=== PATIENT | female | born 1980 | race Hispanic/Latino ===

== ENCOUNTER 2017-02-24 16:25 | Emergency (ER) | payer BC ==
[~2017-02-24] VITALS: Ht 167.6 cm; Wt 127.0 kg
[~2017-02-24 16:25] MED LIST: COZAAR50 MG PO; ESCITALOPRAM OXA5 MG PO; LISINOPRIL-HCT1 EACH PO; LOSARTAN-HCTZ1 EACH PO; METOPROLOL TART50 MG PO; NORCO 5-325 TA1 EACH PO; SPIRONOLACTONE50 MG PO
--- NOTE | 2017-02-25 08:03 | EKG ---
[facility] [address] [facility] [place] [address] Signed Normal sinus rhythm Moderate voltage criteria for LVH, may be normal variant Prolonged QT Abnormal ECG No previous ECGs available Confirmed by OLIVIA JOHANSEN MD ([id number]) on 02/25/2017 8:03:14 AM Electronically Signed By: OLIVIA JOHANSEN MD 02/25/17 0803 PATIENT NAME: CATARINA MEJIA Electrocardiogram DATE OF : 80 PHYSICIAN: OLIVIA JOHANSEN MD REPORT #: [id number] REPORT IS CONFIDENTIAL AND NOT TO BE RELEASED WITHOUT AUTHORIZATION
== END 2017-02-24 19:40 | disposition home or self-care (01) ==
LOC: ED 16:25
DX: I16.9 Hypertensive crisis, unspecified (principal); I10 Essential (primary) hypertension; F41.9 Anxiety disorder, unspecified; Z90.49 Acquired absence of other specified parts of digestive tract; Z98.51 Tubal ligation status; Z88.8 Allergy status to other drugs, medicaments and biological substances; Z79.899 Other long term (current) drug therapy
CPT/HCPCS: 80053; 84484; 85025; 85610; 85730; 93005; 93010; 96374; 99284

== ENCOUNTER 2017-03-11 06:14 | Emergency (ER) | payer BC ==
[~2017-03-11] VITALS: Ht 167.6 cm; Wt 127.0 kg
--- NOTE | 2017-03-12 19:15 | EKG ---
[facility] [address] [facility] [place] [address] Signed Normal sinus rhythm Voltage criteria for left ventricular hypertrophy Abnormal ECG When compared with ECG of 24-FEB-2017 16:36, No significant change was found Confirmed by OLIVIA JOHANSEN MD ([id number]) on 03/12/2017 7:15:41 PM Electronically Signed By: OLIVIA JOHANSEN MD 03/12/17 1915 PATIENT NAME: CATARINA MEJIA Electrocardiogram DATE OF : 80 PHYSICIAN: OLIVIA JOHANSEN MD REPORT #: [id number] REPORT IS CONFIDENTIAL AND NOT TO BE RELEASED WITHOUT AUTHORIZATION
== END 2017-03-11 08:36 | disposition home or self-care (01) ==
LOC: ED 06:14
DX: I47.1 Supraventricular tachycardia (principal); E87.6 Hypokalemia; I10 Essential (primary) hypertension; F41.9 Anxiety disorder, unspecified; E66.9 Obesity, unspecified; Z90.49 Acquired absence of other specified parts of digestive tract; Z98.51 Tubal ligation status; Z90.89 Acquired absence of other organs; Z88.8 Allergy status to other drugs, medicaments and biological substances; Z79.899 Other long term (current) drug therapy
CPT/HCPCS: 71010; 80053; 83735; 84484; 85025; 93005; 93010; 99284

== ENCOUNTER 2017-06-11 18:46 | Emergency (ER) | payer BC ==
[~2017-06-11] VITALS: Ht 167.6 cm; Wt 122.5 kg
== END 2017-06-11 20:50 | disposition left against medical advice (07) ==
LOC: ED 18:46
DX: Z53.21 Procedure and treatment not carried out due to patient leaving prior to being seen by health care provider (principal)

== ENCOUNTER 2017-06-14 21:47 | Emergency (ER) | payer BC, OTHER ==
[~2017-06-14] VITALS: Ht 167.6 cm; Wt 131.5 kg
[2017-06-14] MEDS ORDERED: BENZONATATE100 MG PO (22:01)
--- NOTE | 2017-06-15 14:56 | EKG ---
[facility] [address] [facility] [place] [address] Signed Sinus tachycardia Voltage criteria for left ventricular hypertrophy Abnormal ECG When compared with ECG of 11-MAR-2017 06:20, No significant change was found Confirmed by OLIVIA JOHANSEN MD ([id number]) on 06/15/2017 2:56:42 PM Electronically Signed By: OLIVIA JOHANSEN MD 06/15/17 1456 PATIENT NAME: ROBERTOCATARINA Electrocardiogram DATE OF : 80 PHYSICIAN: OLIVIA JOHANSEN MD REPORT #: [id number] REPORT IS CONFIDENTIAL AND NOT TO BE RELEASED WITHOUT AUTHORIZATION
== END 2017-06-15 00:41 | disposition home or self-care (01) ==
LOC: ED 21:47
DX: I10 Essential (primary) hypertension (principal); R07.2 Precordial pain; F41.9 Anxiety disorder, unspecified; E66.9 Obesity, unspecified; Z88.8 Allergy status to other drugs, medicaments and biological substances; Z79.899 Other long term (current) drug therapy
CPT/HCPCS: 71045; 80053; 81001; 84484; 85025; 93005; 93010; 99284

== ENCOUNTER 2017-10-01 21:59 | Emergency (ER) | payer BC, OTHER ==
[~2017-10-01] VITALS: Ht 167.6 cm; Wt 127.0 kg
[~2017-10-01 21:59] MED LIST changes: +BENZONATATE100 MG PO
--- NOTE | 2017-10-02 07:54 | EKG ---
[facility] [address] [place], [place] [address] Signed Sinus tachycardia Minimal voltage criteria for LVH, may be normal variant Borderline ECG When compared with ECG of 14-JUN-2017 21:52, No significant change was found Confirmed by ENA MACARIO MD ([id number]) on 10/02/2017 7:54:26 AM Electronically Signed By: ENA MACARIO MD 10/02/17 0754 PATIENT NAME: CATARINA MEJIA Electrocardiogram DATE OF : 80 PHYSICIAN: ENA MACARIO MD REPORT #: [id number] REPORT IS CONFIDENTIAL AND NOT TO BE RELEASED WITHOUT AUTHORIZATION
== END 2017-10-02 01:09 | disposition home or self-care (01) ==
LOC: ED 21:59
DX: R07.9 Chest pain, unspecified (principal); I10 Essential (primary) hypertension; F41.9 Anxiety disorder, unspecified; E66.9 Obesity, unspecified; Z88.8 Allergy status to other drugs, medicaments and biological substances; Z79.899 Other long term (current) drug therapy
CPT/HCPCS: 71045; 80053; 84484; 85025; 93005; 93010; 96361; 96374; 96375; 99284; J2060; J7030

== ENCOUNTER 2017-12-20 07:44 | Emergency (ER) | payer BC ==
[~2017-12-20] VITALS: Ht 167.6 cm; Wt 127.0 kg
[2017-12-20] MEDS ORDERED: METOPROLOL SUC200 MG PO (08:01)
[2017-12-20] MEDS ORDERED: ALPRAZOLAM0.5 MG PO (08:02)
[2017-12-20] MEDS ORDERED: NORCO 5-325 TA1 EACH PO (08:18)
[2017-12-20] MEDS ORDERED: METHYLPREDNISOLO4 M1 PO (08:18)
[2017-12-20] MEDS ORDERED: BACLOFEN10 MG PO (08:18)
== END 2017-12-20 08:28 | disposition home or self-care (01) ==
LOC: ED 07:44
DX: M99.03 Segmental and somatic dysfunction of lumbar region (principal); I10 Essential (primary) hypertension; E66.9 Obesity, unspecified; Z88.8 Allergy status to other drugs, medicaments and biological substances; Z79.899 Other long term (current) drug therapy
CPT/HCPCS: 99283

== ENCOUNTER 2017-12-26 22:32 | Emergency (ER) | payer BC ==
[~2017-12-26] VITALS: Ht 170.2 cm; Wt 127.0 kg
[~2017-12-26 22:32] MED LIST changes: +ALPRAZOLAM0.5 MG PO; +BACLOFEN10 MG PO; +METHYLPREDNISOLO4 M1 PO; +METOPROLOL SUC200 MG PO
[2017-12-26] MEDS ORDERED: LISINOPRIL5 MG PO (22:46)
[2017-12-27] MEDS ORDERED: DICLOFENAC SODI75 MG PO (02:29)
--- NOTE | 2017-12-27 11:37 | EKG ---
[facility] [address] [facility] [place] [address] Signed Normal sinus rhythm Possible Left atrial enlargement Left ventricular hypertrophy Abnormal ECG When compared with ECG of 01-OCT-2017 22:04, No significant change was found Confirmed by OLIVIA JOHANSEN MD ([id number]) on 12/27/2017 11:36:58 AM Electronically Signed By: OLIVIA JOHANSEN MD 12/27/17 1137 PATIENT NAME: CATARINA MEJIA Electrocardiogram DATE OF : 80 PHYSICIAN: OLIVIA JOHANSEN MD REPORT #: [id number] REPORT IS CONFIDENTIAL AND NOT TO BE RELEASED WITHOUT AUTHORIZATION
== END 2017-12-27 03:10 | disposition home or self-care (01) ==
LOC: ED 22:32
DX: R07.9 Chest pain, unspecified (principal); I10 Essential (primary) hypertension; F41.9 Anxiety disorder, unspecified; E66.9 Obesity, unspecified; Z79.899 Other long term (current) drug therapy
CPT/HCPCS: 71045; 80053; 84484; 85025; 93005; 93010; 99285

== ENCOUNTER 2018-01-06 13:38 | Emergency (ER) | payer BC ==
[~2018-01-06] VITALS: Ht 170.2 cm; Wt 127.0 kg
[~2018-01-06 13:38] MED LIST changes: +DICLOFENAC SODI75 MG PO; +LISINOPRIL5 MG PO
--- NOTE | 2018-01-08 08:00 | EKG ---
[facility] [address] [facility] [place] [address] Signed Supraventricular tachycardia Left ventricular hypertrophy with repolarization abnormality Abnormal ECG When compared with ECG of 26-DEC-2017 22:38, Vent. rate has increased BY [address] now depressed in Anterolateral leads Inverted T waves have replaced nonspecific T wave abnormality in Lateral leads Confirmed by ENA MACARIO MD ([id number]) on 01/08/2018 8:00:26 AM Electronically Signed By: ENA MACARIO MD 01/08/18 0800 PATIENT NAME: CATARINA MEJIA Electrocardiogram DATE OF : [birth year] PHYSICIAN: ENA MACARIO MD REPORT #: [id number] REPORT IS CONFIDENTIAL AND NOT TO BE RELEASED WITHOUT AUTHORIZATION
--- NOTE | 2018-01-08 08:01 | EKG ---
[facility] [address] [place], [place] [address] Signed Sinus tachycardia Moderate voltage criteria for LVH, may be normal variant Borderline ECG When compared with ECG of 26-DEC-2017 22:38, No significant change was found Confirmed by ENA MACARIO MD ([id number]) on 01/08/2018 8:00:47 AM Electronically Signed By: ENA MACARIO MD 01/08/18 0801 PATIENT NAME: CATARINA MEJIA Electrocardiogram DATE OF : [birth year] PHYSICIAN: ENA MACARIO MD REPORT #: [id number] REPORT IS CONFIDENTIAL AND NOT TO BE RELEASED WITHOUT AUTHORIZATION
== END 2018-01-06 15:43 | disposition home or self-care (01) ==
LOC: ED 13:38
DX: I47.1 Supraventricular tachycardia (principal); I10 Essential (primary) hypertension; F41.9 Anxiety disorder, unspecified; E66.9 Obesity, unspecified; Z79.899 Other long term (current) drug therapy
CPT/HCPCS: 71045; 80053; 83735; 84484; 85025; 93005; 93010; 96374; 99285; J0153

== ENCOUNTER 2018-05-17 18:20 | Emergency (ER) | payer BC, OTHER ==
[~2018-05-17] VITALS: Ht 170.2 cm; Wt 127.0 kg
--- OUTSIDE RECORDS SUMMARY | 2018-05-17 18:26 | XMS ---
PreManage Notification: CATARINA MEJIA Security Abalone Diver Events 1 event(s) in the past 18 months Most recent security events: Elopement at [facility] 06/11/2017 18:47 - Patient eloped before treatment completed. Details: [facility] CRITERIA MET - Group Notification CARE PROVIDERS ITZ FLOWERS Physician Supervisor Computer Operations 12/21/2017-Current PHONE: Unknown Chris Winn Treatment Current PHONE: Unknown [facility] Other Current Orthopedic Surgery \T\ Fracture Clinic PHONE: Unknown Leti has no Care Guidelines for this patient. Care History Medical/Surgical 01/07/2018 [facility] - PATIENT IS FOLLOWING UP WITH PCP JERRY FLOWERS. - PATIENT HAS PREVIOUSLY DECLINED REFERRALS TO A GUT DROPPER SUGGESTED BY PCP. - NEXT FOLLOW UP APT WILL BE ON 01/14 AND PCP WILL DISCUSS THE GUT DROPPER REFERRAL. Anshu VISIT COUNT (12 MO.) 7 [facility] TOTAL 7 NOTE: Visits indicate total known visits. 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 - Shortness of breath - Anxiety disorder, unspecified - Obesity, unspecified - Supraventricular tachycardia - Essential (primary) hypertension 12/26/2017 22:32 [facility] [place] TYPE: Emergency COMPLAINT: - CHEST PAIN DIAGNOSES: - Essential (primary) hypertension - Chest pain, unspecified - Anxiety disorder, unspecified - Other chest pain - Other alf (current) drug therapy - Obesity, unspecified 12/20/2017 07:45 [facility] [place] TYPE: Emergency COMPLAINT: - BILAT KNEE PAIN/BACK PAIN/FALL DIAGNOSES: - Essential (primary) hypertension - Allergy status to other drugs, medicaments and biological substances status - Segmental and somatic dysfunction of lumbar region - Pain in right knee - Other alf (current) drug therapy - Obesity, unspecified 10/01/2017 22:00 [facility] [place] TYPE: Emergency COMPLAINT: - CHEST PAIN DIAGNOSES: - Chest pain, unspecified - 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 [facility] [place] TYPE: Emergency COMPLAINT: - CHEST PAIN DIAGNOSES: - Obesity, unspecified - Other computer terminal operator (current) drug therapy - Anxiety disorder, unspecified - Essential (primary) hypertension - Allergy status to other drugs, medicaments and biological substances status - Precordial pain 06/11/2017 18:47 [facility] [place] TYPE: Emergency COMPLAINT: - SOB/COUGH DIAGNOSES: - Procedure and treatment not carried out due to patient leaving prior to being seen by health care provider INPATIENT VISIT TRACKING (12 MO.) No inpatient visits to display in this time frame [email or web address]
[2018-05-17] MEDS ORDERED: LISINOPRIL10 MG PO (18:37)
[2018-05-17] MEDS ORDERED: CLONIDINE HCL0.2 MG PO (18:39)
--- NOTE | 2018-05-17 23:00 | EKG ---
[facility] [address] [facility] [place] [address] Signed Sinus tachycardia Possible Left atrial enlargement Left ventricular hypertrophy Abnormal ECG When compared with ECG of 06-JAN-2018 13:57, T wave inversion now evident in Anterior leads Confirmed by OLIVIA JOHANSEN MD ([id number]) on 05/17/2018 11:00:17 PM Electronically Signed By: OLIVIA JOHANSEN MD 05/17/18 2300 PATIENT NAME: CATARINA MEJIA Electrocardiogram DATE OF : 80 PHYSICIAN: OLIVIA JOHANSEN MD REPORT #: [id number] REPORT IS CONFIDENTIAL AND NOT TO BE RELEASED WITHOUT AUTHORIZATION
== END 2018-05-17 20:58 | disposition home or self-care (01) ==
LOC: ED 18:20
DX: I16.0 Hypertensive urgency (principal); F41.9 Anxiety disorder, unspecified; E66.9 Obesity, unspecified; Z79.899 Other long term (current) drug therapy
CPT/HCPCS: 71045; 80053; 83735; 84484; 85025; 93005; 93010; 96374; 99283-25

== ENCOUNTER 2018-10-13 12:37 | Emergency (ER) | payer SELFPAY ==
[~2018-10-13] VITALS: Ht 167.6 cm; Wt 124.7 kg
[~2018-10-13 12:37] MED LIST changes: +CLONIDINE HCL0.2 MG PO; +LISINOPRIL10 MG PO
--- OUTSIDE RECORDS SUMMARY | 2018-10-13 12:40 | XMS ---
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 Details: [facility] CRITERIA MET - Group Notification - [facility] - Has Care Guidelines CARE PROVIDERS ITZ FLOWERS Physician Outside Sales Account Representative 12/21/2017-Current PHONE: Unknown Chris Winn Current PHONE: Unknown [facility] Current Orthopedic Surgery \T\ Fracture Clinic PHONE: Unknown Leti has no Care Guidelines for this patient. Care History Medical/Surgical 01/07/2018 [facility] - PATIENT IS FOLLOWING UP WITH PCP JERRY FLOWERS. - PATIENT HAS PREVIOUSLY DECLINED REFERRALS TO A FILLER SHAKER SUGGESTED BY PCP. - NEXT FOLLOW UP APT WILL BE ON 01/14 AND PCP WILL DISCUSS THE FILLER SHAKER REFERRAL. Anshu VISIT COUNT (12 MO.) [address] [facility] TOTAL 5 NOTE: Visits indicate total known visits. 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 01/06/2018 13:38 [facility] [place] TYPE: Emergency COMPLAINT: - DIFFICULTY BREATHING DIAGNOSES: - Other fpc (current) drug therapy - Shortness of breath - Anxiety disorder, unspecified - Obesity, unspecified - Supraventricular tachycardia - Essential (primary) hypertension 12/26/2017 22:32 [facility] [place] TYPE: Emergency COMPLAINT: - CHEST PAIN DIAGNOSES: - Essential (primary) hypertension - Chest pain, unspecified - Anxiety disorder, unspecified - Other chest pain - Other fpc (current) drug therapy - Obesity, unspecified 12/20/2017 07:45 [facility] [place] TYPE: Emergency COMPLAINT: - BILAT KNEE PAIN/BACK PAIN/FALL DIAGNOSES: - Essential (primary) hypertension - Allergy status to other drugs, medicaments and biological substances status - Segmental and somatic dysfunction of lumbar region - Pain in right knee - Other fpc (current) drug therapy - Obesity, unspecified INPATIENT VISIT TRACKING (12 MO.) No inpatient visits to display in this time frame [email or web address]
[2018-10-13] MEDS ORDERED: ONDANSETRON ODT8 MG PO (15:37)
--- NOTE | 2018-10-13 20:39 | EKG ---
[facility] [address] [facility] [place] [address] Signed Normal sinus rhythm Minimal voltage criteria for LVH, may be normal variant Nonspecific T wave abnormality Abnormal ECG When compared with ECG of 17-MAY-2018 18:34, No significant change was found Confirmed by OLIVIA JOHANSEN MD ([id number]) on 10/13/2018 8:38:59 PM Electronically Signed By: OLIVIA JOHANSEN MD 10/13/18 2039 PATIENT NAME: CATARINA MEJIA Electrocardiogram DATE OF : 80 PHYSICIAN: OLIVIA JOHANSEN MD REPORT #: [id number] REPORT IS CONFIDENTIAL AND NOT TO BE RELEASED WITHOUT AUTHORIZATION
== END 2018-10-13 15:59 | disposition home or self-care (01) ==
LOC: ED 12:37
DX: A08.4 Viral intestinal infection, unspecified (principal); I10 Essential (primary) hypertension; E66.9 Obesity, unspecified; F41.9 Anxiety disorder, unspecified; Z90.49 Acquired absence of other specified parts of digestive tract; Z79.899 Other long term (current) drug therapy
CPT/HCPCS: 80053; 83690; 84484; 85025; 93005; 93010; 96361; 96374; 99284-25; J2405; J7040

== ENCOUNTER 2019-03-15 23:31 | Emergency (ER) | payer SELFPAY ==
[~2019-03-15] VITALS: Ht 167.6 cm; Wt 124.7 kg
--- OUTSIDE RECORDS SUMMARY | ~2019-03-15 | XMS | Clinical Summary ---
Demographics + + + | Address | [address] | | | [place] [address] | + + + | Home Phone | | + + + | Preferred Language | Unknown | + + + | Marital Status | Unknown | + + + | Sikh Affiliation | Unknown | + + + | Race | Unknown | + + + | Ethnic Group | Unknown | + + + Author + + + | Author | [facility] | | | and [place] | + + + | Organization | [facility] | | | [...] Team Providers + +------+ + | Care Quality Control Lab Tech Name | Role | Phone | + +------+ + | Nicole Parikh PA-C | PCP | | + +------+ + Allergies + + + + + + | Active Allergy | Reactions | Severity | Noted | Comments | | | | | Date | | + + + + + + | Lisinopril-Hydrochlo | Cough | Low | 10/24/20 | | | rothiazide | | | [...] + + +---------+------+------+-------+ | metoprolol | Take 200 mg by mouth | | 0 | 10/2 | | Activ | | succinate | daily. | | | 4/20 | | e | | (TOPROL-XL) 200 mg | | | | 18 | | | | ER tablet | | | | | | | + + + +---------+------+------+-------+ | ALPRAZolam (XANAX) | Take 0.5 mg by mouth | | 0 | 10/2 | | Activ | | 0.5 mg tablet | nightly as needed | | | 4/20 | | e | | | for Sleep. | | | 18 | | | + + + +---------+------+------+-------+ | cloNIDine | Take 1 tablet by | 60 | 11 | /2 | /2 | Activ | | (CATAPRES) 0.2 MG | mouth as needed (PRN | tablet | | 4/20 | 20 | e | | tablet | SBP>190). | | | 19 | 20 | | + + + +---------+------+------+-------+ | lisinopril | Take 1 tablet by | 30 | 3 | /2 | | Activ | | (PRINIVIL,ZESTRIL) | mouth daily. | tablet | | 4/20 | | e | | 40 MG tablet | | | | 19 | | | + + + +---------+------+------+-------+ | chlorthalidone 25 | Take 1 tablet by | 30 | 11 | 04/2 | 04/2 | Activ | | mg tablet | mouth daily. | tablet | | /20 | /20 | e | | | | | | 19 | 20 | | + + + +---------+------+------+-------+ | dilTIAZem | Take 1 tablet by | 30 | 11 | 02/09 | 02/09 | Expir | | (CARDIZEM LA) 120 mg | mouth daily. | tablet | | 09/27 | 09/27 | ed | | 24 hr tablet | | | | 18 | 19 | | + + + +---------+------+------+-------+ Active Problems + + + | Problem | Noted Date | + + + | AVNRT (AV eriberto [...] + | 12/24/ | Orders Only | Cardiology | Nisha Forde DO | Essential (primary) | | 2019 | | | | hypertension | +--------+ + + + + from [...] Alive | | + +------+--------+ + | Father | | | | + +------+--------+ + | Mother [...] Filed Vital Signs + + + + | Vital Sign | Reading | Time Taken | + + + + | Blood Pressure | 152/100 | 09/02/2018899 PDT | + + + + | Pulse | 72 | 09/02/2018 09 PDT | + + + + | Temperature | - | - | + + + + | Respiratory Rate | - | - | + + + + | Oxygen Saturation | - | - | + + + + | Inhaled Oxygen | - | - | | Concentration | | | + + + + | Weight | 127 kg (280 lb) | 09/02/2018899 PDT | + + + + | Height | 167.6 cm (5' 6") | 09/02/2018899 PDT | + + + + | Body Mass Index | 45.19 | 09/02/2018899 PDT | + + + + Plan of Treatment +--------+---------+ + + + | Date | Type | Specialty | Care Team | Description | +--------+---------+ + + + | 04/01/ | Office | Otolaryngology | Monika Morillo | | | 2019 | Visit | | DO Topher Nugent | | | | | | [address] | | | | | | [place] [address] | | | | | | [phone] | | | | | | | | +--------+---------+ + + + + + + + + | Health Maintenance | Due Date | Last Done | Comments | + + + + + | Vaccine: | | | | | Dtap/Tdap/Td (1 - | 9 | | | | Tdap) | | | | + + + + + | Cervical Cancer | | | | | Screening (Pap) | 0 | | | + + + + + | Vaccine: Influenza | | | | | (#1) | 9 | | | + + + + [...] +--------+ +---------+------+ | [facility] | REGENC | [id number] | 05/11/19 | [phone] | | PPO | | | E [...] | | al/Fam | | 1979 | [phone] | [place], [place] | | | [place] | | | 1 (Home) | [address] | + +--------+ +--------+ + + | Tamera Yang | Person | Self | [birth year] | [address] | | | al/Fam | | 1979 | [phone] | [place], [place] | | | [place] | | | 1 (Home) | [address] | + +--------+ +--------+ + + Advance Directives Patient has advance care planning documents on file. For more information, please contact:[facility] [place] [place] [address]
--- OUTSIDE RECORDS SUMMARY | ~2019-03-15 | XMS | Clinical Summary ---
Demographics + + + | Address | [address] | | | [place] [address] | + + + | Home Phone | | + + + | Preferred Language | Unknown | + + + | Marital Status | Unknown | + + + | Christian Affiliation | Unknown | + + + | Race | Unknown | + + + | Ethnic Group | Unknown | + + + Author + + + | Author | [facility] | | | and [place] | + + + | Organization | [facility] | [...] Team Providers + +------+ + | Care Mechanical Laboratory Technician Name | Role | Phone | [...] | | | | | [place] [address] | | | | | | [phone] | | | | | | | [...] +--------+ +---------+------+ | [facility] | REGENC | [id number] | 05/11/19 | [phone] | | PPO | | | E [...] | | al/Fam | | 1979 | [phone] | [place], [place] | | | [place] | | | 1 (Home) | [address] | + +--------+ +--------+ + + | Tamera Yang | Person | Self | [birth year] | [address] | | | al/Fam | | 1979 | [phone] | [place], [place] | | | [place] | | | 1 (Home) | [address] | + +--------+ +--------+ + + Advance Directives Patient has advance care planning documents on file. For more information, please contact:[facility] [employer] Online Scheduling [facility] [place] [address]
--- OUTSIDE RECORDS SUMMARY | ~2019-03-15 | XMS | Encounter Summary ---
Demographics + + + | Address | [address] | | | [place] [address] | + + + | Home Phone | | + + + | Preferred Language | Unknown | + + + | Marital Status | Unknown | + + + | Druze Affiliation | Unknown | + + + | Race | Unknown | + + + | Ethnic Group | Unknown | + + + Author + + + | Author | [facility] | | | and [place] | + + + | Organization | [facility] | | | [...] Team Providers + +------+ + | Care Wet Silk Hanger Name | Role | Phone | + +------+ + | Nicole Parikh PA-C | PCP | | + +------+ + Encounter Details +--------+ + + + + | Date | Type | Department | Care Team | Description | +--------+ + + + + | 12/24/ | Orders Only | [facility] | Nisha Forde DO | Essential (primary) | | 2019 | | CARDIOLOGY [place] | [address] | hypertension | | | | [address] | [place], [place] | | | | | [address] | [address] | | | | | [place], [place] | | | | | | [address] | | | | | | [phone] | | | +--------+ + + + [...] [place] | | | | | | [address] | | | | | | [place] [address] | | | | | | [phone] | | | | | | | | +--------+---------+ + + + + +--------+ + + | Name | Priori | Associated Diagnoses | Order Schedule | | | ty | | | + +--------+ + + | Basic Metabolic Panel | Routin | Essential | Expected: | | | e | (primary) | 06/03/2018, Expires: | | | | hypertension | 06/03/2019 | + +--------+ + + | Basic Metabolic Panel | Routin | Essential | Expected: | | | e | (primary) | 09/02/2018, Expires: | | | | hypertension | 09/03/2019 | + +--------+ + + documented as of this encounter Visit Diagnoses + + | Diagnosis | + + | Essential (primary) hypertension Unspecified essential hypertension | + + documented in this encounter"
--- OUTSIDE RECORDS SUMMARY | ~2019-03-15 | XMS | Encounter Summary ---
Demographics + + + | Address | [address] | | | [place] [address] | + + + | Home Phone | | + + + | Preferred Language | Unknown | + + + | Marital Status | Unknown | + + + | Hindu Affiliation [...] Providers + +------+ + | Care Health Care Law Specialist Name | Role | Phone | + +------+ + | Nicole Parikh PA-C | PCP | | + +------+ + Encounter Details +--------+ + + + + | Date | Type | Department | Care Team | Description | +--------+ + + + + | 12/24/ | Orders Only | [facility] | Nisha Forde DO | Essential (primary) | | 2019 | | CARDIOLOGY [place] | [address] | hypertension | | | | [address] | [place], [place] | | | | | [address] | [address] | | | | | [place], [place] | | | | | | [address] | | | | | | [phone] | | | +--------+ + + + [...] | | | | | [place] [address] | | | | | | [phone] | | | | | | | [...]
--- OUTSIDE RECORDS SUMMARY | ~2019-03-15 | XMS | Clinical Summary ---
Demographics + + + | Address | [address] | | | [place] [address] | + + + | Home Phone | | + + + | Preferred Language | Unknown | + + + | Marital Status | | + + + | Episcopalian Affiliation | Unknown | + + + | Race | Unknown | + + + | Ethnic Group | Unknown | + + + Author + + + | Author | [facility] (Historical as of | | | 12-25-18) | + + + | Organization | [facility] (Historical as of | | | 12-25-18) [...] Team Providers + +------+ + | Care Graphic Design Specialist Name | Role | Phone | [...] | AVNRT (AV eriberto re-entry tachycardia) ([facility]) | 03/04/2018 | + + [...]
--- OUTSIDE RECORDS SUMMARY | ~2019-03-15 | XMS | Clinical Summary ---
Demographics + + + | Address | [address] | | | [place] [address] | + + + | Home Phone | | + + + | Preferred Language | Unknown | + + + | Marital Status | | + + + | Temple Affiliation | Unknown | + + + | Race | Unknown | + + + | Ethnic Group | Unknown | + + + Author + + + | Author | [facility] [employer] (Historical as of | | | 12-25-18) | + + + | Organization | [facility] [employer] (Historical as of | | | 12-25-18) [...] Team Providers + +------+ + | Care Bursar Name | Role | Phone | + [...] + | AVNRT (AV eriberto re-entry tachycardia) ([facility]) | 03/04/2018 | + + + [...]
[~2019-03-15 23:31] MED LIST changes: +ONDANSETRON ODT8 MG PO
--- OUTSIDE RECORDS SUMMARY | 2019-03-15 23:34 | XMS ---
PreManage Notification: CATARINA MEJIA Security Gill Box Tender Events No recent Security Events currently on file CRITERIA MET - Group Notification - [facility] CARE PROVIDERS ITZ FLOWERS Physician Tube Washer 12/21/2017-Current PHONE: Unknown [facility] 10/14/2018-Current PHONE: [phone] LISSETTE CHANEY [facility] Current PHONE: [phone] Chris Winn MD PHONE: Unknown [facility] Current Orthopedic Surgery \T\ Fracture Clinic PHONE: Unknown Leti has no Care Guidelines for this patient. Care History Medical/Surgical 01/07/2018 [facility] - PATIENT IS FOLLOWING UP WITH PCP JERRY FLOWERS. - PATIENT HAS PREVIOUSLY DECLINED REFERRALS TO A GYROSCOPIC INSTRUMENT MECHANIC SUGGESTED BY PCP. - NEXT FOLLOW UP APT WILL BE ON 01/14 AND PCP WILL DISCUSS THE GYROSCOPIC INSTRUMENT MECHANIC REFERRAL. Anshu VISIT COUNT (12 MO.) 3 [facility]. TOTAL 3 NOTE: Visits indicate total known visits. ED/UCC VISIT TRACKING (12 MO.) 03/15/2019 23:32 [facility] [place] TYPE: Emergency COMPLAINT: - SOB, HIGH BLOOD PRESSURE 10/13/2018 12:38 [facility] [place] TYPE: Emergency COMPLAINT: - CHEST PAIN/BP PROBLEM DIAGNOSES: - Acquired absence of other specified parts of digestive tract - Essential (primary) hypertension - Other malaise - Obesity, unspecified - Other lobsterman (current) drug therapy - Viral intestinal infection, unspecified Viral int - Anxiety disorder, unspecified 05/17/2018 18:21 [facility] [place] TYPE: Emergency COMPLAINT: - HIGH BLOOD PRESSURE,DIZZINESS DIAGNOSES: - Essential (primary) hypertension - Obesity, unspecified - Anxiety disorder, unspecified - Hypertensive urgency - Other lobsterman (current) drug therapy INPATIENT VISIT TRACKING (12 MO.) No inpatient visits to display in this time frame [email or web address]
[2019-03-15] MEDS ORDERED: CARTIA XT120 MG PO (23:53)
[2019-03-16] MEDS ORDERED: AMLODIPINE BESYL5 MG PO (00:01)
== END 2019-03-16 02:20 | disposition home or self-care (01) ==
LOC: ED 23:31
DX: E04.1 Nontoxic single thyroid nodule (principal); I10 Essential (primary) hypertension; F41.9 Anxiety disorder, unspecified; E66.9 Obesity, unspecified; Z88.8 Allergy status to other drugs, medicaments and biological substances; Z79.899 Other long term (current) drug therapy
CPT/HCPCS: 36415; 76536; 80053; 84443; 85025; 99285-25

== ENCOUNTER 2019-05-09 10:45 | Emergency (ER) | payer SELFPAY ==
[~2019-05-09] VITALS: Ht 167.6 cm; Wt 123.8 kg
--- OUTSIDE RECORDS SUMMARY | ~2019-05-09 | XMS | Encounter Summary ---
Demographics + + + | Address | [address] | | | [place] [address] | + + + | Home Phone | | + + + | Preferred Language | Unknown | + + + | Marital Status | Single | + + + | Sabianism Affiliation | Unknown | + + + | Race | Unknown | + + + | Ethnic Group | Unknown | + + + Author + + + | Author | [facility] | | | and [place] | + + + | Organization | [facility] | | | and [place] | + + + | Address | Unknown | + + + | Phone | Unavailable | + + + Support + + +---------+ + | Name | Relationship | Address | Phone | + + +---------+ + | Karey Mullen | ECON | Unknown | | + + +---------+ + Care Team Providers + +------+ + | Care [employer] Name | Role | Phone | + +------+ + | Kiersten Pardo MD | PCP | | + +------+ + Encounter Details +--------+ + + + + | Date | Type | Department | Care Team | Description | +--------+ + + + + | 04/15/ | Preadmit | [facility] | Monika Morillo | Preop testing | | 2019 | Visit | [facility] | J, DO [address] | (Primary Dx) | | | | CLINIC [address] | | | | | [address] [place], [place] | [place] [address] | | | | | [address] | [phone] | | | | | [phone] | | | +--------+ + + + + Social History + +-------+ +--------+------+ | Tobacco Use | Types | Packs/Day | Years | Date | | | | | Used | | + +-------+ +--------+------+ | Never Smoker | | | | | + +-------+ +--------+------+ + +---+---+---+ | Smokeless Tobacco: | | | | | Never Used | | | | + +---+---+---+ + + +---------+ + | Alcohol Use | Drinks/Week | oz/Week | Comments | + + +---------+ + | Yes | | | Alcoholic | | | | | Drinks/day: | | | | | occasional | + + +---------+ + + + + | Sex Assigned at | Date Recorded | | | | + + + | Not on file | | + + + + + + + | Job Start Date | Occupation | Industry | + + + + | Not on file | Not on file | Not on file | + + + + + + + + | Travel History | Travel Start | Travel End | + + + + + + | No recent travel history available. | + + documented as of this encounter Last Filed Vital Signs + + + + + | Vital Sign | Reading | Time Taken | Comments | + + + + + | Blood Pressure | 206/124 | 04/15/2019 12:59 PM | | | | | PST | | + + + + + | Pulse | 89 | 04/15/2019 12:57 PM | | | | | PST | | + + + + + | Temperature | - | - | | + + + + + | Respiratory Rate | - | - | | + + + + + | Oxygen Saturation | 97% | 04/15/2019 12:57 PM | | | | | PST | | + + + + + | Inhaled Oxygen | - | - | | | Concentration | | | | + + + + + | Weight | 123.2 kg (271 lb 9.7 | 04/15/2019 12:47 PM | | | | oz) | PST | | + + + + + | Height | 167.6 cm (5' 6") | 04/15/2019 12:47 PM | | | | | PST | | + + + + + | Body Mass Index | 43.84 | 04/15/2019 12:47 PM | | | | | PST | | + + + + + documented in this encounter Patient Instructions Instructions Herson Fisher RN - 04/15/2019Formatting of this note might be different fr om the original. Outpatient Medications Marked as Taking for the 04/15/19 encounter (Preadmit Visit) with [facility] ROOM 1 Medication Sig Instructions amLODIPine (NORVASC) 5 mg tablet Take 5 mg by mouth. TAKE day of procedure dilTIAZem (CARTIA XT) 120 mg 24 hr capsule Take 120 mg by mouth Daily. TAKE day of proc edure metoprolol succinate (TOPROL-XL) 200 mg ER tablet Take 200 mg by mouth daily. TAKE day of procedure omeprazole (PRILOSEC) 40 MG capsule Take 1 capsule by mouth every morning (before break fast). TAKE day of procedure After Thyroid Surgery(Thyroidectomy) Your doctor will monitor your recovery to be sure you re healing correctly and that your thyroid problem is under control. After your surgery, follow your healthcare provider's instructions exactly. Take your medic vicky or hormone pills every day. And see your healthcare provider for regular checkups. Once your thyroid problems are under control, you can get back to doing the things you like to d o. While you re healing Don t let your incision area get wet for a few days after your surgery. Schedule a follow-up visit with the surgeon or your primary care providerto have your incision checked. If you still have diana or sutures,they may be removed. Your incision will be red and raised at first. It will probably flatten out and fade in about6 months. You may need to take thyroid hormone pills. These pills replace the hormonethat your t hyroid used to make. Yourhealthcare provider will adjust the dosage of this hormone until it s right for you.Make sure to take your thyroid pills on an empty stomach. Your parathyroid glands may not work normally. If so, you may need to take calcium and v itamin D supplements in the first weeks after surgery. Don t do strenuous physical activity for a few weeks. Don t go back to work until yourhealthcare provider says it s OK. Managing your health If you ve been given thyroid hormone pills or other medicine, take these exactly as di rected to help keep your hormones at the right levels.Always take thyroid hormone pills on an empty stomach. See yourhealthcare provider for regular blood tests. These tests are to check that you r hormone medicine is at the right dose for you. If you have a nodule,you may need follow-up tests. These are to check for changes in i ts size or for the appearance of additional nodules. If you ve had treatment for cancer,you will need regular follow-up exams. These are done to check for signs of the cancer returning. When to call yourhealthcare provider Call yourhealthcare provider if you have any of the below: Swelling or bleeding at the incision site Feverof 100.4F (38.0C)or higher, or as advised by your healthcare provider A sore throat that lasts longer than 3weeks Tingling or cramps in the hands,feet, or lips Date Last Reviewed: 03/11/201619991384-1972 [employer]. [address] [place] [address]. All righ ts reserved. This information is not intended as a substitute for professional medical care. Always follow your healthcare professional's instructions. documented in this encounter Plan of Treatment +--------+---------+ + + + | Date | Type | Specialty | Care Team | Description | +--------+---------+ + + + | 07/07/ | Office | Cardiology | Lanie Reece | | | 2019 | Visit | | [address] | | | | | | [address] | | | | | | [place] [address] | | | | | | [phone] | | | | | | | | +--------+---------+ + + + | 07/31/ | Office | Otolaryngology | Monika Morillo | | | 2019 | Visit | | DO Topher Nug[address] | | | | | | [address] | | | | | | [place] [address] | | | | | | [phone] | | | | | | | | +--------+---------+ + + + | 12/07/ | Office | Cardiology | Nisha Forde DO | | | 2019 | Visit | | [address] | | | | | | [place] | | | | | | [address] | | | | | | | | +--------+---------+ + + + documented as of this encounter Procedures + +--------+ + + + | Procedure Name | Priori | Date/Time | Associated Diagnosis | Comments | | | ty | | | | + +--------+ + + + | CBC WITH | Timed | 04/15/2019 | | Results for this | | DIFFERENTIAL | | 12:54 PM | | procedure are in the | | | | PST | | results section. | + +--------+ + + + | BASIC METABOLIC | Timed | 04/15/2019 | | Results for this | | PANEL | | 12:54 PM | | procedure are in the | | | | PST | | results section. | + +--------+ + + + documented in this encounter Results CBC with Differential (04/15/2019 12:54 PM PST) + + + + + + | Component | Value | Ref Range | Performed | Pathologist | | | | | At | Signature | + + + + + + | WBC | 8.89 | 3.80 - 11.00 | [facility] | | | | | K/uL | LABORATORY | | + + + + + + | RBC | 5.12 (H) | 3.70 - 5.10 | [facility] | | | | | M/uL | LABORATORY | | + + + + + + | Hemoglobin | 14.3 | 11.3 - 15.5 | [facility] | | | | | g/dL | LABORATORY | | + + + + + + | Hematocrit | 41.9 | 34.0 - 46.0 % | [facility] | | | | | | LABORATORY | | + + + + + + | MCV | 81.8 | 80.0 - 100.0 fl | [facility] | | | | | | LABORATORY | | + + + + + + | MCH | 27.9 | 27.0 - 34.0 pg | [facility] | | | | | | LABORATORY | | + + + + + + | MCHC | 34.1 | 32.0 - 35.5 | [facility] | | | | | g/dL | LABORATORY | | + + + + + + | RDW-SD | 41.1 | 37 - 53 fl | [facility] | | | | | | LABORATORY | | + + + + + + | Platelet | 231 | 150 - 400 K/uL | [facility] | | | Count | | | LABORATORY | | + + + + + + | MPV | 8.9 | fl | [facility] | | | | | | LABORATORY | | + + + + + + | Diff Type | AUTOMATED | | [facility] | | | | | | LABORATORY | | + + + + + + | % | 54.30 | % | [facility] | | | Neutrophils | | | LABORATORY | | + + + + + + | % | 36.78 | % | [facility] | | | Lymphocytes | | | LABORATORY | | + + + + + + | Monocyte % | 7.01 | % | [facility] | | | | | | LABORATORY | | + + + + + + | Eosinophils | 1.70 | % | [facility] | | | % | | | LABORATORY | | + + + + + + | Basophils % | 0.21 | % | [facility] | | | | | | LABORATORY | | + + + + + + | Neutrophils | 4.83 | 1.90 - 7.40 | [facility] | | | , Absolute | | K/uL | LABORATORY | | + + + + + + | Absolute | 3.27 | 1.00 - 3.90 | [facility] | | | Lymphocytes | | K/uL | LABORATORY | | + + + + + + | Absolute | 0.62 | 0.00 - 0.80 | [facility] | | | Monocytes | | K/uL | LABORATORY | | + + + + + + | Eosinophils | 0.15 | 0.00 - 0.50 | [facility] | | | , Absolute | | K/uL | LABORATORY | | + + + + + + | Basophils, | 0.02Comment: Testing | 0.00 - 0.10 | [facility] | | | Absolute | performed at [facility], [address] | K/uL | LABORATORY | | | | [address], | | | | | | [place] [address] | | | | + + + + + + + + | Specimen | + + | Blood | + + + + + + + | Performing | Address | City/State/Zipcode | Phone Number | | Organization | | | | + + + + + | [facility] | [address] | [place] [address] | [phone] | + + + + + Basic Metabolic Panel (04/15/2019 12:54 PM PST) + + + + + + | Component | Value | Ref Range | Performed | Pathologist | | | | | At | Signature | + + + + + + | Na | 136 | 135 - 145 | [facility] | | | | | mmol/L | LABORATORY | | + + + + + + | K | 3.6 | 3.5 - 4.9 | [facility] | | | | | mmol/L | LABORATORY | | + + + + + + | Cl | 102 | 99 - 109 mmol/L | [facility] | | | | | | LABORATORY | | + + + + + + | CO2 | 29 | 23 - 32 mmol/L | [facility] | | | | | | LABORATORY | | + + + + + + | Anion Gap | 9 | 5 - 20 mmol/L | [facility] | | | | | | LABORATORY | | + + + + + + | Glucose | 92 | 65 - 99 mg/dL | [facility] | | | | | | LABORATORY | | + + + + + + | BUN | 12 | 8 - 25 mg/dL | [facility] | | | | | | LABORATORY | | + + + + + + | Creatinine | 0.7 | 0.50 - 1.00 | [facility] | | | | | mg/dL | LABORATORY | | + + + + + + | BUN/Creatin | 17 | | [facility] | | | ine Ratio | | | LABORATORY | | + + + + + + | Calcium | 9.6 | 8.5 - 10.5 | [facility] | | | | | mg/dL | LABORATORY | | + + + + + + | Estimated | >60Comment: GFR <60: | >60 | [facility] | | | GFR | CHRONIC KIDNEY DISEASE, | mL/min/1.73m2 | LABORATORY | | | | IF FOUND OVER A 3 MONTH | | | | | | PERIOD.GFR <15: KIDNEY | | | | | | FAILURE.FOR | | | | | | AMERICANS, MULTIPLY THE | | | | | | CALCULATED GFR BY | | | | | | 1.210.This eGFR is | | | | | | calculated using the | | | | | | MDRD IDMS traceable | | | | | | equation.Testing | | | | | | performed at [facility], [address] | | | | | [facility], | | | | | | [place] [address] | | | | + + + + + + + + | Specimen | + + | Blood | + + + + + + + | Performing | Address | City/State/Zipcode | Phone Number | | Organization | | | | + + + + + | [facility] | [address] | [place] [address] | [phone] | + + + + + ECG 12 lead (04/15/2019 12:38 PM PST) + + + + + + | Component | Value | Ref Range | Performed | Pathologist | | | | | At | Signature | + + + + + + | VENTRICULAR | 70 | BPM | [facility] | | | RATE EKG | | | | | + + + + + + | ATRIAL RATE | 70 | BPM | [facility] | | + + + + + + | P-R | 182 | ms | [facility] | | | INTERVAL | | | | | + + + + + + | QRS | 98 | ms | [facility] | | | DURATION | | | | | + + + + + + | Q-T | 404 | ms | [facility] | | | INTERVAL | | | | | + + + + + + | Q-T | 436 | ms | [facility] | | | INTERVAL | | | | | | (CORRECTED) | | | | | + + + + + + | P WAVE AXIS | 23 | degrees | [facility] | | + + + + + + | QRS AXIS | -12 | degrees | [facility] | | + + + + + + | T AXIS | 39 | degrees | [facility] | | + + + + + + | INTERPRETAT | Normal sinus rhythm with | | [facility] | | | ION TEXT | sinus arrhythmiaVoltage | | | | | | criteria for left | | | | | | ventricular | | | | | | hypertrophyAbnormal | | | | | | ECGWhen compared with | | | | | | ECG of 04-MAR-2018 | | | | | | 09:22,No significant | | | | | | change was | | | | | | foundConfirmed by | | | | | | Kiko Roberts MD | | | | | | ([id number]) on 04/17/2019 | | | | | | 7:06:37 AM | | | | + + + + + + + + | Specimen | + + | | + + + + + | Narrative | Performed At | + + + | | | + + + + +---------+ + + | Performing | Address | City/State/Zipcode | Phone Number | | Organization | | | | + +---------+ + + | [facility] | | | | + +---------+ + + documented in this encounter Visit Diagnoses + + | Diagnosis | + + | Preop testing - Primary Preoperative examination, unspecified | + + documented in this encounter
--- OUTSIDE RECORDS SUMMARY | ~2019-05-09 | XMS | Encounter Summary ---
Demographics + + + | Address | [address] | | | [place] [address] | + + + | Home Phone | | + + + | Preferred Language | Unknown | + + + | Marital Status | Single | + + + | Zoroastrianism Affiliation | Unknown | + + + | Race | Unknown | + + + | Ethnic Group | Unknown | + + + Author + + + | Author | [facility] | | | and [place] | + + + | Organization | [facility] | | | [...] Team Providers + +------+ + | Care Fx Artist Name | Role | Phone | + +------+ + | Kiersten Pardo MD | PCP | | + +------+ + Reason for Visit + + + | Reason | Comments | + + + | Follow-up, Office | | | Visit | | + + + Evaluate & Treat (Routine) + +--------+ + + + + | Status | Reason | Specialty | Diagnoses / | Referred By | Referred To | | | | | Procedures | Contact | Contact | + +--------+ + + + + | Pending | | Cardiology | Diagnoses | | Eula, | | Review | | | Essential | Edvin, | DO Nisha | | | | | (primary) | MD Kiersten | [address] | | | | | hypertension | [address] | | | | | | ST | [place] | | | | | Supraventric | [place], | [address] Phone: | | | | | ulmanny | [place] | [phone] | | | | | tachycardia | [address] | Fax: | | | | | (HCC) | Phone: | [phone] | | | | | Procedures | [phone] | | | | | | Consult | Fax: | | | | | | | [phone] | | + +--------+ + + + + Encounter Details +--------+---------+ + + + | Date | Type | Department | Care Team | Description | +--------+---------+ + + + | 05/05/ | Office | [facility] | Lanie Reece | AVNRT (AV eriberto | | 2019 | Visit | CARDIOLOGY [place] | [address] | re-entry | | | | [address] | [address] | tachycardia) (HCC) | | | | [address] | [place] [address] | (Primary Dx); | | | | [place], [place] | [phone] | Essential | | | | [address] | | hypertension; High | | | | [phone] | | triglycerides; | | | | | | Prediabetes; | | | | | | Papillary thyroid | | | | | | carcinoma (HCC); H/O | | | | | | total | | | | | | thyroidectomy; | | | | | | Encounter for | | | | | | monitoring diuretic | | | | | | therapy | +--------+---------+ + + + Social History + +-------+ [...] + + + | Blood Pressure | 150/108 | 05/05/2019 2:38 PM | | | | | PST | | + + + + + | Pulse | 72 | 05/05/2019 2:38 PM | | | | | PST | | + + + + + | Temperature | - | - | | + + + + + | Respiratory Rate | - | - | | + + + + + | Oxygen Saturation | 98% | 05/05/2019 2:38 PM | | | | | PST | | + + + + + | Inhaled Oxygen | - | - | | | Concentration | | | | + + + + + | Weight | 125.3 kg (276 lb 4.8 | 05/05/2019 2:38 PM | | | | oz) | PST | | + + + + + | Height | 167.6 cm (5' 6") | 05/05/2019 2:38 PM | | | | | PST | | + + + + + | Body Mass Index | 44.6 | 05/05/2019 2:38 PM | | | | | PST | | + + + + + documented in this encounter Patient Instructions Patient Instructions Lanie Reece FNP - 05/05/2019 2:30 PM PSTI have ordered you nonfasting labs to be done at [facility] in one month, and drink water prior to having labs done I made changes to medications : I added Indapamide 0.625 mg to take each morning to medica tions, and sent in refills on metoprolol, cardizem, amlodpine, and lisinopril See me back in 2 months, and see me sooner if needed, and I will get you back on Dr. Forde' s schedule for 6 months Please bring your medication bottles to all clinic visits to help us maintain safe care for you, and ensure accurate medication record documented in this encounter Progress Notes Chevy Mary Ann, FNP - 05/05/2019 2:30 PM PSTFormatting of this note might be differe nt from the original. Date of visit: 05/05/2019 Primary Care Physician: Kiersten Pardo MD CHIEF COMPLAINT: Chief Complaint Patient presents with Follow-up, Office Visit HISTORY OF PRESENT ILLNESS: Ms. Tamera Yang is a 39 year old woman who is here today as overdue for follow up o n AVNRT and hypertension. She was accompanied for part of her visit by her and her daughter, but left partway through our visit as her daughter had a doctor's appointment. She is a patient of Dr. Forde and last seen by her 09/02/2018 . Today, I reviewed all previous documentation available to me in electronic medical damian rds and from external sources. 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 Forde on February 2018 after the patient had an emerg ency room visit on December 2017 when had a sudden onset of palpitations and shortness of parvin th, and has been adjusting her medications to control her AVNRT, and hypertension. When last seen by Dr. Forde , her SVT was being controlled by metoprolol succinate 200 m g daily and diltiazem LA 120 mg daily. Her lisinopril was increased to 40 mg Daily,and she was started on chlorthalidone 25 mg daily and had clonidine 0.25 mg as needed for systolic blood pressure >190, and her Echo was reported as unremarkable . Her current and previous testing and procedures are detailed below Since she was last seen, she was diagnosed with papillary thyroid cancer and had a total thyroidectomy on 2018 at [facility] by ENT specialist Dr. Cota. It was noted that she had metastasis to 8 out of 9 lymph nodes and has been referred for radioactive iodine treatment which has n ot been set up yet . She also was seen in the emergency room in October for epigastric pain and vomiting, and no hong that she had not been on her lisinopril for a week , and BP quite high . Her symptoms t hought to be secondary to viral illness with vomiting and diarrhea. They refilled her yamileth nopril and restarted her metoprolol. Her labs were fairly normal and troponin was negative, lipase was normal with normal liver enzymes, CBC normal, normal CMP and her EKG showed nor mal sinus rhythm at 92 bpm with non specific T wave abnormalities She was seen again in the emergency room on March 16 with a swelling in her neck which is making it difficult for her to swallow or breathe. She had an appointment to follow-up with ENT in [facility], and as discussed, diagnosed with thyroid papillary cancer. On that ER visit her blood pressure again was high, and ultrasound of her head and neck showed a dom inant left thyroid nodule. She reports today that she has recovered from her thyroidectomy, and still waiting to menjivar ve her radioactive iodine treatment schedule. She did not bring her medication bottles to the clinic today, and some question as to wheth er or not she is still on Cardizem and metoprolol, and of Cardizem not seen in either of her pharmacy dispense records. She reports that her systolic blood pressure continues to be high, though better control led as predominantly <150 systolic. She also her PCP on April 18, 2019, and note reviewed, and documented she had started her on hydrochlorothiazide 12.5 mg daily, but Tamera does not think she is taking it, and only on amlodipine 5 mg today though 10 mg ordered. She also recommended a Dash diet for her She denies any chest pain, palpitations, pedal edema, dyspnea, dizziness,or syncope. She a lso denies any signs or symptoms of stroke or TIA, or any emergency room visits since discha roland on April 23 from [facility]. She denies any smoking history, drinks caffeine only rarely has stopped drinking soda 2 mo nths ago. She reports she drinks alcohol only on rare occasions, and denies any use of recr eational or illicit drugs except for occasional marijuana edible. 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 REVIEW OF SYSTEMS: Negative except for pertinent items noted in HPI. Constitutional: Denies fatigue or unexplained weight loss. Denies night sweats fevers or chills HENT: Denies nosebleeds. Denies hearing problems. Denies dysphagia Eyes: Denies visual disturbance or double vision. Respiratory/Sleep:: Denies cough and shortness of breath. Denies hemoptysis or excessive s putum production. Denies snoring, orthopnea, PND. Cardiovascular: Denies chest pain, palpitations and leg swelling. Denies history of rheuma tic fever. Denies claudication . Gastrointestinal: GERD, with intermittent epigastric pain. . Denies nausea, vomiting, abd ominal pain and blood in stool. 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 Hx tubal ligation Musculoskeletal: arthralgia to elbows and knees Denies myalgias, back pain. Skin: Denies color change. Denies rash or lesions Neurological: Denies history of stroke/Transient ischemic attack.Denies history of seizures . Denies dizziness, syncope and numbness. Hematological/Oncology . Bruises easily. Denies bleeding history of cancer: papillary thy roid cancer , total thyroidectomy on April 22, 2019, metastasis to 8 out of 9 lymph node s, referred for radioactive iodine treatment. Endocrine:pre- diabetes. thyroid disease w/ papillary thyroid cancer, and total thyroidect saqib 04/2018. . Denies excessive thirst or hunger. Psychiatric/Behavioral: denies any histo ry of depression or anxiety or other psychiatric illness. Vaccines: Current on 02/2019 flu vaccine. Current on pneumonia vaccine? Habits/Social : Denies history of smoking. Rare EtOH use. Drinks occasional soda, coffee, or tea. Denies recreational or illicit drug use. Lives in [place] . 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 Occasional marijuana edible.. Outpatient Medications Prior to Visit Medication Sig Dispense Refill amLODIPine (NORVASC) 5 mg tablet Take 5 mg by mouth. dilTIAZem (CARDIZEM LA) 120 mg 24 hr tablet Take 120 mg by mouth Daily. HYDROcodone-acetaminophen (NORCO) 5-325 mg per tablet Take 1-2 tablets by mouth every 6 hours as needed for Pain. 15 tablet 0 levothyroxine (SYNTHROID) 150 mcg tablet Take 1 tablet by mouth every morning (before b reakfast). 30 tablet 5 lisinopril (PRINIVIL,ZESTRIL) 40 MG tablet Take 1 tablet by mouth daily. 30 tablet 3 metFORMIN (GLUCOPHAGE-XR) 500 mg 24 hr tablet Take 500 mg by mouth 2 times daily (befor e meals). metoprolol succinate (TOPROL-XL) 200 mg ER tablet Take 200 mg by mouth daily. omeprazole (PRILOSEC) 40 MG capsule Take 40 mg by mouth. ondansetron (ZOFRAN ODT) 4 mg disintegrating tablet Take 1 tablet by mouth every 6 hour s as needed for Nausea. 20 tablet 0 No facility-administered medications prior to visit. PHYSICAL EXAM: Wt Readings from Last 3 Encounters: 05/05/19 125.3 kg (276 lb 4.8 oz) 04/28/19 122.9 kg (271 lb) 04/22/19 123 kg (271 lb 2.7 oz) Temp Readings from Last 3 Encounters: 04/28/19 (!) 25 C (77 F) 04/23/19 37.1 C (98.7 F) (Oral) BP Readings from Last 3 Encounters: 05/05/19 (!) 150/108 04/23/19 174/87 04/15/19 (!) 206/124 Pulse Readings from Last 3 Encounters: 05/05/19 72 04/23/19 80 04/15/19 89 GENERAL: Well developed, well nourished, in no distress. Appears approximately older than stated age. HEENT: Normocephalic, atraumatic. EYES: PERRL, EOM normal. MOUTH: Oral mucosae moist, dentition adequate, no lesions noted NECK: No JVD, lymphadenopathy, thyromegaly, bruits. Carotid pulses are 2+ bilaterally. Well-healed thyroidectomy scar to base of neck/upper chest LUNGS/CHEST: Clear bilaterally, with no rales, rhonchi or wheezing noted, respirations unl abored HEART: Nondisplaced PMI, regular rate and rhythm, S1, S2 normal. No murmurs, rubs or gall ops noted. ABDOMEN: Soft, nontender, no organomegaly, masses or bruits. Bowel sounds are normal in a ll 4 quadrants. The abdominal aortic pulsation is not palpable. EXTREMITIES: No edema. Radial pulses 2+ bilaterally. Femoral pulses are 2+ bilaterally wi thout bruits. DP and PT pulses are 2+ bilaterally. No clubbing. SKIN: Warm and dry, capillary refill is normal, no lesions. NEUROLOGIC: Awake, alert and oriented x 3. No focal motor or sensory deficits. PSYCHIATRIC: Appropriate, affect appears normal DATA: Blood tests: Lab Results Component Value Date WBC 8.89 04/15/2019 RBC 5.12 (H) 04/15/2019 HGB 14.3 04/15/2019 HCT 41.9 04/15/2019 PLT 231 04/15/2019 Lab Results Component Value Date NA 136 04/15/2019 K 3.6 04/15/2019 CL 102 04/15/2019 CO2 29 04/15/2019 ANIONGAP 9 04/15/2019 BUN 12 04/15/2019 EGFR >60 04/15/2019 No results found for: CHOL, TRIG, LDL, LDL, GLUF No results found for: BNP, TSH, CRP No results found for: TOTEPI CARDIAC PROCEDURES/IMAGING-none VASCULAR TESTING AND PROCEDURES-none ECHO Echo: 06/10/2018: ( [facility]): TDS. Suboptimal views. This rhythm. EF 55-60%, LV normal in siz e with mild LVH, indeterminate diastolic function. RV normal in size and function. LA WNL. Aortic valve trileaflet, no AI or stenosis. Mitral valve normal, none/trace MR. RA press ures not assessed due to absence of TR jet. Pulmonic valve not well visualized. No pericar dial effusion. IVC WNL, CVP 5-10. Aortic root, ascending aorta, and aortic arch are normal . No mass, no clot, no ASD, no VSD Echo: 07/20/2015: ( [facility]) TDS: Grossly normal study: LV normal in size and wall thickness wit h EF 60%. Normal diastolic function. RV normal in size and function. Normal size atria. Aortic valve trileaflet no aortic stenosis or regurgitation. Mitral valve normal, trace MR. Tricuspid valve normal, trace TR. Pulmonic valve not well visualized. No pericardial eff usion. IVC WNL, CVP 5-10 EKG/EVENT MONITOR EK10/13/2018: [facility] ER: Normal sinus rhythm, low voltage QRS aVF, V2 V3 and lateral leads. Rate 92 bpm, LA 1020, QTC 455 ms, nonspecific T wave abnormality, tracing personally reviewe d by me EK04/15/2019:( [facility]) Sinus rhythm with sinus arrhythmia, LVH. Rate 70 bpm, LA 182 ms, Q RS 98 ms, QTC 436 ms, tracing personally reviewed by me EK05/05/2019: Normal sinus rhythm, low voltage QRS leads aVF, V2 V3 and lateral leads, o ngoing nonspecific T wave abnormality. Rate 72 bpm, LA 188 ms, QRS 94 ms, QTC 451 ms, muna jacques personally reviewed by me, and similar morphology to EKG performed on April 15 except s inus arrhythmia resolved, and rate better controlled LABS Labs: 02/18/2019: CMP: Glucose 109, BUN 13, creatinine 0.65, GFR 112, sodium 140, potassium 3.5, chloride 98, calcium 9.7, total bili 0.3, alk phos 88, AST 21, ALT 20 albumin 4.3 Hgb A1c 6.1 Lipids: ( no statin) Cholesterol 178, triglycerides 238, HDL 41, LDL 89. Thyroid: T SH 1.2 T3 117, T4 1.35 Labs: : 03/16/2019: CMP: Sodium 135, potassium 3.4, chloride 101, glucose 113, BUN 22, creat inine 0.64, GFR 103, AST 15, ALT 19, alk phos 76, total bili 0.4, albumin 4.3. Thyroid: TSH 2.33. CBC: WBC 9.4, RBC 5.18, hemoglobin 14.2, hematocrit 42.4, platelets 198. Labs: 04/15/2019: CBC: WBC 8.89, RBC 5.12, hemoglobin 14.3, hematocrit 41.9, platelets 231 B MP: Sodium 136, potassium 3.6, chloride 102, glucose 92, BUN 12, creatinine 0.7, calcium 9.6 , GFR >60 Labs: 04/22/2019 : negative hCG. Ionized calcium 1.05 Labs: 04/23/2019: PTH, intact 50.8 calcium 9.3 ASSESSMENT & PLAN: She is here today as overdue for follow up on AVNRT and hypertension. She has problems as detailed below. Her EKG performed in the clinic today shows controlled sinus rhythm at 72 bpm, with similar morphology to previous EKG's. I reviewed the EKG results in detail with her . Her systolic blood pressure is actually better controlled than previously, but diastolic el evated. She was previously ordered chlorthalidone, which she no longer seems to be on, and HCTZ by her PCP, which she is not on either. I have added a cheaper thiazide diuretic, indapamide, which will help to control her bloo d pressure. I have instructed her to take half of a 1.25 mg tablet on a daily basis, and if blood press ure still elevated to increase to full dose of 1.25 mg. I explained to her it was a longer acting version of HCTZ, but cheaper than chlorthalidone I made no other changes to cardiac medications today, and she should continue amlodipine 5 mg daily, along with lisinopril 40 mg daily, and indapamide 0.625 mg daily for hypertensio n, and diltiazem LA 120 mg daily along with metoprolol XL 200 mg daily for heart rate contr ol with AVNRT. Her labs performed in February showed her lipids were borderline controlled with elevated triglycerides of 238, and her CMP was normal except for mildly elevated glucose of 109 and prediabetes with hemoglobin A1c of 6.1 with normal thyroid function at that time. She may benefit from being on statin in the future if her sugars continue to increase. I sent in refills on her amlodipine, diltiazem, lisinopril, and metoprolol, as she is not s ure how many refills she has on them, and has a history of running out of her prescriptions. I discussed with her that I may need to adjust her heart rate medications further in the fu ture after her radioactive iodine therapy, which can cause labile heart rate and blood press ure. I have ordered a BMP to be performed at [facility] in [place] in 1 month to evaluate her renal function after being on indapamide. I will see her back on July 07, and she will follow-up with knitted cloth examiner Dr. Eula macias December 07 for primary cardiology visit. I have again strongly requested that she bring her medication bottles to all clinic visi ts to avoid confusion about which medication she is or is not taking, as she has been treate d by multiple providers at multiple facilities, so risk of medication error is high. 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 Essential hypertension 3. High triglycerides 4. Prediabetes 5. Papillary thyroid carcinoma (HCC) 6. H/O total thyroidectomy 7. Encounter for monitoring diuretic therapy Orders Placed This Encounter Procedures Basic Metabolic Panel ECG 12 lead The following portions of the patient's history were personally reviewed by me and updated as appropriate: EKG tracings, other specialty provider and PCP notes,any Hospital admission and discharge summaries, any ER records , current and previous cardiac testing and procedure reports and d yair,medication bottles NOT brought to visit today but pharmacy dispense records personally reviewed by me. Allergies, current medications.labs Family history, past medical history, past social history, past surgical history. Problem list. This encounter was dictated with voice recognition software and may contain inadvertent rec ognition errors. Elmer OLSON [facility] 05/05/2019 Zora ented in this encounter Plan of Treatment +--------+---------+ + + + | Date | Type | Specialty | Care Team | Description | +--------+---------+ + + + | 07/07/ | Office | Cardiology | Lanie Reece | | | 2019 | Visit | | [address] | | | | | | [address] | | | | | | [place] [address] | | | | | | [phone] | | | | | | | | +--------+---------+ + + + | 07/31/ | Office | Otolaryngology | Ilia Monika | | | 2019 | Visit | | DO Jovanna [address] | | | | [address] | | | | | | [place] [address] | | | | | | [phone] | | | | | | | | +--------+---------+ + + + | 12/07/ | Office | Cardiology | Nisha Forde DO | | | 2019 | Visit | | [address] | | | | | | [place] | | | | | | [address] | | | | | | | | +--------+---------+ + + + + +------+--------+ + + | Name | Type | Priori | Associated Diagnoses | Date/Time | | | | ty | | | + +------+--------+ + + | ECG 12 lead | ECG | Routin | AVNRT (AV eriberto | 05/05/2019 2:47 PM | | | | e | re-entry | PST | | | | | tachycardia) (HCC) | | | | | | Essential | | | | | | hypertension High | | | | | | triglycerides | | | | | | Prediabetes | | | | | | Papillary thyroid | | | | | | carcinoma ([facility]) H/O | | | | | | total thyroidectomy | | + +------+--------+ + + + +------+--------+ + + | Name | Type | Priori | Associated Diagnoses | Order Schedule | | | | ty | | | + +------+--------+ + + | Basic Metabolic | Lab | Routin | Prediabetes | Expected: | | Panel | | e | Encounter for | 06/05/2019, Expires: | | | | | monitoring diuretic | 05/05/2020 | | | | | therapy | | + +------+--------+ + + documented as of this encounter Procedures + +--------+ + + + | Procedure Name | Priori | Date/Time | Associated Diagnosis | Comments | | | ty | | | | + +--------+ + + + | ECG 12 LEAD | Routin | 05/05/2019 | AVNRT (AV eriberto | | | | e | 2:47 PM | re-entry | | | | | PST | tachycardia) (HCC) | | | | | | Essential | | | | | | hypertension High | | | | | | triglycerides | | | | | | Prediabetes | | | | | | Papillary thyroid | | | | | | carcinoma (HCC) H/O | | | | | | total thyroidectomy | | + +--------+ + + + documented in this encounter Visit Diagnoses + + | Diagnosis | + + | AVNRT (AV eriberto re-entry tachycardia) (HCC) - Primary Other specified cardiac | | dysrhythmias | + + | Essential hypertension Unspecified essential hypertension | + + | High triglycerides Pure hyperglyceridemia | + + | Prediabetes Other abnormal glucose | + + | Papillary thyroid carcinoma (HCC) Malignant neoplasm of thyroid gland | + + | H/O total thyroidectomy Other specified disorders of thyroid | + + | Encounter for monitoring diuretic therapy Encounter for therapeutic drug monitoring | + + documented in this encounter
--- OUTSIDE RECORDS SUMMARY | ~2019-05-09 | XMS | Encounter Summary ---
Demographics + + + | Address | [address] | | | [place] [address] | + + + | Home Phone | | + + + | Preferred Language | Unknown | + + + | Marital Status | Single | + + + | Yazdanism Affiliation | Unknown | + + + | Race | Unknown | + + + | Ethnic Group | Unknown | + + + Author + + + | Author | [facility] | | | and [place] | + + + | Organization | [facility] | | [...] Team Providers + +------+ + | Care Records Assistant Name | Role | Phone | + +------+ + | Nicole Parikh PA-C | PCP | | + +------+ + Encounter Details +--------+ + + + + | Date | Type | Department | Care Team | Description | +--------+ + + + + | 12/24/ | Orders Only | [facility] | Nisha Forde DO | Essential (primary) | | 2019 | | CARDIOLOGY [place] | [address] | hypertension | | | | [address] | [place], [place] | | | | | [address] | [address] | | | | | [place] | | | | | | [address] | | | | | | [phone] | | | +--------+ + + + + Social History + +-------+ +--------+------+ | Tobacco Use | Types | Packs/Day | Years | Date | | | | | Used | | + +-------+ +--------+------+ | Never Smoker | | | | | + +-------+ +--------+------+ + + + | Sex Assigned at [...] + + documented as of this encounter Plan of Treatment +--------+---------+ + + + | Date | Type | Specialty | Care Team | Description | +--------+---------+ + + + | 07/07/ | Office | Cardiology | Chevy Lanie | | | 2019 | Visit | | [address] | | | | | | [address] | | | | | | [place] [address] | | | | | | [phone] | | | | | | | | +--------+---------+ + + + | 07/31/ | Office | Otolaryngology | Monika Morillo | | | 2019 | Visit | | DO [address]her [address] | | | | | | [address] | | | | | | [place] [address] | | | | | | [phone] | | | | | | | | +--------+---------+ + + + | 12/07/ | Office | Cardiology | Nisha Forde DO | | | 2019 | Visit | | [address] | | | | | | [place] | | | | | | [address] | | | | | | | | +--------+---------+ + + + documented as of this encounter Visit Diagnoses + + | Diagnosis | + + | Essential (primary) hypertension Unspecified essential hypertension | + + documented in this encounter"
--- OUTSIDE RECORDS SUMMARY | ~2019-05-09 | XMS | Encounter Summary ---
Demographics + + + | Address | [address] | | | [place] [address] | + + + | Home Phone | | + + + | Preferred Language | Unknown | + + + | Marital Status | Single | + + + | Hoahaoism Affiliation | Unknown | + + + | Race | Unknown | + + + | Ethnic Group | Unknown | + + + Author + + + | Author | [facility] | | | and [place] | + + + | Organization | [facility] | | | and [...] Team Providers + +------+ + | Care Operations Vice President Name | Role | Phone | + [...] | | | Supraventric | [place], | [address] Phone: | | | | | ulmanny | [place] | [phone] | | | | | tachycardia | [address] | Fax: | | | | | (HCC) | Phone: | [phone] | | | | | Procedures | [phone] | | | | | | Consult | Fax: | | | | | | | [phone] | | + +--------+ + + + + Encounter Details +--------+---------+ + + + | Date | Type | Department | Care Team | Description | +--------+---------+ + + + | 05/05/ | Office | [facility] | Lanie Reece | 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 Cota. It was [...] an appointment to follow-up with ENT in [facility], and as discussed, diagnosed with thyroid papillary [...] since discha roland on April 23 from [facility]. She denies any smoking history, drinks [...] abd ominal pain and blood in stool. 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 Hx tubal ligation Musculoskeletal: arthralgia [...] recreational or illicit drug use. Lives in [place] . 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 Rate 92 bpm, NM 1020, QTC 455 ms, nonspecific T wave abnormality, tracing personally reviewe d by me EK04/15/2019:( [facility]) Sinus rhythm with sinus arrhythmia, LVH. Rate 70 bpm, NM 182 ms, Q RS 98 ms, QTC 436 ms, tracing personally reviewed by me EK05/05/2019: Normal sinus rhythm, low voltage QRS leads aVF, V2 V3 and lateral leads, o ngoing nonspecific T wave abnormality. Rate 72 bpm, NM 188 ms, QRS 94 ms, QTC 451 [...] ordered a BMP to be performed at [facility] in [place] in 1 month to evaluate her renal function after being on indapamide. I will see her back on July 07, and she will follow-up with charge entry Dr. Eula macias December 07 for primary [...] contain inadvertent rec ognition errors. [facility] 05/05/2019 Zora ented in this encounter [...] [address] | | | | | | [place] [address] | | | | | | [phone] | | | | | | | | +--------+---------+ + + + | 07/31/ | Office | Otolaryngology | Ilia Monika | | | 2019 | Visit | | DO Jovanna [address] | | | | | [address] | | | | | | [place] [address] | | | | | | [phone] | | | | | | | | +--------+---------+ + + + | 12/07/ | Office | Cardiology | Nisha Forde DO | | | 2019 | Visit | | [address] | | | | | | [place] | | | | | | [address] | | | | | | | [...] | | | | | | carcinoma ([facility]) H/O | | | | | | [...]
--- OUTSIDE RECORDS SUMMARY | ~2019-05-09 | XMS | Encounter Summary ---
Demographics + + + | Address | [address] | | | [place] [address] | + + + | Home Phone | | + + + | Preferred Language | Unknown | + + + | Marital Status | Single | + + + | Hindu Affiliation | Unknown | + + + | Race | Unknown | + + + | Ethnic Group | Unknown | + + + Author + + + | Author | [facility] | | | and [place] | + + + | Organization | [facility] | | [...] Team Providers + +------+ + | Care Pre Assembly Wirer Name | Role | Phone | + +------+ + | Kiersten Pardo MD | PCP | | + +------+ + Encounter Details +--------+ + + + + | Date | Type | Department | Care Team | Description | +--------+ + + + + | 06/03/ | Orders Only | [facility] | Conversion | | | 2019 | | CONVERSION DEP [address] | Transaction, | | | | | [address] | Provider Unknown | | | | | [place] | [phone] | | | | | [address] | | | | | | [phone] | | | +--------+ + + + [...] Cardiology | Lanie Reece | | | 2020 | Visit | | [address] | | | | | | [address] [place] | | | | | | [place] [address] | | | | | | [phone] | | | | | | | | +--------+---------+ + + + | 07/31/ | Office | Otolaryngology | Monika Morillo | | | 2019 | Visit | | DO Topher [address]ug[address] | | | | | | [address] | | | | | | [place] [address] | | | | | | [phone] | | | | | | | | +--------+---------+ + + + | 12/07/ | Office | Cardiology | Nisha Forde DO | | | 2019 | Visit | | [address] | | | | | | [place] | | | | | | [address] | | | | | | | | +--------+---------+ + + + documented as of this encounter Visit Diagnoses Not on filedocumented in this encounter"
--- OUTSIDE RECORDS SUMMARY | ~2019-05-09 | XMS | Encounter Summary ---
Demographics + + + | Address | [address] | | | [place] [address] | + + + | Home Phone | | + + + | Preferred Language | Unknown | + + + | Marital Status | Single | + + + | Church Affiliation | Unknown | + + + | Race | Unknown | + + + | Ethnic Group | Unknown | + + + Author + + + | Author | [facility] | | | and [place] | + + + | Organization | [facility] | | [...] Team Providers + +------+ + | Care Dice Manager Name | Role | Phone | + +------+ + | Kiersten Pardo MD | PCP | | + +------+ + Encounter Details +--------+ + + + + | Date | Type | Department | Care Team | Description | +--------+ + + + + | 04/15/ | [facility] | [facility] | Monika Morillo | Preop testing | | 2019 | Encounter | [facility]ICAL [facility]ENTER | J, DO [address] | | | | | [address] | [address] | | | | | [address] | [place] [address] | | | | | [place], [place] | [phone] | | | | | [address] | | | | | | [phone] | | | +--------+ + + + [...] + + documented as of this encounter Medications at Time of Discharge [...] morning | tablet | | 19 | | | tablet | (before breakfast). | [...] + + + +---------+ + + | ALPRAZolam (XANAX) | Take 0.5 mg by mouth | | 0 | 03/03/20 | | | 0.5 mg tablet | nightly as needed | | | 18 | 9 | | | for Sleep. | | | | | + + + +---------+ + + | amLODIPine | Take 5 mg by mouth. | | 0 | 02/28/20 | | | (NORVASC) 5 mg | | | | 19 | 9 | | tablet | | | | | | + + + +---------+ + + | dilTIAZem (CARTIA | Take 120 mg by mouth | | 0 | | | | XT) 120 mg 24 hr | Daily. | | | | 9 | | capsule | | [...] [address] | | | | | | [place] [address] | | | | | | [phone] | | | | | | | | +--------+---------+ + + + | 07/31/ | Office | Otolaryngology | Monika Morillo | | | 2019 | Visit | | DO Jovanna [address] | | | | | | [address] | | | | | | [place] [address] | | | | | | [phone] | | | | | | | | +--------+---------+ + + + | 12/07/ | Office | Cardiology | Nisha Forde DO | | | 2019 | Visit | | [address] | | | | | | [place] | | | | | | [address] | | | | | | | | +--------+---------+ + + + documented as of this encounter Procedures + +--------+ + + + | Procedure Name | Priori | Date/Time | Associated Diagnosis | Comments | | | ty | | | | + +--------+ + + + | ECG 12 LEAD | Routin | 04/15/2019 | Preop testing | Results for this | | | e | 12:38 PM | | procedure are in the | | | | PST | | results section. | + +--------+ + + + documented in this encounter Results ECG 12 lead (04/15/2019 12:38 PM PST) [...] Diagnosis | + + | Preop testing Preoperative examination, unspecified | + + documented in this encounter"
--- OUTSIDE RECORDS SUMMARY | ~2019-05-09 | XMS | Encounter Summary ---
Demographics + + + | Address | [address] | | | [place] [address] | + + + | Home Phone | | + + + | Preferred Language | Unknown | + + + | Marital Status | Single | + + + | Shinto Affiliation | Unknown | + + + [...] Team Providers + +------+ + | Care Laser Printing Operator Name | Role | Phone | + [...] + + | 04/22/ | Anesthesia | [facility] | Doris Beckwith, | | | 2019 | [facility] | SALT MAKER [address] | | | | | OPER[address] | [place] [address] | | | | | [address] | [phone] | | | | | [place], [place] | | | | | | [address] | | | | | | [phone] | | | +--------+ + + + + Anesthesia Record + + + + + | Procedure Name | Responsible | Anesthesia Start | Anesthesia Stop Time | | | Anesthesiologist | Time | | + + + + + | TOTAL THYROIDECTOMY, | Doris Beckwith, | 04/22/1958 | 04/22/19 0915 | | left central neck | SALT MAKER | | | | dissection (N/A | [...] +----+---+ + + | | 0 | [place] | | | | 7 | 43-degrees [...] 1342 by | | eral | Antecubital; [id number] | Angeline Shoemaker RN | Lo William, [...] | | | procedure documentation); Mask | SALT MAKER | SALT MAKER | | | Ventilation: EZ; Airway Grade: [...] IV | Proximal; Hand; 18 gauge; | SALT MAKER | RN | | | 04/23/19; 1342 | | | +--------+ + + + | Periph | 04/22/19; 0710; Right; Hand; | 04/22/19 0710 by | 04/22/19 1900 by | | eral | [id number] catheter system; | Tatiana Gamboa RN | [...] | | | | | [place] [address] | | | | | | [phone] | | | | | | | | +--------+---------+ + + + | 07/31/ | Office | Otolaryngology | Monika Morillo | | | 2019 | Visit | | DO Jovanna [address] | | | | | | [address] | | | | | | [place] [address] | | | | | | [phone] | | | | | | | | +--------+---------+ + + + | 12/07/ | Office | Cardiology | Nisha Forde DO | | | 2019 | Visit | | [address] | | | | | | [place] | | | | | | [address] | | | | | | | [...] 7:10 AM Indication: necessitating | | | physician/SALT MAKER skill Preparation: alcohol patient was: under [place] [...] 8:42 | | | | | Starting Thu04/22/19 at 0719, | | AM PST | [...] PST | | | | | Starting 04/22/19 at 0716, | | | | | | | Anesthesia Intra-op | | | | | | + +---------+ +---------+-------+---+ +---+---+ | | | +---+---+ + +-------+ +-------+---+---+ | propofol (DIPRIVAN) injection | Given | 04/22/20 | 30 mg | | | | Intravenous, PRN, Starting Fri | | 19 9:00 | | | [...] 7:01 | | | | | Starting Thu04/22/19 at 0701, | | AM PST | | | | | Anesthesia Intra-op | | | | | | + +-------+ +-------+---+---+ +---+---+ | | | +---+---+ documented in this encounter"
--- OUTSIDE RECORDS SUMMARY | ~2019-05-09 | XMS | Encounter Summary ---
Demographics + + + | Address | [address] | | | [place] [address] | + + + | Home Phone | | + + + | Preferred Language | Unknown | + + + | Marital Status | Single | + + + | Rastafari Affiliation | Unknown | + + + | Race | Unknown | + + + | Ethnic Group | Unknown | + + + Author + + + | Author | [facility] | | | and [place] | + + + | Organization | [facility] | | | [...] Team Providers + +------+ + | Care Brand Sales Manager Name | Role | Phone | [...] | Otolaryngolog | Diagnoses | Unknown, | [facility], | | | Services | y | Abnormal | Practitioner | Carlos Melvin, | | | Required | | weight loss | , Phone: | [address] | | | | | New onset | | [address], | | | | | mass on | | [address] | | | | | anterior | Fax: | [place] | | | | | neck causing | | [address] Phone: | | | | | change in | | [phone] | | | | | voice and | | Fax: | | | | | some | | [phone] | | | | | dysphagia | | | + + + + + + + Encounter Details +--------+---------+ + + + | Date | Type | Department | Care Team | Description | +--------+---------+ + + + | 04/01/ | Office | [facility] | Monika Pretty | Thyroid nodule | | 2019 | Visit | NOSE AND THROAT [address] | J, DO [address] | (Primary Dx); | | | | [address] | [address] | Thyromegaly; | | | | [place], [place] | [place] [address] | Dysphagia, | | | | [address] | [phone] | unspecified type; | | | | [phone] | | Laryngopharyngeal | | | | [...] 04/01/2019 3:00 PM PSTFormatting of this note gissel camilo be different from the original. Surgery Date: 04/22/19 Location: [facility] ([address] [place] [address]) FYI: Prior to your surgery, you will receive a call to schedule a Pre-Admission appointment. This appointment is required. If you do not hear from anyone please call [phone], Opt ion 4. A time for surgery [...] post-op dates please contact Florence pat at [phone], Option 4. *IF YOU HAVE FMLA/SHORT-TERM DISABILITY PAPERWORK THAT NEEDS TO BE FILLED OUT, PLEASE DROP IT OFF OR FAX IT TO OUR OFFICE ([phone]) TWO WEEKS PRIOR TO SURGERY. MAKE SURE TO INCLU DE TIME OFF NEEDED AND/OR WHEN YOU PLAN TO RETURN TO WORK. PLEASE ALLOW 7-10 BUSINESS DAYS F OR COMPLETION. If you would like an estimate for your surgery, please contact the [facility] Financial Natural Resources Manager ors/Authorization Department at [phone]. Having Thyroid Surgery The incision is made [...] take vitamin D supplements. Date Last Reviewed: 03/11/[id number] The [employer]. [address] [place] [address], [place] [address]. All righ ts reserved. This information is [...] : 1980 Age: 39 Sex: F Acct: [id number] Loc: ED Exam Date: 03/16/2019 Status: REG ER Radiology No: Unit No: [id number] EXAM# TYPE/EXAM RESULT CPT CODE [id number] US/HEAD NECK SOFT TISSUE/THYROI 54232 Exam: Thyroid sonogram. HISTORY: Enlarged thyroid. TECHNIQUE: [...] system. The possibil ity of "sound alike" educational consultant errors, additions or deletions may occur. If [...] [address] | | | | | | [place] [address] | | | | | | [phone] | | | | | | | | +--------+---------+ + + + | 07/31/ | Office | Otolaryngology | Monika Pretty | | | 2019 | Visit | | DO Topher Nugent | | | | | | [address] | | | | | | [place] [address] | | | | | | [phone] | | | | | | | | +--------+---------+ + + + | 12/07/ | Office | Cardiology | Nisha Forde DO | | | 2019 | Visit | | [address] | | | | | | [place] | | | | | | [address] | | | | | | | [...]
--- OUTSIDE RECORDS SUMMARY | ~2019-05-09 | XMS | Clinical Summary ---
Demographics + + + | Address | [address] | | | [place] [address] | + + + | Home Phone | | + + + | Preferred Language | Unknown | + + + | Marital Status | | + + + | Denominational Affiliation | Unknown | + + + | Race | Unknown | + + + | Ethnic Group | Unknown | + + + Author + + + | Author | [employer] [facility] (Historical as of | | | 12-25-18) | + + + | Organization | [facility] (Historical as of | | | 12-25-18) | + + + | Address | Unknown | + + + | Phone | Unavailable | + + + Support + + +---------+ + | Name | Relationship | Address | Phone | + + +---------+ + | Karey Mullen | ECON | Unknown | | + + +---------+ + Care Team Providers + +------+ + | Care Bounty Hunter Name | Role | Phone | + +------+ + | Soumya Fuentes PA-C | PP | | + +------+ + Allergies + + + + + + | Active Allergy | Reactions | Severity | Noted | Comments | | | | | Date | | + + + + + + | Lisinopril-Hydrochlo | Cough | Low | 03/03/20 | | | rothiazide | | | 18 | | + + + + + + Current Medications + + +--------+---------+------+------+-------+ | Prescription | Sig. | Disp. | Refills | Star | End | Statu | | | | | | t | Date | s | | | | | | Date | | | + + +--------+---------+------+------+-------+ | metoprolol | Take 200 mg by mouth | | | | | Activ | | (TOPROL-XL) 200 MG | daily. | | | | | e | | 24 hr tablet | | | | | | | + + +--------+---------+------+------+-------+ | ALPRAZolam (XANAX) | Take 0.5 mg by mouth | | | | | Activ | | 0.5 MG tablet | nightly as needed | | | | | e | | | for Sleep. | | | | | | + + +--------+---------+------+------+-------+ | diltiazem | Take 1 tablet by | 30 | 11 | 10/2 | | Activ | | (CARDIZEM LA) 120 MG | mouth daily. | tablet | | 5/20 | | e | | 24 hr tablet | | | | 18 | | | + + +--------+---------+------+------+-------+ | cloNIDine | Take 1 tablet by | 60 | 11 | 01/2 | /2 | Activ | | (CATAPRES) 0.2 MG | mouth as needed (PRN | tablet | | /20 | /20 | e | | tablet | SBP>190). | | | 19 | 20 | | + + +--------+---------+------+------+-------+ | lisinopril | Take 1 tablet by | 30 | 3 | /2 | | Activ | | (ZESTRIL) 40 MG | mouth daily. | tablet | | 4/20 | | e | | tablet | | | | 19 | | | + + +--------+---------+------+------+-------+ | chlorthalidone | Take 1 tablet by | 30 | 11 | 04/2 | 04/2 | Activ | | (HYGROTEN) 25 MG | mouth daily. | tablet | | 09/27 | 08/28 | e | | tablet | | | | | 20 | | + + +--------+---------+------+------+-------+ Active Problems + + + | Problem | Noted Date | + + + | AVNRT (AV eriberto re-entry tachycardia) ([facility]) | 03/04/2018 | + + + | Essential hypertension | 03/04/2018 | + + + | Class 3 severe obesity with body mass index (BMI) of 45.0 to 49.9 | 03/04/2018 | | in adult (HCC) | | + + + Family History + + +------+ + | [...] | | | + +---+---+---+ + + | Tobacco Cessation: Counseling Given: No | + + + + +---------+ + | Alcohol Use | Drinks/We | oz/Week | Comments | | | ek | | | + + +---------+ + | Yes | | | occasional | + + +---------+ + + + + | Sex Assigned at | Date Recorded | | | | + + + | Not on file | | + + + Last Filed Vital Signs + + + + | Vital Sign | Reading | Time Taken | + + + + | Blood Pressure | 152/100 | 09/02/2018 8:58 AM PDT | + + + + | Pulse | 72 | 09/02/2018 8:58 AM PDT | + + + + | Temperature | - | - | + + + + | Respiratory Rate | - | - | + + + + | Oxygen Saturation | 97% | 09/02/2018 8:58 AM PDT | + + + + | Inhaled Oxygen | - | - | | Concentration | | | + + + + | Weight | 127 kg (280 lb) | 09/02/2018 8:58 AM PDT | + + + + | Height | 167.6 cm (5' 6") | 09/02/2018 8:58 AM PDT | + + + + | Body Mass Index | 45.19 | 09/02/2018 8:58 AM PDT | + + + + Plan of Treatment + + + + + | Health [...]
--- OUTSIDE RECORDS SUMMARY | ~2019-05-09 | XMS | Encounter Summary ---
Demographics + + + | Address | [address] | | | [place] [address] | + + + | Home Phone | | + + + | Preferred Language | Unknown | + + + | Marital Status | Single | + + + | Cheondoism Affiliation | Unknown | + + + | Race | Unknown | + + + | Ethnic Group | Unknown | + + + Author + + + | Author | [facility] | | | and [place] | + + + | Organization | [facility] | | | and [...] Team Providers + +------+ + | Care Rn Plastic Surgery Name | Role | Phone | + +------+ + | Kiersten Pardo MD | PCP | | + +------+ + Reason for Referral Evaluate & Treat (Urgent) + + + + + + + | Status | Reason | Specialty | Diagnoses / | Referred By | Referred To | | | | | Procedures | Contact | Contact | + + + + + + + | Authorized | Specialty | Radiation | Diagnoses | [facility], | | | | Services | Oncology | Papillary | Monika Nugent, | | | | Required | | thyroid | DO [address] | | | | | | carcinoma | [address] | | | | | | (HCC) | [address] | | | | | | | [place] | | | | | | | [address] | | | | | | | Phone: | | | | | | | [phone] | | | | | | | Fax: | | | | | | | [phone] | | + + + + + + + Evaluate & Treat (Urgent) + + + + + + + | Status | Reason | Specialty | Diagnoses / | Referred By | Referred To | | | | | Procedures | Contact | Contact | + + + + + + + | Authorized | Specialty | Endocrinology | Diagnoses | [facility], | [place], | | | Services | | Papillary | Monika Nugent, | Donny Brooks MD | | | Required | | thyroid | DO [address] | | | | | carcinoma | [address] | [place] | | | | | (HCC) | [address] | [address] | | | | | | [place], [place] | [place], [place] | | | | | | [address] | [address] Phone: | | | | | | Phone: | [phone] | | | | | | [phone] | Fax: | | | | | | Fax: | [phone] | | | | | | [phone] | | + + + + + + + Reason for Visit +---------+ + | Reason | Comments | +---------+ + | Post Op | | +---------+ + Encounter Details +--------+---------+ + + + | Date | Type | Department | Care Team | Description | +--------+---------+ + + + | 04/28/ | Office | [facility] | Monika Pretty | Papillary thyroid | | 2019 | Visit | NOSE AND THROAT [address] | J, DO [address] | carcinoma (HCC) | | | | [address] | [address] | (Primary Dx); | | | | [place], [place] | [place] [address] | Cervical | | | | [address] | [phone] | lymphadenopathy | | | | [phone] | | | +--------+---------+ + + + [...] + + + + | Pulse | - | - | | + + + + + | Temperature | 25 C (77 F) | 04/28/2019 10:52 AM | | | | | PST | | + + + + + | Respiratory Rate | - | - | | + + + + + | Oxygen Saturation | 99% | 04/28/2019 10:52 AM | | | | | PST | | + + + + + | Inhaled Oxygen | - | - | | | Concentration | | | | + + + + + | Weight | 122.9 kg (271 lb) | 04/28/2019 10:52 AM | | | | | PST | | + + + + + | Height | - | - | | + + + + + | Body Mass Index | 43.74 | 04/22/2019 6:48 AM | | | | | PST | | + + + + + documented in this encounter Progress Notes Monika Pretty, - 04/28/2019 11:15 AM PST Subjective: Tamera Yang presents to the clinic 1 weeks following total thyroidectomy . Eating a reg ular diet without difficulty. The patient is not having any pain. Voice is stable. No swel ling of the neck. Pathology returned as a 4.5 cm papillary thyroid carcinoma. 8 of 9 lymph nodes were positive for metastatic disease. Pertinent items are noted in HPI. Objective: LMP 04/01/2019 General: alert, appears stated age and cooperative HEENT: Head: Normocephalic, no lesions, without obvious abnormality. Eye: Normal external eye, conjunctiva, lids cornea, KENIA. Ears: Normal TM's bilaterally. Normal auditory canals and external ears. Non-tender. Nose: Normal external nose, mucus membranes and septum. Pharynx: Dental Hygiene adequate. Normal buccal mucosa. Normal pharynx. Neck / Thyroid: Incisional site is clean, dry, and intact. Surgical Pathology Exam Order: [id number] Status: Final result Visible to patient: No (Not Released) Next appt: 05/05/2019 at 02:30 PM in Cardiology (Lanie Reece, [facility]) Dx: Thyromegaly; Thyroid nodule Narrative Performed by: NIA KITCHEN SPECIMEN(S): A HOLLY-THYROIDAL LYMPH NODES SPECIMEN(S): B THYROID, TOTAL SPECIMEN(S): C LT CENTRAL NECK CONTENTS SPECIMEN SOURCE: A. HOLLY-THYROIDAL LYMPH NODES B. THYROID, TOTAL C. LT CENTRAL NECK CONTENTS CLINICAL HISTORY: E04.1 (thyroid nodule), E01.0 (thyromegaly). FROZEN SECTION DIAGNOSIS: A. 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 (Dr. Dietz, 04/22/19, 2062) The frozen section diagnosis is called to Dr. Pretty. GW (under the direct supervision of a pathologist) The Gross Description was prepared using a voice recognition system. The report was revie wed for accuracy; however, sound-alike word errors, addition and/or deletions may occur. I f there is any question about this report, please contact Client Services. FINAL PATHOLOGIC DIAGNOSIS: A. Perithyroidal lymph nodes, biopsies: - Two lymph nodes positive for metastatic papillary carcinoma (2/2). B. Thyroid, total thyroidectomy: - Papillary thyroid carcinoma with the following features: - Tumor focality: Unifocal. - Tumor laterality: Left lobe. - Tumor size: 4.5 cm greatest dimension. - Histologic type: Papillary carcinoma. - Histologic variant: Classical/conventional. - Surgical margins: Negative for tumor involvement, tumor measures 1 mm from closest in ked capsular margin. - Tumor capsule: Partially encapsulated. - Tumor capsule invasion: Absent. - Angio(vascular) invasion: Absent. - Lymphatic invasion: Absent. - Extrathyroidal extension: Absent. - Additional findings: Mild chronic thyroiditis. - Specimen integrity: Intact. - Lymph nodes: - Number of lymph nodes examined: 9 total nodes (including specimens A and C). - Number of lymph nodes involved by tumor: 8. - Ally levels involved: Perithyroidal and left central neck. - Surgical pathology stage: pT3a pN1b. C. Left central neck contents, dissection: - Six of 7 lymph nodes positive for metastatic papillary carcinoma (6/7). COMMENT: As part of [facility]' Quality Improvement Program, this case was reviewed by jay mccormack member of our pathology staff. AMB:BES:emb:C1NR MICROSCOPIC EXAMINATION: Histologic sections of all submitted blocks are examined by light microscopy. These findi ngs, together with the gross examination, support the pathologic diagnosis. GROSS DESCRIPTION: A. The specimen is received fresh for frozen section evaluation labeled LC, perithyroid lym ph nodes". Two pink-lakhani tentatively identified lymph nodes are 0.5 and 0.7 cm. Each is b isected with half of each submitted for frozen section evaluation. The specimen is entirely submitted in ca ssettes A1 and A2. Summary of sections: (A1) Frozen section control tissue (A2) Remaining unfrozen tissue B. The specimen is received in a formalin filled specimen container labeled "LC, total th yroid". Two irregular unoriented and undesignated purple lakhani thyroid lobes are 4.5 x 2.5 x 1.7 cm and 6 g; and 5.5 x 4.0 x 4.0 cm and 43 g. The smaller lobe of thyroid is inked blue and has a 1 cm circular area of disruption at one pole. Sectioning reveals glistening deep red parenchym a throughout. There is no nodule or induration. Three representative personal service sections are submitted in cassette s B1 and B2. The larger lobe of thyroid is inked black sectioning reveals a large 4.5 x 4. 0 x 3.0 cm soft, papillary/friable pink-lakhani nodule which occupies almost the entire lobe. There is no may sly recognizable normal thyroid parenchyma. Six representative personal service sections are submitted in c assettes B3-B8. C. The specimen is received in a formalin filled specimen container labeled "capital LC, le ft central neck contents". A lobular excision of yellow-lakhani, fibrofatty soft tissue is 3.3 x 2.5 x 2 cm. Sectioning reveals six pink-lakhani tentatively identified lymph nodes, 0.3-1.3 cm. Summary of sections: (C1) Four small intact lymph nodes (C2) Single multiply sectioned lymph node (C3) Largest multiply sectioned lymph node PERFORMING LABORATORY: The frozen section was performed at [address] (Multiple Spindle Router Operator: Jim Uriarte M.D.; CLIA#: [id number]). The technical component was performed by [facility], [address] [place] [address] (Multiple Spindle Router Operator: Regine Dietz MD; CLIA# [id number]). Professional interpretation was performed by [facility], [address] [address] (Multiple Spindle Router Operator: Jim Uriarte M.D.; CLIA#: [id number]). Diagnostician: Regine Dietz MD Pathologist Electronically Signed 04/26/2019 Assessment: Doing well postoperatively. Plan: 1. I have reviewed the physical examination findings including the pathology findings with the patient. She understands that there is evidence of metastatic disease with an 8 out of 9 lymph nodes that were sent to pathology. Furthermore, the primary tumor was 4.5 cm in gr eatest dimension. With this information, she understands that she will require radioactive iodine continue any current medications. I have recommended an urgent referral to radiation oncology for further evaluation. Furthermore, she is to continue her current thyroid medic ation dosage. We will send her to Dr. Ji from endocrinology for further management. I r ecommend using Mederma or vitamin E oil to incision site to help with scarring . Follow-up in 3 months for reevaluation. 2. Pt is to increase activities as tolerated. 3. Follow up: 3 months I, Dr. MONIKA PRETTY, D.O., personally performed the services described in this docu mentation, as scribed by Leatha Soto CMA in my presence, and it is accurate and complete . Portions of this chart note have been created with a voice recognition system. The possibil ity of "sound alike" electrical products sales engineer errors, additions or deletions may occur. If [...] [address] | | | | | | [place] [address] | | | | | | [phone] | | | | | | | | +--------+---------+ + + + | 07/31/ | Office | Otolaryngology | Monika Pretty | | | 2019 | Visit | | DO Jovanna [address] | | | | | | [address] | | | | | | [place] [address] | | | | | | [phone] | | | | | | | | +--------+---------+ + + + | 12/07/ | Office | Cardiology | Nisha Forde DO | | | 2019 | Visit | | [address] | | | | | | [address] [address] [place] | | | | | | [address] | | | | | | | | +--------+---------+ + + + + + +--------+ + + | Name | Type | Priori | Associated Diagnoses | Order Schedule | | | | ty | | | + + +--------+ + + | Ambulatory referral | Outpatient | Routin | Papillary thyroid | Ordered: 04/28/2019 | | to Endocrinology | Referral | e | carcinoma (HCC) | | + + +--------+ + + | Ambulatory referral | Outpatient | Routin | Papillary thyroid | Ordered: 04/28/2019 | | to Radiation | Referral | e | carcinoma (HCC) | | | Oncology | | | | | + + +--------+ + + documented as of this encounter Visit Diagnoses + + | Diagnosis | + + | Papillary thyroid carcinoma (HCC) - Primary Malignant neoplasm of thyroid gland | + + | Cervical lymphadenopathy Enlargement of lymph nodes | + + documented in this encounter
--- OUTSIDE RECORDS SUMMARY | ~2019-05-09 | XMS | Encounter Summary ---
Demographics + + + | Address | [address] | | | [place] [address] | + + + | Home Phone | | + + + | Preferred Language | Unknown | + + + | Marital Status | Single | + + + | Jainism Affiliation | Unknown | + + + | Race | Unknown | + + + | Ethnic Group | Unknown | + + + Author + + + | Author | [facility] | | | and [place] | + + + | Organization | [facility] | | [...] Providers + +------+ + | Care Clinical Informaticist Name | Role | Phone | + [...] + + | 04/22/ | Hospital | [facility] | Monika Morillo | Thyroid nodule; | | 2019 - | Encounter | [facility] [address] | J, DO [address] | Thyromegaly; | | | | [address] | [address] | Thyroid nodule; | | 04/23/ | | [place], [place] | [place] [address] | Thyromegaly | | 2019 | | [address] | [phone] | | | | | [phone] | | | +--------+ + + + [...] documented in this encounter Discharge Summaries Monika Mroillo DO - 04/23/2019 12:20 PM PST [facility] Service: Otolaryngology Brief Post-op Discharge Note DISCHARGE [...] the hands,feet, or lips Date Last Reviewed: 03/11/201619999348-8545 [employer]. [address] [place] [address]. All righ ts reserved. This information is [...] documented as of this encounter Progress Notes Ilia Monika Jovanna, DO - 04/23/2019 12:14 PM PST [facility] Service: Otolaryngology Progress Note Hospital Day: [...] all discharge criteria. A prescription for Synthroid, [place], and Zofran have been given to the patient. It does not appear that she needs supplemental calcium. The symptoms of hypocalcemia have been discusse d with the patient in proper treatment was relayed to the patient. She is to follow-up with me in 1 week for suture removal and to discuss final pathology. Disposition: Home Code Status: Full Code Monika Morillo DO 04/23/2019 okary Breanne Melvin [facility] - 04/22/2019 1:14 PM PSTRx Admission Medication History Note I have reviewed the medication history for appropriate doses obtained by: Other : Obtaine d by myself after reviewing the patient's dispense history and confirming the dispense histo ry with the patient's two pharmacies. Patient fills [place] at both the [facility] [employer] [facility] [place] [facility] pharmacies. RN also confirmed the patient's current [...] omeprazole 40 mg (although patient did not picking supervisor, lik cydney due to cost) -Marked the alprazolam as not taking as this has not been filled in 14 months, patient stat ed prior use only occasional but has not been using this. I agree with the home medications list Please Review and Order Home Medications as necessary. Thanks BREANNE AGARWAL [facility] 04/22/2019 @ 1:07 PM documented in this [...] | | | | | | [place] [address] | | | | | | [phone] | | | | | | | | +--------+---------+ + + + | 07/31/ | Office | Otolaryngology | Monika Morillo | | | 2019 | Visit | | DO Topher Nugent | | | | | | [address] | | | | | [facility] [place] [address] | | | | | | [phone] | | | | | | | | +--------+---------+ + + + | 12/07/ | Office | Cardiology | Nisha Forde DO | | | 2019 | Visit | | [address] | | | | | | [place] | | | | | | [address] | | | | | | | [...] | | | | | | at [facility], [address] | | | | | [address], | | | | | | [place] [address] | | | | + + + + + + + + | Specimen | + + | Blood | + + + + + + + | Performing | Address | City/State/Zipcode | Phone Number | | Organization | | | | + + + + + | [facility] | [address] | [place] [address] | [phone] | + + + + + Calcium, Ionized, Venous (04/22/2019 2:30 PM PST) + + + + + + | Component | Value | Ref Range | Performed | Pathologist | | | | | At | Signature | + + + + + + | Calcium, | 1.05 (L) | 1.08 - 1.25 | [facility] | | | Ionized | | mmol/L | LABORATORY | | + + + + + + | pH, Venous | 7.442Comment: Testing | 7.300 - 7.450 | [facility] | | | | performed at [facility];[address] | | LABORATORY | | | | [address];[place] | | | | | | [address] | | | | + + + + + + + + | Specimen | + + | Blood | + + + + + + + | Performing | Address | City/State/Zipcode | Phone Number | | Organization | | | | + + + + + | [facility] | [address] | [place] [address] | [phone] | + + + + + POC [...] | | | POC | performed at [facility];[address] | | LABORATORY | | | | [address];[place] | | | | | | [address] | | | | + + + + + + + + | Specimen | + + | | + + + + + + + | Performing | Address | City/State/Zipcode | Phone Number | | Organization | | | | + + + + + | [facility] | [address] | [place] [address] | [phone] | + + + + + Surgical [...] | | carcinoma (6/7). COMMENT:As part of [facility]' Quality | | | Improvement Program, this [...] There is no nodule or induration. Three advertising account representative | | | sections are submitted in cassettes B1 and B2. The larger lobe of | | | thyroid is inked black sectioning reveals a large 4.5 x 4.0 x 3.0 cm | | | soft,papillary/friable pink-lakhani nodule which occupies almost the | | | entire lobe. There is no grossly recognizable normal thyroid | | | parenchyma. Six advertising account representative sections are submitted in cassettes | [...] section was | | | performed at [address], | | | [place] [address] (Driller Operator: Jim Uriarte M.D.; CLIA#: | | | [id number]).The technical component was performed by [facility] | | | [facility], [address] [place] [address] (Driller Operator: | | | Regine Dietz MD; CLIA# [id number]). Professional interpretation was | | | performed by[facility], [facility], [facility] | | | [place] [address] (Driller Operator: Jim | | | Agnes Uriarte; CLIA#: [id number]). Diagnostician: Regine Dietz | | | MDPathologistElectronically Signed 04/26/2019 | | | | | |There is no nodule or induration. Three advertising account representative sections are submitted in cassette s B1 and B2. The larger lobe of thyroid is inked black sectioning reveals a large 4.5 x 4. 0 x 3.0 cm soft, | | |papillary/friable pink-lakhani nodule which occupies almost the entire lobe. There is no may sly recognizable normal thyroid parenchyma. Six advertising account representative sections are submitted in c assettes B3-B8. | | | | | |C. The specimen is received in a formalin filled specimen container labeled "[facility], [facility] neck contents". A lobular excision of [...] | |The frozen section was performed at [facility], [address] [place] [id number] (Driller Operator: Jim Uriarte M.D.; CLIA#: [id number]). | | |The technical component was performed by [facility], [address] [place] [address] (Driller Operator: Regine Dietz MD; CLIA# [id number]). Professional interpretation was performed by | | |[facility], [facility], [address] [place] [address] (Driller Operator: Jim Uriarte M.D.; [facility]#: [id number]). | | | | | |Diagnostician: Regine [...] | | | POC | performed at [facility];[address] | | LABORATORY | | | | [address];[place], [place] | | | | | | [address] | | | | + + + + + + + + | Specimen | + + | | + + + + + + + | Performing | Address | City/State/Zipcode | Phone Number | | Organization | | | | + + + + + | [facility] | [address] | [place] [address] | [phone] | + + + + + POCT Test, Urine, Qual (04/22/2019 6:12 AM PST) + + + + + + | Component | Value | Ref Range | Performed | Pathologist | | | | | At | Signature | + + + + + + | HCG, | NEGATIVEComment: Testing | NEG | [place] | | | Quantitativ | performed at [facility];[address] | | LABORATORY | | | e POC | [address];[place], [place] | | | | | | [address] | | | | + + + + + + + + | Specimen | + + | | + + + + + + + | Performing | Address | City/State/Zipcode | Phone Number | | Organization | | | | + + + + + | [facility] | [address] | [place] [address] | [phone] | + + + + + documented [...] | | | | | | longer, [id number]-[id number] use of | | | | | [...]
--- OUTSIDE RECORDS SUMMARY | ~2019-05-09 | XMS | Encounter Summary ---
Demographics + + + | Address | [address] | | | [place] [address] | + + + | Home Phone | | + + + | Preferred Language | Unknown | + + + | Marital Status | Single | + + + | Hinduism Affiliation | Unknown | + + + [...] Team Providers + +------+ + | Care Report Specialist Name | Role | Phone | [...] | | | | [place] | [phone] | | | | | [address] | | | | | | [phone] | | | +--------+ + + + [...] | | | | | [place] [address] | | | | | | [phone] | | | | | | | | +--------+---------+ + + + | 07/31/ | Office | Otolaryngology | Monika Morillo | | | 2019 | Visit | | DO Topher Nugent | | | | | | [address] | | | | | | [place] [address] | | | | | | [phone] | | | | | | | | +--------+---------+ + + + | 12/07/ | Office | Cardiology | Nisha Forde DO | | | 2019 | Visit | | [address] | | | | | | [place] | | | | | | [address] | | | | | | | | +--------+---------+ + + + documented as of this encounter Visit Diagnoses Not on filedocumented in this encounter"
--- OUTSIDE RECORDS SUMMARY | ~2019-05-09 | XMS | Encounter Summary ---
Demographics + + + | Address | [address] | | | [place] [address] | + + + | Home Phone | | + + + | Preferred Language | Unknown | + + + | Marital Status | Single | + + + | Jew Affiliation | Unknown | + + + | Race | Unknown | + + + | Ethnic Group | Unknown | + + + Author + + + | Author | [facility] | | | and [place] | + + + | Organization | [facility] | | | [...] Team Providers + +------+ + | Care Health Education Teacher Name | Role | Phone | + +------+ + | Kiersten Pardo MD | PCP | | + +------+ + Encounter Details +--------+ + + + + | Date | Type | Department | Care Team | Description | +--------+ + + + + | 09/02/ | Orders Only | [facility] | Conversion | | | 2019 | | CONVERSION DEP [address] | Transaction, | | | | | [address] | Provider Unknown | | | | | [place] | [phone] | | | | | [address] | | | | | | [phone] | | | +--------+ + + + [...] | | | | | [place] [address] | | | | | | [phone] | | | | | | | | +--------+---------+ + + + | 07/31/ | Office | Otolaryngology | Monika Morillo | | | 2019 | Visit | | DO Topher Nugent | | | | | | [address] | | | | | | [place] [address] | | | | | | [phone] | | | | | | | | +--------+---------+ + + + | 12/07/ | Office | Cardiology | Nisha Forde DO | | | 2019 | Visit | | [address] | | | | | | [place] | | | | | | [address] | | | | | | | | +--------+---------+ + + + documented as of this encounter Visit Diagnoses Not on filedocumented in this encounter"
--- OUTSIDE RECORDS SUMMARY | ~2019-05-09 | XMS | Encounter Summary ---
Demographics + + + | Address | [address] | | | [place] [address] | + + + | Home Phone | | + + + | Preferred Language | Unknown | + + + | Marital Status | Single | + + + | Gnosticist Affiliation | Unknown | + + + | Race | Unknown | + + + | Ethnic Group | Unknown | + + + Author + + + | Author | [facility] | | | and [place] | + + + | Organization | [facility] | | [...] Team Providers + +------+ + | Care Inspector Receiving Name | Role | Phone | + [...] | | | | | | | [address] | | | | | | | Phone: | | | | | | | [phone] | | | | | | | Fax: | | | | | | | [phone] | | + + + + + [...] A | | | | | | [place] | [place] | | | | | | [address] | [address] Phone: | | | | | | Phone: | [phone] | | | | | | [phone] | Fax: | | | | | | Fax: | [phone] | | | | | | [phone] | | + + + + + + + Reason for Visit +---------+ + | Reason | Comments | +---------+ + | Post Op | | +---------+ + Encounter Details +--------+---------+ + + + | Date | Type | Department | Care Team | Description | +--------+---------+ + + + | 04/28/ | Office | [facility] | Monika Pretty | Papillary thyroid | | 2019 | Visit | NOSE AND THROAT [address] | J, DO [address] | carcinoma (HCC) | | | | [address] | [address] | (Primary Dx); | | | | [place], [place] | [place] [address] | Cervical | | | | [address] | [phone] | lymphadenopathy | | | | [phone] | | | +--------+---------+ + + + [...] dry, and intact. Surgical Pathology Exam Order: [id number] Status: Final result Visible to patient: No (Not Released) Next appt: 05/05/2019 at 02:30 PM in Cardiology (Lanie Reece, [facility]) Dx: Thyromegaly; Thyroid nodule Narrative Performed by: NIA KITCHEN SPECIMEN(S): A HOLLY-THYROIDAL LYMPH NODES SPECIMEN(S): B THYROID, TOTAL SPECIMEN(S): C LT CENTRAL NECK CONTENTS SPECIMEN SOURCE: A. HOLLY-THYROIDAL LYMPH NODES B. THYROID, TOTAL C. LT CENTRAL NECK CONTENTS CLINICAL HISTORY: E04.1 (thyroid nodule), E01.0 (thyromegaly). FROZEN SECTION DIAGNOSIS: A. 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 (Dr. Dietz, 04/22/19, 5526) The frozen section diagnosis is called to [...] papillary carcinoma (6/7). COMMENT: As part of [facility]' Quality Improvement Program, this case was reviewed [...] There is no nodule or induration. Three passenger relations representative sections are submitted in cassette s B1 and B2. The larger lobe of thyroid is inked black sectioning reveals a large 4.5 x 4. 0 x 3.0 cm soft, papillary/friable pink-lakhani nodule which occupies almost the entire lobe. There is no may sly recognizable normal thyroid parenchyma. Six passenger relations representative sections are submitted in c [...] LABORATORY: The frozen section was performed at [address] (Launch Operator: Jim Uriarte M.D.; CLIA#: [id number]). The technical component was performed by [facility], [address] [place] [address] (Launch Operator: Regine Dietz MD; CLIA# [id number]). Professional interpretation was performed by [facility], [address] [address] (Launch Operator: Jim Uriarte M.D.; CLIA#: [id number]). Diagnostician: Regine Dietz MD Pathologist Electronically Signed [...] system. The possibil ity of "sound alike" mason tender restoration labor errors, additions or deletions may occur. If [...] [place] | | | | | | [place] [address] | | | | | | [phone] | | | | | | | | +--------+---------+ + + + | 07/31/ | Office | Otolaryngology | Monika Pretty | | | 2019 | Visit | | DO Jovanna [address] | | | | | | [address] | | | | | | [place] [address] | | | | | | [phone] | | | | | | | | +--------+---------+ + + + | 12/07/ | Office | Cardiology | Nisha Forde DO | | | 2019 | Visit | | [address] | | | | | | [place] | | | | | | [address] | | | | | | | [...]
--- OUTSIDE RECORDS SUMMARY | ~2019-05-09 | XMS | Encounter Summary ---
Demographics + + + | Address | [address] | | | [place] [address] | + + + | Home Phone [...] + + + | Author | [facility] | | | and [place] | + + + | Organization | [facility] | | [...] Team Providers + +------+ + | Care Translator Interpreter Name | Role | Phone | + +------+ + | Soumya Fuentes | PCP | | + +------+ + Encounter Details +--------+ + + + + | Date | Type | Department | Care Team | Description | +--------+ + + + + | 04/01/ | Prep for | [facility] | Monika Morillo | | | 2019 | Procedure | NOSE AND THROAT [address] | J, DO [address] | | | | | [address] | [address] | | | | | [place], [place] | [place] [address] | | | | | [address] | [phone] | | | | | [phone] | | | +--------+ + + + [...] [place] | | | | | | [place] [address] | | | | | | [phone] | | | | | | | | +--------+---------+ + + + | 07/31/ | Office | Otolaryngology | Monika Morillo | | | 2019 | Visit | | DO [address] | | | | | | [address] | | | | | | [place] [address] | | | | | | [phone] | | | | | | | | +--------+---------+ + + + | 12/07/ | Office | Cardiology | Nisha Forde DO | | | 2020 | Visit | | [address] | | | | | | [place] | | | | | | [address] | | | | | | | | +--------+---------+ + + + documented as of this encounter Visit Diagnoses Not on filedocumented in this encounter"
--- OUTSIDE RECORDS SUMMARY | ~2019-05-09 | XMS | Clinical Summary ---
Demographics + + + | Address | [address] | | | [place] [address] | + + + | Home Phone | | + + + | Preferred Language | Unknown | + + + | Marital Status | Single | + + + | Advent Affiliation | Unknown | + + + | Race | Unknown | + + + | Ethnic Group | Unknown | + + + Author + + + | Author | [facility] | | | and [place] | + + + | Organization | [facility] | | | [...] Team Providers + +------+ + | Care Silica Dry Press Helper Name | Role | Phone | + [...] tablet by | 30 | 5 | 12/1 | | Activ | | (SYNTHROID) 150 mcg | mouth every morning | tablet | | 5/20 | | e | | tablet | (before breakfast). | | | 19 | | | [...] | 12/2 | | Activ | | (PRINIVIL,ZESTRIL) | mouth Daily. | tablet | | 6/20 | | e | | 40 MG [...] mg by mouth | | 0 | 10/ | 04/11 | Disco | | succinate | daily. | | | 08/28 | 10/28 | ntinu | | (TOPROL-XL) 200 mg | | | | 18 | 19 | ed | | ER tablet | | | | | | (Reor | | | | | | | | norma) | + + + +---------+------+------+-------+ | ALPRAZolam (XANAX) | Take 0.5 mg by mouth | | 0 | 02/09 | 04/10 | Disco | | 0.5 mg tablet | nightly as needed | | | 08/28 | 08/28 | ntinu | | | for Sleep. | | | 18 | 19 | ed | + + + +---------+------+------+-------+ | lisinopril | Take 1 tablet by | 30 | 3 | 05/12 | 04/11 | Disco | | (PRINIVIL,ZESTRIL) | mouth daily. | tablet | | 08/28 | 10/28 | ntinu | | 40 MG tablet | | | | 19 | 19 | ed | | | | | | | | (Reor | | | | | | | | norma) | + + + +---------+------+------+-------+ | amLODIPine | Take 5 mg by mouth. | | 0 | / | / | Disco | | (NORVASC) 5 mg | | | | 0/ | 10/28 | ntinu | | tablet | | | | 19 | 19 | ed | | | | | | | | (Reor | | | | | | | | norma) | + + + +---------+------+------+-------+ | dilTIAZem (CARTIA | Take 120 mg by mouth | | 0 | | 04/10 | Disco | | XT) 120 mg 24 hr | Daily. | | | | 07/28 | ntinu | | capsule | | | | | 19 | ed | | | | | | | | (Adriana | | | | | | | | ent | | | | | | | | Not | | | | | | | | Takin | | | | | | | | g) | + + + +---------+------+------+-------+ | omeprazole | Take 1 capsule by | 30 | 5 | 11/2 | 12/0 | Disco | | (PRILOSEC) 40 MG | mouth every morning | capsule | | 3/20 | 6/ | ntinu | | capsuleIndications: | (before breakfast). | | | 19 | 19 | ed | | Dysphagia, | | | | | | (Ther | | unspecified type, | | | | | | apy | | Laryngopharyngeal | | | | | | compl | | reflux (LPR), | | | | | | eted) | | Chronic throat | | | | | | | | clearing | | | | | | | + + + +---------+------+------+-------+ | omeprazole | Take 40 mg by mouth. | | 0 | 12/0 | 12/2 | Disco | | (PRILOSEC) 40 MG | | | | 01/28 | 10/28 | ntinu | | capsule | | | | 19 | 19 | ed | | | | | | | | (Adriana | | | | | | | | ent | | | | | | | | Not | | | | | | | | Takin | | | | | | | | g) | + + + +---------+------+------+-------+ | ondansetron | Take 1 tablet by | 20 | 0 | 12/1 | 12/2 | Disco | | (ZOFRAN ODT) 4 mg | mouth every 6 hours | tablet | | /20 | /20 | ntinu | | disintegrating | as needed for | | | 19 | 19 | ed | | tablet | Nausea. | | | | | (Adriana | | | | | | | | ent | | | | | | | | Not | | | | | | | | Takin | | | | | | | | g) | + + + +---------+------+------+-------+ | dilTIAZem | Take 120 mg by mouth | | 0 | | 04/11 | Disco | | (CARDIZEM LA) 120 mg | Daily. | | | | 10/28 | ntinu | | 24 hr tablet | | | | | 19 | ed | | | | | | | | (Reor | | | | | | | | norma) | + + + +---------+------+------+-------+ Active Problems [...] automatically from request for surgery | | [id number] | + + + + + | Thyromegaly | 04/04/2019 | + + + + + | Overview: Added automatically from request for surgery | | [id number] | + + + + + | [...] and exercise, also spoke with | | nailer hand today. - RTC in 2 weeks | [...] | patient refuses to be on a correction medication for it at this | | time.- is okay with doing counseling and meditation first. Had | | patient download [employer] meditation denise on her phone, she is [...] but patient refuses to be on a correction medication | | for it at this time.- is okay with doing counseling and | | meditation first. Had patient download [employer] meditation denise | | on her phone, she is instructed to do it at least once daily. - | | if these methods do not work, patient is agreeable to re-visit | | the topic of SSRI medication. - patient to set up appt with our | | [facility] soon | + + + + + | SVT (supraventricular tachycardia) | 02/18/2019 | + + + + + | Overview: 2018: dx with SVT, sent to repairer pump (at | | [facility]). Last visit in Jun 2018. Last Assessment & Plan: - | | diagnosed in 2018 in the ER and was following with a repairer pump | | at [facility]. Last visit was in May or June of 2018. Has | | had echo done in 2019, states that it was normal.- patient not | | tachycardic today, but in hypertensive urgency. 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) | | | | | | (Primary Dx); | | | | | | Essential | | | | | | hypertension; High | | | | | | triglycerides; | | | | [...] | | | | | therapy | +--------+ + + + + | 04/28/ | Office | Otolaryngology | Monika Morillo | Papillary thyroid | | 2018 | Visit | | DO Jovanna | carcinoma (HCC) | | | | | | (Primary Dx); | | | | | | Cervical | | | | | | lymphadenopathy | +--------+ + + + + | 04/22/ | Anesthesia | | Doris Beckwith, | | | 2019 | Event | | ENGINEERING GROUP MANAGER | | +--------+ + + + + | 04/22/ | Surgery | | Monika Morillo | TOTAL THYROIDECTOMY, | | 2018 | | | DO Jovanna | left central neck | | | | | | dissection | +--------+ + + + + | 04/22/ | Hospital | General Surgery | Monika Morillo | Thyroid nodule; | | 2018 - | Encounter | | DO Jovanna | Thyromegaly; | | | | | | Thyroid nodule; | | 04/23/ | | | | Thyromegaly | | 2018 | | | | | +--------+ + + + + | 04/15/ | Hospital | Cardiology | Ilia, Monika | Preop testing | | 2019 | Encounter | | DO Jovanna | | +--------+ + + + + | 04/15/ | Preadmit | Pre-Admission | Monika Morillo | Preop testing | | 2019 | Visit | Testing | DO Jovanna | (Primary Dx) | +--------+ + + + + | 04/01/ | Office | Otolaryngology | Monika Morillo | Thyroid nodule | | 2019 | Visit | | DO Jovanna | (Primary Dx); | | | | | | Thyromegaly; | | | | | | Dysphagia, | | | | | | unspecified type; | | | | | | Laryngopharyngeal | | | | | | reflux (LPR); | | | | | | Chronic throat | | | | | | clearing | +--------+ + + + + | 04/01/ | Prep for | Otolaryngology | Monika Morillo | | | 2019 | Procedure | | DO Jovanna | | +--------+ + + + + [...] | | | | | | [place] [address] | | | | | | [phone] | | | | | | | | +--------+---------+ + + + | 07/31/ | Office | Otolaryngology | Monika Morillo | | 2019 | Visit | | DO Topher Nugent | | | | | | [address] | | | | | | [place] [address] | | | | | | [phone] | | | | | | | | +--------+---------+ + + + | 12/07/ | Office | Cardiology | Nisah Forde DO | | | 2020 | Visit | | [address] | | | | | | [place] | | | | | | [address] | | | | | | | [...] | | + + + + + Procedures + +--------+ + + + | [...] | | | | | | carcinoma ([facility]) H/O | | | | | [...] section. | + +--------+ + + + from Last 3 Months Results Parathyroid Hormone, Intact and Calcium (04/23/2019 [...] | | | | | | at [facility], [address] | | | | | [facility], | | | | | | [place] [address] | | | | + + + + + + + + | Specimen | + + | Blood | + + + + + + + | Performing | Address | City/State/Zipcode | Phone Number | | Organization | | | | + + + + + | [facility] | [address] | [place] [address] | [phone] | + + + + + Calcium, [...] 7.442Comment: Testing | 7.300 - 7.450 | [facility] | | | | performed at [facility];[address] | | LABORATORY | | | | [address];[place], [place] | | | | | | [address] | | | | + + + + + + + + | Specimen | + + | Blood | + + + + + + + | Performing | Address | City/State/Zipcode | Phone Number | | Organization | | | | + + + + + | [facility] | [address] | [place] [address] | [phone] | + + + + + POC Glucose (04/22/2019 9:18 AM PST)Only the most recent of 2 results within the time abril od is included. + + + + + + | Component | Value | Ref Range | Performed | Pathologist | | | | | At | Signature | + + + + + + | Glucose, | 121 (H)Comment: Testing | 65 - 99 mg/dL | [facility] | | | POC | performed at [facility];[address] | | LABORATORY | | | | [address];[place], [place] | | | | | | [address] | | | | + + + + + + + + | Specimen | + + | | + + + + + + + | Performing | Address | City/State/Zipcode | Phone Number | | Organization | | | | + + + + + | [facility] | [address] | [place] [address] | [phone] | + + + + + Surgical [...] SPECIMEN(S): A | [place] [facility] | | ABRIL-THYROIDAL LYMPH NODESSPECIMEN(S): B THYROID, TOTALSPECIMEN(S): C | INCYTE | | LT CENTRAL NECK CONTENTS SPECIMEN SOURCE:A. ABRIL-THYROIDAL LYMPH | | | NODESB. THYROID, TOTALC. LT CENTRAL NECK CONTENTS CLINICAL | | | HISTORY:E04.1 (thyroid nodule), E01.0 (thyromegaly). FROZEN SECTION | | | DIAGNOSIS:A. Abril-thyroidal lymph nodes:- Two lymph nodes positive | | | for papillary carcinoma. (Dr. Dietz, 04/22/19, 4279) The frozen | | | section diagnosis [...] | | carcinoma (6/7). COMMENT:As part of [facility]' Quality | | | Improvement Program, this [...] There is no nodule or induration. Three specialty sales representative | | | sections are submitted in cassettes B1 and B2. The larger lobe of | | | thyroid is inked black sectioning reveals a large 4.5 x 4.0 x 3.0 cm | | | soft,papillary/friable pink-lakhani nodule which occupies almost the | | | entire lobe. There is no grossly recognizable normal thyroid | | | parenchyma. Six specialty sales representative sections are submitted in cassettes [...] section was | | | performed at [address], | | | [place] [address] (Electroencephalogram Technologist: Jim Uriarte M.D.; CLIA#: | | | [id number]).The technical component was performed by [facility] | | | [facility], [address] [place] [address] (Electroencephalogram Technologist: | | | Regine Dietz MD; CLIA# [id number]). Professional interpretation was | | | performed by[facility], [facility] | | | [place] [address] (Electroencephalogram Technologist: Jim | | | Agnes Uriarte; CLIA#: [id number]). Diagnostician: Regine Dietz | | | MDPathologistElectronically Signed 04/26/2019 | | | | | |There is no nodule or induration. Three specialty sales representative sections are submitted in cassette s B1 and B2. The larger lobe of thyroid is inked black sectioning reveals a large 4.5 x 4. 0 x 3.0 cm soft, | | |papillary/friable pink-lakhani nodule which occupies almost the entire lobe. There is no may sly recognizable normal thyroid parenchyma. Six specialty sales representative sections are submitted in c assettes B3-B8. | | | | | |C. The specimen is received in a formalin filled specimen container labeled "[facility], le ft central neck contents". A lobular [...] | |The frozen section was performed at [place] [address] (Electroencephalogram Technologist: Jim Uriarte M.D.; CLIA#: [id number]). | | |The technical component was performed by [facility], [address] [place] [address] (Electroencephalogram Technologist: Regine Dietz MD; CLIA# [id number]). Professional interpretation was performed by | | |[facility], [place] [address] (Electroencephalogram Technologist: Jim Uriarte M.D.; CLIA#: [id number]). | | | | | |Diagnostician: Regine [...] | | | + +---------+ + + PIV (04/22/2019 7:29 AM PST) + + + | Narrative | Performed At | + + + | Doris Beckwith CRNA 04/22/2019 7:30 AM Intravenous | | | Line Placement 04/22/2019 7:10 AM Indication: necessitating | | | physician/ENGINEERING GROUP MANAGER skill Preparation: alcohol patient was: under [place] [...] medication documentation. | | + + + POCT Test, Urine, Qual (04/22/2019 6:12 AM PST) + + + + + + | Component | Value | Ref Range | Performed | Pathologist | | | | | At | Signature | + + + + + + | HCG, | NEGATIVEComment: Testing | NEG | [place] | | | Quantitativ | performed at [facility];[address] | | LABORATORY | | | e POC | [address];[place], [place] | | | | | | [address] | | | | + + + + + + + + | Specimen | + + | | + + + + + + + | Performing | Address | City/State/Zipcode | Phone Number | | Organization | | | | + + + + + | [facility] | [address] | [place] [address] | [phone] | + + + + + CBC with Differential (04/15/2019 12:54 PM PST) [...] 0.02Comment: Testing | 0.00 - 0.10 | [facility] | | | Absolute | performed at [facility], [address] | [address] | LABORATORY | | | | [address], | | | | | | [place] [address] | | | | + + + + + + + + | Specimen | + + | Blood | + + + + + + + | Performing | Address | City/State/Zipcode | Phone Number | | Organization | | | | + + + + + | [facility] | [address] | [place] [address] | [phone] | + + + + + Basic [...] | 9.6 | 8.5 - 10.5 | [place] | | | | | mg/dL | LABORATORY | | + + + + + + | Estimated | >60Comment: GFR <60: | >60 | [place] | | | GFR | CHRONIC KIDNEY [...] | | | | | performed at [facility], [address] | | | | | | [facility], | | | | | | [place] [address] | | | | + + + + + + + + | Specimen | + + | Blood | + + + + + + + | Performing | Address | City/State/Zipcode | Phone Number | | Organization | | | | + + + + + | [facility] | [address] | [place] [address] | [phone] | + + + + + ECG [...] | | | + +---------+ + + from Last 3 Months Insurance +---------+--------+ +--------+ +---------+------+ | Payer | Benefi | Subscriber | Effect | Phone | Address | Type | | | t Plan | ID | joshua | | | | | | / | | Dates | | | | | | Group | | | | | | +---------+--------+ +--------+ +---------+------+ | [employer] | REGEN | [id number] | 1/1/20 | [phone] | | PPO | | [...] | | al/Fam | | 1979 | [phone] | [place] | | | [place] | | | 1 (Home) | [address] | + +--------+ +--------+ + + | Tamera Yang | Person | Self | [birth year] | [address] | | | al/Fam | | 1979 | [phone] | [place], [place] | | | [place] | | | 1 (Home) | [address] | + +--------+ +--------+ + + Advance Directives + + + + + | Type | Date Recorded | Patient | Explanation | | | | Tire And Tube Repairer | | + + + + + | Power of | | | | | Precision Filer Hand | | | | + + + [...]
--- OUTSIDE RECORDS SUMMARY | ~2019-05-09 | XMS | Encounter Summary ---
Demographics + + + | Address | [address] | | | [place] [address] | + + + | Home Phone | | + + + | Preferred Language | Unknown | + + + | Marital Status | Single | + + + | Jehovah'S Witness Affiliation | Unknown | + + + | Race | Unknown | + + + | Ethnic Group | Unknown | + + + Author + + + | Author | [facility] | | | and [place] | + + + | Organization | [facility] | | | [...] Team Providers + +------+ + | Care Corrosion Prevention Metal Sprayer Name | Role | Phone | + [...] + + | 04/22/ | Hospital | [facility] | Monika Morillo | Thyroid nodule; | | 2019 - | Encounter | [facility] [address] | J, DO [address] | Thyromegaly; | | | | [address] | [address] | Thyroid nodule; | | 04/23/ | | [place], [place] | [place] [address] | Thyromegaly | | 2019 | | [address] | [phone] | | | | | [phone] | | | +--------+ + + + [...] Morillo DO - 04/23/2019 12:20 PM PST [facility] Service: Otolaryngology Brief Post-op Discharge Note [...] the hands,feet, or lips Date Last Reviewed: 03/11/201619998633-5779 [employer]. [address] [place] [address]. All righ ts reserved. This information is [...] Jovanna, DO - 04/23/2019 12:14 PM PST [facility] Service: Otolaryngology Progress Note Hospital Day: [...] all discharge criteria. A prescription for Synthroid, Sweet Home, and Zofran have been given to the [...] Morillo DO 04/23/2019 okary Breanne Melvin [facility] - 04/22/2019 1:14 PM PSTRx Admission Medication History Note I have reviewed the medication history for appropriate doses obtained by: Other : Obtaine d by myself after reviewing the patient's dispense history and confirming the dispense histo ry with the patient's two pharmacies. [place] [facility]. RN also confirmed the patient's current [...] omeprazole 40 mg (although patient did not picker box operator, lik cydney due to cost) -Marked the alprazolam as not taking as this has not been filled in 14 months, patient stat ed prior use only occasional but has not been using this. I agree with the home medications list Please Review and Order Home Medications as necessary. Thanks BREANNE AGARWAL [facility] 04/22/2019 @ 1:07 PM documented in this [...] | | | | | | [place] [address] | | | | | | [phone] | | | | | | | | +--------+---------+ + + + | 07/31/ | Office | Otolaryngology | Monika Morillo | | | 2019 | Visit | | DO Topher Nugent | | | | | | [address] | | | | | | [facility] [place] [address] | | | | | | [phone] | | | | | | | | +--------+---------+ + + + | 12/07/ | Office | Cardiology | Nisha Forde DO | | | 2019 | Visit | | [address] | | | | | | [place] | | | | | | [address] | | | | | | | [...] | | | | | | at [facility], [address] | | | | | | [address], | | | | | | [place] [address] | | | | + + + + + + + + | Specimen | + + | Blood | + + + + + + + | Performing | Address | City/State/Zipcode | Phone Number | | Organization | | | | + + + + + | [facility] | [address] | [place] [address] | [phone] | + + + + + Calcium, [...] 7.442Comment: Testing | 7.300 - 7.450 | [facility] | | | | performed at [facility];[address] | | LABORATORY | | | | [address];[place] | | | | | | [address] | | | | + + + + + + + + | Specimen | + + | Blood | + + + + + + + | Performing | Address | City/State/Zipcode | Phone Number | | Organization | | | | + + + + + | [facility] | [address] | [place] [address] | [phone] | + + + + + POC [...] | | | POC | performed at [facility];[address] | | LABORATORY | | | | [address];[place] | | | | | | [address] | | | | + + + + + + + + | Specimen | + + | | + + + + + + + | Performing | Address | City/State/Zipcode | Phone Number | | Organization | | | | + + + + + | [facility] | [address] | [place] [address] | [phone] | + + + + + Surgical [...] | | carcinoma (6/7). COMMENT:As part of [facility]' Quality | | | Improvement Program, this [...] There is no nodule or induration. Three employee relations representative | | | sections are submitted in cassettes B1 and B2. The larger lobe of | | | thyroid is inked black sectioning reveals a large 4.5 x 4.0 x 3.0 cm | | | soft,papillary/friable pink-lakhani nodule which occupies almost the | | | entire lobe. There is no grossly recognizable normal thyroid | | | parenchyma. Six employee relations representative sections are submitted in cassettes [...] section was | | | performed at [address], | | | [place] [address] (Center Human Resources Manager: Jim Uriarte M.D.; CLIA#: | | | [id number]).The technical component was performed by [facility] | | | [employer] [facility], [address] [place] [address] (Center Human Resources Manager: | | | Regine Dietz MD; CLIA# [id number]). Professional interpretation was | | | performed by[facility], [facility], [facility] | | | [place] [address] (Center Human Resources Manager: Jim | | | Agnes Uriarte; CLIA#: [id number]). Diagnostician: Regine Dietz | | | MDPathologistElectronically Signed 04/26/2019 | | | | | |There is no nodule or induration. Three employee relations representative sections are submitted in cassette s B1 and B2. The larger lobe of thyroid is inked black sectioning reveals a large 4.5 x 4. 0 x 3.0 cm soft, | | |papillary/friable pink-lakhani nodule which occupies almost the entire lobe. There is no may sly recognizable normal thyroid parenchyma. Six employee relations representative sections are submitted in c assettes B3-B8. | | | | | |C. The specimen is received in a formalin filled specimen container labeled "[facility] central neck contents". A lobular excision [...] | |The frozen section was performed at [facility], [address] [place] [phone] (Center Human Resources Manager: Jim Uriarte M.D.; CLIA#: [id number]). | | |The technical component was performed by [facility], [address] [place] [address] (Center Human Resources Manager: Regine Dietz MD; CLIA# [id number]). Professional interpretation was performed by | | |[facility], [facility], [address] [place] [address] (Center Human Resources Manager: Jim Uriarte M.D.; [facility]#: [id number]). | | | | | |Diagnostician: Regine [...] | | | POC | performed at [facility];[address] | | LABORATORY | | | | [address];[place], [place] | | | | | | [address] | | | | + + + + + + + + | Specimen | + + | | + + + + + + + | Performing | Address | City/State/Zipcode | Phone Number | | Organization | | | | + + + + + | [facility] | [address] | [place] [address] | [phone] | + + + + + POCT Test, Urine, Qual (04/22/2019 6:12 AM PST) + + + + + + | Component | Value | Ref Range | Performed | Pathologist | | | | | At | Signature | + + + + + + | HCG, | NEGATIVEComment: Testing | NEG | KR | | | Quantitativ | performed at [facility];[address] | | LABORATORY | | | e POC | [address];[place], [place] | | | | | | [address] | | | | + + + + + + + + | Specimen | + + | | + + + + + + + | Performing | Address | City/State/Zipcode | Phone Number | | Organization | | | | + + + + + | [facility] | [address] | [place] [address] | [phone] | + + + + + documented [...] | | | | | | longer, xbyywn-[id number]-glawt use of | | | | | [...]
--- OUTSIDE RECORDS SUMMARY | ~2019-05-09 | XMS | Encounter Summary ---
Demographics + + + | Address | [address] | | | [place] [address] | + + + | Home Phone | | + + + | Preferred Language | Unknown | + + + | Marital Status | Single | + + + | Scientologist Affiliation | Unknown | + + + | Race | Unknown | + + + | Ethnic Group | Unknown | + + + Author + + + | Author | [facility] | | | and [place] | + + + | Organization | [facility] | | | [...] Team Providers + +------+ + | Care Enterprise Business Architect Name | Role | Phone | + [...] + + | 04/22/ | Anesthesia | [facility] | Doris Beckwith, | | | 2019 | [facility] | DONATION WORKER [address] | | | | | OPER[address] | [place] [address] | | | | | [address] | [phone] | | | | | [place], [place] | | | | | | [address] | | | | | | [phone] | | | +--------+ + + + + Anesthesia Record + + + + + | Procedure Name | Responsible | Anesthesia Start | Anesthesia Stop Time | | | Anesthesiologist | Time | | + + + + + | TOTAL THYROIDECTOMY, | Doris Beckwith, | 04/22/1958 | 04/22/19 0915 | | left central neck | DONATION WORKER | | | | dissection (N/A | [...] +----+---+ + + | | 0 | [place] | | | | 7 | 43-degrees [...] 1342 by | | eral | Antecubital; [id number] | Angeline Shoemaker RN | Lo William, [...] | | | procedure documentation); Mask | DONATION WORKER | DONATION WORKER | | | Ventilation: EZ; Airway Grade: [...] IV | Proximal; Hand; 18 gauge; | DONATION WORKER | RN | | | 04/23/19; 1342 | | | +--------+ + + + | Periph | 04/22/19; 0710; Right; Hand; | 04/22/19 0710 by | 04/22/19 1900 by | | eral | wisp-[id number] catheter system; | Tatiana Gamboa RN | [...] | | | | | [place] [address] | | | | | | [phone] | | | | | | | | +--------+---------+ + + + | 07/31/ | Office | Otolaryngology | Monika Morillo | | | 2019 | Visit | | DO Jovanna [address] | | | | | | [address] | | | | | | [place] [address] | | | | | | [phone] | | | | | | | | +--------+---------+ + + + | 12/07/ | Office | Cardiology | Nisha Forde DO | | | 2019 | Visit | | [address] | | | | | | [place] | | | | | | [address] | | | | | | | [...] 7:10 AM Indication: necessitating | | | physician/DONATION WORKER skill Preparation: alcohol patient was: under GA [...] At | + + + | Doris Becwkith CRNA 04/22/2019 7:29 AM Anesthesia Airway | [...]
--- OUTSIDE RECORDS SUMMARY | ~2019-05-09 | XMS | Encounter Summary ---
Demographics + + + | Address | [address] | | | [place] [address] | + + + | Home Phone | | + + + | Preferred Language | Unknown | + + + | Marital Status | Single | + + + | Islam Affiliation | Unknown | + + + [...] Team Providers + +------+ + | Care Virtual Classroom Manager Name | Role | Phone | + +------+ + | Nicole Parikh PA-C | PCP | | + +------+ + Encounter Details +--------+ + + + + | Date | Type | Department | Care Team | Description | +--------+ + + + + | 12/24/ | Orders Only | [facility] | Nisha Forde DO | Essential (primary) | | 2019 | | CARDIOLOGY [place] | [address] | hypertension | | | | [address] | [place], [place] | | | | | [address] | [address] | | | | | [place] | | | | | | [address] | | | | | | [phone] | | | +--------+ + + + [...] | | | | | | [place] [address] | | | | | | [phone] | | | | | | | | +--------+---------+ + + + | 07/31/ | Office | Otolaryngology | Monika Morillo | | | 2019 | Visit | | DO Topher Nugent | | | | | | [address] | | | | | | [place] [address] | | | | | | [phone] | | | | | | | | +--------+---------+ + + + | 12/07/ | Office | Cardiology | Nisha Forde DO | | | 2019 | Visit | | [address] | | | | | | [place] | | | | | | [address] | | | | | | | | +--------+---------+ + + + documented as of this encounter Visit Diagnoses + + | Diagnosis | + + | Essential (primary) hypertension Unspecified essential hypertension | + + documented in this encounter"
--- OUTSIDE RECORDS SUMMARY | ~2019-05-09 | XMS | Encounter Summary ---
Demographics + + + | Address | [address] | | | [place] [address] | + + + | Home Phone | | + + + | Preferred Language | Unknown | + + + | Marital Status | Single | + + + | Samaritan Affiliation | Unknown | + + + | Race | Unknown | + + + | Ethnic Group | Unknown | + + + Author + + + | Author | [facility] | | | and [place] | + + + | Organization | [facility] | | [...] Team Providers + +------+ + | Care Ceo Ziff Davis Name | Role | Phone | + +------+ + | Soumya Fuentes | PCP | | + +------+ + Encounter Details +--------+ + + + + | Date | Type | Department | Care Team | Description | +--------+ + + + + | 04/01/ | Prep for | [facility] | Monika Morillo | | | 2019 | Procedure | NOSE AND THROAT [address] | J, DO [address] | | | | | [address] | [address] | | | | | [place], [place] | [place] [address] | | | | | [address] | [phone] | | | | | [phone] | | | +--------+ + + + [...] [address] | | | | | | [place] [address] | | | | | | [phone] | | | | | | | | +--------+---------+ + + + | 07/31/ | Office | Otolaryngology | Monika Morillo | | | 2019 | Visit | | DO Topher Nugent | | | | | | [address] | | | | | | [place] [address] | | | | | | [phone] | | | | | | | | +--------+---------+ + + + | 12/07/ | Office | Cardiology | Nisha Forde DO | | | 2020 | Visit | | [address] | | | | | | [place] | | | | | | [address] | | | | | | | | +--------+---------+ + + + documented as of this encounter Visit Diagnoses Not on filedocumented in this encounter"
--- OUTSIDE RECORDS SUMMARY | ~2019-05-09 | XMS | Clinical Summary ---
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
--- OUTSIDE RECORDS SUMMARY | ~2019-05-09 | XMS | Encounter Summary ---
Demographics + + + | Address | [address] | | | [place] [address] | + + + | Home Phone | | + + + | Preferred Language | Unknown | + + + | Marital Status | Single | + + + | Rastafari Affiliation | Unknown | + + + | Race | Unknown | + + + | Ethnic Group | Unknown | + + + Author + + + | Author | [facility] | | | and [place] | + + + | Organization | [facility] | | | [...] Team Providers + +------+ + | Care Tin Worker Name | Role | Phone | [...] | | | | [place] | [phone] | | | | | [address] | | | | | | [phone] | | | +--------+ + + + [...] | | | | | [place] [address] | | | | | | [phone] | | | | | | | | +--------+---------+ + + + | 07/31/ | Office | Otolaryngology | Monika Morillo | | | 2019 | Visit | | DO Topher Nugent | | | | | | [address] | | | | | | [place] [address] | | | | | | [phone] | | | | | | | | +--------+---------+ + + + | 12/07/ | Office | Cardiology | Nisha Forde DO | | | 2019 | Visit | | [address] | | | | | | [place] | | | | | | [address] | | | | | | | | +--------+---------+ + + + documented as of this encounter Visit Diagnoses Not on filedocumented in this encounter"
--- OUTSIDE RECORDS SUMMARY | ~2019-05-09 | XMS | Encounter Summary ---
Demographics + + + | Address | [address] | | | [place] [address] | + + + | Home Phone [...] + | Author | [facility] | | | and [place] | + + + | Organization | [facility] | | | and [...] Team Providers + +------+ + | Care Cnc Mill And Lathe Operator Name | Role | Phone | [...] [address] | | | | | [place], [place] | [place] | | | | | [address] | [address] | | | | | [phone] | [phone] | | | | | | | [...] Description | +--------+---------+ + + + | 02/27/ | Office | Cardiology | Lanie Reece | | | 2019 | Visit | | [address] | | | | | | [address] | | | | | | [place] [address] | | | | | | [phone] | | | | | | | | +--------+---------+ + + + | 07/31/ | Office | Otolaryngology | Monika Morillo | | | 2019 | Visit | | DO Jovanna [address] | | | | | | [address] | | | | | | [place] [address] | | | | | | [phone] | | | | | | | | +--------+---------+ + + + | 12/07/ | Office | Cardiology | Nisha Forde DO | | | 2019 | Visit | | [address] | | | | | | [place] | | | | | | [address] | | | | | | | [...] pressures of | | | 5-10mmHg. MEASUREMENTS Independent Freight Agent: | | | Authenticated by: Hoang Beal DO Report Date/Time: -- | | | [id number] | | + + + + + | Procedure Note | + + | Manoj, Rad Conversion - 12/30/2018 10:47 PM PDT Patient Name: Jae Yang of | | : 1980 Performing Physician: Hoang [...] venous pressures of 5-10mmHg. | | MEASUREMENTS Independent Freight Agent: DAVIDuthenticated by: Hoang Thrasher | | Date/Time: -- [id number] IMPRESSION: 1. See Dictation 2. TDS. Grossly, [...] | |MEASUREMENTS | | | | | |Independent Freight Agent: | |Authenticated by: Hoang Beal DO | |Report Date/Time: -- [id number] | | | |IMPRESSION: | |1. See Dictation 2. TDS. Grossly, NML study. | + + documented in this encounter Visit Diagnoses Not on filedocumented in this encounter"
--- OUTSIDE RECORDS SUMMARY | ~2019-05-09 | XMS | Encounter Summary ---
Demographics + + + | Address | [address] | | | [place] [address] | + + + | Home Phone | | + + + | Preferred Language | Unknown | + + + | Marital Status | Single | + + + | Yazidi Affiliation | Unknown | + + + | Race | Unknown | + + + | Ethnic Group | Unknown | + + + Author + + + | Author | [facility] | | | and [place] | + + + | Organization | [facility] | | | [...] Team Providers + +------+ + | Care Licensed Funeral Director And Embalmer Name | Role | Phone | + [...] | | | | [place] | [phone] | | | | | [address] | | | | | | [phone] | | | +--------+ + + + [...] | | | | | [place] [address] | | | | | | [phone] | | | | | | | | +--------+---------+ + + + | 07/31/ | Office | Otolaryngology | Monika Morillo | | | 2019 | Visit | | DO Topher Nugent | | | | | | [address] | | | | | | [place] [address] | | | | | | [phone] | | | | | | | | +--------+---------+ + + + | 12/07/ | Office | Cardiology | Nisha Forde DO | | | 2019 | Visit | | [address] | | | | | | [place] | | | | | | [address] | | | | | | | | +--------+---------+ + + + documented as of this encounter Visit Diagnoses Not on filedocumented in this encounter"
--- OUTSIDE RECORDS SUMMARY | ~2019-05-09 | XMS | Encounter Summary ---
Demographics + + + | Address | [address] | | | [place] [address] | + + + | Home Phone [...] Author + + + | Author | [facility] | | | and [place] | + + + | Organization | [facility] | | | [...] Team Providers + +------+ + | Care Steel Die Press Set Up Operator Name | Role | Phone | + +------+ + | Kiersten Padro MD | PCP | | + +------+ [...] | | | | [place] | [phone] | | | | | [address] | | | | | | [phone] | | | +--------+ + + + [...] | | | | | [place] [address] | | | | | | [phone] | | | | | | | | +--------+---------+ + + + | 07/31/ | Office | Otolaryngology | Monika Morillo | | | 2019 | Visit | | DO Topher Nugent | | | | | | [address] | | | | | | [place] [address] | | | | | | [phone] | | | | | | | | +--------+---------+ + + + | 12/07/ | Office | Cardiology | Nisha Forde DO | | | 2019 | Visit | | [address] | | | | | | [place] | | | | | | [address] | | | | | | | | +--------+---------+ + + + documented as of this encounter Visit Diagnoses Not on filedocumented in this encounter"
--- OUTSIDE RECORDS SUMMARY | ~2019-05-09 | XMS | Encounter Summary ---
Demographics + + + | Address | [address] | | | [place] [address] | + + + | Home Phone | | + + + | Preferred Language | Unknown | + + + | Marital Status | Single | + + + | Synagogue Affiliation | Unknown | + + + | Race | Unknown | + + + | Ethnic Group | Unknown | + + + Author + + + | Author | [facility] | | | and [place] | + + + | Organization | [facility] | | | and [...] Team Providers + +------+ + | Care Pig Iron Loader Name | Role | Phone | + [...] + + | 04/22/ | Surgery | [facility] | Monika Morillo | TOTAL THYROIDECTOMY, | | 2018 | | [facility] | J, DO [address] | left central neck | | | | OPERATING RO[address] | dissection | | | | [address] | [place] [address] | | | | | [place], [place] | [phone] | | | | | [address] | | | | | | [phone] | | | +--------+---------+ + + + [...] Monika Morillo, - 04/23/2019 12:20 PM PST [facility] Service: Otolaryngology Brief Post-op Discharge Note DISCHARGE [...] the hands,feet, or lips Date Last Reviewed: 03/11/201619990001-9912 [employer]. [address] [place] [address]. All righ ts reserved. This information is [...] of this encounter Progress Notes Ilia Monika J, DO - 04/23/2019 12:14 PM PST [facility] Service: Otolaryngology Progress Note Hospital [...] all discharge criteria. A prescription for Synthroid, [place], and Zofran have been given to the [...] Morillo DO 04/23/2019 okary Breanne Melvin [facility] - 04/22/2019 1:14 PM PSTRx Admission Medication History Note I have reviewed the medication history for appropriate doses obtained by: Other : Obtaine d by myself after reviewing the patient's dispense history and confirming the dispense histo ry with the patient's two pharmacies. [facility] [place] [facility] RN also confirmed the patient's current [...] 40 mg (although patient did not picker operator, lik cydney due to cost) -Marked the alprazolam as not taking as this has not been filled in 14 months, patient stat ed prior use only occasional but has not been using this. I agree with the home medications list Please Review and Order Home Medications as necessary. Thanks BREANNE AGARWAL [facility] 04/22/2019 @ 1:07 PM documented in [...] | | | | | [place] [address] | | | | | | [phone] | | | | | | | | +--------+---------+ + + + | 07/31/ | Office | Otolaryngology | Monika Morillo | | | 2019 | Visit | | DO [address] | | | | | | [address] | | | | | | [place] [address] | | | | | | [phone] | | | | | | | | +--------+---------+ + + + | 12/07/ | Office | Cardiology | Nisha Forde DO | | | 2019 | Visit | | [address] | | | | | | [place] | | | | | | [address] | | | | | | | [...] | | | | | | at [facility], [address] | | | | | | [address], | | | | | | [place] [address] | | | | + + + + + + + + | Specimen | + + | Blood | + + + + + + + | Performing | Address | City/State/Zipcode | Phone Number | | Organization | | | | + + + + + | [facility] | [address] | [place] [address] | [phone] | + + + + + Calcium, [...] 7.442Comment: Testing | 7.300 - 7.450 | [facility] | | | | performed at [facility];[address] | | LABORATORY | | | | [address];[place] | | | | | | [address] | | | | + + + + + + + + | Specimen | + + | Blood | + + + + + + + | Performing | Address | City/State/Zipcode | Phone Number | | Organization | | | | + + + + + | [facility] | [address] | [place] [address] | [phone] | + + + + + POC [...] | | | POC | performed at [facility];[address] | | LABORATORY | | | | [address];[place] | | | | | | [address] | | | | + + + + + + + + | Specimen | + + | | + + + + + + + | Performing | Address | City/State/Zipcode | Phone Number | | Organization | | | | + + + + + | [facility] | [address] | [place] [address] | [phone] | + + + + + Surgical [...] | | carcinoma (6/7). COMMENT:As part of [facility]' Quality | | | Improvement Program, this [...] There is no nodule or induration. Three key account representative | | | sections are submitted in cassettes B1 and B2. The larger lobe of | | | thyroid is inked black sectioning reveals a large 4.5 x 4.0 x 3.0 cm | | | soft,papillary/friable pink-lakhani nodule which occupies almost the | | | entire lobe. There is no grossly recognizable normal thyroid | | | parenchyma. Six key account representative sections are submitted in cassettes [...] section was | | | performed at [address], | | | [place] [address] (Fairing Worker: Jim Uriarte M.D.; CLIA#: | | | [id number]).The technical component was performed by [facility] | | | [facility], [address] [place] [address] (Fairing Worker: | | | Regine Dietz MD; CLIA# [id number]). Professional interpretation was | | | performed by[facility], [facility], [facility] | | | [place] [address] (Fairing Worker: Jim | | | Agnes Uriarte; CLIA#: [id number]). Diagnostician: Regine Dietz | | | MDPathologistElectronically Signed 04/26/2019 | | | | | |There is no nodule or induration. Three key account representative sections are submitted in cassette s B1 and B2. The larger lobe of thyroid is inked black sectioning reveals a large 4.5 x 4. 0 x 3.0 cm soft, | | |papillary/friable pink-lakhani nodule which occupies almost the entire lobe. There is no may sly recognizable normal thyroid parenchyma. Six key account representative sections are submitted in c assettes B3-B8. | | | | | |C. The specimen is received in a formalin filled specimen container labeled "[facility], le central neck contents". A lobular [...] |The frozen section was performed at [facility], [address] [place] [address] (Fairing Worker: Jim Uriarte M.D.; CLIA#: [id number]). | | |The technical component was performed by [facility], [address] [place] [address] (Fairing Worker: Regine Dietz MD; CLIA# [id number]). Professional interpretation was performed by | | |[facility], [facility], [address] [facility] [place] [address] (Fairing Worker: Jim Uriarte M.D.; [facility]#: [id number]). | | | | | |Diagnostician: Regine [...] | | | POC | performed at [facility];[address] | | LABORATORY | | | | [address];[place], [place] | | | | | | [address] | | | | + + + + + + + + | Specimen | + + | | + + + + + + + | Performing | Address | City/State/Zipcode | Phone Number | | Organization | | | | + + + + + | [facility] | [address] | [place] [address] | [phone] | + + + + + POCT Test, Urine, Qual (04/22/2019 6:12 AM PST) + + + + + + | Component | Value | Ref Range | Performed | Pathologist | | | | | At | Signature | + + + + + + | HCG, | NEGATIVEComment: Testing | NEG | KR | | | Quantitativ | performed at [facility];[address] | | LABORATORY | | | e POC | [address];[place], [place] | | | | | | [address] | | | | + + + + + + + + | Specimen | + + | | + + + + + + + | Performing | Address | City/State/Zipcode | Phone Number | | Organization | | | | + + + + + | [facility] | [address] | [place] [address] | [phone] | + + + + + documented [...] | | | | | | longer, vcyolm-lwn-dtllg use of | | | | | [...]
--- OUTSIDE RECORDS SUMMARY | ~2019-05-09 | XMS | Encounter Summary ---
Demographics + + + | Address | [address] | | | [place] [address] | + + + | Home Phone [...] + + + | Author | [facility] | | | and [place] | + + + | Organization | [facility] | | | [...] Team Providers + +------+ + | Care Explosives Worker Name | Role | Phone | [...] | [address] | [place], [place] | | | | | [place], [place] | [address] | | | | | [address] | | | | | | [phone] | | | +--------+ + + + [...] | | | | | | [place] [address] | | | | | | [phone] | | | | | | | | +--------+---------+ + + + | 07/31/ | Office | Otolaryngology | Monika Morillo | | | 2019 | Visit | | DO Jov[address] | | | | | | [address] | | | | | | [place] [address] | | | | | | [phone] | | | | | | | | +--------+---------+ + + + | 12/07/ | Office | Cardiology | Nisha Forde DO | | | 2019 | Visit | | [address] | | | | | | [place] | | | | | | [address] | | | | | | | [...] MV A Jovanni: 0.85 m/s MV Dec Doniphan: 3.44 | | | m/s2 MV DecT: 191.26 ms MV E Jovanni: 0.65 m/s MV E/A Ratio: | | | 0.77 MV PHT: 55.46 ms MVA By PHT: 3.96 cm2 Septal e': 0.04 | | | m/s Septal E/e': 15.30 Lateral e': 0.04 m/s Lateral E/e': | | | 13.75 RAP: 5 mmHg Enterprise Applications Manager: ALONSO Authenticated by: | | | NISHA FORDE MD Report Date/Time: -- 73_[id number]:47:40 | | + + + + + | Procedure Note | + + | Manoj, Rad Conversion - 12/30/2018 1:41 PM PDT Patient [...] cmLVPWd: 1.16 | | cmLVOT Area: 2.99 dr6HKNM Diam: 1.95 cm%FS: 27.44 %EF(Teich): 53.72 %ESV(Teich): [...] (A-L): 16.64 ml/m2LAAs A2C: | | 15.10 kz0COWOF A-L A2C: 42.00 mlLALs A2C: 4.61 cmLAAs A4C: 13.17 ik6VEWPS A-L A4C: | | 32.94 mlLALs A4C: 4.47 cmRAAs: 12.84 of7MFUQU A-L: 30.35 mlRAESV MOD: 29.52 | | mlRALs: 4.61 cmTAPSE: 2.25 cmAV maxP.59 mmHgAV meanP.57 mmHgAV Vmax: | | 1.28 m/Reynold Vmean: 0.88 m/Reynold VTI: 23.48 cmAVA Vmax: 2.34 cm2AVA (VTI): 2.30 | | kf3PEXN Vmax: 0.00 cm2/m2AVAI (VTI): 0.00 cm2/m2LVOT maxP.04 mmHgLVOT meanPG: | | 2.47 mmHgLVSI Dopp: 23.81 ml/m2LVSV Dopp: 54.06 mlLVOT Vmax: 1.00 m/sLVOT Vmean: | | 0.73 m/sLVOT VTI: 18.06 cmMV A Jovanni: 0.85 m/sMV Dec Doniphan: 3.44 m/s2MV DecT: | | 191.26 msMV E Jovanni: 0.65 m/sMV E/A Ratio: 0.77MV PHT: 55.46 msMVA By PHT: 3.96 | | mb6Auhhtq e': 0.04 m/sSeptal E/e': 15.30Lateral e': 0.04 m/sLateral E/e': | | 13.75RAP: 5 mmHg Enterprise Applications Manager: DHAuthenticated by: NISHA ECHOLSepbon Date/Time: -- | | [id number]:47:40 IMPRESSION: 1. This was a technically difficult [...] A Jovanni: 0.85 m/s | |MV Dec Doniphan: 3.44 m/s2 | |MV DecT: 191.26 ms | |MV E Jovanni: 0.65 m/s | |MV E/A Ratio: 0.77 | |MV PHT: 55.46 ms | |MVA By PHT: 3.96 cm2 | |Septal e': 0.04 m/s | |Septal E/e': 15.30 | |Lateral e': 0.04 m/s | |Lateral E/e': 13.75 | |RAP: 5 mmHg | | | |Enterprise Applications Manager: DH | |Authenticated by: NISHA FORDE MD | |Report Date/Time: 83_[id number]:47:40 | | | |IMPRESSION: | |1. This [...]
--- OUTSIDE RECORDS SUMMARY | ~2019-05-09 | XMS | Encounter Summary ---
Demographics + + + | Address | [address] | | | [place] [address] | + + + | Home Phone [...] Team Providers + +------+ + | Care Naval Gunfire Liaison Officer Name | Role | Phone | + [...] Perez Alyssa | | | | | [place], [place] | [place] | | | | | [address] | [address] | | | | | [phone] | [phone] | | | | | | | [...] | | | | | | [place] [address] | | | | | | [phone] | | | | | | | | +--------+---------+ + + + | 07/31/ | Office | Otolaryngology | Monika Morillo | | | 2019 | Visit | | DO [address]ov[address] | | | | | | [address] | | | | | | [place] [address] | | | | | | [phone] | | | | | | | | +--------+---------+ + + + | 12/07/ | Office | Cardiology | Nisha Forde DO | | | 2019 | Visit | | [address] | | | | | | [place] | | | | | | [address] | | | | | | | [...] pressures of | | | 5-10mmHg. MEASUREMENTS Cooler Tender: | | | Authenticated by: Hoang Beal DO Report Date/Time: -- | | | [id number]:18 | | + + + + + [...] venous pressures of 5-10mmHg. | | MEASUREMENTS Cooler Tender: DAVIDuthenticated by: Hoang Thrasher | | Date/Time: -- [id number]:43:18 IMPRESSION: 1. See Dictation 2. TDS. Grossly, [...] | |MEASUREMENTS | | | | | |Cooler Tender: | |Authenticated by: Hoang Beal DO | |Report Date/Time: -- [id number]:18 | | | |IMPRESSION: | |1. See Dictation 2. TDS. Grossly, NML study. | + + documented in this encounter Visit Diagnoses Not on filedocumented in this encounter"
--- OUTSIDE RECORDS SUMMARY | ~2019-05-09 | XMS | Encounter Summary ---
Demographics + + + | Address | [address] | | | [place] [address] | + + + | Home Phone | | + + + | Preferred Language | Unknown | + + + | Marital Status | Single | + + + | Congregation Affiliation | Unknown | + + + | Race | Unknown | + + + | Ethnic Group | Unknown | + + + Author + + + | Author | [facility] | | | and [place] | + + + | Organization | [facility] | | | [...] Team Providers + +------+ + | Care Specialty Person Name | Role | Phone | + [...] | | | | [place] | [phone] | | | | | [address] | | | | | | [phone] | | | +--------+ + + + [...] | | | | | [place] [address] | | | | | | [phone] | | | | | | | | +--------+---------+ + + + | 07/31/ | Office | Otolaryngology | Monika Morillo | | | 2019 | Visit | | DO [address] | | | | | | [address] | | | | | | [place] [address] | | | | | | [phone] | | | | | | | | +--------+---------+ + + + | 12/07/ | Office | Cardiology | Nisha Forde DO | | | 2019 | Visit | | [address] | | | | | | [place] | | | | | | [address] | | | | | | | | +--------+---------+ + + + documented as of this encounter Visit Diagnoses Not on filedocumented in this encounter"
--- OUTSIDE RECORDS SUMMARY | ~2019-05-09 | XMS | Encounter Summary ---
Demographics + + + | Address | [address] | | | [place] [address] | + + + | Home Phone | | + + + | Preferred Language | Unknown | + + + | Marital Status | Single | + + + | Jewish Affiliation | Unknown | + + + | Race | Unknown | + + + | Ethnic Group | Unknown | + + + Author + + + | Author | [facility] | | | and [place] | + + + | Organization | [facility] | | [...] Team Providers + +------+ + | Care Telegraph Office Manager Name | Role | Phone | + +------+ + | Kiersten Pardo MD | PCP | | + +------+ + Encounter Details +--------+ + + + + | Date | Type | Department | Care Team | Description | +--------+ + + + + | 04/15/ | [facility] | [facility] | Monika Morillo | Preop testing | | 2019 | Encounter | MEDICAL CENTER | J, DO [address] | | | | | [address] | [address] | | | | | [address] | [place] [address] | | | | | [place], [place] | [phone] | | | | | [address] | | | | | | [phone] | | | +--------+ + + + [...] | | | | | [place] [address] | | | | | | [phone] | | | | | | | | +--------+---------+ + + + | 07/31/ | Office | Otolaryngology | Monika Morillo | | | 2019 | Visit | | DO [address] | | | | | | [address] | | | | | | [place] [address] | | | | | | [phone] | | | | | | | | +--------+---------+ + + + | 12/07/ | Office | Cardiology | Nisha Forde DO | | | 2019 | Visit | | [address] | | | | | | [place] | | | | | | [address] | | | | | | | [...]
--- OUTSIDE RECORDS SUMMARY | ~2019-05-09 | XMS | Encounter Summary ---
Demographics + + + | Address | [address] | | | [place] [address] | + + + | Home Phone | | + + + | Preferred Language | Unknown | + + + | Marital Status | Single | + + + | Restoration Affiliation | Unknown | + + + [...] Team Providers + +------+ + | Care Music Manager Name | Role | Phone | [...] | | | | [place] | [phone] | | | | | [address] | | | | | | [phone] | | | +--------+ + + + [...] | | | | | [place] [address] | | | | | | [phone] | | | | | | | | +--------+---------+ + + + | 07/31/ | Office | Otolaryngology | Monika Morillo | | | 2019 | Visit | | DO [address] | | | | | | [address] | | | | | | [place] [address] | | | | | | [phone] | | | | | | | | +--------+---------+ + + + | 12/07/ | Office | Cardiology | Nisha Forde DO | | | 2019 | Visit | | [address] | | | | | | [place] | | | | | | [address] | | | | | | | | +--------+---------+ + + + documented as of this encounter Visit Diagnoses Not on filedocumented in this encounter"
--- OUTSIDE RECORDS SUMMARY | ~2019-05-09 | XMS | Encounter Summary ---
Demographics + + + | Address | [address] | | | [place] [address] | + + + | Home Phone | | + + + | Preferred Language | Unknown | + + + | Marital Status | Single | + + + | Yazdanism Affiliation | Unknown | + + + | Race | Unknown | + + + | Ethnic Group | Unknown | + + + Author + + + | Author | [facility] | | | and [place] | + + + | Organization | [facility] | | | [...] Team Providers + +------+ + | Care Regulatory Analyst Name | Role | Phone | + [...] | | | neck causing | | [address] Phone: | | | | | change in | | [phone] | | | | | voice and | | Fax: | | | | | some | | [phone] | | | | | dysphagia | [...] [address] | Thyromegaly; | | | | [place], [place] | [place] [address] | Dysphagia, | | | | [address] | [phone] | unspecified type; | | | | [phone] | | Laryngopharyngeal | | | | [...] from the original. Surgery Date: 04/22/19 Location: [facility] ([address] [place] [address]) FYI: Prior to your surgery, you will receive a call to schedule a Pre-Admission appointment. This appointment is required. If you do not hear from anyone please call [phone], Opt ion 4. A time for surgery [...] post-op dates please contact [place] pat at [phone], Option 4. *IF YOU HAVE FMLA/SHORT-TERM DISABILITY PAPERWORK THAT NEEDS TO BE FILLED OUT, PLEASE DROP IT OFF OR FAX IT TO OUR OFFICE ([phone]) TWO WEEKS PRIOR TO SURGERY. MAKE SURE TO INCLU DE TIME OFF NEEDED AND/OR WHEN YOU PLAN TO RETURN TO WORK. PLEASE ALLOW 7-10 BUSINESS DAYS F OR COMPLETION. If you would like an estimate for your surgery, please contact the [facility] Financial Blueprint Machine Operator ors/Authorization Department at [phone]. Having Thyroid Surgery The incision is made [...] take vitamin D supplements. Date Last Reviewed: 03/11/201619991445-5615 [employer]. [address] [place] [address], [place] [address]. All righ ts reserved. This information is [...] : 1980 Age: 39 Sex: F Acct: [id number] Loc: ED Exam Date: 03/16/2019 Status: REG ER Radiology No: Unit No: [id number] EXAM# TYPE/EXAM RESULT CPT CODE [id number] US/HEAD NECK SOFT TISSUE/THYROI 13356 Exam: Thyroid sonogram. HISTORY: Enlarged thyroid. TECHNIQUE: [...] system. The possibil ity of "sound alike" bow string maker errors, additions or deletions may occur. If [...] [address] | | | | | | [place] [address] | | | | | | [phone] | | | | | | | | +--------+---------+ + + + | 07/31/ | Office | Otolaryngology | Monika Pretty | | | 2019 | Visit | | DO [address] | | | | | | [address] | | | | | | [place] [address] | | | | | | [phone] | | | | | | | | +--------+---------+ + + + | 12/07/ | Office | Cardiology | Nisha Forde DO | | | 2019 | Visit | | [address] | | | | | | [place] | | | | | | [address] | | | | | | | [...]
--- OUTSIDE RECORDS SUMMARY | ~2019-05-09 | XMS | Encounter Summary ---
Demographics + + + | Address | [address] | | | [place] [address] | + + + | Home Phone | | + + + | Preferred Language | Unknown | + + + | Marital Status | Single | + + + | Episcopalian Affiliation [...] Team Providers + +------+ + | Care Telecommunications Operator Name | Role | Phone | + +------+ + | Kiersten Pardo MD | PCP | | + +------+ + Encounter Details +--------+ + + + + | Date | Type | Department | Care Team | Description | +--------+ + + + + | 04/15/ | Preadmit | [facility] | Monika Morillo | Preop testing | | 2019 | Visit | CENTER PREADMIT | J, DO [address] | (Primary Dx) | | | | CLINIC [address] | | | | | [address]VD [place], [place] | [place] [address] | | | | | [address] | [phone] | | | | | [phone] | | | +--------+ + + + [...] for the 04/15/19 encounter (Preadmit Visit) with [facility] Medication Sig Instructions amLODIPine [...] the hands,feet, or lips Date Last Reviewed: 03/11/201619997808-3982 The [employer]. [address] [place] [address]. All righ ts reserved. This information is [...] | | | | | [place] [address] | | | | | | [phone] | | | | | | | | +--------+---------+ + + + | 07/31/ | Office | Otolaryngology | Monika Morillo | | | 2019 | Visit | | DO [address]ugent | | | | | | [address] | | | | | | [place] [address] | | | | | | [phone] | | | | | | | | +--------+---------+ + + + | 12/07/ | Office | Cardiology | Nisha Forde DO | | | 2019 | Visit | | [address] | | | | | | [place] | | | | | | [address] | | | | | | | [...] 0.02Comment: Testing | 0.00 - 0.10 | [facility] | | | Absolute | performed at [facility], [address] | LABORATORY | | | | [address], | | | | | | [place] [address] | | | | + + + + + + + + | Specimen | + + | Blood | + + + + + + + | Performing | Address | City/State/Zipcode | Phone Number | | Organization | | | | + + + + + | [facility] | [address] | [place] [address] | [phone] | + + + + + Basic [...] | | | | | performed at [facility], [address] | | | | | | [facility], | | | | | | [place] [address] | | | | + + + + + + + + | Specimen | + + | Blood | + + + + + + + | Performing | Address | City/State/Zipcode | Phone Number | | Organization | | | | + + + + + | [facility] | [address] | [place] [address] | [phone] | + + + + + ECG [...]
--- OUTSIDE RECORDS SUMMARY | ~2019-05-09 | XMS | Encounter Summary ---
Demographics + + + | Address | [address] | | | [place] [address] | + + + | Home Phone | | + + + | Preferred Language | Unknown | + + + | Marital Status | Single | + + + | Pentecostalism Affiliation | Unknown | + + + [...] Team Providers + +------+ + | Care Golf Professional Name | Role | Phone | + [...] + + | 04/22/ | Surgery | [facility] | Monika Morillo | TOTAL THYROIDECTOMY, | | 2018 | | [facility] | J, DO [address] | left central neck | | | | OPERATING ROOM [address] | dissection | | | | [address] | [place] [address] | | | | | [place], [place] | [phone] | | | | | [address] | | | | | | [phone] | | | +--------+---------+ + + + [...] Monika Morillo, - 04/23/2019 12:[address] [facility] Service: Otolaryngology Brief Post-op Discharge Note [...] the hands,feet, or lips Date Last Reviewed: 03/11/201619996289-1847 [employer]. [address] [place] [address]. All righ ts reserved. This information is [...] J, DO - 04/23/2019 12:14 PM PST [place] [...] all discharge criteria. A prescription for Synthroid, [place], and Zofran have been given to the [...] Monika Morillo DO 04/23/2019 okary Breanne Melvin [facility] - 04/22/2019 1:14 PM PSTRx Admission Medication History Note I have reviewed the medication history for appropriate doses obtained by: Other : Obtaine d by myself after reviewing the patient's dispense history and confirming the dispense histo ry with the patient's two pharmacies. [facility] [place] [facility]. RN also confirmed the patient's current [...] omeprazole 40 mg (although patient did not sweet pickle maker, lik cydney due to cost) -Marked the alprazolam as not taking as this has not been filled in 14 months, patient stat ed prior use only occasional but has not been using this. I agree with the home medications list Please Review and Order Home Medications as necessary. Thanks BREANNE AGARWAL [facility] 04/22/2019 @ 1:07 PM documented in this [...] | | | | | | [place] [address] | | | | | | [phone] | | | | | | | | +--------+---------+ + + + | 07/31/ | Office | Otolaryngology | Monika Morillo | | | 2019 | Visit | | DO Topher Nugent | | | | | | [address] | | | | | | [place] [address] | | | | | | [phone] | | | | | | | | +--------+---------+ + + + | 12/07/ | Office | Cardiology | Nisha Forde DO | | | 2019 | Visit | | [address] | | | | | | [place] | | | | | | [address] | | | | | | | [...] | | | | | | at [facility], [address] | | | | | | [address], | | | | | | [place] [address] | | | | + + + + + + + + | Specimen | + + | Blood | + + + + + + + | Performing | Address | City/State/Zipcode | Phone Number | | Organization | | | | + + + + + | [facility] | [address] | [place] [address] | [phone] | + + + + + Calcium, [...] 7.442Comment: Testing | 7.300 - 7.450 | [facility] | | | | performed at [facility];[address] | | LABORATORY | | | | [address];[place] | | | | | | [address] | | | | + + + + + + + + | Specimen | + + | Blood | + + + + + + + | Performing | Address | City/State/Zipcode | Phone Number | | Organization | | | | + + + + + | [facility] | [address] | [place] [address] | [phone] | + + + + + POC [...] | | | POC | performed at [facility];[address] | | LABORATORY | | | | [address];[place] | | | | | | [address] | | | | + + + + + + + + | Specimen | + + | | + + + + + + + | Performing | Address | City/State/Zipcode | Phone Number | | Organization | | | | + + + + + | [facility] | [address] | [place] [address] | [phone] | + + + + + Surgical [...] | | carcinoma (6/7). COMMENT:As part of [facility] Quality | | | Improvement Program, this [...] There is no nodule or induration. Three risk control field representative | | | sections are submitted in cassettes B1 and B2. The larger lobe of | | | thyroid is inked black sectioning reveals a large 4.5 x 4.0 x 3.0 cm | | | soft,papillary/friable pink-lakhani nodule which occupies almost the | | | entire lobe. There is no grossly recognizable normal thyroid | | | parenchyma. Six risk control field representative sections are submitted in cassettes | [...] section was | | | performed at [address], | | | [place] [address] (Sole Inker: Jim Uriarte M.D.; CLIA#: | | | [id number]).The technical component was performed by [facility] | | | [facility], [address] [place] [address] (Sole Inker: | | | Reg[place] Dietz MD; CLIA# [id number]). Professional interpretation was | | | performed [facility], [facility], [facility] | | | [place] [address] (Sole Inker: Jim | | | Agnes Uriarte; CLIA#: [id number]). Diagnostician: [place] Dietz | | | MDPathologistElectronically Signed 04/26/2019 | | | | | |There is no nodule or induration. Three risk control field representative sections are submitted in cassette s B1 and B2. The larger lobe of thyroid is inked black sectioning reveals a large 4.5 x 4. 0 x 3.0 cm soft, | | |papillary/friable pink-lakhani nodule which occupies almost the entire lobe. There is no may sly recognizable normal thyroid parenchyma. Six risk control field representative sections are submitted in c assettes B3-B8. | | | | | |C. The specimen is received in a formalin filled specimen container labeled "[facility], le central neck contents". A lobular excision [...] | |The frozen section was performed at [facility], [address] [place] [address] (Sole Inker: Jim Uriarte M.D.; CLIA#: [id number]). | | |The technical component was performed by [facility], [address] [place] [address] (Sole Inker: [place] Dietz MD; CLIA# [id number]). Professional interpretation was performed by | | |[facility], [facility], [address] [facility] [address] [facility] [place] [address] (Sole Inker: Jim Uriarte M.D.; [facility]#: [id number]). | | | | | |Diagnostician: Regine [...] | | | POC | performed at [facility];[address] | | LABORATORY | | | | [address];[place], [place] | | | | | | [address] | | | | + + + + + + + + | Specimen | + + | | + + + + + + + | Performing | Address | City/State/Zipcode | Phone Number | | Organization | | | | + + + + + | [facility] | [address] | [place] [address] | [phone] | + + + + + POCT Test, Urine, Qual (04/22/2019 6:12 AM PST) + + + + + + | Component | Value | Ref Range | Performed | Pathologist | | | | | At | Signature | + + + + + + | HCG, | NEGATIVEComment: Testing | NEG | KR | | | Quantitativ | performed at [facility];[address] | | LABORATORY | | | e POC | [address];[place], [place] | | | | | | [address] | | | | + + + + + + + + | Specimen | + + | | + + + + + + + | Performing | Address | City/State/Zipcode | Phone Number | | Organization | | | | + + + + + | [facility] | [address] | [place] [address] | [phone] | + + + + + documented [...] | | | | | | longer, iosrbx-siy-qrpiu use of | | | | | [...]
--- OUTSIDE RECORDS SUMMARY | ~2019-05-09 | XMS | Encounter Summary ---
Demographics + + + | Address | [address] | | | [place] [address] | + + + | Home Phone [...] + + + | Author | [facility] | | | and [place] | + + + | Organization | [facility] | | | [...] Team Providers + +------+ + | Care Steelscope Operator Name | Role | Phone | [...] | [address] | [place], [place] | | | | | [place], [place] | [address] | | | | | [address] | | | | | | [phone] | | | +--------+ + + + [...] | | | | | [place] [address] | | | | | | [phone] | | | | | | | | +--------+---------+ + + + | 07/31/ | Office | Otolaryngology | Monika Morillo | | | 2019 | Visit | | DO [address] | | | | | | [address] | | | | | | [place] [address] | | | | | | [phone] | | | | | | | | +--------+---------+ + + + | 12/07/ | Office | Cardiology | Nisha Forde DO | | | 2019 | Visit | | [address] | | | | | | [place] | | | | | | [address] | | | | | | | [...] MV A Jovanni: 0.85 m/s MV Dec [place]: 3.44 | | | m/s2 MV DecT: 191.26 ms MV E Jovanni: 0.65 m/s MV E/A Ratio: | | | 0.77 MV PHT: 55.46 ms MVA By PHT: 3.96 cm2 Septal e': 0.04 | | | m/s Septal E/e': 15.30 Lateral e': 0.04 m/s Lateral E/e': | | | 13.75 RAP: 5 mmHg Compressor Engineer: ALONSO Authenticated by: | | | NISHA FORDE MD Report Date/Time: -- 80_4-7-6342_63:47:40 | | + + + + + [...] cmLVPWd: 1.16 | | cmLVOT Area: 2.99 kj6EABA Diam: 1.95 cm%FS: 27.44 %EF(Teich): 53.72 %ESV(Teich): [...] (A-L): 16.64 ml/m2LAAs A2C: | | 15.10 en6RSDEF A-L A2C: 42.00 mlLALs A2C: 4.61 cmLAAs A4C: 13.17 ho6VPTJB A-L A4C: | | 32.94 mlLALs A4C: 4.47 cmRAAs: 12.84 uq0IOULZ A-L: 30.35 mlRAESV MOD: 29.52 | | mlRALs: 4.61 cmTAPSE: 2.25 cmAV maxP.59 mmHgAV meanP.57 mmHgAV Vmax: | | 1.28 m/Reynold Vmean: 0.88 m/Reynold VTI: 23.48 cmAVA Vmax: 2.34 cm2AVA (VTI): 2.30 | | uo4PMAM Vmax: 0.00 cm2/m2AVAI (VTI): 0.00 cm2/m2LVOT maxP.04 mmHgLVOT meanPG: | | 2.47 mmHgLVSI Dopp: 23.81 ml/m2LVSV Dopp: 54.06 mlLVOT Vmax: 1.00 m/sLVOT Vmean: | | 0.73 m/sLVOT VTI: 18.06 cmMV A Jovanni: 0.85 m/sMV Dec [place]: 3.44 m/s2MV DecT: | | 191.26 msMV E Jovanni: 0.65 m/sMV E/A Ratio: 0.77MV PHT: 55.46 msMVA By PHT: 3.96 | | du1Nxjfeq e': 0.04 m/sSeptal E/e': 15.30Lateral e': 0.04 m/sLateral E/e': | | 13.75RAP: 5 mmHg Compressor Engineer: DHAuthenticated by: NISHA ECHOLSepbon Date/Time: -- | | 85_[id number]_02:47:40 IMPRESSION: 1. This was a technically difficult [...] A Jovanni: 0.85 m/s | |MV Dec [place]: 3.44 m/s2 | |MV DecT: 191.26 ms | |MV E Jovanni: 0.65 m/s | |MV E/A Ratio: 0.77 | |MV PHT: 55.46 ms | |MVA By PHT: 3.96 cm2 | |Septal e': 0.04 m/s | |Septal E/e': 15.30 | |Lateral e': 0.04 m/s | |Lateral E/e': 13.75 | |RAP: 5 mmHg | | | |Compressor Engineer: DH | |Authenticated by: NISHA FORDE MD | |Report Date/Time: 54_[id number]_92:47:40 | | | |IMPRESSION: | |1. This [...]
--- OUTSIDE RECORDS SUMMARY | ~2019-05-09 | XMS | Clinical Summary ---
Demographics + + + | Address | [address] | | | [place] [address] | + + + | Home Phone | | + + + | Preferred Language | Unknown | + + + | Marital Status | Single | + + + | Confucianism Affiliation | Unknown | + + + | Race | Unknown | + + + | Ethnic Group | Unknown | + + + Author + + + | Author | [facility] | | | and [place] | + + + | Organization | [facility] | | | [...] Providers + +------+ + | Care Food Technology Teacher Name | Role | Phone | [...] automatically from request for surgery | | [id number] | + + + + + | Thyromegaly | 04/04/2019 | + + + + + | Overview: Added automatically from request for surgery | | [id number] | + + + + + | [...] and exercise, also spoke with | | aquatic instructor today. - RTC in 2 weeks | [...] | patient refuses to be on a senior living medication for it at this | | time.- is okay with doing counseling and meditation first. Had | | patient download [employer] meditation denise on her phone, she is [...] but patient refuses to be on a senior living medication | | for it at this time.- is okay with doing counseling and | | meditation first. Had patient download [employer] meditation denise | | on her phone, she is instructed to do it at least once daily. - | | if these methods do not work, patient is agreeable to re-visit | | the topic of SSRI medication. - patient to set up appt with our | | [facility] soon | + + + + + | SVT (supraventricular tachycardia) | 02/18/2019 | + + + + + | Overview: 2018: dx with SVT, sent to wire wrapper machine operator (at | | [facility]). Last visit in Jun 2018. Last Assessment & Plan: - | | diagnosed in 2018 in the ER and was following with a wire wrapper machine operator | | at [facility]. Last visit was in May or June of 2018. Has | | had echo done in 2019, states that it was normal.- patient not | | tachycardic today, but in hypertensive urgency. Would benefit | | from seeing wire wrapper machine operator once she has insurance the | + [...] | | 2019 | Event | | A AND P MECHANIC | | +--------+ + + + + [...] | | | | | | [place] [address] | | | | | | [phone] | | | | | | | | +--------+---------+ + + + | 07/31/ | Office | Otolaryngology | Monika Morillo | | 2019 | Visit | | DO Topher Nugent | | | | | | [address] | | | | | | [place] [address] | | | | | | [phone] | | | | | | | | +--------+---------+ + + + | 12/07/ | Office | Cardiology | Nisha Forde DO | | | 2020 | Visit | | [address] | | | | | | [place] | | | | | | [address] | | | | | | | [...] | | | | | | carcinoma ([facility]) H/O | | | | | | [...] | | | | | | at [facility], [address] | | | | | | [facility], | | | | | | [place] [address] | | | | + + + + + + + + | Specimen | + + | Blood | + + + + + + + | Performing | Address | City/State/Zipcode | Phone Number | | Organization | | | | + + + + + | [facility] | [address] | [place] [address] | [phone] | + + + + + Calcium, [...] 7.442Comment: Testing | 7.300 - 7.450 | [facility] | | | | performed at [facility];[address] | | LABORATORY | | | | [address];[place], [place] | | | | | | [address] | | | | + + + + + + + + | Specimen | + + | Blood | + + + + + + + | Performing | Address | City/State/Zipcode | Phone Number | | Organization | | | | + + + + + | [facility] | [address] | [place] [address] | [phone] | + + + + + POC [...] | | POC | performed at [facility];[address] | | LABORATORY | | | | [address];[place], [place] | | | | | | [address] | | | | + + + + + + + + | Specimen | + + | | + + + + + + + | Performing | Address | City/State/Zipcode | Phone Number | | Organization | | | | + + + + + | [facility] | [address] | [place] [address] | [phone] | + + + + + Surgical [...] | for papillary carcinoma. (Dr. Dietz, 04/22/19, 6129) The frozen | | | section diagnosis [...] | | carcinoma (6/7). COMMENT:As part of [facility]' Quality | | | Improvement Program, this [...] There is no nodule or induration. Three healthcare representative | | | sections are submitted in cassettes B1 and B2. The larger lobe of | | | thyroid is inked black sectioning reveals a large 4.5 x 4.0 x 3.0 cm | | | soft,papillary/friable pink-lakhani nodule which occupies almost the | | | entire lobe. There is no grossly recognizable normal thyroid | | | parenchyma. Six healthcare representative sections are submitted in cassettes | [...] section was | | | performed at [address], | | | [place] [address] (Tare Worker: Jim Uriarte M.D.; CLIA#: | | | [id number]).The technical component was performed by [facility] | | | [facility], [address] [place] [address] (Tare Worker: | | | Regine Dietz MD; CLIA# [id number]). Professional interpretation was | | | performed by[facility], [facility] | | | [place] [address] (Tare Worker: Jim | | | Agnes Uriarte; CLIA#: [id number]). Diagnostician: Regine Dietz | | | MDPathologistElectronically Signed 04/26/2019 | | | | | |There is no nodule or induration. Three healthcare representative sections are submitted in cassette s B1 and B2. The larger lobe of thyroid is inked black sectioning reveals a large 4.5 x 4. 0 x 3.0 cm soft, | | |papillary/friable pink-lakhani nodule which occupies almost the entire lobe. There is no may sly recognizable normal thyroid parenchyma. Six healthcare representative sections are submitted in c assettes B3-B8. | | | | | |C. The specimen is received in a formalin filled specimen container labeled "[facility], le ft central neck contents". A [...] | |The frozen section was performed at [place] [address] (Tare Worker: Jim Uriarte M.D.; CLIA#: [id number]). | | |The technical component was performed by [facility], [address] [place] [address] (Tare Worker: Regine Dietz MD; CLIA# [id number]). Professional interpretation was performed by | | |[facility], [place] [address] (Tare Worker: Jim Uriarte M.D.; CLIA#: [id number]). | | | | | |Diagnostician: Regine [...] 7:10 AM Indication: necessitating | | | physician/A AND P MECHANIC skill Preparation: alcohol patient was: under [place] [...] | | Quantitativ | performed at [facility];[address] | | LABORATORY | | | e POC | [address];[place], [place] | | | | | | [address] | | | | + + + + + + + + | Specimen | + + | | + + + + + + + | Performing | Address | City/State/Zipcode | Phone Number | | Organization | | | | + + + + + | [facility] | [address] | [place] [address] | [phone] | + + + + + CBC [...] 0.02Comment: Testing | 0.00 - 0.10 | [facility] | | | Absolute | performed at [facility], [address] | [address] | LABORATORY | | | | [address], | | | | | | [place] [address] | | | | + + + + + + + + | Specimen | + + | Blood | + + + + + + + | Performing | Address | City/State/Zipcode | Phone Number | | Organization | | | | + + + + + | [facility] | [address] | [place] [address] | [phone] | + + + + + Basic [...] | | | | | performed at [facility], [address] | | | | | | [facility], | | | | | | [place] [address] | | | | + + + + + + + + | Specimen | + + | Blood | + + + + + + + | Performing | Address | City/State/Zipcode | Phone Number | | Organization | | | | + + + + + | [facility] | [address] | [place] [address] | [phone] | + + + + + ECG [...] +--------+ +---------+------+ | [place] | REGEN | [id number] | 1/1/20 | [phone] | | PPO [...] [place] | | | 1 (Home) | [address] | + +--------+ +--------+ + + | Tamera Yang | Person | Self | [birth year] | [address] | | | al/Fam | | 1979 | [phone] | [place], [place] | | | [place] | | | 1 (Home) | [address] | + +--------+ +--------+ + + Advance Directives + + + + + | Type | Date Recorded | Patient | Explanation | | | | [place] Operator | | + + + + + | Power of | | | | | Strategic Partner Development Manager | | | | + + + [...]
[~2019-05-09 10:45] MED LIST changes: +AMLODIPINE BESYL5 MG PO; +CARTIA XT120 MG PO
--- OUTSIDE RECORDS SUMMARY | 2019-05-09 10:48 | XMS ---
PreManage Notification: CATARINA MJEIA Security Bulk Driver Events No recent Security Events currently on file CRITERIA MET - Group Notification - [facility] - [facility] CARE PROVIDERS ITZ FLOWERS Physician Refractive Surgeon 12/21/2017-Current PHONE: Unknown HEAVEN HILLMAN [facility] 10/14/2018-Current PHONE: [phone] LISSETTE CHANEY [facility] Current PHONE: [phone] Chris Winn MD PHONE: Unknown [facility] Current Orthopedic Surgery \T\ Fracture Clinic PHONE: Unknown Leti has no Care Guidelines for this patient. Care History Medical/Surgical 03/16/2019 [facility] - PATIENT HAS AN ENT APT ON 04/01/19. 01/07/2018 [facility] - PATIENT IS FOLLOWING UP WITH PCP JERRY FLOWERS. - PATIENT HAS PREVIOUSLY DECLINED REFERRALS TO A CERTIFIED MEDICAL ASST SUGGESTED BY PCP. - NEXT FOLLOW UP APT WILL BE ON 01/14 AND PCP WILL DISCUSS THE CERTIFIED MEDICAL ASST REFERRAL. Anshu VISIT COUNT (12 MO.) [address] [place] [address] H. TOTAL 4 NOTE: Visits indicate total known visits. ED/UCC VISIT TRACKING (12 MO.) 05/09/2019 10:46 [facility] TYPE: Emergency COMPLAINT: - COLD SYMPTOMS 03/15/2019 23:32 [facility] TYPE: Emergency COMPLAINT: - SOB, HIGH BLOOD PRESSURE DIAGNOSES: - Essential (primary) hypertension - Nontoxic single thyroid nodule - Shortness of breath - Other emt intermediate (current) drug therapy - Anxiety disorder, unspecified - Obesity, unspecified - Allergy status to oth drug/meds/biol subst status 10/13/2018 12:38 [facility] TYPE: Emergency COMPLAINT: - CHEST PAIN/BP PROBLEM DIAGNOSES: - Acquired absence of other specified parts of digestive tract - Essential (primary) hypertension - Other malaise - Obesity, unspecified - Other correction (current) drug therapy - Viral intestinal infection, unspecified Viral int - Anxiety disorder, unspecified 05/17/2018 18:[address] [facility] TYPE: Emergency COMPLAINT: - HIGH BLOOD PRESSURE,DIZZINESS DIAGNOSES: - Essential (primary) hypertension - Obesity, unspecified - Anxiety disorder, unspecified - Hypertensive urgency - Other correction (current) drug therapy INPATIENT VISIT TRACKING (12 MO.) No inpatient visits to display in this time frame [id number]
[2019-05-09] MEDS ORDERED: LEVOTHYROXINE150 MCG PO (11:08)
[2019-05-09] MEDS ORDERED: METFORMIN HCL500 M1 PO (11:09)
[2019-05-09] MEDS ORDERED: PREDNISONE20 MG PO (13:14)
[2019-05-09] MEDS ORDERED: VENTOLIN HFA18 GM INH (13:14)
== END 2019-05-09 13:35 | disposition home or self-care (01) ==
LOC: ED 10:45
DX: J40 Bronchitis, not specified as acute or chronic (principal); J98.01 Acute bronchospasm; J06.9 Acute upper respiratory infection, unspecified; I10 Essential (primary) hypertension; F41.9 Anxiety disorder, unspecified; Z88.8 Allergy status to other drugs, medicaments and biological substances; Z79.899 Other long term (current) drug therapy; Z79.84 Long term (current) use of oral hypoglycemic drugs
CPT/HCPCS: 94640; 99283; A9270; J7512

== ENCOUNTER 2019-09-16 18:52 | Emergency (ER) | payer BC ==
[~2019-09-16] VITALS: Ht 167.6 cm; Wt 123.8 kg
--- OUTSIDE RECORDS SUMMARY | ~2019-09-16 | XMS | Encounter Summary ---
Demographics + + + | Address | [address] | | | [place] [address] | + + + | Home Phone | | + + + | Preferred Language | Unknown | + + + | Marital Status | Single | + + + | Scientology Affiliation | Unknown | + + + | Race | Unknown | + + + | Ethnic Group | Unknown | + + + Author + + + | Author | [facility] | | | and [place] | + + + | Organization | [facility] | | | and [place] | + [...] Team Providers + +------+ + | Care Room Service Attendant Name | Role | Phone | + +------+ + | Kiersten Pardo MD | PCP | | + +------+ + Reason for Visit + + + | Reason | Comments | + + + | Referral | | + + + Encounter Details +--------+ + + + + | Date | Type | Department | Care Team | Description | +--------+ + + + + | 05/12/ | Telephone | [facility] | Monika Morillo | Referral | | 2020 | | NOSE AND THROAT [address] | J, DO [address] | | | [address] | [address] | | | | | [place], [place] | [place] [address] | | | | | [address] | [phone] | | | | | [phone] | | | +--------+ + + + [...] Description | +--------+---------+ + + + | 11/21/ | Office | Endocrinology | Donny Ji, | | | 2019 | Visit | | MD Srinivasa AGUILERA | | | | | | [address] | | | | | | [place] [address] | | | | | | [phone] | | | | | | | | +--------+---------+ + + + | 07/30/ | Office | Cardiology | Nisha Forde DO | | | 2019 | Visit | | [address] | | | | | | [place] | | | | | | [address] | | | | | | | | +--------+---------+ + + + documented as of this encounter Visit Diagnoses Not on filedocumented in this encounter"
--- OUTSIDE RECORDS SUMMARY | ~2019-09-16 | XMS | Encounter Summary ---
Demographics + + + | Address | [address] | | | [place] [address] | + + + | Home Phone | | + + + | Preferred Language | Unknown | + + + | Marital Status | Single | + + + | Spiritism Affiliation | Unknown | + + + | Race | Unknown | + + + | Ethnic Group | Unknown | + + + Author + + + | Author | [facility] | | | and [place] | + + + | Organization | [facility] | | [...] Team Providers + +------+ + | Care Beer Merchant Name | Role | Phone | + +------+ + | Nicole Parikh PA-C | PCP | | + +------+ + Encounter Details +--------+ + + + + | Date | Type | Department | Care Team | Description | +--------+ + + + + | 06/10/ | Orders Only | [facility] | Nisha Forde DO | | | 2019 | | CONVERSION [address] | [address] | | | | | [address] | [place], [place] | | | | | [place], [place] | [address] | | | | | [address] | | | | | | [phone] | | | +--------+ + + + + Social History + +-------+ +--------+------+ | Tobacco Use | Types | Packs/Day | Years | Date | | | | | Used | | + +-------+ +--------+------+ | Never Assessed | | | | | + +-------+ [...] 11/21/ | Office | Endocrinology | Donny Ji | | | 2019 | Visit | | MD [address] | | | | | | [place] | | | | | | [place] [address] | | | | | | [phone] | | | | | | | | +--------+---------+ + + + | 12/07/ | Office | Cardiology | Nisha Forde DO | | | 2019 | Visit | | [address] | | | | | | [place] | | | | | | [address] | | | | | | | | +--------+---------+ + + + documented as of this encounter Procedures + +--------+ + + + | Procedure Name | Priori | Date/Time | Associated Diagnosis | Comments | | | ty | | | | + +--------+ + + + | ECHO INTERPRETATION | Routin | 06/10/2018 | | Results for this | | OF OUTSIDE FILMS | e | 12:46 PM | | procedure are in the | | | | PST | | results section. | + +--------+ + + + documented in this encounter Results ECHO Interpretation of Outside Films (06/10/2018 12:46 PM PST) + + | Specimen | + + | | + + + + + | Impressions | Performed At | + + + | 1. This was a technically difficult study with suboptimal views. 2. | | | Overall left ventricular systolic function is normal with, an EF | | | between 55 - 60 %. 3. The left ventricle cavity size is normal. 4. | | | There is mild concentric left ventricular hypertrophy. 5. The right | | | ventricle is normal in size and function. | | + + + + + + | Narrative | Performed At | + + + | Patient Name: Tamera Yang Date of : 1980 | | | Performing Physician: NISHA FORDE MD | | | | | | INDICATIONS Dyspnea CONCLUSIONS 1. | | | This was a technically difficult study with suboptimal views. 2. | | | Overall left ventricular systolic function is normal with, an EF | | | between 55 - 60 %. 3. The left ventricle cavity size is normal. 4. | | | There is mild concentric left ventricular hypertrophy. 5. The right | | | ventricle is normal in size and function. FINDINGS -------- ECG | | | rhythm: Sinus rhythm. Study: A 2-dimensional transthoracic | | | echocardiogram with m-mode, spectral and color flow Doppler was | | | perfomed. Study: This was a technically difficult study with | | | suboptimal views. Left Ventricle: Overall left ventricular systolic | | | function is normal with, an EF between 55 - 60 %. Left Ventricle: The | | | left ventricle cavity size is normal. Left Ventricle: There is mild | | | concentric left ventricular hypertrophy. Indeterminante diastolic | | | function. Right Ventricle: The right ventricle is normal in size and | | | function. Left Atrium: The left atrium is normal in size. Aortic | | | Valve: The aortic valve appears to be trileaflet. Aortic Valve: There | | | is no evidence of aortic regurgitation. Aortic Valve: There is no | | | evidence of aortic stenosis. Mitral Valve: The mitral valve is | | | normal. Mitral Valve: There is none/trace mitral regurgitation. | | | Tricuspid Valve: Pulmonary artery systolic pressure could not be | | | assessed due to the absence of adequate TR jet. Pulmonic Valve: The | | | pulmonic valve was not well visualized. Pericardium: There is no | | | pericardial effusion. IVC/Hepatic Veins: The IVC is normal size | | | (1.5-2.5cm) and collapses >50% with sniff, consistent with central | | | venous pressures of 5-10mmHg. Aorta: The aortic root, ascending aorta | | | and aortic arch are normal. Mass: No mass visualized Thrombus: No | | | clot visualized Thrombus: No vegetation visualized. Septum: No ASD | | | observed. Septum: No VSD observed. MEASUREMENTS | | | Ao asc: 3.78 cm Ao Diam: 3.49 cm Ao sinus: 3.[address] | | | junct: 3.40 cm IVC: 1.60 cm LA Major: 4.48 cm EDV(Teich): | | | 78.73 ml IVSd: 1.13 cm LVIDd: 4.20 cm LVPWd: 1.16 cm | | | LVOT Area: 2.99 cm2 LVOT Diam: 1.95 cm %FS: 27.44 % | | | EF(Teich): 53.72 % ESV(Teich): 36.43 ml LVIDs: 3.04 cm | | | SV(Teich): 42.29 ml RA Major: 4.44 cm RV Major: 7.12 cm RV | | | Minor: 3.40 cm RVIDd: 2.58 cm LVEF MOD A2C: 57.02 % SV | | | MOD A2C: 59.80 ml LVEF MOD A4C: 54.22 % SV MOD A4C: 54.33 | | | ml EF Biplane: 54.70 % LVEDV MOD BP: 101.16 ml LVESV MOD BP: | | | 45.82 ml LVEDV MOD A2C: 104.86 ml LVLd A2C: 8.18 cm LVEDV | | | MOD A4C: 100.21 ml LVLd A4C: 8.16 cm LVESV MOD A2C: 45.06 | | | ml LVLs A2C: 6.95 cm LVESV MOD A4C: 45.87 ml LVLs A4C: | | | 6.95 cm LAESV(A-L): 37.77 ml LAESV Index (A-L): 16.64 ml/m2 | | | LAAs A2C: 15.10 cm2 LAESV A-L A2C: 42.00 ml LALs A2C: 4.61 | | | cm LAAs A4C: 13.17 cm2 LAESV A-L A4C: 32.94 ml LALs A4C: | | | 4.47 cm RAAs: 12.84 cm2 RAESV A-L: 30.35 ml RAESV MOD: | | | 29.52 ml RALs: 4.61 cm TAPSE: 2.25 cm AV maxP.59 mmHg | | | AV meanP.57 mmHg AV Vmax: 1.28 m/s AV Vmean: 0.88 m/s | | | AV VTI: 23.48 cm TED Vmax: 2.34 cm2 TED (VTI): 2.30 cm2 | | | AVAI Vmax: 0.00 cm2/m2 AVAI (VTI): 0.00 cm2/m2 LVOT maxPG: | | | 4.04 mmHg LVOT meanP.47 mmHg LVSI Dopp: 23.81 ml/m2 LVSV | | | Dopp: 54.06 ml LVOT Vmax: 1.00 m/s LVOT Vmean: 0.73 m/s | | | LVOT VTI: 18.06 cm MV A Jovanni: 0.85 m/s MV Dec Boone: 3.44 | | | m/s2 MV DecT: 191.26 ms MV E Jovanni: 0.65 m/s MV E/A Ratio: | | | 0.77 MV PHT: 55.46 ms MVA By PHT: 3.96 cm2 Septal e': 0.04 | | | m/s Septal E/e': 15.30 Lateral e': 0.04 m/s Lateral E/e': | | | 13.75 RAP: 5 mmHg Merchandiser Seasonal: ALONSO Authenticated by: | | | NISHA FORDE MD Report Date/Time: -- [id number] | | + + + + + | Procedure Note | + + | Ed Aranda Conversion - 12/30/2018 1:41 PM PDT Patient Name: Harvey Yang | | : 1980 Performing Physician: NISHA FORDE | | MD INDICATIONS D | | yspnea CONCLUSIONS 1. This was a technically difficult study with suboptimal | | views.2. Overall left ventricular systolic function is normal with, an EF between 55 - | | 60 %.3. The left ventricle cavity size is normal.4. There is mild concentric left | | ventricular hypertrophy.5. The right ventricle is normal in size and function. | | FINDINGS--------ECG rhythm: Sinus rhythm.Study: A 2-dimensional transthoracic | | echocardiogram with m-mode, spectral and color flow Doppler was perfomed.Study: This was | | a technically difficult study with suboptimal views.Left Ventricle: Overall left | | ventricular systolic function is normal with, an EF between 55 - 60 %.Left Ventricle: | | The left ventricle cavity size is normal.Left Ventricle: There is mild concentric left | | ventricular hypertrophy. Indeterminante diastolic function.Right Ventricle: The right | | ventricle is normal in size and function.Left Atrium: The left atrium is normal in | | size.Aortic Valve: The aortic valve appears to be trileaflet.Aortic Valve: There is no | | evidence of aortic regurgitation.Aortic Valve: There is no evidence of aortic | | stenosis.Mitral Valve: The mitral valve is normal.Mitral Valve: There is none/trace | | mitral regurgitation.Tricuspid Valve: Pulmonary artery systolic pressure could not be | | assessed due to the absence of adequate TR jet.Pulmonic Valve: The pulmonic valve was | | not well visualized.Pericardium: There is no pericardial effusion.IVC/Hepatic Veins: The | | IVC is normal size (1.5-2.5cm) and collapses >50% with sniff, consistent with central | | venous pressures of 5-10mmHg.Aorta: The aortic root, ascending aorta and aortic arch are | | normal.Mass: No mass visualizedThrombus: No clot visualizedThrombus: No vegetation | | visualized.Septum: No ASD observed.Septum: No VSD observed. MEASUREMENTS Ao | | asc: 3.78 cmAo Diam: 3.49 cmAo sinus: 3.[address] junct: 3.40 cmIVC: 1.60 | | cmLA Major: 4.48 cmEDV(Teich): 78.73 mlIVSd: 1.13 cmLVIDd: 4.20 cmLVPWd: 1.16 | | cmLVOT Area: 2.99 [id number] Diam: 1.95 cm%FS: 27.44 %EF(Teich): 53.72 %ESV(Teich): | | 36.43 mlLVIDs: 3.04 cmSV(Teich): 42.29 mlRA Major: 4.44 cmRV Major: 7.12 cmRV | | Minor: 3.40 cmRVIDd: 2.58 cmLVEF MOD A2C: 57.02 %SV MOD A2C: 59.80 mlLVEF MOD | | A4C: 54.22 %SV MOD A4C: 54.33 mlEF Biplane: 54.70 %LVEDV MOD BP: 101.16 mlLVESV | | MOD BP: 45.82 mlLVEDV MOD A2C: 104.86 mlLVLd A2C: 8.18 cmLVEDV MOD A4C: 100.21 | | mlLVLd A4C: 8.16 cmLVESV MOD A2C: 45.06 mlLVLs A2C: 6.95 cmLVESV MOD A4C: 45.87 | | mlLVLs A4C: 6.95 cmLAESV(A-L): 37.77 mlLAESV Index (A-L): 16.64 ml/m2LAAs A2C: | | 15.10 [id number] A-L A2C: 42.00 mlLALs A2C: 4.61 cmLAAs A4C: 13.17 [id number] A-L A4C: | | 32.94 mlLALs A4C: 4.47 cmRAAs: 12.84 [id number] A-L: 30.35 mlRAESV MOD: 29.52 | | mlRALs: 4.61 cmTAPSE: 2.25 cmAV maxP.59 mmHgAV meanP.57 mmHgAV Vmax: | | 1.28 m/Reynold Vmean: 0.88 m/Reynold VTI: 23.48 cmAVA Vmax: 2.34 cm2AVA (VTI): 2.30 | | [id number] Vmax: 0.00 cm2/m2AVAI (VTI): 0.00 cm2/m2LVOT maxP.04 mmHgLVOT meanPG: | | 2.47 mmHgLVSI Dopp: 23.81 ml/m2LVSV Dopp: 54.06 mlLVOT Vmax: 1.00 m/sLVOT Vmean: | | 0.73 m/sLVOT VTI: 18.06 cmMV A Jovanni: 0.85 m/sMV Dec Boone: 3.44 m/s2MV DecT: | | 191.26 msMV E Jovanni: 0.65 m/sMV E/A Ratio: 0.77MV PHT: 55.46 msMVA By PHT: 3.96 | | [id number] e': 0.04 m/sSeptal E/e': 15.30Lateral e': 0.04 m/sLateral E/e': | | 13.75RAP: 5 mmHg Merchandiser Seasonal: DAVIDuthenticated by: NISHA FORDE MDReport Date/Time: -- | | [id number] IMPRESSION: 1. This was a technically difficult study with | | suboptimal views.2. Overall left ventricular systolic function is normal with, an EF | | between 55 - 60 %.3. The left ventricle cavity size is normal.4. There is mild | | concentric left ventricular hypertrophy.5. The right ventricle is normal in size and | | function. | |Ao asc: 3.78 cm | |Ao Diam: 3.49 cm | |Ao sinus: 3.86 cm | |Ao st junct: 3.40 cm | |IVC: 1.60 cm | |LA Major: 4.48 cm | |EDV(Teich): 78.73 ml | |IVSd: 1.13 cm | |LVIDd: 4.20 cm | |LVPWd: 1.16 cm | |LVOT Area: 2.99 cm2 | |LVOT Diam: 1.95 cm | |%FS: 27.44 % | |EF(Teich): 53.72 % | |ESV(Teich): 36.43 ml | |LVIDs: 3.04 cm | |SV(Teich): 42.29 ml | |RA Major: 4.44 cm | |RV Major: 7.12 cm | |RV Minor: 3.40 cm | |RVIDd: 2.58 cm | |LVEF MOD A2C: 57.02 % | |SV MOD A2C: 59.80 ml | |LVEF MOD A4C: 54.22 % | |SV MOD A4C: 54.33 ml | |EF Biplane: 54.70 % | |LVEDV MOD BP: 101.16 ml | |LVESV MOD BP: 45.82 ml | |LVEDV MOD A2C: 104.86 ml | |LVLd A2C: 8.18 cm | |LVEDV MOD A4C: 100.21 ml | |LVLd A4C: 8.16 cm | |LVESV MOD A2C: 45.06 ml | |LVLs A2C: 6.95 cm | |LVESV MOD A4C: 45.87 ml | |LVLs A4C: 6.95 cm | |LAESV(A-L): 37.77 ml | |LAESV Index (A-L): 16.64 ml/m2 | |LAAs A2C: 15.10 cm2 | |LAESV A-L A2C: 42.00 ml | |LALs A2C: 4.61 cm | |LAAs A4C: 13.17 cm2 | |LAESV A-L A4C: 32.94 ml | |LALs A4C: 4.47 cm | |RAAs: 12.84 cm2 | |RAESV A-L: 30.35 ml | |RAESV MOD: 29.52 ml | |RALs: 4.61 cm | |TAPSE: 2.25 cm | |AV maxP.59 mmHg | |AV meanP.57 mmHg | |AV Vmax: 1.28 m/s | |AV Vmean: 0.88 m/s | |AV VTI: 23.48 cm | |TED Vmax: 2.34 cm2 | |TED (VTI): 2.30 cm2 | |AVAI Vmax: 0.00 cm2/m2 | |AVAI (VTI): 0.00 cm2/m2 | |LVOT maxP.04 mmHg | |LVOT meanP.47 mmHg | |LVSI Dopp: 23.81 ml/m2 | |LVSV Dopp: 54.06 ml | |LVOT Vmax: 1.00 m/s | |LVOT Vmean: 0.73 m/s | |LVOT VTI: 18.06 cm | |MV A Jovanni: 0.85 m/s | |MV Dec Boone: 3.44 m/s2 | |MV DecT: 191.26 ms | |MV E Jovanni: 0.65 m/s | |MV E/A Ratio: 0.77 | |MV PHT: 55.46 ms | |MVA By PHT: 3.96 cm2 | |Septal e': 0.04 m/s | |Septal E/e': 15.30 | |Lateral e': 0.04 m/s | |Lateral E/e': 13.75 | |RAP: 5 mmHg | | | |Merchandiser Seasonal: | |Authenticated by: NISHA FORDE MD | |Report Date/Time: -- [id number] | | | |IMPRESSION: | |1. This was a technically difficult study with suboptimal views. | |2. Overall left ventricular systolic function is normal with, an EF between 55 - 60 %. | |3. The left ventricle cavity size is normal. | |4. There is mild concentric left ventricular hypertrophy. | |5. The right ventricle is normal in size and function. | + + documented in this encounter Visit Diagnoses Not on filedocumented in this encounter"
--- OUTSIDE RECORDS SUMMARY | ~2019-09-16 | XMS | Encounter Summary ---
Demographics + + + | Address | [address] | | | [place] [address] | + + + | Home Phone | | + + + | Preferred Language | Unknown | + + + | Marital Status | Single | + + + | Mormonism Affiliation | Unknown | + + + | Race | Unknown | + + + | Ethnic Group | Unknown | + + + Author + + + | Author | [facility] | | | and [place] | + + + | Organization | [facility] | | [...] Team Providers + +------+ + | Care Stull Installer Name | Role | Phone | + +------+ + | Kiersten Pardo MD | PCP | | + +------+ + Reason for Visit Auth/Cert +--------+--------+ + + + + | Status | Reason | Specialty | Diagnoses / | Referred By | Referred To | | | | | Procedures | Contact | Contact | +--------+--------+ + + + + | | | | Diagnoses | | | | | | | Thyroid | | | | | | | nodule | | | | | | | Thyromegaly | | | | | | | | | | | | | | Procedures | | | | | | | LEFT | | | | | | | THYROIDECTOM | | | | | | | Y WITH | | | | | | | POSSIBLE | | | | | | | TOTAL | | | | | | | THYROIDECTOM | | | | | | | Y | | | +--------+--------+ + + + + Encounter Details +--------+ + + + + | Date | Type | Department | Care Team | Description | +--------+ + + + + | 04/22/ | Anesthesia | [facility] | Doris Beckwith, | | | 2019 | [facility] | TERRAZZO ROLLER [address] | | | | | [address]PER[address] | [place] [address] | | | | | [address] | [phone] | | | | | [place], [place] | | | | | | [address] | | | | | | [phone] | | | +--------+ + + + + Anesthesia Record + + + + + | Procedure Name | Responsible | Anesthesia Start | Anesthesia Stop Time | | | Anesthesiologist | Time | | + + + + + | TOTAL THYROIDECTOMY, | Doris Beckwith, | 04/22/1958 | 04/22/19 0915 | | left central neck | TERRAZZO ROLLER | | | | dissection (N/A | | | | | Neck) | | | | + + + + + +----+---+ + + | Da | T | Event | Comment | | te | i | | | | | m | | | | | e | | | +----+---+ + + | 12 | 0 | | | | /1 | 6 | | | | 3/ | 5 | | | | 20 | 4 | | | | 19 | | | | +----+---+ + + | | 0 | An Start | Reassessment prior to anesthesia induction/procedure. | | | 6 | | | | | 5 | | | | | 8 | | | +----+---+ + + | | 0 | An | | | | 7 | Induction | | | | 0 | | | | | 1 | | | +----+---+ + + | | 0 | An | | | | 7 | Intubation | | | | 1 | | | | | 0 | | | +----+---+ + + | | 0 | Anesthesia | | | | 7 | Ready | | | | 1 | | | | | 2 | | | +----+---+ + + | | 0 | First | | | | 7 | Inc/Proc St | | | | 2 | | | | | 2 | | | +----+---+ + + | | 0 | [place] | | | | 7 | 43-degrees | | | | 3 | | | | | 2 | | | +----+---+ + + | | 0 | Forced Air | | | | 8 | @ | | | | 1 | 32-degrees | | | | 2 | | | +----+---+ + + | | 0 | Extubation/ | | | | 9 | Airway LDA | | | | 0 | Removal | | | | 8 | | | +----+---+ + + | | 0 | an stop | | | | 9 | data | | | | 0 | | | | | 8 | | | +----+---+ + + | | 0 | An Stop | Patient handed off to recovery nurse. | | | 1 | | | | | 5 | | | +----+---+ + + +------+ | Meds | +------+ + + + | Name | Total | + + + | midazolam 2 mg/mL | 2 mg | + + + | fentaNYL | 100 mcg | + + + | lidocaine 2% | 80 mg | + + + | propofol | 330 mg | + + + | succinylcholine | 60 mg | + + + | dexamethasone | 4 mg | + + + | ondansetron | 4 mg | + + + | ePHEDrine | 15 mg | + + + | phenylephrine | 3,560 mcg | + + + | remifentanil (ULTIVA) 20 mcg/mL | 2,041.8 mcg | | in sodium chloride 0.9% 100 mL | | | infusion | | + + + | balanced electrolytes in water | 1,200 mL | | (PLASMALYTE-148/NORMOSOL-R) | | | infusion | | + + + + + | Name | + + | N2O Flow Rate (L/Min) | + + | O2 Flow Rate (L/Min) | + + | Insp O2 | + + | Exp N2O | + + | Exp SEV | + + | Air Flow Rate (L/Min) | + + + + | No blood administrations on file. | + + +--------+ + + + | Type | Details | Placement | Removal | +--------+ + + + | Wound | 04/22/19; 832; Incision; neck | 04/22/19832 by | | | | | Tatiana Gamboa RN | | +--------+ + + + | Periph | 04/22/19; 0640; Left; | 04/22/19 0640 by | 04/23/19 1342 by | | eral | Antecubital; [id number] | Angeline Shoemaker RN | Lo William, | | IV | catheter system; 20 gauge; | | RN | | | 04/23/19; 1342 | | | +--------+ + + + | Airway | Placement Date: 04/22/19; | 04/22/19 07 by | 04/22/19 0908 by | | | Placement Time: 07 (created via | Doris Beckwith, | Doris Beckwith, | | | procedure documentation); Mask | TERRAZZO ROLLER | TERRAZZO ROLLER | | | Ventilation: EZ; Airway Grade: 1; | | | | | Successful Technique: Gentile; | | | | | Laryngoscope Blade Size: 2; | | | | | Attempts: 1; Airway Type: | | | | | endotracheal; Size: 8; Airway | | | | | Tube Secured At: 23; Trauma: | | | | | none; Other Equipment: stylette; | | | | | Placement Check: exhaled CO2 | | | | | detection device, bilateral chest | | | | | rise, breath sounds equal | | | | | bilaterally; Removal Date: | | | | | 04/22/19; Removal Time: 907 | | | +--------+ + + + | Periph | 04/22/19; 0710 (created via | 04/22/19 0710 by | 04/23/19 134 by | | eral | procedure documentation); Right; | Doris Beckwith, | Lo William, | | IV | Proximal; Hand; 18 gauge; | TERRAZZO ROLLER | RN | | | 04/23/19; 1342 | | | +--------+ + + + | Periph | 04/22/19; 0710; Right; Hand; | 04/22/19 0710 by | 04/22/19 1900 by | | eral | [id number] catheter system; | Tatiana Gamboa RN | Blaire Mantilla, | | IV | 20 gauge; not present during | | RN | | | assessment; 04/22/19; 1900 | | | +--------+ + + + | Drain/ | 04/22/19; 0846; #1; midline; | 04/22/19 0846 by | 04/23/19 1200 by | | Device | neck; collapsible closed device; | Tatiana Gamboa RN | Lo William, | | Site | 04/23/19 (removed by | | RN | | | Ilia); 1200 | | | +--------+ + + + documented in this encounter Social History + +-------+ +--------+------+ | Tobacco [...] [address] | | | | | | [place] [address] | | | | | | [phone] | | | | | | | | +--------+---------+ + + + | 12/07/ | Office | Cardiology | Nisha Forde DO | | | 2019 | Visit | | [address] | | | | | | [place] | | | | | | [address] | | | | | | | | +--------+---------+ + + + documented as of this encounter Procedures + +--------+ + + + | Procedure Name | Priori | Date/Time | Associated Diagnosis | Comments | | | ty | | | | + +--------+ + + + | ANE PERIPHERAL IV | Routin | 04/22/2019 | | Results for this | | LINE NOTE | e | 7:29 AM | | procedure are in the | | | | PST | | results section. | + +--------+ + + + | ANE AIRWAY NOTE | Routin | 04/22/2019 | | Results for this | | | e | 7:28 AM | | procedure are in the | | | | PST | | results section. | + +--------+ + + + documented in this encounter Results PIV (04/22/2019 7:29 AM PST) + + + | Narrative | Performed At | + + + | Doris Beckwith CRNA 04/22/2019 7:30 AM Intravenous | | | Line Placement 04/22/2019 7:10 AM Indication: necessitating | | | physician/TERRAZZO ROLLER skill Preparation: alcohol patient was: under GA | | | Side: right Orientation: proximal Vein location: hand Size: 18 g | | | Securement: transparent dressing Placed by: Doris Beckwith CRNA | | | Authorizing provider: Doris Beckwith CRNA Please see | | | intraoperative grid for any additional medication documentation. | | | | | + + + Airway (04/22/2019 7:28 AM PST) + + + | Narrative | Performed At | + + + | Doris Beckwith CRNA 04/22/2019 7:29 AM Anesthesia Airway | | | Placement 04/22/2019 7:10 AM Preprocedure check: patient | | | identified, oxygen, airway assessed, patient reassessment prior to | | | induction, airway equipment checked and suction Mask ventilation: | | | easy Successful technique: Gentile Laryngoscope blade size: 2 | | | Airway grade: 1 (Full view of glottis) Other equipment: stylette | | | Attempts: 1 Airway type: endotracheal and NIM Size: 8 Cuffed: | | | cuffed Route, reference point: right side of mouth Tube depth: 23 cm | | | Tube secured with: adhesive tape Trauma: none Tube placement | | | verification: bilateral chest rise, carbon dioxide detection and | | | equal bilateral breath sounds Performing provider: Doris Beckwith | | | SETH Authorizing provider: Doris Beckwith CRNA Please see | | | intraoperative grid for any additional medication documentation. | | + + + documented in this encounter Visit Diagnoses Not on filedocumented in this encounter Administered Medications + +---------+ +------+------+------+ | Medication Order | MAR | Action | Dose | Rate | Site | | | Action | Date | | | | + +---------+ +------+------+------+ | balanced electrolytes in water | New Bag | 04/22/20 | | | | | (PLASMALYTE-148/NORMOSOL-R) | | 19 6:57 | | | | | infusion at 50 mL/hr, | | AM PST | | | | | Intravenous, CONTINUOUS, Starting | | | | | | | Thu04/22/19 at 0700, Pre-op | | | | | | + +---------+ +------+------+------+ +---+---+ | | | +---+---+ + +-------+ +------+---+---+ | dexamethasone (DECADRON) 4 | Given | 04/22/20 | 4 mg | | | | mg/mL injection Intravenous, | | 19 7:15 | | | | | PRN, Starting Thu04/22/19 at | | AM PST | | | | | 0715, Anesthesia Intra-op | | | | | | + +-------+ +------+---+---+ +---+---+ | | | +---+---+ + +-------+ +------+---+---+ | ePHEDrine in saline 5 mg/mL IV | Given | 04/22/20 | 5 mg | | | | syringe Intravenous, PRN, | | 19 8:42 | | | | | Starting 04/22/19 at 0719, | | AM PST | | | | | Anesthesia Intra-op | | | | | | + +-------+ +------+---+---+ +-------+ +-------+---+---+ | Given | 04/22/20 | 10 mg | | | | | 19 7:19 | | | | | | AM PST | | | | +-------+ +-------+---+---+ +---+---+ | | | +---+---+ + +-------+ +---------+---+---+ | fentaNYL (PF) injection | Given | 04/22/20 | 100 mcg | | | | Intravenous, PRN, Starting Thu | | 19 7:01 | | | | | 04/22/19 at 0701, Anesthesia | | AM PST | | | | | Intra-op | | | | | | + +-------+ +---------+---+---+ +---+---+ | | | +---+---+ + +-------+ +-------+---+---+ | lidocaine (PF) 2% injection | Given | 04/22/20 | 80 mg | | | | Intravenous, PRN, Starting Fri | | 19 7:01 | | | | | 04/22/19 at 0701, Anesthesia | | AM PST | | | | | Intra-op | | | | | | + +-------+ +-------+---+---+ +---+---+ | | | +---+---+ + +-------+ +------+---+---+ | midazolam (VERSED) 1 mg/mL | Given | 04/22/20 | 2 mg | | | | injection Intravenous, PRN, | | 19 6:58 | | | | | Starting 04/22/19 at 0658, | | AM PST | | | | | Anesthesia Intra-op | | | | | | + +-------+ +------+---+---+ +---+---+ | | | +---+---+ + +-------+ +------+---+---+ | ondansetron (ZOFRAN) injection | Given | 04/22/20 | 4 mg | | | | Intravenous, PRN, Starting Fri | | 19 8:45 | | | | | 04/22/19 at 0845, Anesthesia | | AM PST | | | | | Intra-op | | | | | | + +-------+ +------+---+---+ +---+---+ | | | +---+---+ + +---------+ +---------+-------+---+ | phenylephrine (VAUGHN-SYNEPHRINE, | New Bag | 04/22/20 | 40 | 0.2 | | | VAZCULEP) 10 mg/mL injection | | 19 7:16 | mcg/min | mL/hr | | | Intravenous, CONTINUOUS PRN, | | AM PST | | | | | Starting Thu04/22/19 at 0716, | | | | | | | Anesthesia Intra-op | | | | | | + +---------+ +---------+-------+---+ +---+---+ | | | +---+---+ + +-------+ +-------+---+---+ | propofol (DIPRIVAN) injection | Given | 04/22/20 | 30 mg | | | | Intravenous, PRN, Starting Thu | | 19 9:00 | | | | | 04/22/19 at 0701, Anesthesia | | AM PST | | | | | Intra-op | | | | | | + +-------+ +-------+---+---+ +-------+ +--------+---+---+ | Given | 04/22/20 | 300 mg | | | | | 19 7:01 | | | | | | AM PST | | | | +-------+ +--------+---+---+ +---+---+ | | | +---+---+ + +---------+ + +-------+---+ | remifentanil (ULTIVA) 20 mcg/mL | New Bag | 04/22/20 | 0.2 | 73.8 | | | in sodium chloride 0.9% 100 mL | | 19 7:22 | mcg/kg/m | mL/hr | | | infusion Intravenous, CONTINUOUS | | AM PST | in | | | | PRN, Starting Thu04/22/19 at | | | | | | | 0733, Anesthesia Intra-op | | | | | | + +---------+ + +-------+---+ +---+---+ | | | +---+---+ + +-------+ +-------+---+---+ | succinylcholine (ANECTINE) | Given | 04/22/20 | 60 mg | | | | injection Intravenous, PRN, | | 19 7:01 | | | | | Starting 04/22/19 at 0701, | | AM PST | | | | | Anesthesia Intra-op | | | | | | + +-------+ +-------+---+---+ +---+---+ | | | +---+---+ documented in this encounter"
--- OUTSIDE RECORDS SUMMARY | ~2019-09-16 | XMS | Clinical Summary ---
Demographics + + + | Address | [address] | | | [place] [address] | + + + | Home Phone | | + + + | Preferred Language | Unknown | + + + | Marital Status | Single | + + + | Mormon Affiliation | Unknown | + + + | Race | Unknown | + + + | Ethnic Group | Unknown | + + + Author + + + | Author | [facility] | | | and [place] | + + + | Organization | [facility] | | | [...] Team Providers + +------+ + | Care Document Preparation Specialist Name | Role | Phone | + +------+ + | Kiersten Pardo MD | PCP | | + +------+ + Allergies + + + + + + | Active Allergy | Reactions | Severity | Noted | Comments | | | | | Date | | + + + + + + | Lisinopril-Hydrochlo | Cough | Low | 03/03/20 | | | rothiazide | | | 18 | | + + + + + + Medications + + + +---------+------+------+-------+ | Medication | Sig | Dispensed | Refills | Star | End | Statu | | | | | | t | Date | s | | | | | | Date | | | + + + +---------+------+------+-------+ | metFORMIN | Take 500 mg by mouth | | 0 | 10/1 | 10/1 | Activ | | (GLUCOPHAGE-XR) 500 | 2 times daily | | | 8/20 | 11/27 | e | | mg 24 hr tablet | (before meals). | | | 19 | 20 | | + + + +---------+------+------+-------+ | | Take 1-2 tablets by | 15 | 0 | 12/1 | | Activ | | HYDROcodone-acetamin | mouth every 6 hours | tablet | | 4/20 | | e | | ophen (NORCO) 5-325 | as needed for Pain. | | | 19 | | | | mg per tablet | | | | | | | + + + +---------+------+------+-------+ | metoprolol | Take 1 tablet by | 30 | 11 | 12/2 | | Activ | | succinate | mouth Daily. | tablet | | 6/20 | | e | | (TOPROL-XL) 200 mg | | | | 19 | | | | ER tablet | | | | | | | + + + +---------+------+------+-------+ | dilTIAZem | Take 1 tablet by | 30 | 11 | 12/2 | | Activ | | (CARDIZEM LA) 120 mg | mouth Daily. | tablet | | 6/20 | | e | | 24 hr tablet | | | | 19 | | | + + + +---------+------+------+-------+ | amLODIPine | Take 1 tablet by | 30 | 11 | 12/2 | | Activ | | (NORVASC) 5 mg | mouth Daily. | tablet | | 6/20 | | e | | tablet | | | | 19 | | | + + + +---------+------+------+-------+ | indapamide (LOZOL) | Take 0.5 tablets by | 15 | 11 | 12/2 | | Activ | | 1.25 MG tablet | mouth every morning. | tablet | | 6/20 | | e | | | | | | 19 | | | + + + +---------+------+------+-------+ | levothyroxine | Take 1 tablet by | 30 | 11 | 01/0 | | Activ | | (SYNTHROID) 175 mcg | mouth every morning | tablet | | 8/20 | | e | | tablet | (before breakfast). | | | 20 | | | + + + +---------+------+------+-------+ | CARTIA XT 120 MG | Take 1 capsule by | 90 | 3 | 03/1 | | Activ | | 24 hr capsule | mouth once daily | capsule | | 1/20 | | e | | | | | | 20 | | | + + + +---------+------+------+-------+ | lisinopril | Take 1 tablet by | 90 | 3 | 03/1 | | Activ | | (PRINIVIL,ZESTRIL) | mouth once daily | tablet | | 120 | | e | | 40 MG tablet | | | | 20 | | | + + + +---------+------+------+-------+ Active Problems + + + | Problem | Noted Date | + + + | Papillary thyroid carcinoma | 05/05/2019 | + + + | H/O total thyroidectomy | 05/05/2019 | + + + | Encounter for monitoring diuretic therapy | 05/05/2019 | + + + | Gastroesophageal reflux disease | 04/18/2019 | + + + + + | Overview: - evidence of laryngeal reflux on laryngoscopy | | (with ENT on 04/01/19). Was sent to ENT for eval of left thyroid | | nodule. Plan was to start on PPI, patient unaware of this. - will | | start on Omeprazole 40mg daily, discussed to take in the morning | | at least 30-60 min before other meds and breakfast | + + + + + | Thyroid nodule | 04/04/2019 | + + + + + | Overview: Added automatically from request for surgery | | [id number] | + + + + + | Thyromegaly | 04/04/2019 | + + + + + | Overview: Added automatically from request for surgery | | [id number] | + + + + + | High triglycerides | 02/25/2019 | + + + + + | Overview: 02/18/19, will manage with diet, and re-eval | + + + + + | Prediabetes | 02/25/2019 | + + + + + | Overview: Last Assessment & Plan: - A1c 6.1%, pre-DM2. Has | | been on metformin in the past, will restart Metformin 500 XR BID | | today. - Went into detail diet and exercise, also spoke with | | chemist enzymes today. - RTC in 2 weeks | + + + + + | Generalized anxiety disorder | 02/18/2019 | + + + + + | Overview: - discussed with pt that her anxiety is likely the | | major cause of her dysphagia, palpitations, anxiety, and elevated | | BP. Recommendation is to start patient on a daily SSRI, but | | patient refuses to be on a buttermaker helper medication for it at this | | time.- is okay with doing counseling and meditation first. Had | | patient download HeadSpace meditation denise on her phone, she is | | instructed to do it at least once daily. - if these methods do | | not work, patient is agreeable to re-visit the topic of SSRI | | medication. Last Assessment & Plan: - discussed with pt that her | | anxiety is likely the major cause of her dysphagia, palpitations, | | anxiety, and elevated BP. Recommendation is to start patient on | | a daily SSRI, but patient refuses to be on a buttermaker helper medication | | for it at this time.- is okay with doing counseling and | | meditation first. Had patient download [employer]romani[employer] meditation denise | | on her phone, she is instructed to do it at least once daily. - | | if these methods do not work, patient is agreeable to re-visit | | the topic of SSRI medication. - patient to set up appt with our | | [facility] soon | + + + + + | SVT (supraventricular tachycardia) | 02/18/2019 | + + + + + | Overview: 2018: dx with SVT, sent to chemists (at | | [facility]). Last visit in Jun 2018. Last Assessment & Plan: - | | diagnosed in 2018 in the ER and was following with a chemists | | at [facility]. Last visit was in May or June of 2018. Has | | had echo done in 2019, states that it was normal.- patient not | | tachycardic today, but in hypertensive urgency. 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/04/2018 | + + + | Essential hypertension | 03/04/2018 | + + + | Class 3 severe obesity with body mass index (BMI) of 45.0 to 49.9 | 03/04/2018 | | in adult | | + + + Encounters +--------+ + + + + | Date | Type | Specialty | Care Team | Description | +--------+ + + + + | 08/08/ | Telephone | Endocrinology | Donny Ji, | Follow-up | | 2020 | | | MD | | +--------+ + + + + | 07/19/ | Telephone | Endocrinology | Donny Ji, | Follow-up | | 2020 | | | MD | (Reschedule 07/21/19) | +--------+ + + + + | 07/17/ | Refill | Cardiology | Nisha Forde DO | Medication Refill | | 2020 | | | | | +--------+ + + + + from Last 3 Months Family History + + +------+ + | Medical History | Relation | Name | Comments | + + +------+ + | Hypertension | Father | | | + + +------+ + | Malig hypertherm | Neg Hx | | | + + +------+ + + +------+--------+ + | Relation | Name | Status | Comments | + +------+--------+ + | Father | | Alive | | + +------+--------+ + | Mother | | Alive | | + +------+--------+ + Social History + +-------+ +--------+------+ | [...] recent travel history available. | + + Last Filed Vital Signs + + + [...] + + + + | Temperature | 25 C (77 F) | 04/28/2019 10:52 AM | | | | | PST | | + + + + + | Respiratory Rate | 18 | 04/23/2019 11:33 AM | | | | | PST | [...] | | + + + + + Plan of Treatment +--------+---------+ + + + | Date | Type | Specialty | Care Team | Description | +--------+---------+ + + + | 11/21/ | Office | Endocrinology | Donny Ji, | | | 2019 | Visit | | MD [address] | | | | | | [place] | | | | | | [place] [address] | | | | | | [phone] | | | | | | | | +--------+---------+ + + + | 12/07/ | Office | Cardiology | Nisha Forde DO | | | 2019 | Visit | | [address] | | | | | | [place] | | | | | | [address] | | | | | | | | +--------+---------+ + + + + + + + + | Health Maintenance | Due Date | Last Done | Comments | + + + + + | Vaccine: | | | | | Pneumococcal 19-64 | 6 | | | | (1 of 3 - PCV13) | | | | + + + + + | Vaccine: | | 10/13/1995, 02/28/1986, | | | Dtap/Tdap/Td (6 - | 1 | 11/13/1981, Additional history | | | Tdap) | | exists | | + + + + + | Cervical Cancer | | | | | Screening (Pap) | 0 | | | + + + + + | Vaccine: Influenza | Completed | 04/18/2019 | | + + + + + Results Not on filefrom Last 3 Months Insurance +---------+--------+ +--------+ +---------+------+ | Payer | Benefi | Subscriber | Effect | Phone | Address | Type | | | t Plan | ID | joshua | | | | | | / | | Dates | | | | | | Group | | | | | | +---------+--------+ +--------+ +---------+------+ | [employer] | [employer] | [id number] | 05/11/19 | [phone] | | PPO | | | E BCBS | 0 | 15-Pre | 8 | | | | | [place] | | sent | | | | | | PPO | | | | | | +---------+--------+ +--------+ +---------+------+ | BCBS | BCBS | [id number] | 05/11/19 | | | PPO | | | OOS | 2 | 20-Pre | | | | | | PPO | | sent | | | | +---------+--------+ +--------+ +---------+------+ + +--------+ +--------+ + + | Guarantor Name | Accoun | Relation to | Date | Phone | Billing Address | | | t Type | Patient | of | | | | | | | | | | + +--------+ +--------+ + + | Tamera Yang | Person | Self [birth year] | [address] | | | al/Fam | | 1979 | [phone] | [place], [place] | | | [place] | | | 1 (Home) | [address] | + +--------+ +--------+ + + | Tamera Yang | Person | Self [birth year] | [address] | | | al/Fam | | 1979 | [phone] | [place], [place] | | | [place] | | | [address] (Home) | [address] | + +--------+ +--------+ + + Advance Directives + + + + + | Type | Date Recorded | Patient | Explanation | | | | Produce Assistant | | + + + + + | Power of | | | | | Charge Attendant | | | | + + + + + | Advance | 04/05/2019 | | | | Directive | 9:30 AM | | | + + + + + + + + + + | Code Status | Date | Date | Comments | | | Activated | Inactivated | | + + + + + | Full Code | 04/22/2019 | 04/23/2019 | | | | 10:59 AM | 4:55 PM | | + + + + +
--- OUTSIDE RECORDS SUMMARY | ~2019-09-16 | XMS | Encounter Summary ---
Demographics + + + | Address | [address] | | | [place] [address] | + + + | Home Phone | | + + + | Preferred Language | Unknown | + + + | Marital Status | Single | + + + | Jewish Affiliation | Unknown | + + + | Race | Unknown | + + + | Ethnic Group | Unknown | + + + Author + + + | Author | [facility] | | | and [place] | + + + | Organization | [facility] | | | and [...] Team Providers + +------+ + | Care Fleet Sales Associate Name | Role | Phone | + +------+ + | Soumya Fuentes | PCP | | + +------+ + Reason for Visit +--------+ + | Reason | Comments | +--------+ + | Other | consult due thyroid nodule, she states feeling a knot sensation | | | in her throat,sore throat, dysphagia with solids, clearing the | | | throat, hoarseness for 2 months | +--------+ + Evaluate & Treat (Urgent) + + + + + + + | Status | Reason | Specialty | Diagnoses / | Referred By | Referred To | | | | | Procedures | Contact | Contact | + + + + + + + | Authorized | Specialty | Otolaryngolog | Diagnoses | Unknown, | [facility], | | | Services | y | Abnormal | Practitioner | Carlos Melvin, | | | Required | | weight loss | , . | [address] | | | | | New onset | Phone: | MARK [place], | | | | | mass on | | [address] | | | | | anterior | Fax: | [place] [address] | | | | | neck causing | | [address] Phone: | | | | | change in | | [phone] | | | | | voice and | | Fax: | | | | | some | | [phone] | | | | | dysphagia | | | + + + + + + + Encounter Details +--------+---------+ + + + | Date | Type | Department | Care Team | Description | +--------+---------+ + + + | 04/01/ | Office | [facility] | Monika Pretty | Thyroid nodule | | 2019 | Visit | [facility] | J, DO [address] | (Primary Dx); | | | | [address] | [address] | Thyromegaly; | | | | [place], [place] | [place] [address] | Dysphagia, | | | | [address] | [phone] | unspecified type; | | | | [phone] | | Laryngopharyngeal | | | | | | reflux (LPR); | | | | | | Chronic throat | | | | | | clearing | +--------+---------+ + + + Social History [...] + + + | Blood Pressure | - | - | | + + + + + | Pulse | 83 | 04/01/2019 3:24 PM | | | | | PST | | + + + + + | Temperature | - | - | | + + + + + | Respiratory Rate | - | - | | + + + + + | Oxygen Saturation | 98% | 04/01/2019 3:24 PM | | | | | PST | | + + + + + | Inhaled Oxygen | - | - | | | Concentration | | | | + + + + + | Weight | 123.8 kg (273 lb) | 04/01/2019 3:24 PM | | | | | PST | | + + + + + | Height | - | - | | + + + + + | Body Mass Index | 44.06 | 09/02/2018 9:00 AM | | | | | PDT | | + + + + + documented in this encounter Patient Instructions Patient Instructions Nicole Carpenter - 04/01/2019 3:00 PM PSTFormatting of this note mi aubreet be different from the original. Surgery Date: 04/22/19 Location: [facility] ([address] [place] [address]) FYI: Prior to your surgery, you will receive a call to schedule a Pre-Admission appointment. This appointment is required. If you do not hear from anyone please call [phone], Opt ion 4. A time for surgery is not given until the day before. The hospital will be contacting y ou to give you a time for arrival. Unfortunately, our office does not know this information so if you are concerned with your surgery time please call the hospital directly at . If you need to cancel or reschedule your surgery, pre-op, or post-op dates please contact Florence pat at [phone], Option 4. *IF YOU HAVE FMLA/SHORT-TERM DISABILITY PAPERWORK THAT NEEDS TO BE FILLED OUT, PLEASE DROP IT OFF OR FAX IT TO OUR OFFICE ([phone]) TWO WEEKS PRIOR TO SURGERY. MAKE SURE TO INCLU DE TIME OFF NEEDED AND/OR WHEN YOU PLAN TO RETURN TO WORK. PLEASE ALLOW 7-10 BUSINESS DAYS F OR COMPLETION. If you would like an estimate for your surgery, please contact the [facility] Financial Supervisor [employer]al [employer] ors/Authorization Department at [phone]. Having Thyroid Surgery The incision is made at the base of your neck. You are having surgery to remove part or all of your thyroid. The thyroid is a gland in the front of the neck. It sits just below the voice box. The gland s main job is to make thyr oid hormone. This helps control the body s metabolism. Thyroid surgery may be done to ayla t an enlarged thyroid (goiter). Or it may be done to remove a lump (nodule). It may also be done to treat an overactive gland (hyperthyroid). Or it may be done to treat a gland that ma y have cancer cells. Getting ready for surgery You may need to stop taking some medicines. This includes aspirinand other blood thinn ers. It also includes herbs and other supplements. Do not eat or drink anything for 12 hours before the surgery. During the surgery An intravenous line (IV) will be put in your arm or hand. You ll receive fluids and me dicines through the IV during the surgery. You ll be given general anesthesia to keep you asleep and free of pain through the scot jessica. An incision is made in your neck, along a crease in your skin. Half of the thyroid gland may be taken out (lobectomy). Or most of the gland may be take n out (subtotal thyroidectomy). In some cases, all of the gland is taken out (total thyroide ctomy). Thesurgeon may not know how much to take until the surgery. The incision is then closed with surgical strips, clips, or stitches (sutures). A thin t ube (drain) may be left in the incision. This helps remove fluid that can build up. After the surgery It may take a few hours for the anesthesia to wear off. You will get up and walk around soon after the surgery. You will be watched for bleeding. You may spendsome time stayingin the hospital or surgery center after the surgery. In most cases, you can eat and drink the evening after the surgery. You may still have n ausea from the anesthesia. You ll be given medicine to help manage pain, if needed. You will be tested to make sure your parathyroid glands are working. The stress of surge ry may stop them from working for a short time. If this happens, you may be given calcium pi lls for a few days. You may have a sore throat and a hoarse voice for a week or so after the surgery. Risks and possible complications The risks and possible complications of this procedure include: Bleeding Infection Damage to nerves in your voice box. This can lead to a hoarse voice. Usually, this hoars eness gets better over time, though in rare cases it may last. Damage to the parathyroid glands or their blood supply. This can make them underactive ( hypoparathyroidism). These glands control the amount of calcium in your blood. Usually, the hypoparathyroidism gets better over time. But you mayneed to take daily calcium pills for a long time, or for the rest of your life. You may also need to take vitamin D supplements. Date Last Reviewed: 03/11/201619994517-9882 [employer]. [address] [place] [address], [place] [address]. All righ ts reserved. This information is not intended as a substitute for professional medical care. Always follow your healthcare professional's instructions. documented in this encounter Progress Notes Monika Pretty, - 04/01/2019 3:00 PM PST Subjective: Catarina Mejia is a 39 y.o. female who I was asked to see in consultation for evaluation of a left thyroid nodule. The patient reports that the nodule has been present for at least 3 months. The onset of the nodule was gradual. Associated symptoms were positive for dysphagia , hoarseness, frequent clearing of the throat, globus sensation, and compression of the neck when she lays back. There has not been a history of pain, fatigue, weight loss, fevers, or night sweats. The recent exposure history has been negative. Patient denies any family histo ry of thyroid cancer. She denies any personal history of exposure to external beam radiatio n to the head or neck. There has not been a fine-needle aspiration biopsy performed of the nodule. She does admit to tenderness to palpation over this left thyroid nodule. A TSH ret urned as 1.2, T3 returned as 117 and her free T4 returned is 1.35. These were all within no rmal range. Patient's medications, allergies, past medical, surgical, social and family histories were obtained and reviewed as appropriate. History: Past Medical History: Diagnosis Date Anemia Blood pressure check other abstracted Hypertension Hypokalemia other abstracted Obesity other abstracted Prediabetes Proteinuria other abstracted Vitamin D deficiency other abstracted Past Surgical History: Procedure Laterality Date GALLBLADDER SURGERY other abstracted OTHER SURGICAL HISTORY other abstracted TONSILLECTOMY AND ADENOIDECTOMY TUBAL LIGATION 2009 Family History Problem Relation Age of Onset Hypertension Father Social History Socioeconomic History Marital status: Unknown Spouse name: Not on file Number of children: Not on file Years of education: Not on file Highest education level: Not on file Tobacco Use Smoking status: Never Smoker Smokeless tobacco: Never Used Substance and Sexual Activity Alcohol use: Yes Comment: Alcoholic Drinks/day: occasional Drug use: Never Comment: no Allergies: Allergies Allergen Reactions Zestoretic [Lisinopril-Hydrochlorothiazide] Cough Review of Systems Constitutional: negative Respiratory: negative Cardiovascular: positive for chest pain, chest pressure/discomfort and palpitations Gastrointestinal: positive for dysphagia and reflux symptoms Hematologic/lymphatic: positive for lymphadenopathy Musculoskeletal:positive for arthralgias, bone pain and muscle weakness Neurological: negative Behavioral/Psych: positive for anxiety, depression, irritability, mood swings and sleep dis turbance Endocrine: negative Allergic/Immunologic: negative Objective: Pulse 83 | Wt 123.8 kg (273 lb) | SpO2 98% | BMI 44.06 kg/m General: healthy, alert, appears stated age Head and Face: facial movement was normal and symmetrical, nontender External Ears: normal pinnae shape and position Ext. Aud. Canal: Right:patent Left: patent Tympanic Mem: Right: normal landmarks and mobility Left: normal landmarks and mobility Nose: Nares normal. Septum midline. Mucosa normal. No drainage or sinus tenderness., no di scharge Oropharynx: lips, dentition and gingiva within normal for age Tonsils: absent bilaterally, normal appearance Post. Pharynx: normal mucosa Neck: no asymmetry, masses, or scars, supple without significant adenopathy, trachea midl ine Thyroid: Palpable left-sided thyroid nodule, there is tenderness to palpation over this a daljit. Heart: regular rate and rhythm Lungs: Non-labored breathing Psych/Neuro: oriented, normal mood, gait normal; reflexes normal and symmetric, grossly n on-focal, CN II-XII intact FLEXIBLE LARYNGOSCOPY PROCEDURE NOTE Flexible laryngoscopy was performed through the left nasal cavity following the topical denise lication of lidocaine and afrin. The examination reveals normal anatomy in the nose, nasoph arynx, oropharynx and hypopharynx. Laryngeal examination reveals normal true vocal cord mob ility without nodules or polyps. The visualized portion of the subglottis appears normal. T here is evidence of edema/erythema of the arytenoids/aryepiglottic folds. Notable interaryt enoid edema. The epiglottis, vallecula and base of tongue are normal. Piriform sinuses are free of mass, polyp, or lesion. Post-cricoid region appears to have evidence of pachydermia. Flexible laryngoscopy is performed because laryngeal mirror evaluation is not felt to be ac curate enough to obtain diagnostic information in this clinical setting. Name: SHUBHAM MEJIAENA Phys: HEIDY MEDEIROS MD : 1980 Age: 39 Sex: F Acct: [id number] Loc: ED Exam Date: 03/16/2019 Status: REG ER Radiology No: Unit No: [id number] EXAM# TYPE/EXAM RESULT CPT CODE [id number] US/HEAD NECK SOFT TISSUE/THYROI [id number] Exam: Thyroid sonogram. HISTORY: Enlarged thyroid. TECHNIQUE: Grayscale and color interrogation performed. COMPARISON: None. FINDINGS: A dominant nodule is noted in the left thyroid lobe measuring 45 x 32 x 42 mm. This is fairly homogeneous and isoechoic to thyroid with a few small cystic areas. Vascularity is mildly increased. The thyroid is otherwise unremarkable with the right lobe measuring 48 x 14 x 21 mm, in the left measuring 54 x 39 x 34 mm. IMPRESSION: Dominant left thyroid nodule for which further evaluation with thyroid FNA is recommended. REPORT SIGNED IN OTHER VENDOR SYSTEM 03/16/2019 (0110) Reported By: DARIEN CHRISTIANSON MD Assessment: 1. Thyroid nodule Case Request - OR/ENDO/ASC/OB: LEFT THYROIDECTOMY WITH POSSIBLE TOTAL TH YROIDECTOMY 2. Thyromegaly Case Request - OR/ENDO/ASC/OB: LEFT THYROIDECTOMY WITH POSSIBLE TOTAL THYRO IDECTOMY 3. Dysphagia, unspecified type omeprazole (PRILOSEC) 40 MG capsule 4. Laryngopharyngeal reflux (LPR) omeprazole (PRILOSEC) 40 MG capsule 5. Chronic throat clearing omeprazole (PRILOSEC) 40 MG capsule Plan: 1. I have reviewed the physical examination findings including the flexible fiberoptic la ryngoscopy findings, personally reviewed the ultrasound findings and ultrasound with the jules segovia. We have discussed that she does have a sizable left-sided thyroid nodule. This is li penny contributing to her symptoms. She is having symptoms of dysphagia and compression when she lays back. She also understands that due to size alone of the left-sided thyroid nodul e, it would be recommended that that side of the thyroid is removed as biopsy would not be a ccurate. Thus, I have recommended left thyroid lobectomy with frozen section with possible total thyroidectomy. I have discussed with the patient the planned surgical procedure as we ll as potential risks and complications of surgery. These include but are not limited to, a nesthetic reaction, bleeding, infection, need for further surgery to remove the other lobe o f the thyroid gland, need for further treatment following either a partial or total thyroide ctomy, temporary or permanent hypocalcemia, damage to one or both recurrent laryngeal nerves and possible need for tracheostomy. They understand all of these aspects of their care an d requests that I proceed with the planned surgery. The expected postoperative course was d iscussed in detail. She will follow-up postoperatively. With regard to her symptoms of chronic throat clearing, she understands there is evidence o f laryngopharyngeal reflux. Thus, I have recommended treatment with omeprazole 40 mg daily. I have also recommended behavioral lifestyle modifications including the avoidance of eatin g 2 hours before bed, the avoidance of excessive caffeine, chocolate, peppermint, acidic iris ds, spicy foods, or tomato-based food consumption. She is also to elevate the head of her b ed. 2. Return for follow-up post operatively. I Crystal Canales am personally taking down the note in the presence of Dr. Pretty. I, Dr. MONIKA PRETTY, D.O., personally performed the services described in this docume ntation, as scribed by Crystal Canales CMA in my presence, and it is accurate and complete. Portions of this chart note have been created with a voice recognition system. The possibil ity of "sound alike" billing and quality technician errors, additions or deletions may occur. If there is any question to the content of the document or with respect to clarity of the message being con veyed, please contact me directly for clarification. documented in thi s encounter Plan of Treatment +--------+---------+ + + + | Date | Type | Specialty | Care Team | Description | +--------+---------+ + + + | 11/21/ | Office | Endocrinology | Donny Ji, | | | 2019 | Visit | | MD Srinivasa AGUILERA | | | | | | [address], [address] | | | | | | [place] [address] | | | | | | [phone] | | | | | | | | +--------+---------+ + + + | 12/07/ | Office | Cardiology | Forde DO Nisha | | | 2019 | Visit | | [address] | | | | | | [facility] [place] | | | | | | [address] | | | | | | | | +--------+---------+ + + + documented as of this encounter Visit Diagnoses + + | Diagnosis | + + | Thyroid nodule - Primary Nontoxic uninodular goiter | + + | Thyromegaly Goiter, unspecified | + + | Dysphagia, unspecified type | + + | Laryngopharyngeal reflux (LPR) Other diseases of larynx | + + | Chronic throat clearing Other symptoms involving head and neck | + + documented in this encounter
--- OUTSIDE RECORDS SUMMARY | ~2019-09-16 | XMS | Encounter Summary ---
Demographics + + + | Address | [address] | | | [place] [address] | + + + | Home Phone | | + + + | Preferred Language | Unknown | + + + | Marital Status | Single | + + + | Tenriism Affiliation | Unknown | + + + | Race | Unknown | + + + | Ethnic Group | Unknown | + + + Author + + + | Author | [facility] | | | and [place] | + + + | Organization | [facility] | | | and [...] Team Providers + +------+ + | Care Clinical Asst Name | Role | Phone | + [...] +--------+--------+ + + + + Encounter Details +--------+---------+ + + + | Date | Type | Department | Care Team | Description | +--------+---------+ + + + | 04/22/ | Surgery | [facility] | Monika Morillo | TOTAL THYROIDECTOMY, | | 2018 | | [facility] | J, DO [address] | left central neck | | | | OPERATING ROOM [address] | dissection | | | | [address] | [place] [address] | | | | | [place], [place] | [phone] | | | | | [address] | | | | | | [phone] | | | +--------+---------+ + + + [...] + + + | Blood Pressure | 174/87 | 04/23/2019 12:08 PM | | | | | PST | | + + + + + | Pulse | 80 | 04/23/2019 11:33 AM | | | | | PST | | + + + + + | Temperature | 37.1 C (98.7 F) | 04/23/2019 11:33 AM | | | | | PST | | + + + + + | Respiratory Rate | 18 | 04/23/2019 11:33 AM | | | | | PST | | + + + + + | Oxygen Saturation | 94% | 04/23/2019 11:33 AM | | | | | PST | | + + + + + | Inhaled Oxygen | - | - | | | Concentration | | | | + + + + + | Weight | 123 kg (271 lb 2.7 | 04/22/2019 6:48 AM | | | | oz) | PST | | + + + + + | Height | 167.6 cm (5' 6") | 04/22/2019 6:48 AM | | | | | PST | | + + + + + | Body Mass Index | 43.77 | 04/22/2019 6:48 AM | | | | | PST | | + + + + + documented in this encounter Discharge Summaries Monika Morillo, - 04/23/2019 12:20 PM PST [facility] Service: Otolaryngology Brief Post-op Discharge Note DISCHARGE DIAGNOSES: Active Problems: *Thyromegaly, multiple thyroid nodules, papillary thyroid carcinoma. * Resolved Problems: * No resolved hospital problems. * Procedures: Procedure(s): Total thyroidectomy with left central neck dissection. This patient was transferred to the recovery area post-operatively and has experienced no d ifficulties at the time of my assessment. The patient is anticipated to continue to meet di scharge criteria per protocol as assessed by nursing and may be discharged at that time with designated caregiver. Disposition: home Condition: Stable Code Status: Prior No discharge procedures on file. Follow up: Dr. Morillo in 1 weeks Discharge Medications New Medications Details HYDROcodone-acetaminophen 5-325 mg per tablet Take 1-2 tablets by mouth every 6 hours as needed for Pain. aka: NORCO levothyroxine 150 mcg tablet Take 1 tablet by mouth every morning (before breakfast). aka: SYNTHROID Start: April 24, 2019 ondansetron 4 mg disintegrating tablet Take 1 tablet by mouth every 6 hours as needed for Nausea. aka: ZOFRAN ODT Unchanged Medications Details amLODIPine 5 mg tablet Take 5 mg by mouth. aka: NORVASC lisinopril 40 MG tablet Take 1 tablet by mouth daily. aka: PRINIVIL,ZESTRIL metFORMIN 500 mg 24 hr tablet Take 500 mg by mouth 2 times daily (before meals). aka: GLUCOPHAGE-XR metoprolol succinate 200 mg ER tablet Take 200 mg by mouth daily. aka: TOPROL-XL omeprazole 40 MG capsule Take 40 mg by mouth. aka: priLOSEC Discontinued Medications ALPRAZolam 0.5 mg tablet aka: XANAX Primary Care Physician: MD Monika Callaway, 04/23/2019 documented in thi s encounter Discharge Instructions Instructions Lo William RN - 04/23/2019Formatting of this note might be differen t from the original. After Thyroid Surgery(Thyroidectomy) Your doctor will monitor [...] the hands,feet, or lips Date Last Reviewed: 03/11/201619999663-7356 [employer]. [address] [place] [address]. All righ ts reserved. This information is not intended as a substitute for professional medical care. Always follow your healthcare professional's instructions. documented in this encounter Medications at Time of Discharge + + + +---------+ + + | Medication | Sig | Dispensed | Refills | Start | End Date | | | | | | Date | | + + + +---------+ + + | | Take 1-2 tablets by | 15 | 0 | 12/14/20 | | | HYDROcodone-acetamin | mouth every 6 hours | tablet | | 19 | | | ophen (NORCO) 5-325 | as needed for Pain. | | | | | | mg per tablet | | | | | | + + + +---------+ + + | metFORMIN | Take 500 mg by mouth | | 0 | 02/26/20 | | | (GLUCOPHAGE-XR) 500 | 2 times daily | | | 19 | 0 | | mg 24 hr tablet | (before meals). | | | | | + + + +---------+ + + | amLODIPine | Take 5 mg by mouth. | | 0 | 02/28/20 | | | (NORVASC) 5 mg | | | | 19 | 9 | | tablet | | | | | | + + + +---------+ + + | levothyroxine | Take 1 tablet by | 30 | 5 | 04/24/20 | | | (SYNTHROID) 150 mcg | mouth every morning | tablet | | 19 | 0 | | tablet | (before breakfast). | | | | | + + + +---------+ + + | lisinopril | Take 1 tablet by | 30 | 3 | 06/03/19 | | | (PRINIVIL,ZESTRIL) | mouth daily. | tablet | | 19 | 9 | | 40 MG tablet | | | | | | + + + +---------+ + + | metoprolol | Take 200 mg by mouth | | 0 | 03/03/20 | | | succinate | daily. | | | 18 | 9 | | (TOPROL-XL) 200 mg | | | | | | | ER tablet | | | | | | + + + +---------+ + + | omeprazole | Take 40 mg by mouth. | | 0 | 04/18/20 | | | (PRILOSEC) 40 MG | | | | 19 | 9 | | capsule | | | | | | + + + +---------+ + + | ondansetron | Take 1 tablet by | 20 | 0 | 04/23/20 | | | (ZOFRAN ODT) 4 mg | mouth every 6 hours | tablet | | 19 | 9 | | disintegrating | as needed for | | | | | | tablet | Nausea. | | | | | + + + +---------+ + + documented as of this encounter Progress Notes IliaMonika Jovanna, DO - 04/23/2019 12:14 PM PST [facility] Service: Otolaryngology Progress Note Hospital Day: LOS: 0 days Post-Op Day: 1 Day Post-Op s/p total thyroidectomy with left central neck dissection for p apillary thyroid carcinoma. SUBJECTIVE Patient Summary: Patient seen and examined at bedside. No acute issues overnight. Bertin crain is tolerating a regular diet. She is ambulating freely and voiding independently. Pain i s well controlled. No perioral/peripheral numbness/tingling. Drain output is serosanguineo us in nature. Voice is stable. No fevers, chills, or night sweats. Calcium and parathyroi d hormone level are within normal limits. Events Overnight: None Scheduled Medications amLODIPine 5 mg Oral Daily calcitriol 0.5 mcg Oral Daily calcium-vitamin D 2 tablet Oral TID WC levothyroxine 150 mcg Oral QAM AC metFORMIN 500 mg Oral BID WC metoprolol succinate 200 mg Oral Daily pantoprazole 40 mg Oral QAM AC Continuous Infusions balanced electrolytes in water (PLASMALYTE-148/NORMOSOL-R) lactated ringers 50 mL/hr at 04/23/19 0246 PRN Medications docusate sodium, HYDROcodone-acetaminophen, labetalol, morphine OBJECTIVE Vital Signs: Vitals: 04/23/19 1208 BP: 174/87 Pulse: Resp: Temp: Physical Exam Constitutional: Appearance: Normal appearance. HENT: Head: Normocephalic and atraumatic. Nose: Nose normal. Mouth/Throat: Mouth: Mucous membranes are moist. Eyes: Extraocular Movements: Extraocular movements intact. Pupils: Pupils are equal, round, and reactive to light. Neck: Musculoskeletal: Normal range of motion. Comments: Incisional site is clean, dry, and intact. Drain removed. Pulmonary: Effort: Pulmonary effort is normal. Skin: General: Skin is warm and dry. Capillary Refill: Capillary refill takes less than 2 seconds. Neurological: General: No focal deficit present. Mental Status: She is alert. DATA Recent Results (from the past 24 hour(s)) Calcium, Ionized, Venous Collection Time: 04/22/19 2:30 PM Result Value Ref Range Calcium, Ionized 1.05 (L) 1.08 - 1.25 mmol/L pH, Venous 7.442 7.300 - 7.450 Parathyroid Hormone, Intact and Calcium Collection Time: 04/23/19 4:29 AM Result Value Ref Range Calcium 9.3 8.5 - 10.5 mg/dL PTH, intact 50.8 12 - 88 pg/mL PROBLEM LIST Active Problems: Thyroid nodule Thyromegaly ASSESSMENT & PLAN Patient is postop day #1 status post total thyroidectomy with left central neck dissection for papillary thyroid carcinoma. She is doing well. She has met all discharge criteria. A prescription for Synthroid, [place], and Zofran have been given to the patient. It does not appear that she needs supplemental calcium. The symptoms of hypocalcemia have been discusse d with the patient in proper treatment was relayed to the patient. She is to follow-up with me in 1 week for suture removal and to discuss final pathology. Disposition: Home Code Status: Full Code Monika Morillo DO 04/23/2019 oore, Breanne Melvin [facility] - 04/22/2019 1:14 PM PSTRx Admission Medication History Note I have reviewed the medication history for appropriate doses obtained by: Other : Obtaine d by myself after reviewing the patient's dispense history and confirming the dispense histo ry with the patient's two pharmacies. Patient fills in [place] at both the [facility] pharmacies. RN also confirmed the patient's current dose of the metformin and ve rified with the patient that the alprazolam has not been filled in over one year. Patient r eported that the alprazolam was used only prn and has not been using currently. After reviewing the home medication list : -Updated metformin to 500 mg ER tab BID -Removed diltiazem (patient uses amlodipine) -Confirmed current prescription for omeprazole 40 mg (although patient did not peanut picker, lik cydney due to cost) -Marked the alprazolam as not taking as this has not been filled in 14 months, patient stat ed prior use only occasional but has not been using this. I agree with the home medications list Please Review and Order Home Medications as necessary. Thanks BREANNE AGARWAL Yesenia 04/22/2019 @ 1:07 PM documented in this en counter Plan of Treatment +--------+---------+ + + + | Date | Type | Specialty | Care Team | Description | +--------+---------+ + + + | 11/21/ | Office | Endocrinology | Donny Ji, | | | 2019 | Visit | | MD Srinivasa AGUILERA | | | | | | [address] | | | | | | [place] [address] | | | | | | [phone] | | | | | | | | +--------+---------+ + + + | 12/07/ | Office | Cardiology | Nisha Forde DO | | 2019 | Visit | | [address] | | | | | [place] | | | | | | [phone] | | | | | | | | +--------+---------+ + + + documented as of this encounter Procedures + +--------+ + + + | Procedure Name | Priori | Date/Time | Associated Diagnosis | Comments | | | ty | | | | + +--------+ + + + | PARATHYROID HORMONE, | Routin | 04/23/2019 | | Results for this | | INTACT AND CALCIUM | e | 4:29 AM | | procedure are in the | | | | PST | | results section. | + +--------+ + + + | CALCIUM, IONIZED, | Timed | 04/22/2019 | | Results for this | | VENOUS | | 2:30 PM | | procedure are in the | | | | PST | | results section. | + +--------+ + + + | POC GLUCOSE (NON | Routin | 04/22/2019 | | Results for this | | ORD) | e | 9:18 AM | | procedure are in the | | | | PST | | results section. | + +--------+ + + + | SURGICAL PATHOLOGY | Routin | 04/22/2019 | Thyroid nodule | Results for this | | EXAM | e | 7:31 AM | Thyromegaly | procedure are in the | | | | PST | | results section. | + +--------+ + + + | THYROIDECTOMY | | 04/22/2019 | Thyroid nodule | | | | | 6:43 AM | Thyromegaly | | | | | PST | | | + +--------+ + + + | POC GLUCOSE (NON | Routin | 04/22/2019 | | Results for this | | ORD) | e | 6:25 AM | | procedure are in the | | | | PST | | results section. | + +--------+ + + + | POCT TEST, | Routin | 04/22/2019 | | Results for this | | URINE, QUAL | e | 6:12 AM | | procedure are in the | | | | PST | | results section. | + +--------+ + + + documented in this encounter Results Parathyroid Hormone, Intact and Calcium (04/23/2019 4:29 AM PST) + + + + + + | Component | Value | Ref Range | Performed | Pathologist | | | | | At | Signature | + + + + + + | Calcium | 9.3 | 8.5 - 10.5 | [facility] | | | | | mg/dL | LABORATORY | | + + + + + + | PTH, intact | 50.8Comment: Nomogram | 12 - 88 pg/mL | [facility] | | | | suggests Normal | | LABORATORY | | | | Parathryoid | | | | | | status.Diagnosis of | | | | | | parathyroid disease | | | | | | requires both clinical | | | | | | and laboratory | | | | | | data.Testing performed | | | | | | at [facility], [address] | | | | | [facility], | | | | | | [place] [address] | | | | + + + + + + + + | Specimen | + + | Blood | + + + + + + + | Performing | Address | City/State/Zipcode | Phone Number | | Organization | | | | + + + + + | [facility] | [address] | [place] [address] | [phone] | + + + + + Calcium, Ionized, Venous (04/22/2019 2:30 PM PST) + + + + + + | Component | Value | Ref Range | Performed | Pathologist | | | | | At | Signature | + + + + + + | Calcium, | 1.05 (L) | 1.08 - 1.25 | [facility] | | | Ionized | | mmol/L | LABORATORY | | + + + + + + | pH, Venous | 7.442Comment: Testing | 7.300 - 7.450 | [facility] | | | | performed at [facility] | LABORATORY | | | | [address];[place] | | | | | | [address] | | | | + + + + + + + + | Specimen | + + | Blood | + + + + + + + | Performing | Address | City/State/Zipcode | Phone Number | | Organization | | | | + + + + + | [facility] | [address] | [place] [address] | [phone] | + + + + + POC Glucose (04/22/2019 9:18 AM PST) + + + + + + | Component | Value | Ref Range | Performed | Pathologist | | | | | At | Signature | + + + + + + | Glucose, | 121 (H)Comment: Testing | 65 - 99 mg/dL | [facility] | | | POC | performed at [facility] | | LABORATORY | | | | [address];[place], [place] | | | | | | [address] | | | | + + + + + + + + | Specimen | + + | | + + + + + + + | Performing | Address | City/State/Zipcode | Phone Number | | Organization | | | | + + + + + | [facility] | [address] | [place] [address] | [phone] | + + + + + Surgical Pathology Exam (04/22/2019 7:31 AM PST) + + | Specimen | + + | Tissue - Lymph node | | sample (specimen) | + + | Soft tissue sample | | (specimen) - | | Specimen from | | thyroid (specimen) | + + | Soft tissue sample | | (specimen) - | | Specimen from head | | and neck structure | | (specimen) | + + + + + | Narrative | Performed At | + + + | SPECIMEN(S): A | [facility] | | HOLLY-THYROIDAL LYMPH NODESSPECIMEN(S): B THYROID, TOTALSPECIMEN(S): C | [facility] | | LT CENTRAL NECK CONTENTS SPECIMEN SOURCE:A. HOLLY-THYROIDAL LYMPH | | | NODESB. THYROID, TOTALC. LT CENTRAL NECK CONTENTS CLINICAL | | | HISTORY:E04.1 (thyroid nodule), E01.0 (thyromegaly). FROZEN SECTION | | | DIAGNOSIS:A. Holly-thyroidal lymph nodes:- Two lymph nodes positive | | | for papillary carcinoma. (Dr. Dietz, 04/22/19, 8432) The frozen | | | section diagnosis is called to Dr. Morillo.DEANNA (under the direct | | | supervision of a pathologist) The Gross Description was prepared using | | | a voice recognition system. The report was reviewed for accuracy; | | | however, sound-alike word errors, addition and/or deletions may occur. | | | If there is anyquestion about this report, please contact Client | | | Services. FINAL PATHOLOGIC DIAGNOSIS:A. Perithyroidal lymph nodes, | | | biopsies:- Two lymph nodes positive for metastatic papillary | | | carcinoma (2/2). B. Thyroid, total thyroidectomy:- Papillary | | | thyroid carcinoma with the following features:- Tumor focality: | | | Unifocal.- Tumor laterality: Left lobe.- Tumor size: 4.5 cm | | | greatest dimension.- Histologic type: Papillary carcinoma.- | | | Histologic variant: Classical/conventional.- Surgical margins: | | | Negative for tumor involvement, tumor measures 1 mm from closest | | | inked capsular margin.- Tumor capsule: Partially encapsulated.- | | | Tumor capsule invasion: Absent.- Angio(vascular) invasion: | | | Absent.- Lymphatic invasion: Absent.- Extrathyroidal | | | extension: Absent.- Additional findings: Mild chronic | | | thyroiditis.- Specimen integrity: Intact.- Lymph nodes:- | | | Number of lymph nodes examined: 9 total nodes (including specimens | | | A and C).- Number of lymph nodes involved by tumor: 8. - Ally | | | levels involved: Perithyroidal and left central neck.- Surgical | | | pathology stage: pT3a pN1b. C. Left central neck contents, | | | dissection:- Six of 7 lymph nodes positive for metastatic papillary | | | carcinoma (6/7). COMMENT:As part of [facility] Quality | | | Improvement Program, this case was reviewed by another member of our | | | pathology staff. AMB:BES:emb:C1NR MICROSCOPIC EXAMINATION:Histologic | | | sections of all submitted blocks are examined by light microscopy. | | | These findings, together with the gross examination, support the | | | pathologic diagnosis. GROSS DESCRIPTION:A. The specimen is received | | | fresh for frozen section evaluation labeled LC, perithyroid lymph | | | nodes". Two pink-lakhani tentatively identified lymph nodes are 0.5 and | | | 0.7 cm. Each is bisected with halfof each submitted for frozen | | | section evaluation. The specimen is entirely submitted in cassettes | | | A1 and A2. Summary of sections:(A1) Frozen section control tissue(A2) | | | Remaining unfrozen tissue B. The specimen is received in a formalin | | | filled specimen container labeled "LC, total thyroid". Two irregular | | | unoriented and undesignated purple lakhani thyroid lobes are 4.5 x 2.5 x | | | 1.7 cm and 6 g;and 5.5 x 4.0 x 4.0 cm and 43 g. The smaller lobe of | | | thyroid is inked blue and has a 1 cm circular area of disruption at | | | one pole. Sectioning reveals glistening deep red parenchyma | | | throughout. There is no nodule or induration. Three circulation sales representative | | | sections are submitted in cassettes B1 and B2. The larger lobe of | | | thyroid is inked black sectioning reveals a large 4.5 x 4.0 x 3.0 cm | | | soft,papillary/friable pink-lakhani nodule which occupies almost the | | | entire lobe. There is no grossly recognizable normal thyroid | | | parenchyma. Six circulation sales representative sections are submitted in cassettes | | | B3-B8. C. The specimen is received in a formalin filled specimen | | | container labeled "capital LC, left central neck contents". A | | | lobular excision of yellow-lakhani, fibrofatty soft tissue is 3.3 x 2.5 x | | | 2 cm.Sectioning reveals six pink-lakhani tentatively identified lymph | | | nodes, 0.3-1.3 cm. Summary of sections:(C1) Four small intact lymph | | | nodes(C2) Single multiply sectioned lymph node(C3) Largest multiply | | | sectioned lymph node PERFORMING LABORATORY:The frozen section was | | | performed at [address] | | | [place] [address] (Healthcare Interpreter: Jim Uriarte M.D.; CLIA#: | | | [id number]).The technical component was performed by [facility] | | | [facility], [address] [place] [address] (Healthcare Interpreter: | | | Regine Dietz MD; CLIA# [id number]). Professional interpretation was | | | performed [facility], [facility], [facility] | | | [place] [address] (Healthcare Interpreter: Jim | | Yury Uriarte M.D.; CLIA#: [id number]). Diagnostician: Regine Dietz | | | MDPathologistElectronically Signed 04/26/2019 | | | | | |There is no nodule or induration. Three circulation sales representative sections are submitted in cassette s B1 and B2. The larger lobe of thyroid is inked black sectioning reveals a large 4.5 x 4. 0 x 3.0 cm soft, | | |papillary/friable pink-lakhani nodule which occupies almost the entire lobe. There is no may sly recognizable normal thyroid parenchyma. Six circulation sales representative sections are submitted in c assettes B3-B8. | | | | | |C. The specimen is received in a formalin filled specimen container labeled "[facility], le central neck contents". A lobular excision of yellow-lakhani, fibrofatty soft tissue is 3.3 x 2.5 x 2 cm. | | |Sectioning reveals six pink-lakhani tentatively identified lymph nodes, 0.3-1.3 cm. | | | | | |Summary of sections: | | |(C1) Four small intact lymph nodes | | |(C2) Single multiply sectioned lymph node | | |(C3) Largest multiply sectioned lymph node | | | | | |PERFORMING LABORATORY: | | |The frozen section was performed at [address] (Healthcare Interpreter: Jim Uriarte M.D.; CLIA#: [id number]). | | |The technical component was performed by [facility], [address] [place] [address] (Healthcare Interpreter: Regine Dietz MD; CLIA# [id number]). Professional interpretation was performed by | | |[facility], [address] [address] (Healthcare Interpreter: Jim Uriarte M.D.; CLIA#: [id number]). | | | | | |Diagnostician: Regine Dietz MD | | |Pathologist | | |Electronically Signed 04/26/2019 | | | | | | | | + + + + +---------+ + + | Performing | Address | City/State/Zipcode | Phone Number | | Organization | | | | + +---------+ + + | [facility] | | | | | [facility] | | | | + +---------+ + + POC Glucose (04/22/2019 6:25 AM PST) + + + + + + | Component | Value | Ref Range | Performed | Pathologist | | | | | At | Signature | + + + + + + | Glucose, | 118 (H)Comment: Testing | 65 - 99 mg/dL | [facility] | | | POC | performed at [facility] | | LABORATORY | | | | [address];[place] | | | | | | [address] | | | | + + + + + + + + | Specimen | + + | | + + + + + + + | Performing | Address | City/State/Zipcode | Phone Number | | Organization | | | | + + + + + | [facility] | [address] | [place] [address] | [phone] | + + + + + POCT Test, Urine, Qual (04/22/2019 6:12 AM PST) + + + + + + | Component | Value | Ref Range | Performed | Pathologist | | | | | At | Signature | + + + + + + | HCG, | NEGATIVEComment: Testing | NEG | [facility] | | | Quantitativ | performed at [facility];[address] | | LABORATORY | | | e POC | [address];[place], [place] | | | | | | [address] | | | | + + + + + + + + | Specimen | + + | | + + + + + + + | Performing | Address | City/State/Zipcode | Phone Number | | Organization | | | | + + + + + | [facility] | [address] | [place] [address] | [phone] | + + + + + documented in this encounter Visit Diagnoses + + | Diagnosis | + + | Thyroid nodule Nontoxic uninodular goiter | + + | Thyromegaly Goiter, unspecified | + + documented in this encounter Admitting Diagnoses + + | Diagnosis | + + | Thyroid nodule Nontoxic uninodular goiter | + + | Thyromegaly Goiter, unspecified | + + documented in this encounter Administered Medications + +--------+ +------+------+------+ | Medication Order | MAR | Action | Dose | Rate | Site | | | Action | Date | | | | + +--------+ +------+------+------+ | amLODIPine (NORVASC) tablet 5 | Given | 04/23/20 | 5 mg | | | | mg 5 mg, Oral, DAILY, First dose | | 19 9:00 | | | | | on Thu04/22/19 at 1200 | | AM PST | | | | + +--------+ +------+------+------+ +---+---+ | | | +---+---+ + +---------+ +---+---+---+ | balanced electrolytes in water | New Bag | 04/22/20 | | | | | (PLASMALYTE-148/NORMOSOL-R) | | 19 6:57 | | | | | infusion at 50 mL/hr, | | AM PST | | | | | Intravenous, CONTINUOUS, Starting | | | | | | | 04/22/19 at 0700, Pre-op | | | | | | + +---------+ +---+---+---+ +---+---+ | | | +---+---+ + +-------+ +---------+---+---+ | calcitriol (ROCALTROL) capsule | Given | 04/23/20 | 0.5 mcg | | | | 0.5 mcg 0.5 mcg, Oral, DAILY, | | 19 9:00 | | | | | First dose on 04/23/19 at | | AM PST | | | | | 0900 | | | | | | + +-------+ +---------+---+---+ +---+---+ | | | +---+---+ + +-------+ +---------+---+---+ | calcium-vitamin D 500 mg-200 | Given | 04/23/20 | 2 | | | | units per tablet 2 tablet 2 | | 19 12:06 | tablets | | | | tablet, Oral, 3 TIMES DAILY WITH | | PM PST | | | | | MEALS, First dose on Thu04/22/19 | | | | | | | at 1200 | | | | | | + +-------+ +---------+---+---+ +-------+ +---------+---+---+ | Given | 04/23/20 | 2 | | | | | 19 9:00 | tablets | | | | | AM PST | | | | +-------+ +---------+---+---+ | Given | 04/22/20 | 2 | | | | | 19 4:38 | tablets | | | | | PM PST | | | | +-------+ +---------+---+---+ +---+---+ | | | +---+---+ + +-------+ +--------+---+---+ | fentaNYL (PF) injection 25-50 | Given | 04/22/20 | 25 mcg | | | | mcg 25-50 mcg, Intravenous, | | 19 9:44 | | | | | EVERY 5 MIN PRN, Pain, Initial | | AM PST | | | | | postop medication for URGENT PAIN | | | | | | | OR ESCALATING PAIN, Starting Fri | | | | | | | 04/22/19 at 0857, For 4 doses, | | | | | | | First dose must be lowest dose. | | | | | | | Use Pasero Sedation Scale. | | | | | | | [Opioid tolerant = One week or | | | | | | | longer, [id number]-uhk-[id number] use of | | | | | | | at least the following DAILY | | | | | | | dose: 60mg oral morphine, 60mg | | | | | | | oral hydrocodone, 30mg oral | | | | | | | oxycodone, 8mg oral | | | | | | | hydromorphone, fentanyl patch | | | | | | | 25mcg/hr, or equivalent dose of | | | | | | | another opioid], Recovery/Phase I | | | | | | + +-------+ +--------+---+---+ +-------+ +--------+---+---+ | Given | 04/22/20 | 25 mcg | | | | | 19 9:38 | | | | | | AM PST | | | | +-------+ +--------+---+---+ +---+---+ | | | +---+---+ + +-------+ +---------+---+---+ | HYDROcodone-acetaminophen | Given | 04/23/20 | 2 | | | | (NORCO) 5-325 mg per tablet 1-2 | | 19 12:31 | tablets | | | | tablet 1-2 tablet, Oral, EVERY 6 | | PM PST | | | | | HOURS PRN, Pain, Starting Fri | | | | | | | 04/22/19 at 1058 | | | | | | + +-------+ +---------+---+---+ +-------+ +---------+---+---+ | Given | 04/23/20 | 2 | | | | | 19 3:20 | tablets | | | | | AM PST | | | | +-------+ +---------+---+---+ | Given | 04/22/20 | 2 | | | | | 19 5:21 | tablets | | | | | PM PST | | | | +-------+ +---------+---+---+ + +---+ | | | + +---+ | labetalol (TRANDATE) 5 mg/mL | | | injection 20-80 mg 20-80 mg, | | | Intravenous, EVERY 10 MIN PRN, to | | | achieve goal BP, Starting Fri | | | 04/22/19 at 1058, Monitor blood | | | pressure and heart rate prior to | | | each dose and at 5 and 10 minutes | | | after administration. If BP goal | | | not achieved within 10 minutes, | | | give 40 mg. If BP goal not | | | achieved within 10 minutes, give | | | 80 mg. Repeat at 10 minute | | | intervals until blood pressure | | | goal is achieved or a maximum | | | dose of 300 mg has been | | | administered. Notify MD if BP | | | goal not achieved., | | | Recovery/Phase I | | + +---+ | | | + +---+ + +---------+ +---+ +---+ | lactated ringers (LR) infusion | New Bag | 04/23/20 | | 50 mL/hr | | | at 100 mL/hr, Intravenous, | | 19 2:46 | | | | | CONTINUOUS, Starting Thu04/22/19 | | AM PST | | | | | at 1115, Post-op/Phase II | | | | | | + +---------+ +---+ +---+ + + +---+ +---+ | Rate/Dose Change | 04/22/20 | | 50 mL/hr | | | | 19 10:30 | | | | | | PM PST | | | | + + +---+ +---+ | New Bag | 04/22/20 | | 100 | | | | 19 2:02 | | mL/hr | | | | PM PST | | | | + + +---+ +---+ +---+---+ | | | +---+---+ + +-------+ +---------+---+---+ | levothyroxine (SYNTHROID) | Given | 04/23/20 | 150 mcg | | | | tablet 150 mcg 150 mcg, Oral, | | 19 6:42 | | | | | DAILY BEFORE BREAKFAST, First | | AM PST | | | | | dose on Thu04/22/19 at 1200, | | | | | | | Give before breakfast., | | | | | | + +-------+ +---------+---+---+ +-------+ +---------+---+---+ | Given | 04/22/20 | 150 mcg | | | | | 19 12:45 | | | | | | PM PST | | | | +-------+ +---------+---+---+ +---+---+ | | | +---+---+ + +-------+ +-------+---+---+ | lidocaine 1%-EPINEPHrine | Given | 04/22/20 | 7 mLs | | | | 1:100,000 injection PRN, | | 19 7:14 | | | | | Starting 04/22/19 at 0903, | | AM PST | | | | | Intra-op | | | | | | + +-------+ +-------+---+---+ +---+---+ | | | +---+---+ + +-------+ +--------+---+---+ | metFORMIN (GLUCOPHAGE-XR) ER | Given | 04/23/20 | 500 mg | | | | tablet 500 mg 500 mg, Oral, 2 | | 19 9:00 | | | | | TIMES DAILY WITH BREAKFAST & | | AM PST | | | | | DINNER, First dose (after last | | | | | | | modification) on Thu04/22/19 at | | | | | | | 1745, Do not cut or crush. Follow | | | | | | | hospital guidelines to determine | | | | | | | if metFORMIN should be held | | | | | | | following procedures using IV | | | | | | | iodinated contrast., | | | | | | + +-------+ +--------+---+---+ +-------+ +--------+---+---+ | Given | 04/22/20 | 500 mg | | | | | 19 5:21 | | | | | | PM PST | | | | +-------+ +--------+---+---+ +---+---+ | | | +---+---+ + +-------+ +--------+---+---+ | metoprolol succinate | Given | 04/23/20 | 200 mg | | | | (TOPROL-XL) ER tablet 200 mg 200 | | 19 9:00 | | | | | mg, Oral, DAILY, First dose on | | AM PST | | | | | Thu04/22/19 at 1200 | | | | | | + +-------+ +--------+---+---+ + +---+ | | | + +---+ | morphine injection 2 mg 2 mg, | | | Intravenous, EVERY 2 HOURS PRN, | | | Pain, Starting Thu04/22/19 at | | | 1701 | | + +---+ | | | + +---+ + +-------+ +-------+---+---+ | pantoprazole (PROTONIX) DR | Given | 04/23/20 | 40 mg | | | | tablet 40 mg 40 mg, Oral, DAILY | | 19 6:42 | | | | | BEFORE BREAKFAST, First dose on | | AM PST | | | | | Thu04/22/19 at 1200, Indication: | | | | | | | GERD | | | | | | + +-------+ +-------+---+---+ +-------+ +-------+---+---+ | Given | 04/22/20 | 40 mg | | | | | 19 12:45 | | | | | | PM PST | | | | +-------+ +-------+---+---+ +---+---+ | | | +---+---+ documented in this encounter
--- OUTSIDE RECORDS SUMMARY | ~2019-09-16 | XMS | Encounter Summary ---
Demographics + + + | Address | [address] | | | [place] [address] | + + + | Home Phone | | + + + | Preferred Language | Unknown | + + + | Marital Status | Single | + + + | Alevism Affiliation | Unknown | + + + | Race | Unknown | + + + | Ethnic Group | Unknown | + + + Author + + + | Author | [facility] | | | and [place] | + + + | Organization | [facility] | | | [...] Team Providers + +------+ + | Care Philosophy Faculty Member Name | Role | Phone | + [...] | | | neck causing | | [address] Phone: | | | | | change in | | [phone] | | | | | voice and | | Fax: | | | | | some | | [phone] | | | | | dysphagia | | | + + + + + + + Encounter Details +--------+---------+ + + + | Date | Type | Department | Care Team | Description | +--------+---------+ + + + | 04/01/ | Office | [facility] | Monika Pretty | Thyroid nodule | | 2019 | Visit | NOSE AND THROAT [address] | J, DO [address] | (Primary Dx); | | | | [address] | [address] | Thyromegaly; | | | | [place], [place] | [place] [address] | Dysphagia, | | | | [address] | [phone] | unspecified type; | | | | [phone] | | Laryngopharyngeal | | | | [...] from the original. Surgery Date: 04/22/19 Location: [facility] ([address] [place] [address]) FYI: Prior to your surgery, you will receive a call to schedule a Pre-Admission appointment. This appointment is required. If you do not hear from anyone please call [phone], Opt ion 4. A time for surgery is not given until the day before. The hospital will be contacting y ou to give you a time for arrival. Unfortunately, our office does not know this information so if you are concerned with your surgery time please call the hospital directly at [phone]. If you need to cancel or reschedule your surgery, pre-op, or post-op dates please contact [facility] pat at [phone], Option 4. *IF YOU HAVE FMLA/SHORT-TERM DISABILITY PAPERWORK THAT NEEDS TO BE FILLED OUT, PLEASE DROP IT OFF OR FAX IT TO OUR OFFICE ([phone]) TWO WEEKS PRIOR TO SURGERY. MAKE SURE TO INCLU DE TIME OFF NEEDED AND/OR WHEN YOU PLAN TO RETURN TO WORK. PLEASE ALLOW 7-10 BUSINESS DAYS F OR COMPLETION. If you would like an estimate for your surgery, please contact the [facility] [employer] Hand ors/Authorization Department at [phone]. Having Thyroid Surgery The incision is made [...] take vitamin D supplements. Date Last Reviewed: 03/11/201619997592-8341 [employer]. [address] [place] [address], [place] [address]. All righ ts reserved. This information is [...] : 1980 Age: 39 Sex: F Acct: [id number] Loc: ED Exam Date: 03/16/2019 Status: REG ER Radiology No: Unit No: [id number] EXAM# TYPE/EXAM RESULT CPT CODE [id number] US/HEAD NECK SOFT TISSUE/THYROI 79767 Exam: Thyroid sonogram. HISTORY: Enlarged thyroid. TECHNIQUE: [...] system. The possibil ity of "sound alike" airborne sensor specialist errors, additions or deletions may occur. If [...] A | | | | | | [place] [address] | | | | | | [phone] | | | | | | | | +--------+---------+ + + + | 12/07/ | Office | Cardiology | Forde DO Nisha | | | 2019 | Visit | | [address] | | | | | | [place] | | | | | | [address] | | | | | | | [...]
--- OUTSIDE RECORDS SUMMARY | ~2019-09-16 | XMS | Encounter Summary ---
Demographics + + + | Address | [address] | | | [place] [address] | + + + | Home Phone | | + + + | Preferred Language | Unknown | + + + | Marital Status | Single | + + + | Voodoo Affiliation | Unknown | + + + | Race | Unknown | + + + | Ethnic Group | Unknown | + + + Author + + + | Author | [facility] | | | and [place] | + + + | Organization | [facility] | | | and [place] | + + + | Address | Unknown | + + + | Phone | Unavailable | + + + Support + + +---------+ + | Name | Relationship | Address | Phone | + + +---------+ + | Karey Darnellngozi | ECON | Unknown | | + + +---------+ + Care Team Providers + +------+ + | Care Technical Manager Name | Role | Phone | + +------+ + | Soumya Fuentes | PCP | | + +------+ + Encounter Details +--------+ + + + + | Date | Type | Department | Care Team | Description | +--------+ + + + + | 04/01/ | Prep for | [facility] | Monika Morillo | | | 2019 | Procedure | NOSE AND THROAT [address] | J, DO [address] | | | | | [address] | [address] | | | | | [place], [place] | [place] [address] | | | | | [address] | [phone] | | | | | [phone] | | | +--------+ + + + [...] | | | | | | [place] [address] | | | | | | [phone] | | | | | | | | +--------+---------+ + + + | 12/07/ | Office | Cardiology | Nisha Forde DO | | 2019 | Visit | | [address] | | | | | | [place] | | | | | | [address] | | | | | | | | +--------+---------+ + + + documented as of this encounter Visit Diagnoses Not on filedocumented in this encounter"
--- OUTSIDE RECORDS SUMMARY | ~2019-09-16 | XMS | Encounter Summary ---
Demographics + + + | Address | [address] | | | [place] [address] | + + + | Home Phone [...] + + + | Author | [facility] | | | and [place] | + + + | Organization | [facility] | | [...] Team Providers + +------+ + | Care Hand Twister Name | Role | Phone | + [...] | | | | [place] | [phone] | | | | | [address] | | | | | | [phone] | | | +--------+ + + + [...] Endocrinology | Donny Ji, | | | 2020 | Visit | | MD Srinivasa AGUILERA | | | | | | [address] | | | | | | [place] [address] | | | | | | [phone] | | | | | | | | +--------+---------+ + + + | 12/07/ | Office | Cardiology | Nisha Forde DO | | | 2019 | Visit | | [address] | | | | | | [place] | | | | | | [id number] | | | | | | | | +--------+---------+ + + + documented as of this encounter Visit Diagnoses Not on filedocumented in this encounter"
--- OUTSIDE RECORDS SUMMARY | ~2019-09-16 | XMS | Encounter Summary ---
Demographics + + + | Address | [address] | | | [place] [address] | + + + | Home Phone | | + + + | Preferred Language | Unknown | + + + | Marital Status | Single | + + + | Restorationist Affiliation | Unknown | + + + | Race | Unknown | + + + | Ethnic Group | Unknown | + + + Author + + + | Author | [facility] | | | and [place] | + + + | Organization | [facility] | | [...] Team Providers + +------+ + | Care Tree Puller Name | Role | Phone | + +------+ + | Kiersten Pardo MD | PCP | | + +------+ + Reason for Visit + + + | Reason | Comments | + + + | Follow-up | Reschedule 07/21/19 | + + + Encounter Details +--------+ + + + + | Date | Type | Department | Care Team | Description | +--------+ + + + + | 07/19/ | Telephone | [facility] | Donny Ji, | Follow-up | | 2019 | | ENDOCRINOLOGY [address] | [address] | (Reschedule 07/21/19) | | | | [address] | [address] | | | | | [place], [place] | [place] [address] | | | | | [address] | [phone] | | | | | [phone] | | | +--------+ + + + [...] A | | | | | | [place] [address] | | | | | | [phone] | | | | | | | | +--------+---------+ + + + | 12/07/ | Office | Cardiology | Nisha Forde DO | | | 2020 | Visit | | [address] | | | | | | [place] | | | | | | [address] | | | | | | | | +--------+---------+ + + + documented as of this encounter Visit Diagnoses Not on filedocumented in this encounter"
--- OUTSIDE RECORDS SUMMARY | ~2019-09-16 | XMS | Clinical Summary ---
Demographics + + + | Address | [address] | | | [place] [address] | + + + | Home Phone | | + + + | Preferred Language | Unknown | + + + | Marital Status | | + + + | Anglican Affiliation | Unknown | + + + | Race | Unknown | + + + | Ethnic Group | Unknown | + + + Author + + + | Author | [employer] [facility] (Historical as of | | | 12-25-18) | + + + | Organization | [facility] (Historical as of | | | 12-25-18) [...] Team Providers + +------+ + | Care Director Appointment Name | Role | Phone | + [...] | 60 | 11 | 01/2 | | Activ | | (CATAPRES) 0.2 MG | mouth as needed (PRN | tablet | | 4/20 | | e | | tablet | SBP>190). | | | 19 | | | + + +--------+---------+------+------+-------+ | lisinopril | Take 1 tablet by | 30 | 3 | 01/2 | | Activ | | (ZESTRIL) 40 MG | mouth daily. | tablet | | 4/20 | | e | | tablet | | | | 19 | | | + + +--------+---------+------+------+-------+ | chlorthalidone | Take 1 tablet by | 30 | 11 | 04/2 | | Activ | | (HYGROTEN) 25 MG | mouth daily. | tablet | | 5/20 | | e | | tablet | | | | 19 | | | + + +--------+---------+------+------+-------+ Active Problems + + + | Problem | Noted Date | + + + | AVNRT (AV eriberto re-entry tachycardia) ([facility]) | 03/04/2018 | + + + | [...] Vaccine: Influenza | | | | | (Season Ended) | 0 | | | + + + + + Results Not on filefrom Last 3 Months
--- OUTSIDE RECORDS SUMMARY | ~2019-09-16 | XMS | Encounter Summary ---
Demographics + + + | Address | [address] | | | [place] [address] | + + + | Home Phone | | + + + | Preferred Language | Unknown | + + + | Marital Status | Single | + + + | Mandaen Affiliation | Unknown | + + + | Race | Unknown | + + + | Ethnic Group | Unknown | + + + Author + + + | Author | [facility] | | | and [place] | + + + | Organization | [facility] | | | and [...] Providers + +------+ + | Care Director Adult Name | Role | Phone | + [...] + + | 04/22/ | Hospital | [facility] | Monika Morillo | Thyroid nodule; | | 2019 - | Encounter | [facility] [address] | J, DO [address] | Thyromegaly; | | | | [address] | [address] | Thyroid nodule; | | 04/23/ | | [place], [place] | [place] [address] | Thyromegaly | | 2019 | | [address] | [phone] | | | | | [phone] | | | +--------+ + + + [...] documented in this encounter Discharge Summaries Monika Morillo DO - 04/23/2019 12:20 PM PST [facility] Service: Otolaryngology Brief Post-op Discharge Note [...] the hands,feet, or lips Date Last Reviewed: 03/11/201619995524-6642 [employer]. [address] [place] [address]. All righ ts reserved. This information is [...] Jovanna, DO - 04/23/2019 12:14 PM PST [facility] Service: Otolaryngology Progress Note Hospital Day: [...] all discharge criteria. A prescription for Synthroid, Brimhall, and Zofran have been given to the [...] Monika Morillo DO 04/23/2019 oore, Breanne Melvin [facility] - 04/22/2019 1:14 PM PSTRx Admission Medication History Note I have reviewed the medication history for appropriate doses obtained by: Other : Obtaine d by myself after reviewing the patient's dispense history and confirming the dispense histo ry with the patient's two pharmacies. Patient [facility] [place] [facility]. 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) -Marked the [...] | | | | | [place] [address] | | | | | | [phone] | | | | | | | | +--------+---------+ + + + | 12/07/ | Office | Cardiology | Nisha Forde DO | | 2019 | Visit | | [address] | | | | | [place] | | | | | | [id number] | | | | | | | [...] Nomogram | 12 - 88 pg/mL | [facility] | | | | suggests Normal | | LABORATORY | | | | Parathryoid | | | | | | status.Diagnosis of | | | | | | parathyroid disease | | | | | | requires both clinical | | | | | | and laboratory | | | | | | data.Testing performed | | | | | | at [facility], [address] | | | | | [facility], | | | | | | [place] [address] | | | | + + + + + + + + | Specimen | + + | Blood | + + + + + + + | Performing | Address | City/State/Zipcode | Phone Number | | Organization | | | | + + + + + | [facility] | [address] | [place] [address] | [phone] | + + + + + Calcium, [...] [facility] | | | | performed at [facility];[address] | | LABORATORY | | | | [address];[place], [place] | | | | | | [address] | | | | + + + + + + + + | Specimen | + + | Blood | + + + + + + + | Performing | Address | City/State/Zipcode | Phone Number | | Organization | | | | + + + + + | [facility] | [address] | [place] [address] | [phone] | + + + + + POC [...] | | | POC | performed at [facility];[address] | | LABORATORY | | | | [address];[place], [place] | | | | | | [address] | | | | + + + + + + + + | Specimen | + + | | + + + + + + + | Performing | Address | City/State/Zipcode | Phone Number | | Organization | | | | + + + + + | [facility] | [address] | [place] [address] | [phone] | + + + + + Surgical [...] | for papillary carcinoma. (Dr. Dietz, 04/22/19, 6517) The frozen | | | section diagnosis [...] | | carcinoma (6/7). COMMENT:As part of [employer]' Quality | | | Improvement Program, this [...] There is no nodule or induration. Three agency service representative | | | sections are submitted in cassettes B1 and B2. The larger lobe of | | | thyroid is inked black sectioning reveals a large 4.5 x 4.0 x 3.0 cm | | | soft,papillary/friable pink-lakhani nodule which occupies almost the | | | entire lobe. There is no grossly recognizable normal thyroid | | | parenchyma. Six agency service representative sections are submitted in cassettes | [...] section was | | | performed at [address] | | | [place] [address] (Career Services Director: Jim Uriarte M.D.; CLIA#: | | | [id number]).The technical component was performed by [employer] | | | [employer], [address] [place] [address] (Career Services Director: | | | Regine Dietz MD; CLIA# [id number]). Professional interpretation was | | | performed by[employer], [facility] | | | [place] [address] (Career Services Director: Jim | | Yury Uriarte M.D.; CLIA#: [id number]). Diagnostician: Regine Dietz | | | MDPathologistElectronically Signed 04/26/2019 | | | | | |There is no nodule or induration. Three agency service representative sections are submitted in cassette s B1 and B2. The larger lobe of thyroid is inked black sectioning reveals a large 4.5 x 4. 0 x 3.0 cm soft, | | |papillary/friable pink-lakhani nodule which occupies almost the entire lobe. There is no may sly recognizable normal thyroid parenchyma. Six agency service representative sections are submitted in c assettes B3-B8. | | | | | |C. The specimen is received in a formalin filled specimen container labeled "[facility] LC, le central neck contents". A lobular excision [...] | |The frozen section was performed at [address] (Career Services Director: Jim Uriarte M.D.; CLIA#: [id number]). | | |The technical component was performed by [employer], [address] [place] [address] (Career Services Director: Regine Dietz MD; CLIA# [id number]). Professional interpretation was performed by | | |[employer], [place] [id number] (Career Services Director: Jim Uriarte M.D.; CLIA#: [id number]). | | | | | |Diagnostician: Regine [...] Testing | 65 - 99 mg/dL | [facility] | | | POC | performed at [facility];[address] | | LABORATORY | | | | [address];[place] | | | | | | [address] | | | | + + + + + + + + | Specimen | + + | | + + + + + + + | Performing | Address | City/State/Zipcode | Phone Number | | Organization | | | | + + + + + | [facility] | [address] | [place] [address] | [phone] | + + + + + POCT Test, Urine, Qual (04/22/2019 6:12 AM PST) + + + + + + | Component | Value | Ref Range | Performed | Pathologist | | | | | At | Signature | + + + + + + | HCG, | NEGATIVEComment: Testing | NEG | [facility] | | | Quantitativ | performed at [facility];[address] | | LABORATORY | | | e POC | [address];[place], [place] | | | | | | [address] | | | | + + + + + + + + | Specimen | + + | | + + + + + + + | Performing | Address | City/State/Zipcode | Phone Number | | Organization | | | | + + + + + | [facility] | [address] | [place] [address] | [phone] | + + + + + documented [...] | | | | | | longer, gkfzaq-ldv-zadjd use of | | | | | [...] HOURS PRN, | | | Pain, Starting 04/22/19 at | | | 1701 | | [...] | | | | | 04/22/19 at 1200, Indication: | | | | [...]
--- OUTSIDE RECORDS SUMMARY | ~2019-09-16 | XMS | Encounter Summary ---
Demographics + + + | Address | [address] | | | [place] [address] | + + + | Home Phone | | + + + | Preferred Language | Unknown | + + + | Marital Status | Single | + + + | Uatsdin Affiliation | Unknown | + + + | Race | Unknown | + + + | Ethnic Group | Unknown | + + + Author + + + | Author | [facility] | | | and [place] | + + + | Organization | [facility] | | | [...] Team Providers + +------+ + | Care School Physical Therapist Name | Role | Phone | + +------+ + | Kiersten Pardo MD | PCP | | + +------+ + Reason for Visit + + + | Reason | Comments | + + + | Medication Refill | | + + + Encounter Details +--------+--------+ + + + | Date | Type | Department | Care Team | Description | +--------+--------+ + + + | 07/17/ | Refill | [facility] | FordeNisha DO | Medication Refill | | 2020 | | CARDIOLOGY [place] | [address] | | | | | [address] | [place], [place] | | | | | [place], [place] | [address] | | | | | [address] | | | | | | [phone] | | | +--------+--------+ + + + Social History + +-------+ [...] | | | | | [place] [address] | | | | | | [phone] | | | | | | | | +--------+---------+ + + + | 12/07/ | Office | Cardiology | Nisha Forde DO | | | 2020 | Visit | | [address] | | | | | | [place] | | | | | | [address] | | | | | | | | +--------+---------+ + + + documented as of this encounter Visit Diagnoses Not on filedocumented in this encounter"
--- OUTSIDE RECORDS SUMMARY | ~2019-09-16 | XMS | Encounter Summary ---
Demographics + + + | Address | [address] | | | [place] [address] | + + + | Home Phone | | + + + | Preferred Language | Unknown | + + + | Marital Status | Single | + + + | Anabaptist Affiliation | Unknown | + + + | Race | Unknown | + + + | Ethnic Group | Unknown | + + + Author + + + | Author | [facility] | | | and [place] | + + + | Organization | [facility] | | [...] Providers + +------+ + | Care Director Of Compensation Name | Role | Phone | + +------+ + | Nicole Parikh PA-C | PCP | | + +------+ + Encounter Details +--------+ + + + + | Date | Type | Department | Care Team | Description | +--------+ + + + + | 12/24/ | Orders Only | [facility] | Nisha Forde DO | Essential (primary) | | 2019 | | CARDIOLOGY [place] | [address] | hypertension | | | | [address] | [place], [place] | | | | | [address] | [address] | | | | | [place] | | | | | | [address] | | | | | | [phone] | | | +--------+ + + + [...] | | | | | [place] [address] | | | | | | [phone] | | | | | | | | +--------+---------+ + + + | 12/07/ | Office | Cardiology | Nisha Forde DO | | | 2019 | Visit | | [address] | | | | | | [place] | | | | | | [address] | | | | | | | | +--------+---------+ + + + documented as of this encounter Visit Diagnoses + + | Diagnosis | + + | Essential (primary) hypertension Unspecified essential hypertension | + + documented in this encounter"
--- OUTSIDE RECORDS SUMMARY | ~2019-09-16 | XMS | Clinical Summary ---
Demographics + + + | Address | [address] | | | [place] [address] | + + + | Home Phone | | + + + | Preferred Language | Unknown | + + + | Marital Status | Single | + + + | Synagogue Affiliation | Unknown | + + + | Race | Unknown | + + + | Ethnic Group | Unknown | + + + Author + + + | Author | [facility] | | | and [place] | + + + | Organization | [facility] | | | [...] Team Providers + +------+ + | Care Lawn Mower Sharpener Name | Role | Phone | + [...] automatically from request for surgery | | [id number] | + + + + + | Thyromegaly | 04/04/2019 | + + + + + | Overview: Added automatically from request for surgery | | [id number] | + + + + + | [...] and exercise, also spoke with | | revenue coordinator today. - RTC in 2 weeks | [...] | patient refuses to be on a manager long term care medication for it at this | | [...] but patient refuses to be on a manager long term care medication | | for it at this time.- is okay with doing counseling and | | meditation first. Had patient download [employer] meditation denise | | on her phone, [...] Overview: 2018: dx with SVT, sent to supervisor costuming (at | | [facility]). Last visit in Jun 2018. Last Assessment & Plan: - | | diagnosed in 2018 in the ER and was following with a supervisor costuming | | at [facility]. Last visit was in May or June of 2018. Has | | had echo done in 2019, states that it was normal.- patient not | | tachycardic today, but in hypertensive urgency. Would benefit | | from seeing supervisor costuming once she has insurance the | + [...] | | | | | | [address] | | | | | | [place] [address] | | | | | | [phone] | | | | | | | | +--------+---------+ + + + | 12/07/ | Office | Cardiology | Nisha Forde DO | | | 2019 | Visit | | [address] | | | | | | [place] | | | | | | [address] | | | | | | | [...] +--------+ +---------+------+ | REGENCE | REGENC | [id number] | 05/11/19 | [phone] | | PPO | | | E BCBS | 0 | 15-Pre | 8 | | | | | [place] | | sent | | | | | | PPO | | | | | | +---------+--------+ +--------+ +---------+------+ | BCBS | BCBS | [id number] | 05/11/19 | | | PPO | [...] | | al/Fam | | 1979 | [phone] | [place], [place] | | | [place] | | | 1 (Home) | [address] | + +--------+ +--------+ + + | Tamera Yang | Person | Self | [birth year] | [address] | | | al/Fam | | 1979 | [phone] | [place], [place] | | | [place] | | | 1 (Home) | [address] | + +--------+ +--------+ + + Advance Directives + + + + + | Type | Date Recorded | Patient | Explanation | | | | Clinical Marketing Manager | | + + + + + | Power of | | | | | Manager Environmental Health | | | | + + + [...]
--- OUTSIDE RECORDS SUMMARY | ~2019-09-16 | XMS | Encounter Summary ---
Demographics + + + | Address | [address] | | | [place] [address] | + + + | Home Phone [...] Team Providers + +------+ + | Care Grocery Supervisor Name | Role | Phone | + [...] + + | 04/22/ | Surgery | [facility] | Monika Morillo | TOTAL THYROIDECTOMY, | | 2018 | | [facility] | J, DO [address] | left central neck | | | | OPERATING RO[address] | dissection | | | | [address] | [place] [address] | | | | | [place], [place] | [phone] | | | | | [address] | | | | | | [phone] | | | +--------+---------+ + + + [...] Monika Morillo, - 04/23/2019 12:20 PM PST [facility] Service: Otolaryngology Brief Post-op Discharge Note DISCHARGE [...] the hands,feet, or lips Date Last Reviewed: 03/11/201619991742-0335 [employer]. [address] [place] [address]. All righ ts reserved. This information is [...] Jovanna, DO - 04/23/2019 12:14 PM PST [facility] Service: Otolaryngology Progress Note Hospital Day: [...] all discharge criteria. A prescription for Synthroid, Dillon, and Zofran have been given to the [...] Monika Morillo DO 04/23/2019 oore, Breanne Melvin [facility] - 04/22/2019 1:14 PM PSTRx Admission Medication History Note I have reviewed the medication history for appropriate doses obtained by: Other : Obtaine d by myself after reviewing the patient's dispense history and confirming the dispense histo ry with the patient's two pharmacies. Patient fills in [place] at [facility] pharmacies. RN also confirmed the patient's current [...] omeprazole 40 mg (although patient did not tack picker, lik cydney due to cost) -Marked [...] | | | | | [place] [address] | | | | | | [phone] | | | | | | | | +--------+---------+ + + + | 12/07/ | Office | Cardiology | Nisha Forde DO | | 2019 | Visit | | [address] | | | | | [place] | | | | | | [id number] | | | | | | | [...] Nomogram | 12 - 88 pg/mL | [facility] | | | | suggests [...] | | | | | | at [facility], [address] | | | | | | [facility], | | | | | | [place] [address] | | | | + + + + + + + + | Specimen | + + | Blood | + + + + + + + | Performing | Address | City/State/Zipcode | Phone Number | | Organization | | | | + + + + + | [facility] | [address] | [place] [address] | [phone] | + + + + + Calcium, [...] [facility] | | | | performed at [place];[address] | | LABORATORY | | | | [address];[place] | | | | | | [address] | | | | + + + + + + + + | Specimen | + + | Blood | + + + + + + + | Performing | Address | City/State/Zipcode | Phone Number | | Organization | | | | + + + + + | [facility] | [address] | [place] [address] | [phone] | + + + + + POC [...] | | | POC | performed at [place];[address] | | LABORATORY | | | | [address];[place], [place] | | | | | | [address] | | | | + + + + + + + + | Specimen | + + | | + + + + + + + | Performing | Address | City/State/Zipcode | Phone Number | | Organization | | | | + + + + + | [facility] | [address] | [place] [address] | [phone] | + + + + + Surgical [...] | for papillary carcinoma. (Dr. Dietz, 04/22/19, 3370) The frozen | | | section diagnosis [...] | | carcinoma (6/7). COMMENT:As part of [employer]' Quality | | | Improvement Program, this [...] There is no nodule or induration. Three guest relations representative | | | sections are submitted in cassettes B1 and B2. The larger lobe of | | | thyroid is inked black sectioning reveals a large 4.5 x 4.0 x 3.0 cm | | | soft,papillary/friable pink-lakhani nodule which occupies almost the | | | entire lobe. There is no grossly recognizable normal thyroid | | | parenchyma. Six guest relations representative sections are submitted in cassettes | [...] section was | | | performed at [address] | | | [place] [address] (Cell Stripper: Jim Uriarte M.D.; CLIA#: | | | [id number]).The technical component was performed by [employer] | | | [employer], [address] [place] [address] (Cell Stripper: | | | Regine Dietz MD; CLIA# [id number]). Professional interpretation was | | | performed by[facility], [facility], [facility] | | | [place] [address] (Cell Stripper: Jim | | Yury Uriarte M.D.; CLIA#: [id number]). Diagnostician: Regine Dietz | | | MDPathologistElectronically Signed 04/26/2019 | | | | | |There is no nodule or induration. Three guest relations representative sections are submitted in cassette s B1 and B2. The larger lobe of thyroid is inked black sectioning reveals a large 4.5 x 4. 0 x 3.0 cm soft, | | |papillary/friable pink-lakhani nodule which occupies almost the entire lobe. There is no may sly recognizable normal thyroid parenchyma. Six guest relations representative sections are submitted in c assettes B3-B8. | | | | | |C. The specimen is received in a formalin filled specimen container labeled "[facility], le central neck contents". A lobular excision [...] | |The frozen section was performed at [address] (Cell Stripper: Jim Uriarte M.D.; CLIA#: [id number]). | | |The technical component was performed by [employer] [facility], [address] [place] [address] (Cell Stripper: Regine Dietz MD; CLIA# [id number]). Professional interpretation was performed by | | |[employer] [facility], [address] [address] (Cell Stripper: Jim Uriarte M.D.; CLIA#: [id number]). | | | | | |Diagnostician: Regine [...] Testing | 65 - 99 mg/dL | [facility] | | | POC | performed at [place];[address] | | LABORATORY | | | | [address];[place] | | | | | | [address] | | | | + + + + + + + + | Specimen | + + | | + + + + + + + | Performing | Address | City/State/Zipcode | Phone Number | | Organization | | | | + + + + + | [facility] | [address] | [place] [address] | [phone] | + + + + + POCT Test, Urine, Qual (04/22/2019 6:12 AM PST) + + + + + + | Component | Value | Ref Range | Performed | Pathologist | | | | | At | Signature | + + + + + + | HCG, | NEGATIVEComment: Testing | NEG | [facility] | | | Quantitativ | performed at [place];[address] | | LABORATORY | | | e POC | [address];[place], [place] | | | | | | [address] | | | | + + + + + + + + | Specimen | + + | | + + + + + + + | Performing | Address | City/State/Zipcode | Phone Number | | Organization | | | | + + + + + | [facility] | [address] | [place] [address] | [phone] | + + + + + documented [...] | | | | | | longer, rvnsra-qkx-tngpl use of | | | | | [...]
--- OUTSIDE RECORDS SUMMARY | ~2019-09-16 | XMS | Encounter Summary ---
Demographics + + + | Address | [address] | | | [place] [address] | + + + | Home Phone | | + + + | Preferred Language | Unknown | + + + | Marital Status | Single | + + + | Latter Day Affiliation | Unknown | + + + | Race | Unknown | + + + | Ethnic Group | Unknown | + + + Author + + + | Author | [facility] | | | and [place] | + + + | Organization | [facility] | | | [...] Team Providers + +------+ + | Care Commissions Coordinator Name | Role | Phone | + +------+ + | Kiersten Pardo MD | PCP | | + +------+ + Encounter Details +--------+ + + + + | Date | Type | Department | Care Team | Description | +--------+ + + + + | 03/04/ | Orders Only | [facility] | Conversion | | | 2018 | | CONVERSION DEP [address] | Transaction, | | | | | [address] | Provider Unknown | | | | | [place] | [phone] | | | | | [address] | | | | | | [phone] | | | +--------+ + + + [...] | | | | | [place] [address] | | | | | | [phone] | | | | | | | | +--------+---------+ + + + | 12/07/ | Office | Cardiology | Nisha Forde DO | | | 2019 | Visit | | [address] | | | | | | [place] | | | | | | [address] | | | | | | | | +--------+---------+ + + + documented as of this encounter Visit Diagnoses Not on filedocumented in this encounter"
--- OUTSIDE RECORDS SUMMARY | ~2019-09-16 | XMS | Encounter Summary ---
Demographics + + + | Address | [address] | | | [place] [address] | + + + | Home Phone | | + + + | Preferred Language | Unknown | + + + | Marital Status | Single | + + + | Buddhist Affiliation | Unknown | + + + | Race | Unknown | + + + | Ethnic Group | Unknown | + + + Author + + + | Author | [facility] | | | and [place] | + + + | Organization | [facility] | | | [...] Team Providers + +------+ + | Care Detective Bureau Chief Name | Role | Phone | + +------+ + | Kiersten Pardo MD | PCP | | + +------+ + Reason for Visit + + + | Reason | Comments | + + + | Follow-up | | + + + Encounter Details +--------+ + + + + | Date | Type | Department | Care Team | Description | +--------+ + + + + | 08/08/ | Telephone | [facility] | Donny Ji, | Follow-up | | 2020 | | ENDOCRINOLOGY [address] | MD [address] | | | | | [address] | [place] [address] | | | | | [place], [place] | [place] [address] | | | | | [address] | [phone] | | | | | [phone] | | | +--------+ + + + [...] [address] | | | | | | [place] [address] | | | | | | [phone] | | | | | | | | +--------+---------+ + + + | 12/07/ | Office | Cardiology | Nisha Forde DO | | | 2019 | Visit | | [address] | | | | | | [place] | | | | | | [address] | | | | | | | | +--------+---------+ + + + documented as of this encounter Visit Diagnoses Not on filedocumented in this encounter"
--- OUTSIDE RECORDS SUMMARY | ~2019-09-16 | XMS | Encounter Summary ---
Demographics + + + | Address | [address] | | | [place] [address] | + + + | Home Phone | | + + + | Preferred Language | Unknown | + + + | Marital Status | Single | + + + | Oriental Orthodox Affiliation | Unknown | + + + [...] Team Providers + +------+ + | Care Housing Project Manager Name | Role | Phone | + +------+ + | Kiersten Pardo MD | PCP | | + +------+ + Encounter Details +--------+ + + + + | Date | Type | Department | Care Team | Description | +--------+ + + + + | 04/15/ | Preadmit | [facility] | Monika Morillo | Preop testing | | 2019 | Visit | CENTER PREADMIT | J, DO [address] | (Primary Dx) | | | | CLINIC [address] | | | | | [address]VD [place], [place] | [place] [address] | | | | | [address] | [phone] | | | | | [phone] | | | +--------+ + + + [...] for the 04/15/19 encounter (Preadmit Visit) with [facility] RO[facility] 1 Medication Sig Instructions amLODIPine (NORVASC) [...] the hands,feet, or lips Date Last Reviewed: 03/11/201619996218-6327 [employer]. [address] [place] [address]. All righ ts reserved. This information is [...] | | | | | [place] [address] | | | | | | [phone] | | | | | | | | +--------+---------+ + + + | 12/07/ | Office | Cardiology | Nisha Forde DO | | | 2019 | Visit | | [address] | | | | | | [place] | | | | | | [address] | | | | | | | [...] 0.02Comment: Testing | 0.00 - 0.10 | [facility] | | | Absolute | performed at [facility], [address] | [address] | LABORATORY | | | | [address], | | | | | | [place] [address] | | | | + + + + + + + + | Specimen | + + | Blood | + + + + + + + | Performing | Address | City/State/Zipcode | Phone Number | | Organization | | | | + + + + + | [facility] | [address] | [place] [address] | [phone] | + + + + + Basic [...] | 9.6 | 8.5 - 10.5 | [facility] | | | | | mg/dL | LABORATORY | | + + + + + + | Estimated | >60Comment: GFR <60: | >60 | [facility] | | | GFR | CHRONIC KIDNEY [...] | | | | | performed at [facility], [address] | | | | | | [facility], | | | | | | [place] [address] | | | | + + + + + + + + | Specimen | + + | Blood | + + + + + + + | Performing | Address | City/State/Zipcode | Phone Number | | Organization | | | | + + + + + | [facility] | [address] | [place] [address] | [phone] | + + + + + ECG [...]
--- OUTSIDE RECORDS SUMMARY | ~2019-09-16 | XMS | Encounter Summary ---
Demographics + + + | Address | [address] | | | [place] [address] | + + + | Home Phone | | + + + | Preferred Language | Unknown | + + + | Marital Status | Single | + + + | Taoism Affiliation | Unknown | + + + | Race | Unknown | + + + | Ethnic Group | Unknown | + + + Author + + + | Author | [facility] | | | and [place] | + + + | Organization | [facility] | | | [...] Team Providers + +------+ + | Care Hide And Skin Processing Worker Name | Role | Phone | + [...] | | carcinoma | [address] | [address] | | | | | (HCC) | [address] | [place] | | | | | | [place], [place] | [place], [place] | | | | | | [address] | | | | | | Phone: | Phone: | | | | | | [phone] | [phone] | | | | | | Fax: | Fax: | | | | | | [phone] | [phone] | +--------+ + + + + + Encounter Details +--------+---------+ + + + | Date | Type | Department | Care Team | Description | +--------+---------+ + + + | 05/18/ | Office | [facility] | Donny Ji, | Acquired | | 2020 | Visit | ENDOCRINOLOGY [address] | MD [address] | hypothyroidism | | | | [address] | [place] | (Primary Dx); | | | | [place], [place] | [place] [address] | Thyroid cancer (HCC) | | | | [address] | [phone] | | | | | [phone] | | | +--------+---------+ + + + [...] visits, please feel free to contact the [facility]. documented in this encounter Progress Notes Donny Ji MD - 05/18/2019 2:40 PM PSTFormatting of this note might be different fr om the original. [facility] Endocrinology New Patient Visit CHIEF COMPLAINT: [...] acquired hypothyroidism. She underwent total thyroidectomy Dece mber 2018. Histology showed a left-sided lesion that was 4.5 cm in greatest diameter an d consistent with papillary thyroid carcinoma. There were metastasis to regional lymph node s. This was given histologic stage of [id number]. She was started on treatment with levothyro [...] o f incision in her neck is draw frame tender, though seems to be improving. She denies that she i s had any perioral numbness or numbness in the fingertips. FAMILY HISTORY Family History Problem Relation Age of Onset Hypertension Father Kirill wakfeield Neg Hx PAST MEDICAL/SURGICAL HISTORY Past Medical History: Diagnosis Date Anemia Anxiety Blood pressure check other abstracted Cancer of thyroid (HCC) 03/2019 papillary thyroid cancer with mets 12/17 lymph nodes Diabetes type 2, controlled (HCC) Hypertension Hypokalemia other abstracted Obesity other abstracted Prediabetes Proteinuria other abstracted Thyroid disease Vitamin D deficiency other abstracted Past Surgical History: Procedure Laterality Date CHOLECYSTECTOMY GALLBLADDER SURGERY other abstracted OTHER SURGICAL HISTORY other abstracted THYROIDECTOMY N/A 04/22/2019 Procedure: TOTAL THYROIDECTOMY, left central neck dissection; Surgeon: Monika Morillo DO; [place] [facility] [place] TONSILLECTOMY AND ADENOIDECTOMY TUBAL LIGATION 2008 SOCIAL HISTORY Social History Socioeconomic History Marital [...] file Gets together: Not on file Attends yazidism service: Not on file Active member of [...] [address] | | | | | | [place] [address] | | | | | | [phone] | | | | | | | | +--------+---------+ + + + | 12/07/ | Office | Cardiology | Nisha Forde DO | | | 2019 | Visit | | [address] | | | | | | [place] [facility] [place] | | | | | | [address] | | | | | | | [...]
--- OUTSIDE RECORDS SUMMARY | ~2019-09-16 | XMS | Encounter Summary ---
Demographics + + + | Address | [address] | | | [place] [address] | + + + | Home Phone | | + + + | Preferred Language | Unknown | + + + | Marital Status | Single | + + + | Druze Affiliation | Unknown | + + + | Race | Unknown | + + + | Ethnic Group | Unknown | + + + Author + + + | Author | [facility] | | | and [place] | + + + | Organization | [facility] | | | and [...] Team Providers + +------+ + | Care Tunnel Elastic Operator Chainstitch Name | Role | Phone | + +------+ + | Nicole Parikh PA-C | PCP | | + +------+ + Encounter Details +--------+ + + + + | Date | Type | Department | Care Team | Description | +--------+ + + + + | 12/24/ | Orders Only | [facility] | Nisha Forde DO | Essential (primary) | | 2019 | | CARDIOLOGY [place] | [address] | hypertension | | | | [address] | [place], [place] | | | | | [address] | [address] | | | | | [place] | | | | | | [address] | | | | | | [phone] | | | +--------+ + + + [...] | | | | | [place] [address] | | | | | | [phone] | | | | | | | | +--------+---------+ + + + | 12/07/ | Office | Cardiology | Nisha Forde DO | | | 2019 | Visit | | [address] | | | | | | [place] | | | | | | [address] | | | | | | | | +--------+---------+ + + + documented as of this encounter Visit Diagnoses + + | Diagnosis | + + | Essential (primary) hypertension Unspecified essential hypertension | + + documented in this encounter"
--- OUTSIDE RECORDS SUMMARY | ~2019-09-16 | XMS | Clinical Summary ---
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
--- OUTSIDE RECORDS SUMMARY | ~2019-09-16 | XMS | Encounter Summary ---
Demographics + + + | Address | [address] | | | [place] [address] | + + + | Home Phone | | + + + | Preferred Language | Unknown | + + + | Marital Status | Single | + + + | Sikhism Affiliation | Unknown | + + + | Race | Unknown | + + + | Ethnic Group | Unknown | + + + Author + + + | Author | [facility] | | | and [place] | + + + | Organization | [facility] | | | and [place] | + [...] Team Providers + +------+ + | Care Traveling Nurse Name | Role | Phone | + [...] + + | 07/17/ | Refill | [facility] | FordeNihsa DO | Medication Refill | | 2020 | | CARDIOLOGY [place] | [address] | | | | | [address] | [place], [place] | | | | | [place], [place] | [address] | | | | | [address] | | | | | | [phone] | | | +--------+--------+ + + + [...] | | | | | [place] [address] | | | | | | [phone] | | | | | | | | +--------+---------+ + + + | 12/07/ | Office | Cardiology | Nisha Forde DO | | | 2020 | Visit | | [address] | | | | | | [place] | | | | | | [address] | | | | | | | | +--------+---------+ + + + documented as of this encounter Visit Diagnoses Not on filedocumented in this encounter"
--- OUTSIDE RECORDS SUMMARY | ~2019-09-16 | XMS | Encounter Summary ---
Demographics + + + | Address | [address] | | | [place] [address] | + + + | Home Phone | | + + + | Preferred Language | Unknown | + + + | Marital Status | Single | + + + | Worship Affiliation | Unknown | + + + [...] Providers + +------+ + | Care Director Foundation Name | Role | Phone | + +------+ + | Nicole Parikh PA-C | PCP | | + +------+ + Encounter Details +--------+ + + + + | Date | Type | Department | Care Team | Description | +--------+ + + + + | 07/19/ | Orders Only | [facility] | Kati, | | | 2015 | | CONVERSION [address] | Nicole Zavala PA-C | | | | | [address] | [address] | | | | | [place], [place] | [place] | | | | | [address] | [address] | | | | | [phone] | [phone] | | | | | | | | +--------+ + [...] Description | +--------+---------+ + + + | 07// | Office | Endocrinology | Donny Ji, | | | 2019 | Visit | | MD [address] | | | | | | [address] | | | | | | [place] [address] | | | | | | [phone] | | | | | | | | +--------+---------+ + + + | 12/07/ | Office | Cardiology | Nisha Forde DO | | | 2019 | Visit | | [address] | | | | | | [place] | | | | | | [address] | | | | | | | | +--------+---------+ + + + documented as of this encounter Procedures + +--------+ + + + | Procedure Name | Priori | Date/Time | Associated Diagnosis | Comments | | | ty | | | | + +--------+ + + + | ECHO INTERPRETATION | Routin | 07/20/2015 | | Results for this | | OF OUTSIDE FILMS | e | 12:36 PM | | procedure are in the | | | | PST | | results section. | + +--------+ + + + documented in this encounter Results ECHO Interpretation of Outside Films (07/20/2015 12:36 PM PST) + + | Specimen | + + | | + + + + + | Impressions | Performed At | + + + | 1. See Dictation 2. TDS. Grossly, NML study. | | + + + + + + | Narrative | Performed At | + + + | Patient Name: Tamera Yang Date of : 1980 | | | Performing Physician: Hoang Beal DO | | | | | | INDICATIONS Hypertension CONCLUSIONS | | | 1. See Dictation 2. TDS. Grossly, NML study. FINDINGS -------- | | | ECG rhythm: Sinus rhythm. Study: This was a technically difficult | | | study with suboptimal views. Left Ventricle: LV size, wall thickness | | | and systolic function are normal, with an EF of 60%. Left Ventricle: | | | The diastolic filling pattern is normal for the age of the patient. | | | Right Ventricle: The right ventricle is normal in size and function. | | | Left Atrium: The left atrium is normal in size. Right Atrium: The | | | right atrium is normal in size. Aortic Valve: The aortic valve is | | | trileaflet, and appears anatomically normal. No aortic stenosis or | | | regurgitation. Mitral Valve: The mitral valve is normal. Mitral | | | Valve: There is trace mitral regurgitation. Tricuspid Valve: The | | | tricuspid valve appears structurally normal. Tricuspid Valve: Trace | | | tricuspid regurgitation present. Pulmonic Valve: The pulmonic valve | | | was not well visualized. Pericardium: There is no pericardial | | | effusion. IVC/Hepatic Veins: The IVC is normal size (1.5-2.5cm) and | | | collapses >50% with sniff, consistent with central venous pressures of | | | 5-10mmHg. MEASUREMENTS Art Director: ALONSO | | | Authenticated by: Hoang Beal DO Report Date/Time: -- | | | [id number] | | + + + + + | Procedure Note | + + | Ed Aranda Conversion - 12/30/2018 10:47 PM PDT Patient Name: Harvey Yang | | : 1980 Performing Physician: Hoang Beal | | DO INDICATIONS H | | ypertension CONCLUSIONS 1. See Dictation 2. TDS. Grossly, NML study. | | FINDINGS--------ECG rhythm: Sinus rhythm.Study: This was a technically difficult study | | with suboptimal views.Left Ventricle: LV size, wall thickness and systolic function are | | normal, with an EF of 60%.Left Ventricle: The diastolic filling pattern is normal for | | the age of the patient.Right Ventricle: The right ventricle is normal in size and | | function.Left Atrium: The left atrium is normal in size.Right Atrium: The right atrium | | is normal in size.Aortic Valve: The aortic valve is trileaflet, and appears anatomically | | normal. No aortic stenosis or regurgitation.Mitral Valve: The mitral valve is | | normal.Mitral Valve: There is trace mitral regurgitation.Tricuspid Valve: The tricuspid | | valve appears structurally normal.Tricuspid Valve: Trace tricuspid regurgitation | | present.Pulmonic Valve: The pulmonic valve was not well visualized.Pericardium: There is | | no pericardial effusion.IVC/Hepatic Veins: The IVC is normal size (1.5-2.5cm) and | | collapses >50% with sniff, consistent with central venous pressures of 5-10mmHg. | | MEASUREMENTS Art Director: DHAuthenticated by: Hoang Thrasher | | Date/Time: -- [id number] IMPRESSION: 1. See Dictation 2. TDS. Grossly, NML | | study. | |Study: This was a technically difficult study with suboptimal views. | |Left Ventricle: LV size, wall thickness and systolic function are normal, with an EF of 60% . | |Left Ventricle: The diastolic filling pattern is normal for the age of the patient. | |Right Ventricle: The right ventricle is normal in size and function. | |Left Atrium: The left atrium is normal in size. | |Right Atrium: The right atrium is normal in size. | |Aortic Valve: The aortic valve is trileaflet, and appears anatomically normal. No aortic st enosis or regurgitation. | |Mitral Valve: The mitral valve is normal. | |Mitral Valve: There is trace mitral regurgitation. | |Tricuspid Valve: The tricuspid valve appears structurally normal. | |Tricuspid Valve: Trace tricuspid regurgitation present. | |Pulmonic Valve: The pulmonic valve was not well visualized. | |Pericardium: There is no pericardial effusion. | |IVC/Hepatic Veins: The IVC is normal size (1.5-2.5cm) and collapses >50% with sniff, consis tent with central venous pressures of 5-10mmHg. | | | |MEASUREMENTS | | | | | |Art Director: ALONSO | |Authenticated by: Hoang Beal DO | |Report Date/Time: -- [id number] | | | |IMPRESSION: | |1. See Dictation 2. TDS. Grossly, NML study. | + + documented in this encounter Visit Diagnoses Not on filedocumented in this encounter"
--- OUTSIDE RECORDS SUMMARY | ~2019-09-16 | XMS | Encounter Summary ---
Demographics + + + | Address | [address] | | | [place] [address] | + + + | Home Phone [...] Team Providers + +------+ + | Care Software Development Engineer Name | Role | Phone | + +------+ + | Kiersten Pardo MD | PCP | | + +------+ + Reason for Visit + + + | Reason | Comments | + + + | Medication | | | Recommendations | | + + + Encounter Details +--------+ + + + + | Date | Type | Department | Care Team | Description | +--------+ + + + + | 05/17/ | Telephone | [facility] | Lanie Reece | Medication | | 2020 | | CARDIOLOGY CHRIS | DARRIN Garcia [address] | Recommendations | | | | [address] | [address] | | | | | [address] [place], [place] | [place] [address] | | | | | [address] | [phone] | | | | | [phone] | | | +--------+ + + + [...] | | | | | [place] [address] | | | | | | [phone] | | | | | | | | +--------+---------+ + + + | 12/07/ | Office | Cardiology | Nisha Forde DO | | | 2019 | Visit | | [address] | | | | | | [place] | | | | | | [phone] | | | | | | | | +--------+---------+ + + + documented as of this encounter Visit Diagnoses Not on filedocumented in this encounter"
--- OUTSIDE RECORDS SUMMARY | ~2019-09-16 | XMS | Encounter Summary ---
Demographics + + + | Address | [address] | | | [place] [address] | + + + | Home Phone | | + + + | Preferred Language | Unknown | + + + | Marital Status | Single | + + + | Anabaptism Affiliation | Unknown | + + + [...] Team Providers + +------+ + | Care Oracle Hrms Developer Name | Role | Phone | + [...] | | | | [place] | [phone] | | | | | [address] | | | | | | [phone] | | | +--------+ + + + [...] | | | | | [place] [address] | | | | | | [phone] | | | | | | | | +--------+---------+ + + + | 12/07/ | Office | Cardiology | Nisha Forde DO | | | 2019 | Visit | | [address] | | | | | | [place] | | | | | | [address] | | | | | | | | +--------+---------+ + + + documented as of this encounter Visit Diagnoses Not on filedocumented in this encounter"
--- OUTSIDE RECORDS SUMMARY | ~2019-09-16 | XMS | Encounter Summary ---
Demographics + + + | Address | [address] | | | [place] [address] | + + + | Home Phone | | + + + | Preferred Language | Unknown | + + + | Marital Status | Single | + + + | Amish Affiliation | Unknown | + + + | Race | Unknown | + + + | Ethnic Group | Unknown | + + + Author + + + | Author | [facility] | | | and [place] | + + + | Organization | [facility] | | | and [...] Team Providers + +------+ + | Care Coronary Clinical Specialist Name | Role | Phone | + +------+ + | Kiersten Pardo MD | PCP | | + +------+ + Encounter Details +--------+ + + + + | Date | Type | Department | Care Team | Description | +--------+ + + + + | 04/15/ | Preadmit | [facility] | Monika Morillo | Preop testing | | 2019 | Visit | CENTER PREADMIT | J, DO [address] | (Primary Dx) | | | | CLINIC [address] | | | | | [address]VD [place], [place] | [place] [address] | | | | | [address] | [phone] | | | | | [phone] | | | +--------+ + + + [...] for the 04/15/19 encounter (Preadmit Visit) with [facility] ROOM 1 Medication Sig Instructions [...] the hands,feet, or lips Date Last Reviewed: 03/11/201619994856-3101 [employer]. [address] [place] [address]. All righ ts reserved. This information is [...] | | | | | [place] [address] | | | | | | [phone] | | | | | | | | +--------+---------+ + + + | 12/07/ | Office | Cardiology | Nisha Forde DO | | | 2019 | Visit | | [address] | | | | | | [place] | | | | | | [address] | | | | | | | [...] | | | Absolute | performed at [facility], [address] | [address] | LABORATORY | | | | [address], | | | | | | [place] [address] | | | | + + + + + + + + | Specimen | + + | Blood | + + + + + + + | Performing | Address | City/State/Zipcode | Phone Number | | Organization | | | | + + + + + | [facility] | [address] | [place] [address] | [phone] | + + + + + Basic [...] | 9.6 | 8.5 - 10.5 | [facility] | | | | | mg/dL | LABORATORY | | + + + + + + | Estimated | >60Comment: GFR <60: | >60 | [facility] | | | GFR | CHRONIC KIDNEY [...] | | | | | performed at [facility], [address] | | | | | | [facility], | | | | | | [place] [address] | | | | + + + + + + + + | Specimen | + + | Blood | + + + + + + + | Performing | Address | City/State/Zipcode | Phone Number | | Organization | | | | + + + + + | [facility] | [address] | [place] [address] | [phone] | + + + + + ECG [...]
--- OUTSIDE RECORDS SUMMARY | ~2019-09-16 | XMS | Encounter Summary ---
Demographics + + + | Address | [address] | | | [place] [address] | + + + | Home Phone | | + + + | Preferred Language | Unknown | + + + | Marital Status | Single | + + + | Scientologist Affiliation | Unknown | + + + | Race | Unknown | + + + | Ethnic Group | Unknown | + + + Author + + + | Author | [facility] | | | and [place] | + + + | Organization | [facility] | | | [...] Team Providers + +------+ + | Care Partner Management Consultant Name | Role | Phone | + +------+ + | Kiersten Pardo MD | PCP | | + +------+ + Encounter Details +--------+ + + + + | Date | Type | Department | Care Team | Description | +--------+ + + + + | 04/15/ | [facility] | [facility] | Monika Morillo | Preop testing | | 2019 | Encounter | MEDICAL CENTER | J, DO [address] | | | | | [address] | [address] | | | | | [address] | [place] [address] | | | | | [place], [place] | [phone] | | | | | [address] | | | | | | [phone] | | | +--------+ + + + [...] mg by mouth | | 0 | 10/18/20 | | | (GLUCOPHAGE-XR) 500 | 2 [...] | | | | | | [place] [address] | | | | | | [phone] | | | | | | | | +--------+---------+ + + + | 12/07/ | Office | Cardiology | Nisha Forde DO | | | 2019 | Visit | | [address] | | | | | | [place] | | | | | | [address] | | | | | | | [...]
--- OUTSIDE RECORDS SUMMARY | ~2019-09-16 | XMS | Encounter Summary ---
Demographics + + + | Address | [address] | | | [place] [address] | + + + | Home Phone | | + + + | Preferred Language | Unknown | + + + | Marital Status | Single | + + + | Orthodox Affiliation | Unknown | + + + | Race | Unknown | + + + | Ethnic Group | Unknown | + + + Author + + + | Author | [facility] | | | and [place] | + + + | Organization | [facility] | | | and [...] Providers + +------+ + | Care Logistics Management Specialist Name | Role | Phone | + +------+ + | Kiersten Pardo MD | PCP | | + +------+ + Encounter Details +--------+ + + + + | Date | Type | Department | Care Team | Description | +--------+ + + + + | 03/03/ | Orders Only | [facility] | Conversion | | | 2018 | | CONVERSION DEP [address] | Transaction, | | | | | [address] | Provider Unknown | | | | | [place] | [phone] | | | | | [address] | | | | | | [phone] | | | +--------+ + + + [...] | | | | | [place] [address] | | | | | | [phone] | | | | | | | | +--------+---------+ + + + | 12/07/ | Office | Cardiology | Nisha Forde DO | | | 2019 | Visit | | [address] | | | | | | [place] | | | | | | [address] | | | | | | | | +--------+---------+ + + + documented as of this encounter Visit Diagnoses Not on filedocumented in this encounter"
--- OUTSIDE RECORDS SUMMARY | ~2019-09-16 | XMS | Encounter Summary ---
Demographics + + + | Address | [address] | | | [place] [address] | + + + | Home Phone | | + + + | Preferred Language | Unknown | + + + | Marital Status | Single | + + + | Zoroastrian Affiliation | Unknown | + + + [...] Team Providers + +------+ + | Care Neurology Epilepsy Physician Name | Role | Phone | + [...] + + | 07/19/ | Telephone | [facility] | Donny Ji, | Follow-up | | 2019 | | ENDOCRINOLOGY [address] | (Reschedule 07/21/19) | | | | [address] | [address] | | | | | [place], [place] | [place] [address] | | | | | [address] | [phone] | | | | | [phone] | | | +--------+ + + + [...] A | | | | | | [place] [address] | | | | | | [phone] | | | | | | | | +--------+---------+ + + + | 12/07/ | Office | Cardiology | Nisha Forde DO | | | 2020 | Visit | | [address] | | | | | | [place] | | | | | | [address] | | | | | | | | +--------+---------+ + + + documented as of this encounter Visit Diagnoses Not on filedocumented in this encounter"
--- OUTSIDE RECORDS SUMMARY | ~2019-09-16 | XMS | Encounter Summary ---
Demographics + + + | Address | [address] | | | [place] [address] | + + + | Home Phone | | + + + | Preferred Language | Unknown | + + + | Marital Status | Single | + + + | Gnosticist Affiliation | Unknown | + + + | Race | Unknown | + + + | Ethnic Group | Unknown | + + + Author + + + | Author | [facility] | | | and [place] | + + + | Organization | [facility] | | | and [...] Team Providers + +------+ + | Care Physician Coder Name | Role | Phone | + +------+ + | Soumya Fuentes | PCP | | + +------+ + Encounter Details +--------+ + + + + | Date | Type | Department | Care Team | Description | +--------+ + + + + | 04/01/ | Prep for | [facility] | Monika Morillo | | | 2019 | Procedure | NOSE AND THROAT [address] | J, DO [address] | | | | | [address] | [address] | | | | | [place], [place] | [place] [address] | | | | | [address] | [phone] | | | | | [phone] | | | +--------+ + + + [...] | | | | | | [place] [address] | | | | | | [phone] | | | | | | | | +--------+---------+ + + + | 12/07/ | Office | Cardiology | Nisha Forde DO | | 2019 | Visit | | [address] | | | | | | [place] | | | | | | [address] | | | | | | | | +--------+---------+ + + + documented as of this encounter Visit Diagnoses Not on filedocumented in this encounter"
--- OUTSIDE RECORDS SUMMARY | ~2019-09-16 | XMS | Encounter Summary ---
Demographics + + + | Address | [address] | | | [place] [address] | + + + | Home Phone | | + + + | Preferred Language | Unknown | + + + | Marital Status | Single | + + + | Christian Affiliation [...] Providers + +------+ + | Care Rn Team Leader Name | Role | Phone [...] | | | | [place] | [phone] | | | | | [address] | | | | | | [phone] | | | +--------+ + + + [...] | | | | | [place] [address] | | | | | | [phone] | | | | | | | | +--------+---------+ + + + | 12/07/ | Office | Cardiology | Nisha Forde DO | | | 2019 | Visit | | [address] | | | | | | [place] | | | | | | [address] | | | | | | | | +--------+---------+ + + + documented as of this encounter Visit Diagnoses Not on filedocumented in this encounter"
--- OUTSIDE RECORDS SUMMARY | ~2019-09-16 | XMS | Encounter Summary ---
Demographics + + + | Address | [address] | | | [place] [address] | + + + | Home Phone | | + + + | Preferred Language | Unknown | + + + | Marital Status | Single | + + + | Congregational Affiliation | Unknown | + + + | Race | Unknown | + + + | Ethnic Group | Unknown | + + + Author + + + | Author | [facility] | | | and [place] | + + + | Organization | [facility] | | | [...] Team Providers + +------+ + | Care Emergency Registrar Name | Role | Phone | + [...] + + | 04/22/ | Anesthesia | [facility] | Doris Beckwith, | | | 2019 | [facility] | MEDIA CENTER SPECIALIST [address] | | | | | OPERATING RO[address] | [place] [address] | | | | | [address] | [phone] | | | | | [place], [place] | | | | | | [address] | | | | | | [phone] | | | +--------+ + + + + Anesthesia Record + + + + + | Procedure Name | Responsible | Anesthesia Start | Anesthesia Stop Time | | | Anesthesiologist | Time | | + + + + + | TOTAL THYROIDECTOMY, | Doris Beckwith, | 04/22/1958 | 04/22/19 0915 | | left central neck | MEDIA CENTER SPECIALIST | | | | dissection (N/A | [...] +----+---+ + + | | 0 | [place] | | | | 7 | 43-degrees [...] 1342 by | | eral | Antecubital; [id number] | Angeline Shoemaker RN | Lo [place], [...] | | | procedure documentation); Mask | MEDIA CENTER SPECIALIST | MEDIA CENTER SPECIALIST | | | Ventilation: EZ; Airway Grade: [...] IV | Proximal; Hand; 18 gauge; | MEDIA CENTER SPECIALIST | RN | | | 04/23/19; 1342 | | | +--------+ + + + | Periph | 04/22/19; 0710; Right; Hand; | 04/22/19 0710 by | 04/22/19 1900 by | | eral | [id number] catheter system; | Tatiana Gamboa RN | [...] | | | | | [place] [address] | | | | | | [phone] | | | | | | | | +--------+---------+ + + + | 12/07/ | Office | Cardiology | Nisah Forde DO | | | 2019 | Visit | | [address] | | | | | | [place] | | | | | | [address] | | | | | | | [...] 7:10 AM Indication: necessitating | | | physician/MEDIA CENTER SPECIALIST skill Preparation: alcohol patient was: under [place] [...]
--- OUTSIDE RECORDS SUMMARY | ~2019-09-16 | XMS | Encounter Summary ---
Demographics + + + | Address | [address] | | | [place] [address] | + + + | Home Phone | | + + + | Preferred Language | Unknown | + + + | Marital Status | Single | + + + | Adventist Affiliation | Unknown | + + + | Race | Unknown | + + + | Ethnic Group | Unknown | + + + Author + + + | Author | [facility] | | | and [place] | + + + | Organization | [facility] | | | [...] Team Providers + +------+ + | Care Termite Treater Name | Role | Phone | + [...] | [address] | [place], [place] | | | | | [place], [place] | [address] | | | | | [address] | | | | | | [phone] | | | +--------+ + + + [...] | | | | | | [place] [address] | | | | | | [phone] | | | | | | | | +--------+---------+ + + + | 12/07/ | Office | Cardiology | Nisha Forde DO | | | 2019 | Visit | | [address] | | | | | | [place] | | | | | | [address] | | | | | | | [...] MV A Jovanni: 0.85 m/s MV Dec Pasco: 3.44 | | | m/s2 MV DecT: 191.26 ms MV E Jovanni: 0.65 m/s MV E/A Ratio: | | | 0.77 MV PHT: 55.46 ms MVA By PHT: 3.96 cm2 Septal e': 0.04 | | | m/s Septal E/e': 15.30 Lateral e': 0.04 m/s Lateral E/e': | | | 13.75 RAP: 5 mmHg Button Clamper: ALONSO Authenticated by: | | | NISHA FORDE MD Report Date/Time: -- [id number]:40 | | + + + + + [...] cmLVPWd: 1.16 | | cmLVOT Area: 2.99 [id number] Diam: 1.95 cm%FS: 27.44 %EF(Teich): 53.72 %ESV(Teich): [...] (A-L): 16.64 ml/m2LAAs A2C: | | 15.10 so7QIWSH A-L A2C: 42.00 mlLALs A2C: 4.61 cmLAAs A4C: 13.17 jc1DISMI A-L A4C: | | 32.94 mlLALs A4C: 4.47 cmRAAs: 12.84 [id number] A-L: 30.35 mlRAESV MOD: 29.52 | | mlRALs: 4.61 cmTAPSE: 2.25 cmAV maxP.59 mmHgAV meanP.57 mmHgAV Vmax: | | 1.28 m/Reynold Vmean: 0.88 m/Reynold VTI: 23.48 cmAVA Vmax: 2.34 cm2AVA (VTI): 2.30 | | ep1EHQV Vmax: 0.00 cm2/m2AVAI (VTI): 0.00 cm2/m2LVOT maxP.04 mmHgLVOT meanPG: | | 2.47 mmHgLVSI Dopp: 23.81 ml/m2LVSV Dopp: 54.06 mlLVOT Vmax: 1.00 m/sLVOT Vmean: | | 0.73 m/sLVOT VTI: 18.06 cmMV A Jovanni: 0.85 m/sMV Dec Pasco: 3.44 m/s2MV DecT: | | 191.26 msMV E Jovanni: 0.65 m/sMV E/A Ratio: 0.77MV PHT: 55.46 msMVA By PHT: 3.96 | | tv3Nejcew e': 0.04 m/sSeptal E/e': 15.30Lateral e': 0.04 m/sLateral E/e': | | 13.75RAP: 5 mmHg Button Clamper: DAVIDuthenticated by: NISHA FORDE MDReport Date/Time: -- | | [id number]:40 IMPRESSION: 1. This was a technically difficult [...] A Jovanni: 0.85 m/s | |MV Dec Pasco: 3.44 m/s2 | |MV DecT: 191.26 ms | |MV E Jovanni: 0.65 m/s | |MV E/A Ratio: 0.77 | |MV PHT: 55.46 ms | |MVA By PHT: 3.96 cm2 | |Septal e': 0.04 m/s | |Septal E/e': 15.30 | |Lateral e': 0.04 m/s | |Lateral E/e': 13.75 | |RAP: 5 mmHg | | | |Button Clamper: | |Authenticated by: NISHA FORDE MD | |Report Date/Time: -- [id number]:40 | | | |IMPRESSION: | |1. This [...]
--- OUTSIDE RECORDS SUMMARY | ~2019-09-16 | XMS | Encounter Summary ---
Demographics + + + | Address | [address] | | | [place] [address] | + + + | Home Phone [...] Team Providers + +------+ + | Care Egg Packer Name | Role | Phone | + [...] | | | | [place] | [phone] | | | | | [address] | | | | | | [phone] | | | +--------+ + + + [...] | | | | | [place] [address] | | | | | | [phone] | | | | | | | | +--------+---------+ + + + | 12/07/ | Office | Cardiology | Nisha Forde DO | | | 2019 | Visit | | [address] | | | | | | [place] | | | | | | [address] | | | | | | | | +--------+---------+ + + + documented as of this encounter Visit Diagnoses Not on filedocumented in this encounter"
--- OUTSIDE RECORDS SUMMARY | ~2019-09-16 | XMS | Encounter Summary ---
Demographics + + + | Address | [address] | | | [place] [address] | + + + | Home Phone [...] Providers + +------+ + | Care Neurology Director Name | Role | Phone | + [...] + + | 05/17/ | Telephone | [facility] | Lanie Reece | Medication | | 2020 | | CARDIOLOGY [place] | [address] | Recommendations | | | | [address] | [address] | | | | | [address] [place], [place] | [place] [address] | | | | | [address] | [phone] | | | | | [phone] | | | +--------+ + + + [...] | | | | | [place] [address] | | | | | | [phone] | | | | | | | | +--------+---------+ + + + | 12/07/ | Office | Cardiology | Nisha Forde DO | | | 2019 | Visit | | [address] | | | | | | [place] | | | | | | [phone] | | | | | | | | +--------+---------+ + + + documented as of this encounter Visit Diagnoses Not on filedocumented in this encounter"
--- OUTSIDE RECORDS SUMMARY | ~2019-09-16 | XMS | Encounter Summary ---
Demographics + + + | Address | [address] | | | [place] [address] | + + + | Home Phone | | + + + | Preferred Language | Unknown | + + + | Marital Status | Single | + + + | Presybeterian Affiliation | Unknown | + + + | Race | Unknown | + + + | Ethnic Group | Unknown | + + + Author + + + | Author | [facility] | | | and [place] | + + + | Organization | [facility] | | [...] Team Providers + +------+ + | Care Entry Level Project Engineer Name | Role | Phone | [...] | | | Supraventric | [place], | [address] Phone: | | | | | [place] | [place] | [phone] | | | | | tachycardia | [address] | Fax: | | | | | (HCC) | Phone: | [phone] | | | | | Procedures | [phone] | | | | | | Consult | Fax: | | | | | | | [phone] | | + +--------+ + + + + Encounter Details +--------+---------+ + + + | Date | Type | Department | Care Team | Description | +--------+---------+ + + + | 05/05/ | Office | [facility] | Lanie Reece | 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 Cota. It [...] an appointment to follow-up with ENT in [facility], and as discussed, diagnosed with [...] since discha roland on April 23 from [facility]. She denies any smoking history, drinks [...] abd ominal pain and blood in stool. 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 Hx tubal ligation Musculoskeletal: arthralgia [...] recreational or illicit drug use. Lives in [place] . 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 Rate 92 bpm, MT 1020, QTC 455 ms, nonspecific T wave abnormality, tracing personally reviewe d by me EK04/15/2019:( [facility]) Sinus rhythm with sinus arrhythmia, LVH. Rate 70 bpm, MT 182 ms, Q RS 98 ms, QTC 436 ms, tracing personally reviewed by me EK05/05/2019: Normal sinus rhythm, low voltage QRS leads aVF, V2 V3 and lateral leads, o ngoing nonspecific T wave abnormality. Rate 72 bpm, MT 188 ms, QRS 94 ms, QTC 451 [...] ordered a BMP to be performed at [facility] in [place] in 1 month to evaluate her renal function after being on indapamide. I will see her back on July 07, and she will follow-up with tipple supervisor Dr. Eula macias December 07 for primary [...] contain inadvertent rec ognition errors. Elmer OLSON [facility] 05/05/2019 Zora ented in [...] [address] | | | | | | [place] [address] | | | | | | [phone] | | | | | | | | +--------+---------+ + + + | 12/07/ | Office | Cardiology | Nisha Forde DO | | | 2019 | Visit | | [address] | | | | | | [place] | | | | | | [address] | | | | | | | [...] | | | | PST | tachycardia) ([facility]) | results section. | | | [...] INTERPRETAT | Please refer to | | PETROS MUSE | | | ION TEXT | Providers office visit | | | | | | note for Providers | | | | | | Interpretation.Confirmed | | | | | | by [facility] [place] Read Only, | | | | | | [facility] ([id number]), | | | | | | industrial editor Adam Mendoza | | | | | [...]
--- OUTSIDE RECORDS SUMMARY | ~2019-09-16 | XMS | Encounter Summary ---
Demographics + + + | Address | [address] | | | [place] [address] | + + + | Home Phone [...] Team Providers + +------+ + | Care Air Table Operator Name | Role | Phone | [...] | | | | [place] | [phone] | | | | | [address] | | | | | | [phone] | | | +--------+ + + + [...] | | | | | [place] [address] | | | | | | [phone] | | | | | | | | +--------+---------+ + + + | 12/07/ | Office | Cardiology | Nisha Forde DO | | | 2019 | Visit | | [address] | | | | | | [place] | | | | | | [address] | | | | | | | | +--------+---------+ + + + documented as of this encounter Visit Diagnoses Not on filedocumented in this encounter"
--- OUTSIDE RECORDS SUMMARY | ~2019-09-16 | XMS | Encounter Summary ---
Demographics + + + | Address | [address] | | | [place] [address] | + + + | Home Phone | | + + + | Preferred Language | Unknown | + + + | Marital Status | Single | + + + | Yarsani Affiliation | Unknown | + + + [...] Team Providers + +------+ + | Care Program Dir Name | Role | Phone | + +------+ + | Kiersten Pardo MD | PCP | | + +------+ + Encounter Details +--------+ + + + + | Date | Type | Department | Care Team | Description | +--------+ + + + + | 04/15/ | [facility] | [facility] | Monika Morillo | Preop testing | | 2019 | Encounter | MEDICAL CENTER | J, DO [address] | | | | | ELECTRODIAGNOSTICS | [address] | | | | | [address] | [place] [address] | | | | | [place], [place] | [phone] | | | | | [address] | | | | | | [phone] | | | +--------+ + + + [...] | | | | | | [place] [address] | | | | | | [phone] | | | | | | | | +--------+---------+ + + + | 12/07/ | Office | Cardiology | Nisha Forde DO | | | 2019 | Visit | | [address] | | | | | | [place] | | | | | | [address] | | | | | | | [...]
--- OUTSIDE RECORDS SUMMARY | ~2019-09-16 | XMS | Encounter Summary ---
Demographics + + + | Address | [address] | | | [place] [address] | + + + | Home Phone [...] + + + | Author | [facility] | | | and [place] | + + + | Organization | [facility] | | | [...] Team Providers + +------+ + | Care Ciaio Lumite Injector Name | Role | Phone | + [...] | | | | | | | [address] | | | | | | | Phone: | | | | | | | [phone] | | | | | | | Fax: | | | | | | | [phone] | | + + + + + [...] | | (HCC) | [address] | | | | | | [place] | [place], [place] | | | | | | [address] | [address] | | | | | | Phone: | Phone: | | | | | | [phone] | [phone] | | | | | | Fax: | Fax: | | | | | | [phone] | [phone] | +--------+ + + + + + Reason for Visit +---------+ + | Reason | Comments | +---------+ + | Post Op | | +---------+ + Encounter Details +--------+---------+ + + + | Date | Type | Department | Care Team | Description | +--------+---------+ + + + | 04/28/ | Office | [facility] | Monika Pretty | Papillary thyroid | | 2019 | Visit | NOSE AND THROAT [address] | J, DO [address] | carcinoma (HCC) | | | | [address] | [address] | (Primary Dx); | | | | [place], [place] | [place] [address] | Cervical | | | | [address] | [phone] | lymphadenopathy | | | | [phone] | | | +--------+---------+ + + + [...] dry, and intact. Surgical Pathology Exam Order: [id number] Status: Final result Visible to patient: No (Not Released) Next appt: 05/05/2019 at 02:30 PM in Cardiology (Lanie Reece, [facility]) Dx: Thyromegaly; Thyroid nodule Narrative [...] positive for papillary carcinoma. (Dr. Dietz, 04/22/19, 0732) The frozen section diagnosis is called to [...] papillary carcinoma (6/7). COMMENT: As part of [facility]' Quality Improvement Program, this case was reviewed [...] There is no nodule or induration. Three fulfillment representative sections are submitted in cassette s B1 and B2. The larger lobe of thyroid is inked black sectioning reveals a large 4.5 x 4. 0 x 3.0 cm soft, papillary/friable pink-lakhani nodule which occupies almost the entire lobe. There is no may sly recognizable normal thyroid parenchyma. Six fulfillment representative sections are submitted in c assettes B3-B8. C. The specimen is received in a formalin filled specimen container labeled "[facility] central neck contents". A lobular excision of yellow-lakhani, fibrofatty soft tissue is 3.3 x 2.5 x 2 cm. Sectioning reveals six pink-lakhani tentatively identified lymph nodes, 0.3-1.3 cm. Summary of sections: (C1) Four small intact lymph nodes (C2) Single multiply sectioned lymph node (C3) Largest multiply sectioned lymph node PERFORMING LABORATORY: The frozen section was performed at [address] (Composite Technician: Jim Uriarte M.D.; CLIA#: [id number]). The technical component was performed by [facility], [address] [place] [address] (Composite Technician: Regine Dietz MD; CLIA# [id number]). Professional interpretation was performed by [facility], [address] [address] (Composite Technician: Jim Uriarte M.D.; CLIA#: [id number]). Diagnostician: Regine Dietz MD Pathologist Electronically Signed [...] system. The possibil ity of "sound alike" construction foreman errors, additions or deletions may occur. If [...] [place] | | | | | | [facility] | | | | | | [place] [address] | | | | | | [phone] | | | | | | | | +--------+---------+ + + + | 12/07/ | Office | Cardiology | Nisha Forde DO | | | 2019 | Visit | | [address] | | | | | | [place] | | | | | | [address] | | | | | | | [...]
--- OUTSIDE RECORDS SUMMARY | ~2019-09-16 | XMS | Encounter Summary ---
Demographics + + + | Address | [address] | | | [place] [address] | + + + | Home Phone [...] Team Providers + +------+ + | Care Monotype Keyboard Operator Name | Role | Phone | [...] | | | | [place] | [phone] | | | | | [address] | | | | | | [phone] | | | +--------+ + + + [...] [place] | | | | | | [place] [address] | | | | | | [phone] | | | | | | | | +--------+---------+ + + + | 12/07/ | Office | Cardiology | Nisha Forde DO | | | 2019 | Visit | | [address] | | | | | | [place] | | | | | | [address] | | | | | | | | +--------+---------+ + + + documented as of this encounter Visit Diagnoses Not on filedocumented in this encounter"
--- OUTSIDE RECORDS SUMMARY | ~2019-09-16 | XMS | Encounter Summary ---
Demographics + + + | Address | [address] | | | [place] [address] | + + + | Home Phone [...] Team Providers + +------+ + | Care Billing Auditor Name | Role | Phone | [...] A | | | | | | [place], [place] | [place] | | | | | | [address] | [address] | | | | | | Phone: | Phone: | | | | | | [phone] | [phone] | | | | | | Fax: | Fax: | | | | | | [phone] | [phone] | +--------+ + + + + + Encounter Details +--------+---------+ + + + | Date | Type | Department | Care Team | Description | +--------+---------+ + + + | 05/18/ | Office | [facility] | Donny Ji, | Acquired | | 2020 | Visit | ENDOCRINOLOGY [address] | MD [address] | hypothyroidism | | | | [address] | [place] | (Primary Dx); | | | | [place], [place] | [place] [address] | Thyroid cancer (HCC) | | | | [address] | [phone] | | | | | [phone] | | | +--------+---------+ + + + [...] visits, please feel free to contact the [facility]. documented in this encounter Progress Notes Donny Ji MD - 05/18/2019 2:40 PM PSTFormatting of this note might be different fr om the original. [facility] Endocrinology New Patient Visit CHIEF COMPLAINT: [...] s. This was given histologic stage of [id number]. 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 She denies that she i s had any perioral numbness or numbness in the fingertips. FAMILY HISTORY Family History Problem Relation Age of Onset Hypertension Father Kirill [place] Neg Hx PAST MEDICAL/SURGICAL HISTORY Past Medical [...] neck dissection; Surgeon: Monika Morillo DO; Location: [facility] TONSILLECTOMY AND ADENOIDECTOMY TUBAL LIGATION [...] file Gets together: Not on file Attends temple service: Not on file Active member of [...] [address] | | | | | | [place] [address] | | | | | | [phone] | | | | | | | | +--------+---------+ + + + | 12/07/ | Office | Cardiology | Nisha Forde DO | | | 2019 | Visit | | [address] | | | | | | [place] | | | | | | [address] | | | | | | | [...]
--- OUTSIDE RECORDS SUMMARY | ~2019-09-16 | XMS | Encounter Summary ---
Demographics + + + | Address | [address] | | | [place] [address] | + + + | Home Phone | | + + + | Preferred Language | Unknown | + + + | Marital Status | Single | + + + | Pentecostal Affiliation [...] Team Providers + +------+ + | Care Loom Repairer Name | Role | Phone | + [...] + + | 08/08/ | Telephone | [facility] | Donny Ji, | Follow-up | | 2020 | | ENDOCRINOLOGY [address] | MD [address] | | | | | [address] | [place] | | | | | [place], [place] | [place] [address] | | | | | [address] | [phone] | | | | | [phone] | | | +--------+ + + + [...] [address] | | | | | | [place] [address] | | | | | | [phone] | | | | | | | | +--------+---------+ + + + | 12/07/ | Office | Cardiology | Nisha Forde DO | | | 2019 | Visit | | [address] | | | | | | [place] | | | | | | [address] | | | | | | | | +--------+---------+ + + + documented as of this encounter Visit Diagnoses Not on filedocumented in this encounter"
--- OUTSIDE RECORDS SUMMARY | ~2019-09-16 | XMS | Encounter Summary ---
Demographics + + + | Address | [address] | | | [place] [address] | + + + | Home Phone | | + + + | Preferred Language | Unknown | + + + | Marital Status | Single | + + + | Roman Catholic Affiliation | Unknown | + + [...] Providers + +------+ + | Care Rubber Factory Worker Name | Role | Phone | [...] + + | 04/22/ | Hospital | [facility] | Monika Morillo | Thyroid nodule; | | 2019 - | Encounter | CENTER SUR[facility] [address] | J, DO [address] | Thyromegaly; | | | | [address] | [address] | Thyroid nodule; | | 04/23/ | | [place], [place] | [place] [address] | Thyromegaly | | 2019 | | [address] | [phone] | | | | | [phone] | | | +--------+ + + + [...] Morillo DO - 04/23/2019 12:20 PM PST [facility] Service: Otolaryngology Brief Post-op Discharge Note [...] the hands,feet, or lips Date Last Reviewed: 03/11/201619994427-9057 [employer]. [address] [place] [address]. All righ ts reserved. This information is [...] Jovanna, DO - 04/23/2019 12:14 PM PST [facility] Service: Otolaryngology Progress Note Hospital [...] all discharge criteria. A prescription for Synthroid, [place], and Zofran have been given to the [...] Monika Morillo DO 04/23/2019 oore, Breanne Melvin [facility] - 04/22/2019 1:14 PM PSTRx Admission Medication History Note I have reviewed the medication history for appropriate doses obtained by: Other : Obtaine d by myself after reviewing the patient's dispense history and confirming the dispense histo ry with the patient's two pharmacies. [place] [facility] [place]. RN also confirmed the patient's current [...] 40 mg (although patient did not picking crew supervisor, lik cydney due to cost) -Marked [...] | | | | | [place] [address] | | | | | | [phone] | | | | | | | | +--------+---------+ + + + | 12/07/ | Office | Cardiology | Nisha Forde DO | | 2019 | Visit | | [address] | | | | | [place] | | | | | | [id number] | | | | | | | [...] Nomogram | 12 - 88 pg/mL | [facility] | | | | suggests Normal | | LABORATORY | | | | Parathryoid | | | | | | status.Diagnosis of | | | | | | parathyroid disease | | | | | | requires both clinical | | | | | | and laboratory | | | | | | data.Testing performed | | | | | | at [facility], [address] | | | | | | [facility], | | | | | | [place] [address] | | | | + + + + + + + + | Specimen | + + | Blood | + + + + + + + | Performing | Address | City/State/Zipcode | Phone Number | | Organization | | | | + + + + + | [facility] | [address] | [place] [address] | [phone] | + + + + + Calcium, [...] [facility] | | | | performed at [facility];[address] | | LABORATORY | | | | [address];[place], [place] | | | | | | [address] | | | | + + + + + + + + | Specimen | + + | Blood | + + + + + + + | Performing | Address | City/State/Zipcode | Phone Number | | Organization | | | | + + + + + | [facility] | [address] | [place] [address] | [phone] | + + + + + POC [...] | | | POC | performed at [facility];[address] | | LABORATORY | | | | [address];[place], [place] | | | | | | [address] | | | | + + + + + + + + | Specimen | + + | | + + + + + + + | Performing | Address | City/State/Zipcode | Phone Number | | Organization | | | | + + + + + | [facility] | [address] | [place] [address] | [phone] | + + + + + Surgical [...] | for papillary carcinoma. (Dr. Dietz, 04/22/19, 6282) The frozen | | | section diagnosis [...] | | carcinoma (6/7). COMMENT:As part of [facility]' Quality | | | Improvement Program, this [...] There is no nodule or induration. Three automotive leasing sales representative | | | sections are submitted in cassettes B1 and B2. The larger lobe of | | | thyroid is inked black sectioning reveals a large 4.5 x 4.0 x 3.0 cm | | | soft,papillary/friable pink-lakhani nodule which occupies almost the | | | entire lobe. There is no grossly recognizable normal thyroid | | | parenchyma. Six automotive leasing sales representative sections are submitted in cassettes [...] section was | | | performed at [address] | | | [place] [address] (Help Desk Assistant: Jim Uriarte M.D.; CLIA#: | | | [id number]).The technical component was performed by [facility] | | | [employer], [address] [place] [address] (Help Desk Assistant: | | | Regine Dietz MD; CLIA# [id number]). Professional interpretation was | | | performed by[facility], [facility], [facility] | | | [place] [address] (Help Desk Assistant: Jim | | Yury Uriarte M.D.; CLIA#: [id number]). Diagnostician: Regine Dietz | | | MDPathologistElectronically Signed 04/26/2019 | | | | | |There is no nodule or induration. Three automotive leasing sales representative sections are submitted in cassette s B1 and B2. The larger lobe of thyroid is inked black sectioning reveals a large 4.5 x 4. 0 x 3.0 cm soft, | | |papillary/friable pink-lakhani nodule which occupies almost the entire lobe. There is no may sly recognizable normal thyroid parenchyma. Six automotive leasing sales representative sections are submitted in c assettes B3-B8. | | | | | |C. The specimen is received in a formalin filled specimen container labeled "[facility], le central neck contents". A lobular [...] | |The frozen section was performed at [address] (Help Desk Assistant: Jim Uriarte M.D.; CLIA#: [id number]). | | |The technical component was performed by [facility], [address] [place] [address] (Help Desk Assistant: Regine Dietz MD; CLIA# [id number]). Professional interpretation was performed by | | |[facility], [place] [id number] (Help Desk Assistant: Jim Uriarte M.D.; CLIA#: [id number]). | | | | | |Diagnostician: Regine [...] Testing | 65 - 99 mg/dL | [facility] | | | POC | performed at [facility];[address] | | LABORATORY | | | | [address];[place] | | | | | | [address] | | | | + + + + + + + + | Specimen | + + | | + + + + + + + | Performing | Address | City/State/Zipcode | Phone Number | | Organization | | | | + + + + + | [facility] | [address] | [place] [address] | [phone] | + + + + + POCT Test, Urine, Qual (04/22/2019 6:12 AM PST) + + + + + + | Component | Value | Ref Range | Performed | Pathologist | | | | | At | Signature | + + + + + + | HCG, | NEGATIVEComment: Testing | NEG | [facility] | | | Quantitativ | performed at [facility];[address] | | LABORATORY | | | e POC | [address];[place], [place] | | | | | | [address] | | | | + + + + + + + + | Specimen | + + | | + + + + + + + | Performing | Address | City/State/Zipcode | Phone Number | | Organization | | | | + + + + + | [facility] | [address] | [place] [address] | [phone] | + + + + + documented [...] | | | | | | longer, soxfbv-hyj-ovarl use of | | | | | [...]
--- OUTSIDE RECORDS SUMMARY | ~2019-09-16 | XMS | Encounter Summary ---
Demographics + + + | Address | [address] | | | [place] [address] | + + + | Home Phone [...] Providers + +------+ + | Care Supervisor Force Adjustment Name | Role | Phone | + [...] | | | | | | | [address] | | | | | | | Phone: | | | | | | | [phone] | | | | | | | Fax: | | | | | | | [phone] | | + + + + + [...] | | | | [address] | [place], [place] | | | | | | [address] | [address] | | | | | | Phone: | Phone: | | | | | | [phone] | [phone] | | | | | | Fax: | Fax: | | | | | | [phone] | [phone] | +--------+ + + + + + Reason for Visit +---------+ + | Reason | Comments | +---------+ + | Post Op | | +---------+ + Encounter Details +--------+---------+ + + + | Date | Type | Department | Care Team | Description | +--------+---------+ + + + | 04/28/ | Office | [facility] | Monika Pretty | Papillary thyroid | | 2019 | Visit | NOSE AND THROAT [address] | J, DO [address] | carcinoma (HCC) | | | | [address] | [address] | (Primary Dx); | | | | [place], [place] | [place] [address] | Cervical | | | | [address] | [phone] | lymphadenopathy | | | | [phone] | | | +--------+---------+ + + + [...] dry, and intact. Surgical Pathology Exam Order: [id number] Status: Final result Visible to patient: No (Not Released) Next appt: 05/05/2019 at 02:30 PM in Cardiology (Lanie Reece, [facility]) Dx: Thyromegaly; Thyroid nodule Narrative Performed [...] positive for papillary carcinoma. (Dr. Dietz, 04/22/19, 7093) The frozen section diagnosis is called to [...] papillary carcinoma (6/7). COMMENT: As part of [employer]' Quality Improvement Program, this case was reviewed [...] There is no nodule or induration. Three architectural representative sections are submitted in cassette s B1 and B2. The larger lobe of thyroid is inked black sectioning reveals a large 4.5 x 4. 0 x 3.0 cm soft, papillary/friable pink-lakhani nodule which occupies almost the entire lobe. There is no may sly recognizable normal thyroid parenchyma. Six architectural representative sections are submitted in c assettes B3-B8. C. The specimen is received in a formalin filled specimen container labeled "[facility] central neck contents". A lobular excision of yellow-lakhani, fibrofatty soft tissue is 3.3 x 2.5 x 2 cm. Sectioning reveals six pink-lakhani tentatively identified lymph nodes, 0.3-1.3 cm. Summary of sections: (C1) Four small intact lymph nodes (C2) Single multiply sectioned lymph node (C3) Largest multiply sectioned lymph node PERFORMING LABORATORY: The frozen section was performed at [address] (Plant Senior Manager: Jim Uriarte M.D.; CLIA#: [id number]). The technical component was performed by [employer], [address] [place] [address] (Plant Senior Manager: Regine Dietz MD; CLIA# [id number]). Professional interpretation was performed by [employer], [address] [address] (Plant Senior Manager: Jim Uriarte M.D.; CLIA#: [id number]). Diagnostician: Regine Dietz MD Pathologist Electronically Signed [...] system. The possibil ity of "sound alike" harvest crew supervisor errors, additions or deletions may occur. If [...] AGUILERA | | | | | | [facility] | | | | | | [place] [address] | | | | | | [phone] | | | | | | | | +--------+---------+ + + + | 12/07/ | Office | Cardiology | Nisha Forde DO | | | 2019 | Visit | | [address] | | | | | | [place] | | | | | | [address] | | | | | | | [...]
--- OUTSIDE RECORDS SUMMARY | ~2019-09-16 | XMS | Encounter Summary ---
Demographics + + + | Address | [address] | | | [place] [address] | + + + | Home Phone [...] + + + | Author | [facility] | | | and [place] | + + + | Organization | [facility] | | [...] Team Providers + +------+ + | Care Purchasing Engineer Name | Role | Phone | [...] + + | 05/12/ | Telephone | [facility] | Monika Morillo | Referral | | 2020 | | NOSE AND THROAT [address] | J, DO [address] | | | | | [address] | [address] | | | | | [place], [place] | [place] [address] | | | | | [address] | [phone] | | | | | [phone] | | | +--------+ + + + [...] [address] | | | | | | [place] [address] | | | | | | [phone] | | | | | | | | +--------+---------+ + + + | 07/30/ | Office | Cardiology | Nisha Forde DO | | | 2019 | Visit | | [address] | | | | | | [place] | | | | | | [address] | | | | | | | | +--------+---------+ + + + documented as of this encounter Visit Diagnoses Not on filedocumented in this encounter"
--- OUTSIDE RECORDS SUMMARY | ~2019-09-16 | XMS | Encounter Summary ---
Demographics + + + | Address | [address] | | | [place] [address] | + + + | Home Phone | | + + + | Preferred Language | Unknown | + + + | Marital Status | Single | + + + | Orthodoxy Affiliation | Unknown | + + + | Race | Unknown | + + + | Ethnic Group | Unknown | + + + Author + + + | Author | [facility] | | | and [place] | + + + | Organization | [facility] | | [...] Team Providers + +------+ + | Care Video Game Maker Name | Role | Phone | [...] | | | Supraventric | [place], | [address] Phone: | | | | | [place] | [place] | [phone] | | | | | tachycardia | [address] | Fax: | | | | | (HCC) | Phone: | [phone] | | | | | Procedures | [phone] | | | | | | Consult | Fax: | | | | | | | [phone] | | + +--------+ + + + + Encounter Details +--------+---------+ + + + | Date | Type | Department | Care Team | Description | +--------+---------+ + + + | 05/05/ | Office | [facility] | Lanie Reece | 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 Cota. It [...] an appointment to follow-up with ENT in [facility], and as discussed, diagnosed with thyroid [...] since discha roland on April 23 from [facility]. She denies any smoking history, drinks caffeine [...] abd ominal pain and blood in stool. 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 Hx tubal ligation Musculoskeletal: arthralgia [...] recreational or illicit drug use. Lives in [place] . 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) TDS: Grossly normal study: LV normal [...] V3 and lateral leads. Rate 92 bpm, PA 1020, QTC 455 ms, nonspecific T wave abnormality, tracing personally reviewe d by me EK04/15/2019:( [facility]) Sinus rhythm with sinus arrhythmia, LVH. Rate 70 bpm, PA 182 ms, Q RS 98 ms, QTC 436 ms, tracing personally reviewed by me EK05/05/2019: Normal sinus rhythm, low voltage QRS leads aVF, V2 V3 and lateral leads, o ngoing nonspecific T wave abnormality. Rate 72 bpm, PA 188 ms, QRS 94 ms, QTC 451 [...] ordered a BMP to be performed at [facility] in [place] in 1 month to evaluate her renal function after being on indapamide. I will see her back on July 07, and she will follow-up with security researcher Dr. Eula macias December 07 for primary [...] contain inadvertent rec ognition errors. Elmer OLSON [facility] Cardiology 05/05/2019 Zora ented in this [...] [address] | | | | | | [place] [address] | | | | | | [phone] | | | | | | | | +--------+---------+ + + + | 12/07/ | Office | Cardiology | Nisha Forde DO | | | 2019 | Visit | | [address] | | | | | | [place] | | | | | | [address] | | | | | | | [...] | | | | PST | tachycardia) ([facility]) | results section. | | | | [...] | | | | | by [employer] [place] Read Only, | | | | | | [employer] Willy ([id number]), | | | | | | movie editor Adam Mendoza | | | | [...]
--- OUTSIDE RECORDS SUMMARY | ~2019-09-16 | XMS | Encounter Summary ---
Demographics + + + | Address | [address] | | | [place] [address] | + + + | Home Phone [...] Providers + +------+ + | Care Software Engineering Analyst Name | Role | Phone | [...] Perez Alyssa | | | | | [place], [place] | [place] | | | | | [address] | [address] | | | | | [phone] | [phone] | | | | | | | [...] [address] | | | | | | [place] [address] | | | | | | [phone] | | | | | | | | +--------+---------+ + + + | 12/07/ | Office | Cardiology | Nisha Forde DO | | | 2019 | Visit | | [address] | | | | | | [place] | | | | | | [address] | | | | | | | [...] pressures of | | | 5-10mmHg. MEASUREMENTS Bead Builder: ALONSO | | | Authenticated by: Hoang Beal DO Report Date/Time: -- | | | [id number] | | + + + + + [...] venous pressures of 5-10mmHg. | | MEASUREMENTS Bead Builder: DHAuthenticated by: Hoang Thrasher | | Date/Time: -- [id number]:18 IMPRESSION: 1. See Dictation 2. TDS. Grossly, [...] | |MEASUREMENTS | | | | | |Bead Builder: ALONSO | |Authenticated by: Hoang Beal DO | |Report Date/Time: -- [id number] | | | |IMPRESSION: | |1. See Dictation 2. TDS. Grossly, NML study. | + + documented in this encounter Visit Diagnoses Not on filedocumented in this encounter"
[~2019-09-16 18:52] MED LIST changes: +LEVOTHYROXINE150 MCG PO; +METFORMIN HCL500 M1 PO; +PREDNISONE20 MG PO; +VENTOLIN HFA18 GM INH
--- OUTSIDE RECORDS SUMMARY | 2019-09-16 18:54 | XMS ---
PreManage Notification: CATARINA MEJIA Security Dermatological Surgeon Events No recent Security Events currently on file CRITERIA MET - Group Notification - [facility] - Has Care Guidelines CARE PROVIDERS ITZ FLOWERS Physician Lens Mounter 12/21/2017-Current PHONE: Unknown KADY [facility] 10/14/2018-Current PHONE: [phone] RITU [facility] Current PHONE: [phone] Leti has no Care Guidelines for this patient. Care History Medical/Surgical 03/16/2019 [facility] - PATIENT HAS AN ENT APT ON 04/01/19. 01/07/2018 [facility] - PATIENT IS FOLLOWING UP WITH PCP JERRY FLOWERS. - PATIENT HAS PREVIOUSLY DECLINED REFERRALS TO A BOW REHAIRER SUGGESTED BY PCP. - NEXT FOLLOW UP APT WILL BE ON 01/14 AND PCP WILL DISCUSS THE BOW REHAIRER REFERRAL. Anshu VISIT COUNT (12 MO.) 4 ALHAJI Fitzpatrick TOTAL 4 NOTE: Visits indicate total known visits. ED/UCC VISIT TRACKING (12 MO.) 09/16/2019 18:52 [facility] [place] TYPE: Emergency COMPLAINT: - CHEST PAIN 05/09/2019 10:46 [facility] [place] TYPE: Emergency COMPLAINT: - COLD SYMPTOMS DIAGNOSES: - Allergy status to other drugs, medicaments and biological sub - Other detention (current) drug therapy - Bronchitis, not specified as acute or chronic - Essential (primary) hypertension - Acute upper respiratory infection, unspecified - Acute bronchospasm - Anxiety disorder, unspecified - intermediate manager (current) use of oral hypoglycemic drugs - Cough 03/15/2019 23:32 [facility] [place] TYPE: Emergency COMPLAINT: - SOB, HIGH BLOOD PRESSURE DIAGNOSES: - Essential (primary) hypertension - Nontoxic single thyroid nodule - Shortness of breath - Other detention (current) drug therapy - Anxiety disorder, unspecified - Obesity, unspecified - Allergy status to other drugs, medicaments and biological sub 10/13/2018 12:38 [facility]I Chan [place] TYPE: Emergency COMPLAINT: - CHEST PAIN/BP PROBLEM DIAGNOSES: - Acquired absence of other specified parts of digestive tract - Essential (primary) hypertension - Other malaise - Obesity, unspecified - Other termite control servicer (current) drug therapy - Viral intestinal infection, unspecified - Anxiety disorder, unspecified INPATIENT VISIT TRACKING (12 MO.) No inpatient visits to display in this time frame [email or web address]
[2019-09-16] MEDS ORDERED: CLONIDINE HCL0.2 MG PO (19:06)
--- NOTE | 2019-09-16 21:31 | EKG ---
[facility] [address] [facility] [place] [address] Signed Normal sinus rhythm Moderate voltage criteria for LVH, may be normal variant Borderline ECG When compared with ECG of 13-OCT-2018 12:47, Nonspecific T wave abnormality, improved in Lateral leads Confirmed by ENA MACARIO MD ([id number]) on 09/16/2019 9:30:54 PM Electronically Signed By: ENA MACARIO MD 09/16/19 213 PATIENT NAME: CATARINA MEJIA Electrocardiogram DATE OF : 80 PHYSICIAN: ENA MACARIO MD REPORT #: [id number] REPORT IS CONFIDENTIAL AND NOT TO BE RELEASED WITHOUT AUTHORIZATION
== END 2019-09-16 20:46 | disposition home or self-care (01) ==
LOC: ED 18:52
DX: I10 Essential (primary) hypertension (principal); F41.9 Anxiety disorder, unspecified; Z79.899 Other long term (current) drug therapy; Z88.8 Allergy status to other drugs, medicaments and biological substances
CPT/HCPCS: 71045; 80053; 83735; 84484; 85025; 93005; 93010; 99285-25

== ENCOUNTER 2019-11-08 18:05 | Emergency (ER) | payer BC ==
[~2019-11-08] VITALS: Ht 167.6 cm; Wt 129.7 kg
--- OUTSIDE RECORDS SUMMARY | ~2019-11-08 | XMS | Encounter Summary ---
Demographics + + + | Address | [address] | | | [place] [address] | + + + | Home Phone | | + + + | Preferred Language | Unknown | + + + | Marital Status | Single | + + + | Uatsdin Affiliation | Unknown | + + + | Race | Unknown | + + + | Ethnic Group | Unknown | + + + Author + + + | Author | [facility] | | | and [place] | + + + | Organization | [facility] | | | and [...] Team Providers + +------+ + | Care Gaming Manager Name | Role | Phone | + +------+ + | Kiersten Pardo MD | PCP | | + +------+ + Reason for Visit + + + | Reason | Comments | + + + | Establish Care | | + + + Evaluate & Treat (Urgent) +--------+ + + + + + | Status | Reason | Specialty | Diagnoses / | Referred By | Referred To | | | | | Procedures | Contact | Contact | +--------+ + + + + + | Closed | Specialty | Endocrinology | Diagnoses | Ilia, | [place], | | | Services | | Papillary | Monika Nugent, | Donny Brooks MD | | | Required | | thyroid | DO [address] | | | | | carcinoma | [address] | [address] | | | | | ([facility]) | [address] | [address] [address] | | | | | | [place], [place] | [place], [place] | | | | | | [address] | [address] Phone: | | | | | | Phone: | [phone] | | | | | | [phone] | Fax: | | | | | | Fax: | [phone] | | | | | | [phone] | | +--------+ + + + + + Encounter Details +--------+---------+ + + + | Date | Type | Department | Care Team | Description | +--------+---------+ + + + | 05/18/ | Office | [facility] | Donny Ji, | Acquired | | 2020 | Visit | ENDOCRINOLOGY [address] | MD [address] | hypothyroidism | | | | [address] | [address] [facility], | (Primary Dx); | | | | [place], [place] | [place] [address] | Thyroid cancer (HCC) | | | | [address] | [phone] | | | | | [phone] | | | +--------+---------+ + + + Social History [...] on file | | + + + documented as of this encounter Last Filed Vital Signs + + + + + | Vital Sign | Reading | Time Taken | Comments | + + + + + | Blood Pressure | 138/82 | 05/18/2019 2:34 PM | | | | | PST | | + + + + + | Pulse | 68 | 05/18/2019 2:34 PM | | | | | PST | | + + + + + | Temperature | - | - | | + + + + + | Respiratory Rate | - | - | | + + + + + | Oxygen Saturation | 95% | 05/18/2019 2:34 PM | | | | | PST | | + + + + + | Inhaled Oxygen | - | - | | | Concentration | | | | + + + + + | Weight | 126.1 kg (277 lb | 05/18/2019 2:34 PM | | | | 14.4 oz) | PST | | + + + + + | Height | - | - | | + + + + + | Body Mass Index | 44.85 | 05/05/2019 2:38 PM | | | | | PST | | + + + + + documented in this encounter Patient Instructions Patient Instructions Donny Ji MD - 05/18/2019 2:40 PM PSTChange the levothyroxine to 175 mcg daily We will plan on seeing you again in clinic in 2 months. Please have your labs drawn ahead of your visit If you have any questions or concerns between visits, please feel free to contact the [facility]. documented in this encounter Progress Notes Donny Ji MD - 05/18/2019 2:40 PM PSTFormatting of this note might be different fr om the original. [facility] Endocrinology New Patient Visit CHIEF COMPLAINT: Thyroid disease HISTORY OF PRESENT ILLNESS Tamera Yang is a 39 y.o. female who is being referred to Endocrinology for further evalua tion of hypothyroidism in the context of recent thyroidectomy for thyroid cancer. This hist ory was obtained from the patient as well as review of medical records. To summarize her re cords, she has past medical history that is significant for prediabetes, hypertension, papil danielle thyroid carcinoma, and acquired hypothyroidism. She underwent total thyroidectomy Dece 2018. Histology showed a left-sided lesion that was 4.5 cm in greatest diameter an d consistent with papillary thyroid carcinoma. There were metastasis to regional lymph node s. This was given histologic stage of [id number]. She was started on treatment with levothyro xine 150 mcg following her surgery. In talking with the patient, she reports that she first noticed a lump in her neck 2018. Over time this seemed to be increasing in size and she even started to notice it wa s causing swallowing discomfort. This prompted her to seek medical evaluation. Since her surgery, she reports that she is feeling much more tired and cold intolerant than she had been previously. She is also been struggling more with weight control. She has be en taking her thyroid medication every day and denies that she is missing any doses. Area o f incision in her neck is engine lathe tender, though seems to be improving. She denies that she i s had any perioral numbness or numbness in the fingertips. FAMILY HISTORY Family History Problem Relation Age of Onset Hypertension Father Malig hypertherm Neg Hx PAST MEDICAL/SURGICAL HISTORY Past Medical History: Diagnosis Date Anemia Anxiety Blood pressure check other abstracted Cancer of thyroid (HCC) 03/2019 papillary thyroid cancer with mets 8/9 lymph nodes Diabetes type 2, controlled (HCC) Hypertension Hypokalemia other abstracted Obesity other abstracted Prediabetes Proteinuria other abstracted Thyroid disease Vitamin D deficiency other abstracted Past Surgical History: Procedure Laterality Date CHOLECYSTECTOMY GALLBLADDER SURGERY other abstracted OTHER SURGICAL HISTORY other abstracted THYROIDECTOMY N/A 04/22/2019 Procedure: TOTAL THYROIDECTOMY, left central neck dissection; Surgeon: Monika Morillo DO; Location[place] [facility] TONSILLECTOMY AND ADENOIDECTOMY TUBAL LIGATION 2009 SOCIAL HISTORY Social History Socioeconomic History Marital status: Single Spouse name: Not on file Number of children: Not on file Years of education: Not on file Highest education level: Not on file Occupational History Not on file Social Needs Financial resource strain: Not on file Food insecurity: Worry: Not on file Inability: Not on file Transportation needs: Medical: Not on file Non-medical: Not on file Tobacco Use Smoking status: Never Smoker Smokeless tobacco: Never Used Substance and Sexual Activity Alcohol use: Yes Comment: Alcoholic Drinks/day: occasional Drug use: Not Currently Types: Marijuana Comment: no Sexual activity: Not on file Lifestyle Physical activity: Days per week: Not on file Minutes per session: Not on file Stress: Not on file Relationships Social connections: Talks on phone: Not on file Gets together: Not on file Attends congregational service: Not on file Active member of club or organization: Not on file Attends meetings of clubs or organizations: Not on file Relationship status: Not on file Intimate partner violence: Fear of current or ex partner: Not on file Emotionally abused: Not on file Physically abused: Not on file Forced sexual activity: Not on file Other Topics Concern Not on file Social History Narrative Not on file MEDICATIONS Current Outpatient Medications: amLODIPine (NORVASC) 5 mg tablet, Take 1 tablet by mouth Daily., Disp: 30 tablet, Rfl: 11 dilTIAZem (CARDIZEM LA) 120 mg 24 hr tablet, Take 1 tablet by mouth Daily., Disp: 30 t ablet, Rfl: 11 HYDROcodone-acetaminophen (NORCO) 5-325 mg per tablet, Take 1-2 tablets by mouth every 6 hours as needed for Pain., Disp: 15 tablet, Rfl: 0 indapamide (LOZOL) 1.25 MG tablet, Take 0.5 tablets by mouth every morning., Disp: 15 tablet, Rfl: 11 levothyroxine (SYNTHROID) 175 mcg tablet, Take 1 tablet by mouth every morning (before breakfast)., Disp: 30 tablet, Rfl: 11 lisinopril (PRINIVIL,ZESTRIL) 40 MG tablet, Take 1 tablet by mouth Daily., Disp: 30 ta blet, Rfl: 11 metFORMIN (GLUCOPHAGE-XR) 500 mg 24 hr tablet, Take 500 mg by mouth 2 times daily (bef ore meals)., Disp: , Rfl: metoprolol succinate (TOPROL-XL) 200 mg ER tablet, Take 1 tablet by mouth Daily., Disp : 30 tablet, Rfl: 11 REVIEW OF SYSTEMS No fevers or chills. Breathing comfortably. Denies chest pain. No recent urinary changes. Otherwise, ROS was gone over in detail with the patient and is as per HPI or negative. PHYSICAL EXAM BP 138/82 | Pulse 68 | Wt 126.1 kg (277 lb 14.4 oz) | SpO2 95% | BMI 44.85 kg/m Constitutional: alert and oriented, well groomed Psych: appropriate affect and insight Eyes: anicteric, moist, pupils equally round and reactive Ears, Nose, Mouth, Throat: no oropharyngeal erythema or lesions; absent thyroid Hematologic/Lymphatic: no cervical, occipital, or supraclavicular adenopathy; no ecchymosis identified Cardiovascular: heart with regular rate and rhythm, no rubs or gallops Respiratory: lungs clear to auscultation, no wheezes or rales Gastrointestinal: normoactive bowel sounds, no pain Musculoskeletal: no peripheral edema, normal muscle bulk Neurologic: normal sensation, cranial nerves intact Skin: no rashes identified, normal temperature and texture DATA Component Latest Ref Rng & Units 04/22/2019 04/23/2019 Calcium, Ionized 1.08 - 1.25 mmol/L 1.05 (L) pH, Venous, POC 7.300 - 7.450 7.442 Calcium 8.5 - 10.5 mg/dL 9.3 PTH Intact 12 - 88 pg/mL 50.8 ASSESSMENT & PLAN Tamera Yang is a pleasant 39 y.o. with acquired hypothyroidism and papillary thyroid carc inoma. 1. Hypothyroidism: Symptoms indicate that thyroid hormone levels are deficient. Given her history of thyroid cancer, we will be targeting a TSH close to 0.1. I will increase her do se of levothyroxine to 175 mcg daily. I will plan on meeting with her and rechecking levels in 2 months to monitor this. 2. Thyroid cancer: Given her thyroid cancer staging, she would benefit from consideration of radioiodine remnant ablation. Plans are in place for her to meet with radiation oncology in this regard. She was encouraged to attend that appointment. Tamera has been a delightful patient to work with. Thank you for allowing me to participat e in her care. I will plan on seeing her again in 2 months. If you have any questions, lois fitch do not hesitate to call. Donny Ji MD 05/18/2019 *This report has been prepared using a voice recognition system. The report was reviewed fo r accuracy, however, sound-alike word errors, addition and/or deletions may occur. If there is any question about this report please contact me. documented in this encounter Plan of Treatment +--------+---------+ + + + | Date | Type | Specialty | Care Team | Description | +--------+---------+ + + + | 11/21/ | Office | Endocrinology | Donny Ji, | | 2019 | Visit | | [address] | | | | | | [place] | | | | | | [place] [address] | | | | | | [phone] | | | | | | | | +--------+---------+ + + + | 12/07/ | Office | Cardiology | Nisha Forde DO | | 2019 | Visit | | [address] | | | | | | [place] | | | | | | [id number] | | | | | | | | +--------+---------+ + + + + +------+--------+ + + | Name | Type | Priori | Associated Diagnoses | Order Schedule | | | | ty | | | + +------+--------+ + + | TSH | Lab | Routin | Acquired | 1 Occurrences | | | | e | hypothyroidism | starting 05/18/2019 | | | | | | until 05/18/2020 | + +------+--------+ + + | T4, Free | Lab | Routin | Acquired | 1 Occurrences | | | | e | hypothyroidism | starting 05/18/2019 | | | | | | until 05/18/2020 | + +------+--------+ + + documented as of this encounter Visit Diagnoses + + | Diagnosis | + + | Acquired hypothyroidism - Primary Unspecified hypothyroidism | + + | Thyroid cancer (HCC) Malignant neoplasm of thyroid gland | + + documented in this encounter"
--- OUTSIDE RECORDS SUMMARY | ~2019-11-08 | XMS | Encounter Summary ---
Demographics + + + | Address | [address] | | | [place] [address] | + + + | Home Phone | | + + + | Preferred Language | Unknown | + + + | Marital Status | Single | + + + | Restorationism Affiliation | Unknown | + + + | Race | Unknown | + + + | Ethnic Group | Unknown | + + + Author + + + | Author | [facility] | | | and [place] | + + + | Organization | [facility] | | [...] Team Providers + +------+ + | Care Bus Transportation Manager Name | Role | Phone | [...] + + | 04/22/ | Anesthesia | [facility] | Doris Beckwith, | | | 2019 | [facility] | SENIOR PARALEGAL [address] | | | | | OPER[address] | [place] [address] | | | | | [address] | [phone] | | | | | [place], [place] | | | | | | [address] | | | | | | [phone] | | | +--------+ + + + + Anesthesia Record + + + + + | Procedure Name | Responsible | Anesthesia Start | Anesthesia Stop Time | | | Anesthesiologist | Time | | + + + + + | TOTAL THYROIDECTOMY, | Doris Beckwith, | 04/22/1958 | 04/22/19 0915 | | left central neck | SENIOR PARALEGAL | | | | dissection (N/A | [...] +----+---+ + + | | 0 | [place] | | | | 7 | 43-degrees [...] 1342 by | | eral | Antecubital; [id number] | Angeline Shoemaker RN | Lo William, [...] | | | procedure documentation); Mask | SENIOR PARALEGAL | SENIOR PARALEGAL | | | Ventilation: EZ; Airway Grade: [...] IV | Proximal; Hand; 18 gauge; | SENIOR PARALEGAL | RN | | | 04/23/19; 1342 | | | +--------+ + + + | Periph | 04/22/19; 0710; Right; Hand; | 04/22/19 0710 by | 04/22/19 1900 by | | eral | [id number] catheter system; | Tatiana Gamboa RN | [...] + + documented as of this encounter OR Notes Anesthesia Postprocedure Evaluation - Doris Beckwith CRNA - 04/22/2019 9:18 AM PSTForma tting of this note might be different from the original. ANESTHESIA POSTANESTHESIA EVALUATION Tamera Yang 39 y.o. female 1980 [id number] Procedure(s) TOTAL THYROIDECTOMY, left central neck dissection (N/A Neck) Cooperates? Yes Mental Status Performs simple tasks. Respiratory Satisfactory - Airway patent (self maintained). Cardiovascular Satisfactory - Blood pressure and heart rate acceptable Temperature Satisfactory Pain Satisfactory N/V Control Satisfactory Hydration Satisfactory - No signs of dehydration Vitals Value Taken Time Temp 36.3 C (97.4 F) 04/22/2019 9:14 AM Pulse 95 04/22/2019 9:14 AM Resp 18 04/22/2019 9:14 AM BP 155/96 04/22/2019 9:14 AM Arterial Line BP Arterial Line BP 2 SpO2 98 % 04/22/2019 9:14 AM Electronically signed by Doris Beckwith CRNA 04/22/2019 9:16 AM [facility] Doris Beckwith CRNA at 019 5:35 PM PSTAnesthesia Procedure Notes - Doris Beckwith CRNA - 04/22/2019 7:29 AM PS TAssociated Order(s): PIV Intravenous Line Placement 04/22/2019 7:10 AM Indication: necessitating physician/SENIOR PARALEGAL skill Preparation: alcohol patient was: under GA Side: right Orientation: proximal Vein location: hand Size: 18 g Securement: transparent dressing Placed by: Doris Beckwith CRNA Authorizing provider: Doris Beckwith CRNA Please see intraoperative grid for any additional medication documentation. nesthesia Procedu re Notes - Doris Beckwith CRNA - 04/22/2019 7:28 AM PSTAssociated Order(s): AirwayAnesth esia Airway Placement 04/22/2019 7:10 AM Preprocedure check: patient identified, oxygen, airway assessed, patient reassessment prior to induction, airway equipment checked and suction Mask ventilation: easy Successful technique: Gentile Laryngoscope blade size: 2 Airway grade: 1 (Full view of glottis) Other equipment: stylette Attempts: 1 Airway type: endotracheal and NIM Size: 8 Cuffed: cuffed Route, reference point: right side of mouth Tube depth: 23 cm Tube secured with: adhesive tape Trauma: none Tube placement verification: bilateral chest rise, carbon dioxide detection and equal bilat eral breath sounds Performing provider: Doris Beckwith CRNA Authorizing provider: Doris Beckwith CRNA Please see intraoperative grid for any additional medication documentation. nesthesia Preproc edure Evaluation - Doris Beckwith CRNA - 04/22/2019 6:27 AM PSTFormatting of this note m ight be different from the original. ANESTHESIA PREANESTHESIA EVALUATION Tamera Yang 39 y.o. female 1980 [id number] Procedure(s): LEFT THYROIDECTOMY WITH POSSIBLE TOTAL THYROIDECTOMY (N/A Neck) Medical,anesthesia, drug, allergy histories reviewed, NPO status verified. ECG reviewed. Labs reviewed. (-) perioperative beta-daniela/statin not given/taken, reason : not applicable/Not taking Beta-Daniela. Review of Systems / Med History Anesthesia History (+) previous surgery or anesthesia. Cardiovascular (+) hypertension . Endocrine (+) goiter. (+) obesity: morbid BMI 40+ (+) Diabetes: type 2. Hematology/Other (+) anemia. Obstetrics (+) proteinuria. Psychology (+) psychiatric history of anxiety. Physical Exam Airway MP II, TM >3 FB, Mouth opening >2 FB. Neck: full ROM, extends >30 degrees. Jaw protrus ion normal. Facial hair present: No Dental grossly normal except where noted below. CV Rhythm regular. Rate normal. Pulm Clear to auscultation bilaterally. Neuro grossly normal. Anesthesia Plan ASA: 3 Type: General. Induction: Intravenous. Potential problems: None anticipated. Monitors: Standard ASA monitors. Postop Pain Management: Consent statement: Anesthetic plan, alternatives, risks and benefits discussed with patient. , discussed risks to teeth, disability, drug reaction, heart problems, ICU placement, infection, muscle aches, nausea, pain, perioperative CV events, post-op intubation, respiratory events, sore t hroat Consenting person understands and agrees to proceed. Discussed plan with SENIOR PARALEGAL. Electronically Signed by: Doris Beckwith CRNA ESig date/time: 04/22/2019 6:27 AM documented in this encounter Miscellaneous Notes Anesthesia Post-op Handoff - Doris Beckwith CRNA - 04/22/2019 9:16 AM PST ANESTHESIA HANDOFF NOTE Tamera Yang 39 y.o. female 1980 [id number] TOTAL THYROIDECTOMY, left central neck dissection (N/A Neck) HANDOFF NOTE Handoff Protocol Used: post-procedure handoff checklist completed The following were completed during the transfer of care: 1. Identification of patient 2. Identification of responsible practitioner (primary service) 3. Discussion of pertinent medical history 4. Discussion of the surgical/procedure course (procedure, reason for surgery, procedure pe rformed) 5. Intraoperative anesthetic management and issues/concerns 6. Expectations/plans for the early post-procedure period 7. Opportunity for questions and acknowledgement of understanding of report from receiving team Patient Location: Phase I Condition: awake, alert and responds to stimuli Airway/O2: face mask with O2 The significant anesthesia concerns and VS in Epic were reviewed with the receiving team. Doris Beckwith CRNA 04/22/2019 9:16 AM [facility] signed by Doris Beckwith CRNA at 019 9:16 AM PSTdocumented in this encounter Plan of Treatment +--------+---------+ + + + | Date | Type | Specialty | Care Team | Description | +--------+---------+ + + + | 11/21/ | Office | Endocrinology | Donny Ji, | | | 2019 | Visit | | MD [address] | | | | | | [place], | | | | | | [place] [address] | | | | | | [phone] | | | | | | | | +--------+---------+ + + + | 12/07/ | Office | Cardiology | Nisha Forde DO | | | 2019 | Visit | | [address] | | | | | | [place] | | | | | | [address] | | | | | | | [...] + +--------+ + + + | ANE HANSEL NOTE | Routin | 04/22/2019 | | [...] 7:10 AM Indication: necessitating | | | physician/SENIOR PARALEGAL skill Preparation: alcohol patient was: under GA [...]
--- OUTSIDE RECORDS SUMMARY | ~2019-11-08 | XMS | Encounter Summary ---
Demographics + + + | Address | [address] | | | [place] [address] | + + + | Home Phone | | + + + | Preferred Language | Unknown | + + + | Marital Status | Single | + + + | Mosque Affiliation | Unknown | + + + | Race | Unknown | + + + | Ethnic Group | Unknown | + + + Author + + + | Author | [facility] | | | and [place] | + + + | Organization | [facility] | | | [...] Team Providers + +------+ + | Care Adjunct Political Science Instructor Name | Role | Phone | + +------+ + | Kiersten Pardo MD | PCP | | + +------+ + Reason for Visit + + + | Reason | Comments | + + + | Follow-up, Office | | | Visit | | + + + Evaluate & Treat (Routine) +--------+--------+ + + + + | Status | Reason | Specialty | Diagnoses / | Referred By | Referred To | | | | | Procedures | Contact | Contact | +--------+--------+ + + + + | Closed | | Cardiology | Diagnoses | | Eula, | | | | | Essential | Edvin, | DO Nisha | | | | | (primary) | MD Kiersten | [address] | | | | | hypertension | [address] | | | | | | ST | [place] | | | | | Supraventric | [place], | [address] Phone: | | | | | ular | [place] | [phone] | | | | | tachycardia | [address] | Fax: | | | | | (HCC) | Phone: | [phone] | | | | | Procedures | [phone] | | | | | | Consult | Fax: | | | | | | | [phone] | | +--------+--------+ + + + + Encounter Details +--------+---------+ + + + | Date | Type | Department | Care Team | Description | +--------+---------+ + + + | 05/05/ | Office | [facility] | Lanie Reece | 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, and sent in refills on metoprolol, cardizem, [...] record documented in this encounter Progress Notes Lanie Reece FNP - 05/05/2019 2:30 PM PSTFormatting of [...] had a total thyroidectomy on 2018 at [facility] by ENT specialist Dr. Cota. [...] an appointment to follow-up with ENT in [facility], and as discussed, diagnosed with thyroid [...] or any emergency room visits since discha rged on April 23 from [facility]. She denies any smoking history, drinks caffeine only rarely has stopped drinking soda 2 mo nths ago. She reports she drinks alcohol only on rare occasions, and denies any use of recr eational or illicit drugs except for occasional marijuana edible. 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 REVIEW OF SYSTEMS: Negative except for pertinent [...] abd ominal pain and blood in stool. Genitourinary/Cio Denies hematuria. Hx tubal ligation Musculoskeletal: arthralgia [...] recreational or illicit drug use. Lives in [place] . Works as caregiver f or state [...] no ASD, no VSD Echo: 07/20/2015: ( [facility]) TDS: Grossly normal study: LV normal in [...] V3 and lateral leads. Rate 92 bpm, WA 1020, QTC 455 ms, nonspecific T wave abnormality, tracing personally reviewe d by me EK04/15/2019:( [facility]) Sinus rhythm with sinus arrhythmia, LVH. Rate 70 bpm, WA 182 ms, Q RS 98 ms, QTC 436 ms, tracing personally reviewed by me EK05/05/2019: Normal sinus rhythm, low voltage QRS leads aVF, V2 V3 and lateral leads, o ngoing nonspecific T wave abnormality. Rate 72 bpm, WA 188 ms, QRS 94 ms, QTC 451 ms, muna ng personally reviewed by me, and similar morphology [...] ordered a BMP to be performed at [facility] in [place] in 1 month to evaluate her renal function after being on indapamide. I will see her back on July 07, and she will follow-up with primary health organisation manager Dr. Eula macias December 07 for primary [...] contain inadvertent rec ognition errors. Elmer OLSON [facility] Cardiology 05/05/2019 Zora ented in this encounter Plan of Treatment +--------+---------+ + + + | Date | Type | Specialty | Care Team | Description | +--------+---------+ + + + | 11/21/ | Office | Endocrinology | Donny Ji, | | | 2019 | Visit | | MD [address] | | | | | | [place], | | | | | | [place] [address] | | | | | | [phone] | | | | | | | | +--------+---------+ + + + | 12/07/ | Office | Cardiology | Nisha Forde DO | | | 2019 | Visit | | [address] | | | | | | [place] | | | | | | [address] | | | | | | | [...] | 05/05/2019 | AVNRT (AV eriberto | Results for this | | | e | 2:46 PM | re-entry | procedure are in the | | | | PST | tachycardia) ([facility]) | results section. | | | | | Essential | | | | | | hypertension High | | | | | | triglycerides | | | | | | Prediabetes | | | | | | Papillary thyroid | | | | | | carcinoma ([facility]) H/O | | | | | | total thyroidectomy | | + +--------+ + + + documented in this encounter Results ECG 12 lead (05/05/2019 2:46 PM PST) + + + + + + | Component | Value | Ref Range | Performed | Pathologist | | | | | At | Signature | + + + + + + | VENTRICULAR | 72 | BPM | [facility] | | | RATE EKG | | | | | + + + + + + | ATRIAL RATE | 72 | BPM | [facility] | | + + + + + + | P-R | 188 | ms | [facility] | | | INTERVAL | | | | | + + + + + + | QRS | 94 | ms | [facility] | | | DURATION | | | | | + + + + + + | Q-T | 412 | ms | [facility] | | | INTERVAL | | | | | + + + + + + | Q-T | 451 | ms | [facility] | | | INTERVAL | | | | | | (CORRECTED) | | | | | + + + + + + | P WAVE AXIS | 32 | degrees | [facility] | | + + + + + + | QRS AXIS | -4 | degrees | [facility] | | + + + + + + | T AXIS | 33 | degrees | [facility] | | + + + + + + | INTERPRETAT | Please refer to | | [facility] | | | ION TEXT | Providers office visit | | | | | | note for Providers | | | | | | Interpretation.Confirmed | | | | | | by [facility] Read Only, | | | | | | [facility] ([id number]), | | | | | | editor department Adam Mendoza | | | | | | ([id number]) on 05/12/2019 | | | | | | 8:47:11 AM | | | | + + [...]
--- OUTSIDE RECORDS SUMMARY | ~2019-11-08 | XMS | Encounter Summary ---
Demographics + + + | Address | [address] | | | [place] [address] | + + + | Home Phone | | + + + | Preferred Language | Unknown | + + + | Marital Status | Single | + + + | Caodaism Affiliation | Unknown | + + + | Race | Unknown | + + + | Ethnic Group | Unknown | + + + Author + + + | Author | [facility] | | | and [place] | + + + | Organization | [facility] | | [...] Team Providers + +------+ + | Care Supervisor Sewing Room Name | Role | Phone | + [...] + + + + | 04/22/ | Hospital | [facility] | Monika Morillo | Thyroid nodule; | | 2019 - | Encounter | [facility] [address] | J, DO [address] | Thyromegaly; | | | | [address] | [address] | Thyroid nodule; | | 04/23/ | | [place], [place] | [place] [address] | Thyromegaly | | 2019 | | [address] | [phone] | | | | | [phone] | | | +--------+ + + + [...] Monika Morillo, - 04/23/2019 12:20 PM PST [facility] Service: Otolaryngology Brief Post-op Discharge Note DISCHARGE [...] the hands,feet, or lips Date Last Reviewed: 03/11/201619999967-4408 [employer] [address] [place] [address]. All righ ts reserved. This information is [...] tablets by | 15 | 0 | 04/23/20 | | | HYDROcodone-acetamin | mouth every [...] documented as of this encounter Progress Notes Monika Morillo, DO - 04/23/2019 12:[address] [facility] Service: Otolaryngology Progress Note Hospital Day: [...] all discharge criteria. A prescription for Synthroid, [place], and Zofran have been given to the patient. It does not appear that she needs supplemental calcium. The symptoms of hypocalcemia have been discusse d with the patient in proper treatment was relayed to the patient. She is to follow-up with me in 1 week for suture removal and to discuss final pathology. Disposition: Home Code Status: Full Code Monika Morillo DO 04/23/2019 oBreanne preston [facility] - 04/22/2019 1:14 PM PSTRx Admission Medication History Note I have reviewed the medication history for appropriate doses obtained by: Other : Obtaine d by myself after reviewing the patient's dispense history and confirming the dispense histo ry with the patient's two pharmacies. [place] at both the [email or web address]. RN also confirmed the patient's current [...] omeprazole 40 mg (although patient did not brain picker, lik cydney due to cost) -Marked the alprazolam as not taking as this has not been filled in 14 months, patient stat ed prior use only occasional but has not been using this. I agree with the home medications list Please Review and Order Home Medications as necessary. Thanks BREANNE AGARWAL RPH 04/22/2019 @ 1:07 PM documented in this en counter H&P Notes Monika Morillo DO - 04/22/2019 6:18 AM PST [facility] Service: Otolaryngology Pre-Operative History & Physical DIAGNOSIS: Left thyroid nodule, thyromegaly INDICATION: As above PROCEDURE: Left thyroid lobectomy with frozen section with possible total thyroidectomy wit h nerve integrity monitoring of recurrent laryngeal nerves CHIEF COMPLAINT: Thyroid nodule, compressive symptoms, dysphagia History Obtained From: History obtained from the patient. HISTORY OF PRESENT ILLNESS The patient is 39 y.o. female who I was asked to see in consultation for evaluation of a le ft thyroid nodule. The patient reports that the nodule has been present for at least 3 month s. The onset of the nodule was gradual. Associated symptoms were positive for dysphagia, laura rseness, frequent clearing of the throat, globus sensation, and compression of the neck when she lays back. There has not been a history of pain, fatigue, weight loss, fevers, or night sweats. The recent exposure history has been negative. Patient denies any family history of thyroid cancer. She denies any personal history of exposure to external beam radiation to the head or neck. There has not been a fine-needle aspiration biopsy performed of the kari e. She does admit to tenderness to palpation over this left thyroid nodule. A TSH returned as 1.2, T3 returned as 117 and her free T4 returned is 1.35. These were all within normal range. REVIEW OF SYSTEMS ROS Constitutional: negative Respiratory: negative Cardiovascular: positive for chest pain, chest pressure/discomfort and palpitations Gastrointestinal: positive for dysphagia and reflux symptoms Hematologic/lymphatic: positive for lymphadenopathy Musculoskeletal:positive for arthralgias, bone pain and muscle weakness Neurological: negative Behavioral/Psych: positive for anxiety, depression, irritability, mood swings and sleep dis turbance Endocrine: negative Allergic/Immunologic: negative History: Past Medical History: Diagnosis Date Anemia Anxiety Blood pressure check other abstracted Diabetes type 2, controlled (HCC) Hypertension Hypokalemia other abstracted Obesity other abstracted Prediabetes Proteinuria other abstracted Thyroid disease Vitamin D deficiency other abstracted Past Surgical History: Procedure Laterality Date CHOLECYSTECTOMY GALLBLADDER SURGERY other abstracted OTHER SURGICAL HISTORY other abstracted TONSILLECTOMY AND ADENOIDECTOMY TUBAL LIGATION 2009 Family History Problem Relation Age of Onset Hypertension Father Malig hypertherm Neg Hx Social History Socioeconomic History Marital status: Single Spouse name: Not on file Number of children: Not on file Years of education: Not on file Highest education level: Not on file Tobacco Use Smoking status: Never Smoker Smokeless tobacco: Never Used Substance and Sexual Activity Alcohol use: Yes Comment: Alcoholic Drinks/day: occasional Drug use: Not Currently Types: Marijuana Comment: no Allergies: Allergies Allergen Reactions Zestoretic [Lisinopril-Hydrochlorothiazide] Cough Social History Socioeconomic History Marital status: Single [...] file Gets together: Not on file Attends confucianist service: Not on file Active member of [...] file Social History Narrative Not on file PHYSICAL EXAM Vital Signs: There were no vitals taken for this visit. Physical Exam General: healthy, alert, appears stated age Head [...] diagnostic information in this clinical setting. Name: CATARINA MEJIA Phys: HEIDY MEDEIROS MD : 1980 Age: 39 Sex: F Acct: [id number] Loc: ED Exam Date: 03/16/2019 Status: REG ER Radiology No: Unit No: [id number] EXAM# TYPE/EXAM RESULT CPT CODE [id number] US/HEAD NECK SOFT TISSUE/THYROI [id number] Exam: Thyroid sonogram. HISTORY: Enlarged thyroid. TECHNIQUE: [...] 03/16/2019 (0110) Reported By: DARIEN CHRISTIANSON MD DATA No results found for this or any previous visit (from the past 24 hour(s)). PROBLEM LIST Patient Active Problem List Diagnosis AVNRT (AV eriberto re-entry tachycardia) Essential hypertension Class 3 severe obesity with body mass index (BMI) of 45.0 to 49.9 in adult Thyroid nodule Thyromegaly ASSESSMENT & PLAN 1. Patient is a 39 y.o. female with above specified procedure planned. 2. Procedure options, risks, benefits and alternatives reviewed with the patient who expr ess(es) understanding. Any and all questions were answered to their satisfaction. Primary Care Physician: MD Monika Callaway DO 04/22/2019 documented in thi s encounter Miscellaneous Notes Plan of Care - oL William RN - 04/23/2019 12:47 PM PST Problem: Pain Acute Goal: Optimal Pain Control Outcome: Ongoing, progressing Note: Patient states pain is under control on current regimen. Will continue to monitor and provi de medication as well as comfort measures as needed. Problem: Bleeding (Surgery Nonspecified) Goal: Absence of Bleeding Outcome: Ongoing, progressing Note: Dressing CDI Problem: Bowel Elimination Impaired (Surgery Nonspecified) Goal: Effective Bowel Elimination Outcome: Ongoing, progressing Note: Pt passing gas, bowel tones active, no BM this shift lan of Blaire Desouza RN - 04/23/2019 6:53 AM PSTPatient is resting comfortably in low bed w ith call light, non-skid socks, bed rail x2 and side table. Calm and pleasant throughout beth ft. Denied pain throughout shift. Independent in room and ambulated in the hallway with spou se as tolerated. Dressing remains clean and dry. VSS, afebrile. No acute events noted overni ght. Shift chart review complete. lan of Blaire Desouza RN - 04/22/2019 10:19 PM PST Problem: Pain Acute Goal: Optimal Pain Control Outcome: Ongoing, progressing Denies pain at this time. Will managed with PO medications as indicated. Problem: Bleeding (Surgery Nonspecified) Goal: Absence of Bleeding Outcome: Ongoing, progressing Dressing CDI with no acute bleeding noted. Problem: Postoperative Nausea and Vomiting (Surgery Nonspecified) Goal: Nausea and Vomiting Relief Outcome: Ongoing, progressing Denies nausea/vomiting. Will manage and address as indicated. Problem: Postoperative Urinary Retention (Surgery Nonspecified) Goal: Effective Urinary Elimination Outcome: Ongoing, progressing Voiding appropriately, quantity sufficient. lan of Nahomy Donovan RN - 04/22/2019 5:42 PM PSTSh ift check complete dinesh of Nahomy Donovan RN - 04/22/2019 12:53 PM PST Problem: Adult Inpatient Plan of Care Goal: Plan of Care Review Outcome: Ongoing, progressing Call light within reach. Pain is manageable. p Note - Monika Morillo DO - 04/22/2019 9:05 AM PST [facility] Service: Otolaryngolgy Operative Note Pre-operative Diagnosis: Left thyroid nodule Post-operative Diagnosis: Papillary thyroid carcinoma with metastasis Procedure(s): Total thyroidectomy with nerve integrity monitoring of recurrent laryngeal ne rves with left central neck dissection Surgeon: Monika Morillo DO Service Attendant Cafeteria(s): Chris Munoz M.D. Anesthesia: General endotracheal anesthesia Estimated Blood Loss: less than 50 Other: Specimens: Right and left thyroid lobes, left central neck contents Indications: See pre-operative history and physical Findings: Frozen section revealed several lymph nodes were positive for metastatic papillar y carcinoma. There was discoloration of the left thyroid nodule with a bluish hue. There i s also several firm and enlarged lymph nodes in the left neck level 6. The recurrent laryng eal nerves were identified and preserved bilaterally. They stimulated appropriately at 0.8 mA. Parathyroid glands were identified and preserved bilaterally. Complications: None Description of Procedure: The patient was taken to the operating room and placed in the gaines pine position. After general endotracheal anesthesia was obtained, the patient was draped an d prepped in the usual sterile fashion. The endotracheal tube that was used was a NIM compat ible tube for use with the nerve integrity monitor. Appropriate grounding electrodes were th en placed adjacent to the left clavicle. Once this was done, a 6 cm incision was mapped out about 2 fingerbreadths above the sternal notch. Local anesthesia was injected consisting of 1% lidocaine with 1:100,000 epinephrine. The 6 cm incision was then made through the skin an d through the underlying platysma muscle. Small areas of bleeding were cauterized with Bovie cautery. Superiorly and inferiorly based flaps were elevated in the subplatysmal plane. Onc e this was done, the strap muscles were split in the midline using Bovie cautery. The left t hyroid lobe was identified. The strap muscles were off the underlying lobe and cervical lymph nodes were imme diately encountered. These were sent to pathology and returned as positive for metastatic p apillary thyroid cancer. The left thyroid lobe was brought up into position. Dissection beg an in the triangle formed by the inferior aspect of the left thyroid lobe, the common caroti d artery laterally, and the tracheoesophageal groove medially. The recurrent laryngeal nerve was identified both visually and with stimulation with the Nerve Integrity Monitor. The ner ve was then followed up under the thyroid gland to fully expose it. The inferior thyroid ves sels and the middle thyroid vein were then taken using the harmonic scalpel. There was nota ble adenopathy at the inferior aspect of the left thyroid lobe. Attention was then turned t oward the superior pole of the left thyroid lobe. Using Crile clamp, the superior aspect of the thyroid lobe was isolated and ligated with th e harmonic scalpel. The left thyroid lobe was then mobilized from lateral to medial. Two par athyroid glands were identified in close proximity to each other, somewhat superiorly. The g land was then freed up off the underlying recurrent laryngeal nerve and brought up to Montez ligament. Attachments were then lysed with the bipolar cautery. This area was removed to the isthmus. The thyroid gland was divided at the isthmus and the left lobe was sent separatel y. Attention was then turned toward the right side.Using mostly blunt dissection, the strap m uscles were freed off the underlying right thyroid lobe. The right thyroid lobe was found to be quite enlarged. There also was a superiorly based nodule up at the superior pole. Dissec tion began inferiorly and the area of the triangle formed by the carotid artery, the tracheo esophageal groove, and the inferior aspect of the inferior thyroid lobe until the recurrent laryngeal nerve was identified. Loose attachments were then taken off the right thyroid lobe to include parathyroid tissue. The material was then taken down to the thyroid gland and re moved. Attention was turned toward the superior pole where the superior pole vessels were is olated, ligated with the harmonic scalpel. The right thyroid lobe was then mobilized from la teral to medial and the recurrent laryngeal nerve followed up into its insertion into the cr icothyroid membrane. The remainder of the right thyroid lobe was brought up to Montez ligamen t and the trachea. Gelfoam and thrombin were then placed into the surgical site. Hemostasis appeared to be good. Attention was then turned to left central neck dissection. We followed the recurrent laryng eal nerve down to the superior mediastinum and dissected from the internal carotid on the le ft over to the recurrent laryngeal nerve on the right the patient had an innominate artery c rossing the trachea on the right side going superior to the trachea into the mediastinum. T he lymph nodes and fatty tissue were dissected free from this region there were a number of lymph nodes on the left side that were removed and a level 6 dissection was completed jael hanna all of the tissue in this area with a number of lymph nodes included. At this time, a round #10 Grant-Alcala drain was placed. The strap muscles were closed wit h running 3-0 Vicryl. Interrupted 4-0 Vicryl was used to close the platysma. The subcutaneou s tissue was closed with interrupted 4-0 Vicryl and the skin closed with running subcuticula r 5-0 Prolene. A sterile dressing was applied. The patient was then extubated in the operati ng room and taken to the recovery room in stable condition and with spontaneous respirations The physical therapy assistant surgeon was involved in all aspects of the surgical procedure. He was invol sherine in helping to identify critical structures during the procedure to include the recurrent laryngeal nerve and parathyroid glands. To perform the procedure in a safe manner, the ass istant surgeon needs to have a strong fundamental working knowledge of relevant anatomy in [facility] to be able to assist the primary surgeon with removal of the thyroid gland and preserva tion of relevant nerves and other critical structures. The physical therapy assistant surgeon operated instr uments to include bipolar cautery, monopolar cautery, and the Harmonic scalpel at various ti mes throughout the surgical procedure. His involvement in the surgery was essential to succ essful performance of thyroid surgery on this patient. Condition: Stable Monika Morillo DO 04/22/2019 9:06 AM documented in thi s encounter Plan of [...] | | | | | | [place] [address] | | | | | | [phone] | | | | | | | | +--------+---------+ + + + | 12/07/ | Office | Cardiology | Nisha Forde DO | | | 2019 | Visit | | [address] | | | | | | [place] | | | | | | [address] | | | | | | | [...] Nomogram | 12 - 88 pg/mL | [facility] | | | | suggests Normal | | LABORATORY | | | | Parathryoid | | | | | | status.Diagnosis of | | | | | | parathyroid disease | | | | | | requires both clinical | | | | | | and laboratory | | | | | | data.Testing performed | | | | | | at [facility], [address] | | | | | [address], | | | | | | [place] [address] | | | | + + + + + + + + | Specimen | + + | Blood | + + + + + + + | Performing | Address | City/State/Zipcode | Phone Number | | Organization | | | | + + + + + | [facility] | [address] | [place] [address] | [phone] | + + + + + Calcium, [...] | | | | performed at [facility];[address] | | LABORATORY | | | | [address];[place], [place] | | | | | | [address] | | | | + + + + + + + + | Specimen | + + | Blood | + + + + + + + | Performing | Address | City/State/Zipcode | Phone Number | | Organization | | | | + + + + + | [facility] | [address] | [place] [address] | [phone] | + + + + + POC Glucose (04/22/2019 9:18 AM PST) + + + + + + | Component | Value | Ref Range | Performed | Pathologist | | | | | At | Signature | + + + + + + | Glucose, | 121 (H)Comment: Testing | 65 - 99 mg/dL | [facility] | | | POC | performed at [facility];[address] | | LABORAT[address] | | | | [address];[place] | | | | | | [address] | | | | + + + + + + + + | Specimen | + + | | + + + + + + + | Performing | Address | City/State/Zipcode | Phone Number | | Organization | | | | + + + + + | [facility] | [address] | [place] [address] | [phone] | + + + + + Surgical [...] | for papillary carcinoma. (Dr. Dietz, 04/22/19, 0752) The frozen | | | section diagnosis is called to Dr. Morillo.GW (under the direct | | | supervision [...] lymph nodes involved by tumor: 8. - Eriberto | | | levels involved: Perithyroidal and left central neck.- Surgical | | | pathology stage: pT3a pN1b. C. Left central neck contents, | | | dissection:- Six of 7 lymph nodes positive for metastatic papillary | | | carcinoma (6/7). COMMENT:As part of [facility]' Quality | | | Improvement Program, this [...] There is no nodule or induration. Three medical billing representative | | | sections are submitted in cassettes B1 and B2. The larger lobe of | | | thyroid is inked black sectioning reveals a large 4.5 x 4.0 x 3.0 cm | | | soft,papillary/friable pink-lakhani nodule which occupies almost the | | | entire lobe. There is no grossly recognizable normal thyroid | | | parenchyma. Six medical billing representative sections are submitted in cassettes | [...] section was | | | performed at [address], | | | [place] [address] (Publicist: Jim Uriarte M.D.; CLIA#: | | | [id number]).The technical component was performed by [facility] | | | [facility], [address] [place] [address] (Publicist: | | | Regine Dietz MD; CLIA# [id number]). Professional interpretation was | | | performed by[facility], [place] [address] | | | [place] [address] (Publicist: Jim | | | Agnes Uriarte; CLIA#: [id number]). Diagnostician: Regine Dietz | | | MDPathologistElectronically Signed 04/26/2019 | | | | | |There is no nodule or induration. Three medical billing representative sections are submitted in cassette s B1 and B2. The larger lobe of thyroid is inked black sectioning reveals a large 4.5 x 4. 0 x 3.0 cm soft, | | |papillary/friable pink-lakhani nodule which occupies almost the entire lobe. There is no may sly recognizable normal thyroid parenchyma. Six medical billing representative sections are submitted in c assettes B3-B8. | | | | | |C. The specimen is received in a formalin filled specimen container labeled "[facility] central neck contents". A lobular excision of [...] | |The frozen section was performed at [place] [address] (Publicist: Jim Uriarte M.D.; CLIA#: [id number]). | | |The technical component was performed by [facility], [address] [place] [address] (Publicist: Regine Dietz MD; CLIA# [id number]). Professional interpretation was performed by | | |[facility], [address] [address] (Publicist: Jim Uriarte M.D.; CLIA#: [id number]). | | | | | |Diagnostician: Regine [...] | | POC | performed at [facility];[address] | | LABORATORY | | | | [address];[place] | | | | | | [address] | | | | + + + + + + + + | Specimen | + + | | + + + + + + + | Performing | Address | City/State/Zipcode | Phone Number | | Organization | | | | + + + + + | [facility] | [address] | [place] [address] | [phone] | + + + + + POCT Test, Urine, Qual (04/22/2019 6:12 AM PST) + + + + + + | Component | Value | Ref Range | Performed | Pathologist | | | | | At | Signature | + + + + + + | HCG, | NEGATIVEComment: Testing | NEG | [facility] | | | Quantitativ | performed at [facility];[address] | | LABORATORY | | | e POC | [address];[place], [place] | | | | | | [address] | | | | + + + + + + + + | Specimen | + + | | + + + + + + + | Performing | Address | City/State/Zipcode | Phone Number | | Organization | | | | + + + + + | [facility] | [address] | [place] [address] | [phone] | + + + + + documented [...] | | | | First dose on Thu04/23/19 at | | AM PST | | [...] | | | | | | longer, kzdoxd-hoc-pnjpu use of | | | | | [...] | | | | | CONTINUOUS, Starting 04/22/19 | | AM PST | | | [...] | | | | | modification) on 12/13/19 at | | | | | | [...] AM PST | | | | | 04/22/19 at 1200 | | | | | [...]
--- OUTSIDE RECORDS SUMMARY | ~2019-11-08 | XMS | Encounter Summary ---
Demographics + + + | Address | [address] | | | [place] [address] | + + + | Home Phone | | + + + | Preferred Language | Unknown | + + + | Marital Status | Single | + + + | Jain Affiliation | Unknown | + + + | Race | Unknown | + + + | Ethnic Group | Unknown | + + + Author + + + | Author | [facility] | | | and [place] | + + + | Organization | [facility] | | | [...] Team Providers + +------+ + | Care Block Chopper Hand Name | Role | Phone | + +------+ + | Kiersten Pardo MD | PCP | | + +------+ + Reason for Visit + +--------+ + | Reason | Onset | Comments | | | Date | | + +--------+ + | Follow-up | 07/19/ | Reschedule 07/21/19 | | | 2020 | | + +--------+ + Encounter Details +--------+ + + + + | Date | Type | Department | Care Team | Description | +--------+ + + + + | 07/19/ | Telephone | [facility] | Donny Ji, | Follow-up | | 2019 | | ENDOCRINOLOGY [address] | MD [address] | (Reschedule 07/21/19) | | | | [address] | [place], | | | | | [place], [place] | [place] [address] | | | | | [address] | [phone] | | | | | [phone] | | | +--------+ + + + [...] + + documented as of this encounter Miscellaneous Notes Telephone Encounter - Mae Hough CMA - 07/20/2019 10:10 AM PDTI returned patient's c all and scheduled a follow-up on 08/10/19 at 9:00AM. elephone Encounter - Brittany Corea - 07/20/2019 10:01 AM PDTLorena, is calling regarding Follow-up (Reschedule 07/21/19) and would like a call back. Additional Call Details: Patient called to reschedule the 07/21/19 appointment due to havin g radiology treatment. States she is not wanting to wait the 4 weeks out to be rescheduled. Please call back at the home number. If this is a symptom based call, was patient offered triage? Not Applicable If this is a symptom based call and you were unable to immediately transfer the call to a p amos armored machine operator was caller made aware that if at any time she feels it is an emergency they sh ould call 911 or go to the nearest emergency room? not applicable documented in this encounter Plan of Treatment +--------+---------+ + + + | Date | Type | Specialty | Care Team | Description | +--------+---------+ + + + | 11/21/ | Office | Endocrinology | Donny Ji, | | | 2019 | Visit | | MD [address] | | | | | | [place], | | | | | | [place] [address] | | | | | | [phone] | | | | | | | | +--------+---------+ + + + | 12/07/ | Office | Cardiology | Nisha Forde DO | | | 2019 | Visit | | [address] | | | | | | [place] | | | | | | [address] | | | | | | | | +--------+---------+ + + + documented as of this encounter Visit Diagnoses Not on filedocumented in this encounter"
--- OUTSIDE RECORDS SUMMARY | ~2019-11-08 | XMS | Encounter Summary ---
Demographics + + + | Address | [address] | | | [place] [address] | + + + | Home Phone | | + + + | Preferred Language | Unknown | + + + | Marital Status | Single | + + + | Episcopal Affiliation | Unknown | + + + | Race | Unknown | + + + | Ethnic Group | Unknown | + + + Author + + + | Author | [facility] | | | and [place] | + + + | Organization | [facility] | | | [...] Team Providers + +------+ + | Care Rubber Mill Operator Name | Role | Phone | [...] | New onset | Phone: | MARK EDMONDS | | | | | mass on | | [address] | | | | | anterior | Fax: | [place] | | | | | neck causing | | [address] Phone: | | | | | change in | | [phone] | | | | | voice and | | Fax: | | | | | some | | [phone] | | | | | dysphagia | | | + + + + + + + Encounter Details +--------+---------+ + + + | Date | Type | Department | Care Team | Description | +--------+---------+ + + + | 04/01/ | Office | [facility] | Monika Pretty | Thyroid nodule | | 2019 | Visit | NOSE AND THROAT [address] | J, DO [address] | (Primary Dx); | | | | [address] | [address] | Thyromegaly; | | | | [place], [place] | [place] [address] | Dysphagia, | | | | [address] | [phone] | unspecified type; | | | | [phone] | | Laryngopharyngeal | | | | [...] 3:00 PM PSTFormatting of this note mi ght be different from the original. Surgery Date: 04/22/19 Location: [facility] ([address] [place] [address]) FYI: Prior to your surgery, you will receive a call to schedule a Pre-Admission appointment. This appointment is required. If you do not hear from anyone please call [phone], Opt ion 4. A time for surgery is not given until the day before. The hospital will be contacting y salo to give you a time for arrival. Unfortunately, our office does not know this information so if you are concerned with your surgery time please call the hospital directly at [phone]. If you need to cancel or reschedule your surgery, pre-op, or post-op dates please contact [place] pat at [phone], Option 4. *IF YOU HAVE FMLA/SHORT-TERM DISABILITY PAPERWORK THAT NEEDS TO BE FILLED OUT, PLEASE DROP IT OFF OR FAX IT TO OUR OFFICE ([phone]) TWO WEEKS PRIOR TO SURGERY. MAKE SURE TO INCLU DE TIME OFF NEEDED AND/OR WHEN YOU PLAN TO RETURN TO WORK. PLEASE ALLOW 7-10 BUSINESS DAYS F OR COMPLETION. If you would like an estimate for your surgery, please contact the [facility] Financial [facility]al Health Care Manager ors/Authorization Department at [phone]. Having Thyroid Surgery The incision is made [...] take vitamin D supplements. Date Last Reviewed: 03/11/201619994520-9750 [employer]. [address] [place] [address]. All righ ts reserved. This information is [...] : 1980 Age: 39 Sex: F Acct: [id number] Loc: ED Exam Date: 03/16/2019 Status: REG ER Radiology No: Unit No: [id number] EXAM# TYPE/EXAM RESULT CPT CODE [id number] US/HEAD NECK SOFT TISSUE/THYROI [id number] Exam: Thyroid sonogram. HISTORY: Enlarged thyroid. TECHNIQUE: [...] the ultrasound findings and ultrasound with the pat iefracisco. We have discussed that she does have [...] of these aspects of their care an adithya requests that I proceed with the planned [...] system. The possibil ity of "sound alike" solder leveler printed circuit boards errors, additions or deletions may occur. If [...] | | | | | | [place] [address] | | | | | | [phone] | | | | | | | | +--------+---------+ + + + | 12/07/ | Office | Cardiology | Nisha Forde DO | | | 2019 | Visit | | [address] | | | | | | [place] | | | | | | [address] | | | | | | | [...]
--- OUTSIDE RECORDS SUMMARY | ~2019-11-08 | XMS | Encounter Summary ---
Demographics + + + | Address | [address] | | | [place] [address] | + + + | Home Phone | | + + + | Preferred Language | Unknown | + + + | Marital Status | Single | + + + | Taoist Affiliation | Unknown | + + + | Race | Unknown | + + + | Ethnic Group | Unknown | + + + Author + + + | Author | [facility] | | | and [place] | + + + | Organization | [facility] | | [...] Team Providers + +------+ + | Care Assistant Manager Bilingual Name | Role | Phone | + +------+ + | Soumya Fuentes | PCP | | + +------+ + Encounter Details +--------+ + + + + | Date | Type | Department | Care Team | Description | +--------+ + + + + | 04/01/ | Prep for | [facility] | Moniak Morillo | | | 2019 | Procedure | NOSE AND THROAT [address] | J, DO [address] | | | | | [address] | [address] | | | | | [place], [place] | [place] [address] | | | | | [address] | [phone] | | | | | [phone] | | | +--------+ + + + [...] 11/21/ | Office | Endocrinology | Donny iJ, | | | 2020 | Visit | | MD [address] | | | | | | [place], | | | | | | [place] [address] | | | | | | [phone] | | | | | | | | +--------+---------+ + + + | 12/07/ | Office | Cardiology | Nisha Forde DO | | | 2020 | Visit | | [address] | | | | | | [place] | | | | | | [address] | | | | | | | | +--------+---------+ + + + documented as of this encounter Visit Diagnoses Not on filedocumented in this encounter"
--- OUTSIDE RECORDS SUMMARY | ~2019-11-08 | XMS | Encounter Summary ---
Demographics + + + | Address | [address] | | | [place] [address] | + + + | Home Phone | | + + + | Preferred Language | Unknown | + + + | Marital Status | Single | + + + | Caodaism Affiliation | Unknown | + + + | Race | Unknown | + + + | Ethnic Group | Unknown | + + + Author + + + | Author | [facility] | | | and [place] | + + + | Organization | [facility] | | | and [...] Team Providers + +------+ + | Care Telecommunication Tower Technician Name | Role | Phone | + [...] + + | 04/22/ | Surgery | [facility] | Monika Morillo | TOTAL THYROIDECTOMY, | | 2018 | | [facility] | J, DO [address] | left central neck | | | | OPERATING RO[address] | dissection | | | | [address] | [place] [address] | | | | | [place], [place] | [phone] | | | | | [address] | | | | | | [phone] | | | +--------+---------+ + + + [...] + + + | Blood Pressure | 184/116 | 04/22/2019 6:48 AM | | | | | PST | | + + + + + | Pulse | 75 | 04/22/2019 6:48 AM | | | | | PST | | + + + + + | Temperature | 36.6 C (97.8 F) | 04/22/2019 6:48 AM | | | | | PST | | + + + + + | Respiratory Rate | 18 | 04/22/2019 6:48 AM | | | | | PST | | + + + + + | Oxygen Saturation | 99% | 04/22/2019 6:48 AM | | | [...] Monika Morillo, - 04/23/2019 12:20 PM PST [facility] Service: Otolaryngology Brief Post-op Discharge Note DISCHARGE [...] the hands,feet, or lips Date Last Reviewed: 03/11/201619990115-0617 [employer]. [address] [place] [address]. All righ ts reserved. This information is [...] Morillo, DO - 04/23/2019 12:14 PM PST [facility] Service: Otolaryngology Progress Note Hospital Day: LOS: [...] all discharge criteria. A prescription for Synthroid, [place], and Zofran have been given to the [...] Code Monika Morillo DO 04/23/2019 oBreanne preston [facility] - 04/22/2019 1:14 PM PSTRx Admission Medication History Note I have reviewed the medication history for appropriate doses obtained by: Other : Obtaine d by myself after reviewing the patient's dispense history and confirming the dispense histo ry with the patient's two pharmacies. Patient [place] at both the [facility] pharmacies. RN also confirmed the patient's current [...] in this en counter H&P Notes Monika Morillo, - 04/22/2019 6:18 AM PST [facility] Service: Otolaryngology Pre-Operative History & Physical DIAGNOSIS: [...] file Gets together: Not on file Attends anabaptism service: Not on file Active member of [...] : 1980 Age: 39 Sex: F Acct: [id number] Loc: ED Exam Date: 03/16/2019 Status: REG ER Radiology No: Unit No: [id number] EXAM# TYPE/EXAM RESULT CPT CODE [id number] US/HEAD NECK SOFT TISSUE/THYROI [id number] Exam: Thyroid sonogram. HISTORY: Enlarged thyroid. TECHNIQUE: [...] encounter Miscellaneous Notes Plan of Care - Lo William RN - 04/23/2019 12:47 PM PST [...] Morillo DO - 04/22/2019 9:05 AM PST [facility] Service: Otolaryngolgy Operative Note Pre-operative Diagnosis: Left thyroid nodule Post-operative Diagnosis: Papillary thyroid carcinoma with metastasis Procedure(s): Total thyroidectomy with nerve integrity monitoring of recurrent laryngeal ne rves with left central neck dissection Surgeon: Monika Morillo DO Home Designer(s): Chris Munoz M.D. Anesthesia: General endotracheal anesthesia [...] and a level 6 dissection was completed removi ng all of the tissue in this area [...] stable condition and with spontaneous respirations The aquatics assistant department head surgeon was involved in all aspects of the surgical procedure. He was invol sherine in helping to identify critical structures during the procedure to include the recurrent laryngeal nerve and parathyroid glands. To perform the procedure in a safe manner, the ass istant surgeon needs to have a strong fundamental working knowledge of relevant anatomy in [facility] to be able to assist the primary surgeon with removal of the thyroid gland and preserva tion of relevant nerves and other critical structures. The aquatics assistant department head surgeon operated instr uments to include bipolar [...] | | | | | | [place] [address] | | | | | | [phone] | | | | | | | | +--------+---------+ + + + | 12/07/ | Office | Cardiology | Nisha Forde DO | | | 2019 | Visit | | [address] | | | | | | [place] | | | | | | [address] | | | | | | | [...] | | | | | | at [facility], [address] | | | | | | [address], | | | | | | [place] [address] | | | | + + + + + + + + | Specimen | + + | Blood | + + + + + + + | Performing | Address | City/State/Zipcode | Phone Number | | Organization | | | | + + + + + | [facility] | [address] | [place] [address] | [phone] | + + + + + Calcium, [...] [facility] | | | | performed at [facility];[address] | | LABORATORY | | | | [address];[place], [place] | | | | | | [address] | | | | + + + + + + + + | Specimen | + + | Blood | + + + + + + + | Performing | Address | City/State/Zipcode | Phone Number | | Organization | | | | + + + + + | [facility] | [address] | [place] [address] | [phone] | + + + + + POC Glucose (04/22/2019 9:18 AM PST) + + + + + + | Component | Value | Ref Range | Performed | Pathologist | | | | | At | Signature | + + + + + + | Glucose, | 121 (H)Comment: Testing | 65 - 99 mg/dL | [facility] | | | POC | performed at [facility];[address] | | LABORATORY | | | | [address];[place] | | | | | | [address] | | | | + + + + + + + + | Specimen | + + | | + + + + + + + | Performing | Address | City/State/Zipcode | Phone Number | | Organization | | | | + + + + + | [facility] | [address] | [place] [address] | [phone] | + + + + + Surgical [...] | | carcinoma (6/7). COMMENT:As part of [email or web address]' Quality | | | Improvement Program, this [...] There is no nodule or induration. Three service support representative | | | sections are submitted in cassettes B1 and B2. The larger lobe of | | | thyroid is inked black sectioning reveals a large 4.5 x 4.0 x 3.0 cm | | | soft,papillary/friable pink-lakhani nodule which occupies almost the | | | entire lobe. There is no grossly recognizable normal thyroid | | | parenchyma. Six service support representative sections are submitted in cassettes | [...] section was | | | performed at [address], | | | [place] [address] (Box Car Loader: Jim Uriarte M.D.; CLIA#: | | | [id number]).The technical component was performed by [facility] | | [facility], [address] [place] [address] (Box Car Loader: | | | Regine Deitz MD; CLIA# [id number]). Professional interpretation was | | | performed [email or web address], [place] [address] | | | [place] [address] (Box Car Loader: Jim | | | Agnes Uriarte; CLIA#: [id number]). Diagnostician: Regine Dietz | | | MDPathologistElectronically Signed 04/26/2019 | | | | | |There is no nodule or induration. Three service support representative sections are submitted in cassette s B1 and B2. The larger lobe of thyroid is inked black sectioning reveals a large 4.5 x 4. 0 x 3.0 cm soft, | | |papillary/friable pink-lakhani nodule which occupies almost the entire lobe. There is no may sly recognizable normal thyroid parenchyma. Six service support representative sections are submitted in c assettes B3-B8. | | | | | |C. The specimen is received in a formalin filled specimen container labeled "[facility] central neck contents". A lobular excision of [...] | |The frozen section was performed at [address] [address] (Box Car Loader: Jim Uriarte M.D.; CLIA#: [id number]). | | |The technical component was performed by [email or web address], [address] [place] [address] (Box Car Loader: Regine Dietz MD; CLIA# [id number]). Professional interpretation was performed by | | |[email or web address], [facility], [address] [place] [address] (Box Car Loader: Jim Uriarte M.D.; CLIA#: [id number]). | | | | | |Diagnostician: Regine [...] | | | POC | performed at [facility];[address] | | LABORATORY | | | | [address];[place] | | | | | | [address] | | | | + + + + + + + + | Specimen | + + | | + + + + + + + | Performing | Address | City/State/Zipcode | Phone Number | | Organization | | | | + + + + + | [facility] | [address] | [place] [address] | [phone] | + + + + + POCT Test, Urine, Qual (04/22/2019 6:12 AM PST) + + + + + + | Component | Value | Ref Range | Performed | Pathologist | | | | | At | Signature | + + + + + + | HCG, | NEGATIVEComment: Testing | NEG | [facility] | | | Quantitativ | performed at [facility];[address] | | LABORATORY | | | e POC | [address];[place], [place] | | | | | | [address] | | | | + + + + + + + + | Specimen | + + | | + + + + + + + | Performing | Address | City/State/Zipcode | Phone Number | | Organization | | | | + + + + + | [facility] | [address] | [place] [address] | [phone] | + + + + + documented [...] | | | MEALS, First dose on 04/22/19 | | | | | | | [...] | | | | | | longer, qipwqz-ysj-ximzr use of | | | | | [...] 7:14 | | | | | Starting Thu04/22/19 at 0903, | | AM PST | [...]
--- OUTSIDE RECORDS SUMMARY | ~2019-11-08 | XMS | Encounter Summary ---
Demographics + + + | Address | [address] | | | [place] [address] | + + + | Home Phone | | + + + | Preferred Language | Unknown | + + + | Marital Status | Single | + + + | Restorationist Affiliation | Unknown | + + + | Race | Unknown | + + + | Ethnic Group | Unknown | + + + Author + + + | Author | [facility] | | | and [place] | + + + | Organization | [facility] | | | [...] Team Providers + +------+ + | Care Logistics Team Leader Name | Role | Phone | + [...] [address] | | | | | [address] | [place], [place] | | | | | [place], [place] | [address] | | | | | [address] | | | | | | [phone] | | | +--------+ + + + [...] | | | | | | [place] [address] | | | | | | [phone] | | | | | | | | +--------+---------+ + + + | 12/07/ | Office | Cardiology | Nisha Forde DO | | | 2019 | Visit | | [address] | | | | | | [place] | | | | | | [address] | | | | | | | [...] | + + + | Patient Name: Tamear Yang Date of : 1980 | | [...] MV A Jovanni: 0.85 m/s MV Dec Berrien: 3.44 | | | m/s2 MV DecT: 191.26 ms MV E Jovanni: 0.65 m/s MV E/A Ratio: | | | 0.77 MV PHT: 55.46 ms MVA By PHT: 3.96 cm2 Septal e': 0.04 | | | m/s Septal E/e': 15.30 Lateral e': 0.04 m/s Lateral E/e': | | | 13.75 RAP: 5 mmHg Telephone Plant Power Operator: ALONSO Authenticated by: | | | NISAH FORDE MD Report Date/Time: -- [id number]:40 | | + + + + + | Procedure Note | + + | Manoj, Ed Conversion - 12/30/2018 1:41 PM PDT Patient Name: Jae Yang of | | : 1980 Performing Physician: NISHA FORDE | | INDICATIONS D | | yspnea CONCLUSIONS 1. [...] cmLVPWd: 1.16 | | cmLVOT Area: 2.99 tw2ADPI Diam: 1.95 cm%FS: 27.44 %EF(Teich): 53.72 %ESV(Teich): [...] (A-L): 16.64 ml/m2LAAs A2C: | | 15.10 rx8TDUGH A-L A2C: 42.00 mlLALs A2C: 4.61 cmLAAs A4C: 13.17 qq4TWEZY A-L A4C: | | 32.94 mlLALs A4C: 4.47 cmRAAs: 12.84 bx4ONEWX A-L: 30.35 mlRAESV MOD: 29.52 | | mlRALs: 4.61 cmTAPSE: 2.25 cmAV maxP.59 mmHgAV meanP.57 mmHgAV Vmax: | | 1.28 m/Reynold Vmean: 0.88 m/Reynold VTI: 23.48 cmAVA Vmax: 2.34 cm2AVA (VTI): 2.30 | | dc2OWKG Vmax: 0.00 cm2/m2AVAI (VTI): 0.00 cm2/m2LVOT maxP.04 mmHgLVOT meanPG: | | 2.47 mmHgLVSI Dopp: 23.81 ml/m2LVSV Dopp: 54.06 mlLVOT Vmax: 1.00 m/sLVOT Vmean: | | 0.73 m/sLVOT VTI: 18.06 cmMV A Jovanni: 0.85 m/sMV Dec Berrien: 3.44 m/s2MV DecT: | | 191.26 msMV E Jovanni: 0.65 m/sMV E/A Ratio: 0.77MV PHT: 55.46 msMVA By PHT: 3.96 | | qf2Xeiswu e': 0.04 m/sSeptal E/e': 15.30Lateral e': 0.04 m/sLateral E/e': | | 13.75RAP: 5 mmHg Telephone Plant Power Operator: DAVIDuthenticated by: NISHA [facility] Date/Time: -- | | [id number] IMPRESSION: 1. This was a technically difficult [...] A Jovanni: 0.85 m/s | |MV Dec Berrien: 3.44 m/s2 | |MV DecT: 191.26 ms | |MV E Jovanni: 0.65 m/s | |MV E/A Ratio: 0.77 | |MV PHT: 55.46 ms | |MVA By PHT: 3.96 cm2 | |Septal e': 0.04 m/s | |Septal E/e': 15.30 | |Lateral e': 0.04 m/s | |Lateral E/e': 13.75 | |RAP: 5 mmHg | | | |Telephone Plant Power Operator: | |Authenticated by: NISHA FORDE MD | |Report Date/Time: -- [id number]:47:40 | | | |IMPRESSION: | |1. This [...]
--- OUTSIDE RECORDS SUMMARY | ~2019-11-08 | XMS | Encounter Summary ---
Demographics + + + | Address | [address] | | | [place] [address] | + + + | Home Phone [...] Team Providers + +------+ + | Care Automatic Maintainer Name | Role | Phone | + [...] + + | 07/17/ | Refill | [facility] | FordeNisha DO | Medication Refill | | 2020 | | CARDIOLOGY [place] | [address] | | | | | [address] | [place], [place] | | | | | [place], [place] | [address] | | | | | [address] | | | | | | [phone] | | | +--------+--------+ + + + [...] | | | | | | [place] [address] | | | | | | [phone] | | | | | | | | +--------+---------+ + + + | 12/07/ | Office | Cardiology | Nisha Forde DO | | | 2019 | Visit | | [address] | | | | | | [place] | | | | | | [address] | | | | | | | | +--------+---------+ + + + documented as of this encounter Visit Diagnoses Not on filedocumented in this encounter"
--- OUTSIDE RECORDS SUMMARY | ~2019-11-08 | XMS | Encounter Summary ---
Demographics + + + | Address | [address] | | | [place] [address] | + + + | Home Phone [...] + + + | Author | [facility] | | | and [place] | + + + | Organization | [facility] | | [...] Team Providers + +------+ + | Care Systems Auditor Name | Role | Phone | + [...] | | | | [place] | [phone] | | | | | [address] | | | | | | [phone] | | | +--------+ + + + [...] | | | | | | [place] [address] | | | | | | [phone] | | | | | | | | +--------+---------+ + + + | 12/07/ | Office | Cardiology | Nisha Forde DO | | | 2019 | Visit | | [address] | | | | | | [place] | | | | | | [address] | | | | | | | | +--------+---------+ + + + documented as of this encounter Visit Diagnoses Not on filedocumented in this encounter"
--- OUTSIDE RECORDS SUMMARY | ~2019-11-08 | XMS | Encounter Summary ---
Demographics + + + | Address | [address] | | | [place] [address] | + + + | Home Phone | | + + + | Preferred Language | Unknown | + + + | Marital Status | Single | + + + | Jainism Affiliation | Unknown | + + + | Race | Unknown | + + + | Ethnic Group | Unknown | + + + Author + + + | Author | [facility] | | | and [place] | + + + | Organization | [facility] | | [...] Team Providers + +------+ + | Care Occasional Caregiver Name | Role | Phone | + +------+ + | Kiersten Pardo MD | PCP | | + +------+ + Reason for Visit + +--------+ + | Reason | Onset | Comments | | | Date | | + +--------+ + | Referral | 05/12/ | | | | 2020 | | + +--------+ + Encounter Details +--------+ + + + + | Date | Type | Department | Care Team | Description | +--------+ + + + + | 05/12/ | Telephone | [facility] | Monika Morillo | Referral | | 2020 | | NOSE AND THROAT [address] | J, DO [address] | | | | | [address] | [address] | | | | | [place], [place] | [place] [address] | | | | | [address] | [phone] | | | | | [phone] | | | +--------+ + + + [...] this encounter Miscellaneous Notes Telephone Encounter - Nicole Carpenter - 05/12/2019 11:49 AM PSTPlease send referral with chart notes for radiation to [phone] signed by Nicole Carpenter at 06/2019 11:51 AM PSTdocumented in this encounter Plan of [...] | | | | | | [place] [address] | | | | | | [phone] | | | | | | | | +--------+---------+ + + + | 12/07/ | Office | Cardiology | Nisha Forde DO | | | 2019 | Visit | | [address] | | | | | | [place] | | | | | | [address] | | | | | | | | +--------+---------+ + + + documented as of this encounter Visit Diagnoses Not on filedocumented in this encounter"
--- OUTSIDE RECORDS SUMMARY | ~2019-11-08 | XMS | Encounter Summary ---
Demographics + + + | Address | [address] | | | [place] [address] | + + + | Home Phone [...] + + + | Author | [facility] | | | and [place] | + + + | Organization | [facility] [...] Team Providers + +------+ + | Care Desk Monitor Name | Role | Phone | + +------+ + | Kiersten Pardo MD | PCP | | + +------+ + Reason for Referral Evaluate & Treat (Urgent) +--------+ + + + + + | Status | Reason | Specialty | Diagnoses / | Referred By | Referred To | | | | | Procedures | Contact | Contact | +--------+ + + + + + | Closed | Specialty | Radiation | Diagnoses | Ilia | | | | Services | Oncology | Papillary | Monika Nugent, | | | | Required | | thyroid | DO [address] | | | | | | carcinoma | [address] | | | | | | (HCC) | [address] | | | | | | | [place] | | | | | | | [address] | | | | | | | Phone: | | | | | | | [phone] | | | | | | | Fax: | | | | | | | [phone] | | +--------+ + + + + + Evaluate & [...] | | carcinoma | [address] | [address] | | | | | (HCC) | [address] | [address] | | | | | | [place] | [place] | | | | | | [address] | [address] Phone: | | | | | | Phone: | [phone] | | | | | | [phone] | Fax: | | | | | | Fax: | [phone] | | | | | | [phone] | | +--------+ + + + + + Reason for Visit +---------+ + | Reason | Comments | +---------+ + | Post Op | | +---------+ + Encounter Details +--------+---------+ + + + | Date | Type | Department | Care Team | Description | +--------+---------+ + + + | 04/28/ | Office | [facility] | Monika Pretty | Papillary thyroid | | 2019 | Visit | NOSE AND THROAT [address] | J, DO [address] | carcinoma (HCC) | | | | [address] | [address] | (Primary Dx); | | | | [facility], [place] | [place] [address] | Cervical | | | | [address] | [phone] | lymphadenopathy | | | | [phone] | | | +--------+---------+ + + + [...] Pertinent items are noted in HPI. Objective: [facility] 04/01/2019 General: alert, appears stated age and [...] dry, and intact. Surgical Pathology Exam Order: [id number] Status: Final result Visible to patient: No (Not Released) Next appt: 05/05/2019 at 02:30 PM in Cardiology (Lanie Reece, [facility]) Dx: Thyromegaly; Thyroid nodule Narrative Performed by: [place] [employer] SPECIMEN(S): A HOLLY-THYROIDAL LYMPH NODES SPECIMEN(S): B THYROID, TOTAL SPECIMEN(S): C LT CENTRAL NECK CONTENTS SPECIMEN SOURCE: A. HOLLY-THYROIDAL LYMPH NODES B. THYROID, TOTAL C. LT CENTRAL NECK CONTENTS CLINICAL HISTORY: E04.1 (thyroid nodule), E01.0 (thyromegaly). FROZEN SECTION DIAGNOSIS: A. 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 (Dr. Dietz, 04/22/19, 0756) The frozen section diagnosis is called to [...] papillary carcinoma (6/7). COMMENT: As part of [facility]' Quality Improvement Program, this case was reviewed [...] There is no nodule or induration. Three client relations representative sections are submitted in cassette s B1 and B2. The larger lobe of thyroid is inked black sectioning reveals a large 4.5 x 4. 0 x 3.0 cm soft, papillary/friable pink-lakhani nodule which occupies almost the entire lobe. There is no may sly recognizable normal thyroid parenchyma. Six client relations representative sections are submitted in c [...] LABORATORY: The frozen section was performed at [address] [address] (Jeep Driver: Jim Uriarte M.D.; CLIA#: [id number]). The technical component was performed by [facility], [address] [place] [address] (Jeep Driver: Regine Dietz MD; CLIA# [id number]). Professional interpretation was performed by [facility], [facility], [address] [place] [id number] (Jeep Driver: Jim Uriarte M.D.; CLIA#: [id number]). Diagnostician: Regine Dietz MD Pathologist Electronically Signed [...] system. The possibil ity of "sound alike" hip hop performers errors, additions or deletions may occur. If [...] | | | | | | [place] [address] | | | | | | [phone] | | | | | | | | +--------+---------+ + + + | 12/07/ | Office | Cardiology | Nisha Forde DO | | | 2019 | Visit | | [address] | | | | | | [place] | | | | | | [address] | | | | | | | [...]
--- OUTSIDE RECORDS SUMMARY | ~2019-11-08 | XMS | Encounter Summary ---
Demographics + + + | Address | [address] | | | [place] [address] | + + + | Home Phone | | + + + | Preferred Language | Unknown | + + + | Marital Status | Single | + + + | Zoroastrianism Affiliation | Unknown | + + + | Race | Unknown | + + + | Ethnic Group | Unknown | + + + Author + + + | Author | [facility] | | | and [place] | + + + | Organization | [facility] | | [...] Team Providers + +------+ + | Care Machine Cage Maker Name | Role | Phone | + [...] Perez Alyssa | | | | | [place], [place] | [place] | | | | | [address] | [address] | | | | | [phone] | [phone] | | | | | | | [...] | | | | | | [place] [address] | | | | | | [phone] | | | | | | | | +--------+---------+ + + + | 12/07/ | Office | Cardiology | Nisha Forde DO | | 2019 | Visit | | [address] | | | | | | [place] | | | | | | [id number] | | | | | | | [...] | 1. See Dictation 2. TDS. Grossly, VAL study. FINDINGS -------- | | | ECG [...] pressures of | | | 5-10mmHg. MEASUREMENTS Custom Bow Maker: | | | Authenticated by: Hoang Beal DO Report Date/Time: -- | | | [id number] | | + + + + + | Procedure Note | + + | Manoj, Rad Conversion - 12/30/2018 10:47 PM PDT Patient Name: Jae Yang of | | : 1980 Performing Physician: Hoang Beal | | DO INDICATIONS H | | ypertension CONCLUSIONS 1. See Dictation 2. TDS. Grossly, NM study. | | FINDINGS--------ECG rhythm: Sinus rhythm.Study: [...] venous pressures of 5-10mmHg. | | MEASUREMENTS Custom Bow Maker: DAVIDuthenticated by: Hoang Thrasher | | Date/Time: -- [id number] IMPRESSION: 1. See Dictation 2. TDS. Grossly, [...] | |MEASUREMENTS | | | | | |Custom Bow Maker: | |Authenticated by: Hoang Beal DO | |Report Date/Time: -- [id number] | | | |IMPRESSION: | |1. See Dictation 2. TDS. Grossly, NML study. | + + documented in this encounter Visit Diagnoses Not on filedocumented in this encounter"
--- OUTSIDE RECORDS SUMMARY | ~2019-11-08 | XMS | Encounter Summary ---
Demographics + + + | Address | [address] | | | [place] [address] | + + + | Home Phone [...] + + + | Author | [facility] | | | and [place] | + + + | Organization | [facility] | | | [...] Team Providers + +------+ + | Care Electric Meter Setter Name | Role | Phone | + [...] | | | | [place] | [phone] | | | | | [address] | | | | | | [phone] | | | +--------+ + + + [...] | | | | | | [place] [address] | | | | | | [phone] | | | | | | | | +--------+---------+ + + + | 12/07/ | Office | Cardiology | Nisha Forde DO | | | 2019 | Visit | | [address] | | | | | | [place] | | | | | | [address] | | | | | | | | +--------+---------+ + + + documented as of this encounter Visit Diagnoses Not on filedocumented in this encounter"
--- OUTSIDE RECORDS SUMMARY | ~2019-11-08 | XMS | Encounter Summary ---
Demographics + + + | Address | [address] | | | [place] [address] | + + + | Home Phone | | + + + | Preferred Language | Unknown | + + + | Marital Status | Single | + + + | Catholic Affiliation | Unknown | + + + | Race | Unknown | + + + | Ethnic Group | Unknown | + + + Author + + + | Author | [facility] | | | and [place] | + + + | Organization | [facility] | [...] Team Providers + +------+ + | Care Decator Operator Name | Role | Phone | + +------+ + | Kiersten Pardo MD | PCP | | + +------+ + Encounter Details +--------+ + + + + | Date | Type | Department | Care Team | Description | +--------+ + + + + | 04/15/ | [facility] | [facility] | Monika Morillo | Preop testing | | 2019 | Encounter | MEDICAL CENTER | J, DO [address] | | | | | ELECTRODIAGNOSTICS | [address] | | | | | [address] | [place] [address] | | | | | [place], [place] | [phone] | | | | | [address] | | | | | | [phone] | | | +--------+ + + + [...] | | | | | | [place] [address] | | | | | | [phone] | | | | | | | | +--------+---------+ + + + | 12/07/ | Office | Cardiology | Nisha Forde DO | | | 2019 | Visit | | [address] | | | | | | [place] | | | | | | [address] | | | | | | | [...]
--- OUTSIDE RECORDS SUMMARY | ~2019-11-08 | XMS | Encounter Summary ---
Demographics + + + | Address | [address] | | | [place] [address] | + + + | Home Phone | | + + + | Preferred Language | Unknown | + + + | Marital Status | Single | + + + | Alevism Affiliation | Unknown | + + + | Race | Unknown | + + + | Ethnic Group | Unknown | + + + Author + + + | Author | [facility] | | | and [place] | + + + | Organization | [facility] | | [...] Team Providers + +------+ + | Care Client Delivery Specialist Name | Role | Phone | + +------+ + | Kiersten Pardo MD | PCP | | + +------+ + Reason for Visit + +--------+ + | Reason | Onset | Comments | | | Date | | + +--------+ + | Medication | 05/17/ | | | Recommendations | 2020 | | + +--------+ + Encounter Details +--------+ + + + + | Date | Type | Department | Care Team | Description | +--------+ + + + + | 05/17/ | Telephone | [facility] | Lanie Reece | Medication | | 2020 | | [facility]ARDIOLOGY [facility] | DARRIN Garcia [address] | Recommendations | | | | [address] | | | | | [address] | [place] [address] | | | | | [address] | [phone] | | | | | [phone] | | | +--------+ + + + [...] this encounter Miscellaneous Notes Telephone Encounter - Ariane Fitzgerald CMA - 05/17/2019 9:40 AM PSTCalled patient to make sure she was not taking both the Indapamide and HCTZ. Patient states she is only taking the Indapamide and is not taking the HCTZ. Patient had no further questions. Ph ----- Message from Lanie Reece, DISTRIBUTED GENERATION PROJECT MANAGER sent at 05/05/2019 10:53 PM PST ----- Regarding: medications Vilma, It looks like her PCP also started her on HCTZ , when she saw her, and please call Tamera and make sure she is only taking Indapamide, and not HCTZ as well. As similar medications. Thanks MBC documented in this encounter Plan of Treatment +--------+---------+ + + + | Date | Type | Specialty | Care Team | Description | +--------+---------+ + + + | 11/21/ | Office | Endocrinology | Donny Ji, | | 2019 | Visit | | MD [address] | | | | | | [place], | | | | | | [place] [address] | | | | | | [phone] | | | | | | | | +--------+---------+ + + + | 12/07/ | Office | Cardiology | Nisha Forde DO | | 2019 | Visit | | [address] | | | | | | [place] | | | | | | [phone] | | | | | | | | +--------+---------+ + + + documented as of this encounter Visit Diagnoses Not on filedocumented in this encounter"
--- OUTSIDE RECORDS SUMMARY | ~2019-11-08 | XMS | Encounter Summary ---
Demographics + + + | Address | [address] | | | [place] [address] | + + + | Home Phone | | + + + | Preferred Language | Unknown | + + + | Marital Status | Single | + + + | Bahai Affiliation | Unknown | + + + [...] Team Providers + +------+ + | Care Cell Stripper Name | Role | Phone | + +------+ + | Kiersten Pardo MD | PCP | | + +------+ + Reason for Visit + +--------+ + | Reason | Onset | Comments | | | Date | | + +--------+ + | Follow-up | 08/08/ | | | | 2020 | | + +--------+ + Encounter Details +--------+ + + + + | Date | Type | Department | Care Team | Description | +--------+ + + + + | 08/08/ | Telephone | [facility] | Donny Ji, | Follow-up | | 2020 | | ENDOCRINOLOGY [address] | [address] | | | | | [address] | [place], | | | | | [place], [place] | [place] [address] | | | | | [address] | [phone] | | | | | [phone] | | | +--------+ + + + [...] this encounter Miscellaneous Notes Telephone Encounter - Tranvik GordonKiersten - 08/09/2019 4:11 PM Caitlyn, is calling re garding Follow-up and would like a call back. Additional Call Details: Date & Time Patient Called: 08/08 @ 4:10pm Date & Time of Cancelled Appointment: 08/09 @ 9am Reason for Cancellation: COVID-19 New Appointment Date & Time: 11/21 @ 11:40am If this is a symptom based call, was patient offered triage? Not Applicable If this is a symptom based call and you were unable to immediately transfer the call to a p amos youth accommodation support worker was caller made aware that if at [...] | | | | | | [place] [address] | | | | | | [phone] | | | | | | | | +--------+---------+ + + + | 12/07/ | Office | Cardiology | Nisha Forde DO | | 2019 | Visit | | [address] | | | | | | [place] | | | | | | [address] | | | | | | | | +--------+---------+ + + + documented as of this encounter Visit Diagnoses Not on filedocumented in this encounter"
--- OUTSIDE RECORDS SUMMARY | ~2019-11-08 | XMS | Encounter Summary ---
Demographics + + + | Address | [address] | | | [place] [address] | + + + | Home Phone [...] Team Providers + +------+ + | Care Idea Worker Name | Role | Phone | + +------+ + | Kiersten Pardo MD | PCP | | + +------+ + Encounter Details +--------+ + + + + | Date | Type | Department | Care Team | Description | +--------+ + + + + | 04/15/ | Preadmit | [facility] | Monika Morillo | Preop testing | | 2019 | Visit | CENTER PREADMIT | J, DO [address] | (Primary Dx) | | | | CLINIC [address] | | | | | BLVD [place], [place] | [place] [address] | | | | | [address] | [phone] | | | | | [phone] | | | +--------+ + + + [...] for the 04/15/19 encounter (Preadmit Visit) with [facility] ROOM 1 Medication Sig Instructions amLODIPine [...] the hands,feet, or lips Date Last Reviewed: 03/11/201619993760-7960 [employer]. [address] [place] [address]. All righ ts reserved. This information is not intended as a substitute for professional medical care. Always follow your healthcare professional's instructions. documented in this encounter Miscellaneous Notes Preadmit Clinic Note - Herson Fisher, RN - 04/15/2019 12:30 PM PSTPatients BP exteremly high. Taken 4 different times At PAS appointment. Dr. Hargrove called and strongly suggested f or her to go to the ER. Patient refused and stated she has a visit today at 3 pm with Her PC P. Explained to her and family that if her BP is that high day of surgery she could be CXD. Also the risk of a stroke. P M PSTdocumented in this encounter Plan of Treatment +--------+---------+ + + + | Date | Type | Specialty | Care Team | Description | +--------+---------+ + + + | 11/21/ | Office | Endocrinology | Donny Ji, | | | 2019 | Visit | | MD [address] | | | | | | [place], | | | | | | [place] [address] | | | | | | [phone] | | | | | | | | +--------+---------+ + + + | 12/07/ | Office | Cardiology | FordeNisha stallingsDO | | | 2019 | Visit | | [address] | | | | | | [place] | | | | | | [address] | | | | | | | [...] | | | Absolute | performed at [facility], [address] | LABORATORY | | | | [address], | | | | | | [place] [address] | | | | + + + + + + + + | Specimen | + + | Blood | + + + + + + + | Performing | Address | City/State/Zipcode | Phone Number | | Organization | | | | + + + + + | [facility] | [address] | [place] [address] | [phone] | + + + + + Basic [...] | | | | | | [facility] traceable | | | | | | equation.Testing | | | | | | performed at [facility], [address] | | | | | | [facility], | | | | | | [place] [address] | | | | + + + + + + + + | Specimen | + + | Blood | + + + + + + + | Performing | Address | City/State/Zipcode | Phone Number | | Organization | | | | + + + + + | [facility] | [address] | [place] [address] | [phone] | + + + + + ECG [...]
--- OUTSIDE RECORDS SUMMARY | ~2019-11-08 | XMS | Clinical Summary ---
Demographics + + + | Address | [address] | | | [place] [address] | + + + | Home Phone | | + + + | Preferred Language | Unknown | + + + | Marital Status | Single | + + + | Mormonism Affiliation | Unknown | + + + | Race | Unknown | + + + | Ethnic Group | Unknown | + + + Author + + + | Author | [facility] | | | and [place] | + + + | Organization | [facility] | | | [...] Team Providers + +------+ + | Care Integrity Assessor Name | Role | Phone | + [...] automatically from request for surgery | | [id number] | + + + + + | Thyromegaly | 04/04/2019 | + + + + + | Overview: Added automatically from request for surgery | | [id number] | + + + + + | [...] and exercise, also spoke with | | nurse ob today. - RTC in 2 weeks | [...] | patient refuses to be on a long filler cigar roller machine medication for it at this | | [...] but patient refuses to be on a long filler cigar roller machine medication | | for it at this time.- is okay with doing counseling and | | meditation first. Had patient download HeadSpaSembraire meditation denise | | on her phone, she is instructed to do it at least once daily. - | | if these methods do not work, patient is agreeable to re-visit | | the topic of SSRI medication. - patient to set up appt with our | | [facility] [place] soon | + + + + + | SVT (supraventricular tachycardia) | 02/18/2019 | + + + + + | Overview: 2018: dx with SVT, sent to formstone fitter (at | | [facility]). Last visit in Jun 2018. Last Assessment & Plan: - | | diagnosed in 2018 in the ER and was following with a formstone fitter | | at [facility]. Last visit was in May or June of 2018. Has | | had echo done in 2019, states that it was normal.- patient not | | tachycardic today, but in hypertensive urgency. Would benefit | | from seeing formstone fitter once she has insurance the | + [...] | | | | | | [place] [address] | | | | | | [phone] | | | | | | | | +--------+---------+ + + + | 12/07/ | Office | Cardiology | Nisha Forde DO | | | 2020 | Visit | | [address] | | | | | | [place] | | | | | | [address] | | | | | | | | +--------+---------+ + + + + + + + + | Health Maintenance | Due Date | Last | Comments | | | | Done | | + + + + + | Vaccine: | | | | | Pneumococcal 19-64 | 6 | | | | (1 of 3 - PCV13) | | | | + + + + + | Vaccine: | | 10/12/18 | | | Dtap/Tdap/Td (6 - | 1 | 96, | | | Tdap) | | 02/28/19 | | | | | 86, | | | | | 11/13/18 | | | | | 82, | | | | | Addition | | | | | al | | | | | history | | | | | exists | | + + + + + | Cervical Cancer | | | | | Screening (Pap) | 0 | | | + + + + + | Vaccine: Influenza | Completed | 04/18/20 | | | | | 19 | | + + + + + [...] +--------+ +---------+------+ | REG[facility] | REGENC | [id number] | 05/11/19 | [phone] | | PPO | | | E BCBS | 0 | 15-Pre | 8 | | | | | [place] | | sent | | | | | | PPO | | | | | | +---------+--------+ +--------+ +---------+------+ | BCBS | BCBS | [id number] | 05/11/19 | | | PPO | [...] [address] | | | al/Fam | | 1980 | [phone] | [place], [place] | | | [place] | | | 1 (Home) | [address] | + +--------+ +--------+ + + | Tamera Yang | Person | Self | [birth year] | [address] | | | al/Fam | | 1980 | [phone] | [place] | | | [place] | | | [address] ([place]) | [address] | + +--------+ +--------+ + + Advance Directives + + + + + | Type | Date Recorded | Patient | Explanation | | | | [employer] | | + + + + + | Power of | | | | | Property Insurance Claims Examiner | | | | + + + [...]
--- OUTSIDE RECORDS SUMMARY | ~2019-11-08 | XMS | Encounter Summary ---
Demographics + + + | Address | [address] | | | [place] [address] | + + + | Home Phone | | + + + | Preferred Language | Unknown | + + + | Marital Status | Single | + + + | Methodist Affiliation | Unknown | + + + | Race | Unknown | + + + | Ethnic Group | Unknown | + + + Author + + + | Author | [facility] | | | and [place] | + + + | Organization | [facility] [...] Team Providers + +------+ + | Care Epic Cadence Specialists Name | Role | Phone | + [...] | | | | [place] | [phone] | | | | | [address] | | | | | | [phone] | | | +--------+ + + + [...] | | | | | | [place] [address] | | | | | | [phone] | | | | | | | | +--------+---------+ + + + | 12/07/ | Office | Cardiology | Nisha Forde DO | | | 2019 | Visit | | [address] | | | | | | [place] | | | | | | [address] | | | | | | | | +--------+---------+ + + + documented as of this encounter Visit Diagnoses Not on filedocumented in this encounter"
--- OUTSIDE RECORDS SUMMARY | ~2019-11-08 | XMS | Encounter Summary ---
Demographics + + + | Address | [address] | | | [place] [address] | + + + | Home Phone | | + + + | Preferred Language | Unknown | + + + | Marital Status | Single | + + + | Voodoo Affiliation | Unknown | + + + | Race | Unknown | + + + | Ethnic Group | Unknown | + + + Author + + + | Author | [facility] | | | and [place] | + + + | Organization | [facility] | | | and [...] Team Providers + +------+ + | Care Mortgage Processing Clerk Name | Role | Phone | + +------+ + | Nicole Parikh PA-C | PCP | | + +------+ + Encounter Details +--------+ + + + + | Date | Type | Department | Care Team | Description | +--------+ + + + + | 12/24/ | Orders Only | [facility] | Nisha Forde DO | Essential (primary) | | 2019 | | CARDIOLOGY [place] | [address] | hypertension | | | | [address] | [place], [place] | | | | | [address] | [address] | | | | | [place] | | | | | | [address] | | | | | | [phone] | | | +--------+ + + + [...] | | | | | | [place] [address] | | | | | | [phone] | | | | | | | | +--------+---------+ + + + | 12/07/ | Office | Cardiology | Nisha Forde DO | | | 2019 | Visit | | [address] | | | | | | [place] | | | | | | [id number] | | | | | | | | +--------+---------+ + + + documented as of this encounter Visit Diagnoses + + | Diagnosis | + + | Essential (primary) hypertension Unspecified essential hypertension | + + documented in this encounter"
--- OUTSIDE RECORDS SUMMARY | ~2019-11-08 | XMS | Encounter Summary ---
Demographics + + + | Address | [address] | | | [place] [address] | + + + | Home Phone [...] Team Providers + +------+ + | Care Mental Measurements Teacher Name | Role | Phone | [...] | | | | [place] | [phone] | | | | | [address] | | | | | | [phone] | | | +--------+ + + + [...] | | | | | | [place] [address] | | | | | | [phone] | | | | | | | | +--------+---------+ + + + | 12/07/ | Office | Cardiology | Nisha Forde DO | | | 2019 | Visit | | [address] | | | | | | [place] | | | | | | [address] | | | | | | | | +--------+---------+ + + + documented as of this encounter Visit Diagnoses Not on filedocumented in this encounter"
--- OUTSIDE RECORDS SUMMARY | 2019-11-08 18:08 | XMS ---
PreManage Notification: CATARINA MEJIA Security Packaging Sales Consultant Events No recent Security Events currently on file CRITERIA MET - Group Notification - [facility] - Has Care Guidelines CARE PROVIDERS ITZ FLOWERS Physician Cancer Program Director 12/21/2017-Current PHONE: Unknown KADY [facility] 10/14/2018-Current PHONE: [phone] RITU [facility] Current PHONE: [phone] Leti has no Care Guidelines for this patient. Care History Medical/Surgical 03/16/2019 [facility] - PATIENT HAS AN ENT APT ON 04/01/19. 01/07/2018 [facility] - PATIENT IS FOLLOWING UP WITH PCP JERRY FLOWERS. - PATIENT HAS PREVIOUSLY DECLINED REFERRALS TO A [facility] SUGGESTED BY PCP. - NEXT FOLLOW UP APT WILL BE ON 01/14 AND PCP WILL DISCUSS THE [facility] REFERRAL. Anshu VISIT COUNT (12 MO.) 4 ALHAJI Fitzpatrick TOTAL 4 NOTE: Visits indicate total known visits. ED/UCC VISIT TRACKING (12 MO.) 11/08/2019 18:06 AL[facility]JI Chan [place] TYPE: Emergency COMPLAINT: - SORE THROAT, BODY ACHES 09/16/2019 18:52 [facility] [place] TYPE: Emergency COMPLAINT: - CHEST PAIN DIAGNOSES: - Chest pain, unspecified - Allergy status to other drugs, medicaments and biological sub - Essential (primary) hypertension - Chest pain, unspecified - Other lobsterman (current) drug therapy - Anxiety disorder, unspecified 05/09/2019 10:46 AL[facility]JI [place] TYPE: Emergency COMPLAINT: - COLD SYMPTOMS DIAGNOSES: - Allergy status to other drugs, medicaments and biological sub - Other mcfp (current) drug therapy - Bronchitis, not specified as acute or chronic - Essential (primary) hypertension - Acute upper respiratory infection, unspecified - Acute bronchospasm - Anxiety disorder, unspecified - 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
[2019-11-08] MEDS ORDERED: SPIRONOLACTONE25 MG PO (18:30)
[2019-11-08] MEDS ORDERED: LISINOPRIL40 MG PO (18:31)
== END 2019-11-08 20:50 | disposition home or self-care (01) ==
LOC: ED 18:05
DX: B34.9 Viral infection, unspecified (principal); I10 Essential (primary) hypertension; F41.9 Anxiety disorder, unspecified; Z79.899 Other long term (current) drug therapy
CPT/HCPCS: 71045; 80053; 85025; 87880; 99283-25; C9803; U0002

== ENCOUNTER 2020-08-27 19:25 | Emergency (ER) | payer BC, OTHER ==
[~2020-08-27] VITALS: Ht 167.6 cm; Wt 127.0 kg
[~2020-08-27 19:25] MED LIST changes: +LISINOPRIL40 MG PO; +SPIRONOLACTONE25 MG PO
--- OUTSIDE RECORDS SUMMARY | 2020-08-27 19:28 | XMS ---
PreManage Notification: CATARINA MEJIA Security Operations Liaison Events No recent Security Events currently on file CRITERIA MET - Group Notification - [facility] - Has Care Guidelines CARE PROVIDERS ITZ FLOWERS Physician Trip Rider 12/21/2017-Current PHONE: Unknown KADY [facility] 10/14/2018-Current PHONE: [phone] Leti has no Care Guidelines for this patient. Care History Medical/Surgical 03/16/2019 [facility] - PATIENT HAS AN ENT APT ON 04/01/19. 01/07/2018 [facility] - PATIENT IS FOLLOWING UP WITH PCP JERRY FLOWERS. - PATIENT HAS PREVIOUSLY DECLINED REFERRALS TO A SERVER ENGINEER SUGGESTED BY PCP. - NEXT FOLLOW UP APT WILL BE ON 01/14 AND PCP WILL DISCUSS THE SERVER ENGINEER REFERRAL. E.D. VISIT COUNT (12 MO.) [address] [facility] [address] [place] TOTAL 3 NOTE: Visits indicate total known visits. ED/UCC VISIT TRACKING (12 MO.) 08/27/2020 19:25 [facility] [place] TYPE: Emergency COMPLAINT: - CHEST PAIN, DIFFICULTY BREATHING 11/08/2019 18:06 [facility] [place] TYPE: Emergency COMPLAINT: - SORE THROAT, BODY ACHES DIAGNOSES: - Viral infection, unspecified - Other senior care (current) drug therapy - Cough - Anxiety disorder, unspecified - Essential (primary) hypertension - Contact with and (suspected) exposure to other viral communicable diseases 09/16/2019 18:52 [facility] [place] TYPE: Emergency COMPLAINT: - CHEST PAIN DIAGNOSES: - Chest pain, unspecified - Allergy status to other drugs, medicaments and biological substances - Essential (primary) hypertension - Chest pain, unspecified - Other senior care (current) drug therapy - Anxiety disorder, unspecified INPATIENT VISIT TRACKING (12 MO.) No inpatient visits to display in this time frame [email or web address]
--- NOTE | 2020-08-28 00:31 | EKG ---
[facility] [address] [place] [address] Signed Supraventricular tachycardia Left ventricular hypertrophy with repolarization abnormality Abnormal ECG When compared with ECG of 16-SEP-2019 18:58, Vent. rate has increased BY [address] now depressed in Anterolateral leads T wave inversion now evident in Lateral leads Confirmed by ENA MACARIO MD ([id number]) on 08/28/2020 12:31:12 AM Electronically Signed By: ENA MACARIO MD 08/28/20 0031 PATIENT NAME: CATARINA MEJIA Electrocardiogram DATE OF : 80 PHYSICIAN: ENA MACARIO MD REPORT #: [id number] REPORT IS CONFIDENTIAL AND NOT TO BE RELEASED WITHOUT AUTHORIZATION
--- NOTE | 2020-08-28 00:31 | EKG ---
[facility] [address] [place] [address] Signed Sinus tachycardia Moderate voltage criteria for LVH, may be normal variant Abnormal QRS-T angle, consider primary T wave abnormality Abnormal ECG When compared with ECG of 27-AUG-2020 19:48, (Unconfirmed) Vent. rate has decreased BY [address] no longer depressed in Inferior leads ST no longer depressed in Anterolateral leads Confirmed by ENA MACARIO MD ([id number]) on 08/28/2020 12:31:33 AM Electronically Signed By: ENA MACARIO MD 08/28/2030 PATIENT NAME: CATARINA MEJIA Electrocardiogram DATE OF : 80 PHYSICIAN: ENA MACARIO MD REPORT #: [id number] REPORT IS CONFIDENTIAL AND NOT TO BE RELEASED WITHOUT AUTHORIZATION
== END 2020-08-27 21:29 | disposition home or self-care (01) ==
LOC: ED 19:25
DX: I47.1 Supraventricular tachycardia (principal); I10 Essential (primary) hypertension; E66.9 Obesity, unspecified; Z79.899 Other long term (current) drug therapy; Z79.84 Long term (current) use of oral hypoglycemic drugs
CPT/HCPCS: 80053; 83735; 85025; 93005; 93010; 96374; 96375; 99285-25; J0153

== ENCOUNTER 2021-05-12 16:01 | Emergency (ER) | payer OTHER, BC ==
[~2021-05-12] VITALS: Ht 167.6 cm; Wt 129.3 kg
--- OUTSIDE RECORDS SUMMARY | 2021-05-12 16:04 | XMS ---
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 Care History Medical/Surgical 03/16/2019 [facility] - PATIENT HAS AN ENT APT ON 04/01/19. 01/07/2018 [facility] - PATIENT IS FOLLOWING UP WITH PCP JERRY FLOWERS. - PATIENT HAS PREVIOUSLY DECLINED REFERRALS TO A SHUTTLE SPOTTER SUGGESTED BY PCP. - NEXT FOLLOW UP APT WILL BE ON 01/14 AND PCP WILL DISCUSS THE SHUTTLE SPOTTER REFERRAL. E.D. VISIT COUNT (12 MO.) [address] [facility] [address] [place] TOTAL 2 NOTE: Visits indicate total known visits. 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
[2021-05-12] MEDS ORDERED: HYDRALAZINE HCL25 MG PO (18:42)
[2021-05-12] MEDS ORDERED: EUTHYROX200 MCG PO (18:42)
[2021-05-12] MEDS ORDERED: METOPROLOL SUC200 MG PO (19:09)
== END 2021-05-12 19:42 | disposition home or self-care (01) ==
LOC: ED 16:01
DX: U07.1 COVID-19 (principal); I10 Essential (primary) hypertension; E66.9 Obesity, unspecified; Z79.84 Long term (current) use of oral hypoglycemic drugs; Z79.899 Other long term (current) drug therapy
CPT/HCPCS: 99283; C9803; U0003

== ENCOUNTER 2022-05-01 14:00 | Emergency (ER) | payer OTHER, BC ==
[~2022-05-01] VITALS: Ht 167.6 cm; Wt 124.6 kg
[~2022-05-01 14:00] MED LIST changes: +EUTHYROX200 MCG PO; +HYDRALAZINE HCL25 MG PO
--- OUTSIDE RECORDS SUMMARY | 2022-05-01 14:02 | XMS ---
PreManage Notification: CATARINA MEJIA Security Director Content Marketing Events No recent Security Events currently on file CRITERIA MET - Group Notification CARE PROVIDERS ITZ FLOWERS Physician Slot Machine Floor Person 08/28/2020-Current PHONE: Unknown KADY [facility] 10/14/2018-Current PHONE: Unknown Leti has no Care Guidelines for this patient. Care History Medical/Surgical 03/16/2019 [facility] - PATIENT HAS AN ENT APT ON 04/01/19. 01/07/2018 [facility] - PATIENT IS FOLLOWING UP WITH PCP JERRY FLOWERS. - PATIENT HAS PREVIOUSLY DECLINED REFERRALS TO A AUTOMOTIVE PARTS INTERPRETER SUGGESTED BY PCP. - NEXT FOLLOW UP APT WILL BE ON 01/14 AND PCP WILL DISCUSS THE AUTOMOTIVE PARTS INTERPRETER REFERRAL. E.D. VISIT COUNT (12 MO.) [address] [facility] [address] [facility] [facility] TOTAL 2 NOTE: Visits indicate total known visits. 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
== END 2022-05-01 16:40 | disposition home or self-care (01) ==
LOC: ED 14:00
DX: Z48.03 Encounter for change or removal of drains (principal); I10 Essential (primary) hypertension; E66.9 Obesity, unspecified; Z79.899 Other long term (current) drug therapy; Z79.84 Long term (current) use of oral hypoglycemic drugs
CPT/HCPCS: 99282

== ENCOUNTER 2023-12-03 06:00 | Day surgery (SDC) | payer OTHER ==
[2023-10-21 11:43] VITALS: BP 218/123
[~2023-12-03] VITALS: Ht 167.6 cm; Wt 123.6 kg
--- NOTE | ~2023-12-03 | OR ---
[facility] [address] [place], [place] [address] Draft DATE OF OPERATION: 12/03/2023 SURGEON: Ariane Villalpando MD PREOPERATIVE DIAGNOSES: Menorrhagia with irregular cycle and submucosal fibroid. POSTOPERATIVE DIAGNOSES: Menorrhagia with irregular cycle and submucosal fibroid. PROCEDURE: Hysteroscopy, resection of submucosal fibroid. ANESTHESIA: General LMA. ESTIMATED BLOOD LOSS: 20 mL. DRAINS: None. INDICATIONS AND FINDINGS: The patient is a 43-year-old female, who has been having increasingly irregular cycles. She had an ultrasound which revealed a submucous fibroid. At the time of surgery, exam under anesthesia revealed a top-normal size uterus. The adnexa were not palpable given her obesity. The cavity sounded to 11.5 cm. The great majority of the cavity appeared normal other than a left posterolateral fibroid. DESCRIPTION OF PROCEDURE: The patient was prepped and draped in the dorsal lithotomy position. Weighted speculum was placed. The anterior lip of the cervix was visualized and grasped with a single-tooth tenaculum. The cavity sounded to 11.5 cm. The endocervical canal was then dilated to a #8 dilator. The MyoSure device was then placed. The cavity was evaluated and the MyoSure Reach was then placed. The fibroid was then resected without difficulty. When the cavity appeared to be clean and regular, procedure was terminated with removal of the instruments. There was some bleeding from the left hand tenaculum site which did not respond to pressure. She also had some ongoing bleeding through the cervix. [id number] sutures of 0 chromic were placed at 3 and 9 o'clock with good hemostasis noted. PATIENT NAME: CATARNIA MEJIA OPERATIVE REPORT DATE OF : 80 REPORT #: [id number] PHYSICIAN: ARIANE VILLALPANDO MD PCP: HEAVEN HILLMAN MD REPORT IS CONFIDENTIAL AND NOT TO BE RELEASED WITHOUT AUTHORIZATION [facility] [address] [place], [place] [address] Draft The tenaculum site also appeared hemostatic at this point. Procedure was terminated and she was taken to the recovery room in good condition. MD PATRICK TracyW/MODL /[id number] Copies: ~ PATIENT NAME: CATARINA MEJIA OPERATIVE REPORT DATE OF : [birth year] REPORT #: [id number] PHYSICIAN: ARIANE VILLALPANDO MD PCP: HEAVEN HILLMAN MD REPORT IS CONFIDENTIAL AND NOT TO BE RELEASED WITHOUT AUTHORIZATION
[~2023-12-03 06:00] MED LIST changes: +COREG25 MG PO; +FAMOTIDINE 20 MG/ 2 ML VIAL IV SCH; +IBLOOD GLUCOSE TEST STRIP 1 EA TEST VI PRN; +LACTATED RINGER'S 1,000 ML IV SCH; +LIDOCAINE HCL 1% 5 ML SDV INJ ONE; +METOCLOPRAMIDE HCL 10 MG/2 ML SDV IV SCH; +OZEMPIC2 MG/0.75 SQ; +PROZAC10 MG PO
[2023-12-03 06:15] VITALS: BP 166/107; BP 166/407
[2023-12-03] MEDS ORDERED: NORVASC10 MG PO (06:27)
[2023-12-03 06:28] LABS: BASOPHILS 0.6 % (0-2); EOSINOPHILS 2.3 % (0-6); HEMOGLOBIN 10.5 g/dL (12.0-18.0); MCH 21.9 (27-36); MCV 70.6 fl (81-99); MONOCYTES 8.4 % (0-12); NEUTROPHILS 60.7 % (39-80); PLATELET COUNT 298 K/uL (140-440); RBC 4.81 M/ul (4.3-5.7); RDW 16.9 (10.5-15.0)
[2023-12-03 06:52] LABS: ALBUMIN 3.6 g/dL (3.4-5.0); ALBUMIN/GLOBULIN RATIO 0.82 (1.1-2.4); BILIRUBIN, TOTAL 0.5 ng/dL (0.2-1.0); BUN/CREATININE RATIO 21.73 (6.0-28.6); CALCIUM 8.8 mg/dL (8.5-10.1); CREATININE, SERUM 0.92 mg/dL (0.55-1.02)
[2023-12-03] MEDS ORDERED: propofoL 200 MG/20 ML VIAL ONE (06:58)
[2023-12-03] MEDS ORDERED: fentaNYL citrate 100 MCG/2 ML VIAL ONE (06:58)
[2023-12-03] MEDS ORDERED: DEXAMETHASONE SOD PHOS 4 MG/ML VIAL ONE (06:58)
[2023-12-03] MEDS ORDERED: ondansetron HCL 4 MG/2 ML VIAL ONE (06:58)
[2023-12-03] MEDS ORDERED: LIDOCAINE HCL 2% 5 ML SDV ONE (06:59)
[2023-12-03] MEDS ORDERED: ACETAMINOPHEN 1,000 MG/100 ML VIAL ONE (06:59)
[2023-12-03] MEDS ORDERED: LIDOCAINE HCL 1% 5 ML SDV INJ ONE (07:00)
[2023-12-03] MEDS ORDERED: METOCLOPRAMIDE HCL 10 MG/2 ML SDV IV SCH (07:00)
[2023-12-03] MEDS ORDERED: IBLOOD GLUCOSE TEST STRIP 1 EA TEST VI PRN ×2 (07:00→07:15)
[2023-12-03] MEDS ORDERED: FAMOTIDINE 20 MG/ 2 ML VIAL IV SCH (07:00)
[2023-12-03] MEDS ORDERED: NALOXONE HCL 0.4 MG SYR IV PRN ×2 (07:15→08:15)
[2023-12-03] MEDS ORDERED: KETOROLAC TROMETHAMINE 30 MG/ML VIAL IV PRN (07:15)
[2023-12-03] MEDS ORDERED: droPERidol 5 MG/2 ML VIAL IV PRN (07:15)
[2023-12-03] MEDS ORDERED: fentaNYL citrate 50 MCG/ML SDV IV PRN (07:15)
[2023-12-03] MEDS ORDERED: ondansetron HCL 4 MG/2 ML VIAL IV PRN ×2 (07:15→08:15)
[2023-12-03] MEDS ORDERED: ondansetron HCL 4 MG TAB PO PRN (08:15)
[2023-12-03] MEDS ORDERED: FAMOTIDINE 20 MG TAB PO PRN (08:15)
[2023-12-03] MEDS ORDERED: MORPHINE SULFATE 10 MG/ML VIAL IV PRN (08:15)
[2023-12-03] MEDS ORDERED: PROCHLORPERAZINE EDISYLATE 10 MG/2 ML VIAL IV PRN (08:15)
[2023-12-03] MEDS ORDERED: MAGNESIUM HYDROXIDE/AL HYDROX 30 ML CUP PO PRN (08:15)
[2023-12-03] MEDS ORDERED: METOCLOPRAMIDE HCL 10 MG/2 ML SDV IV PRN (08:15)
[2023-12-03] MEDS ORDERED: LACTATED RINGER'S 1,000 ML IV SCH (08:15)
--- NOTE | 2023-12-03 08:31 | NUR ---
12/03/23 0831 Cecil Dhillon 0808-PT ARRIVED TO PACU UNRESPONSIVE TO NOXIOUS STIMULI, ON RA. BRONSON-PAD IN PLACE AND NO DRAINAGE NOTED. PT WITH CHRONICALLY ELEVATED BP'S PER ANESTHESIA. ANESTHESIA REQUESTS TO BE NOTIFIED IF BP EXCEEDS 220/130. 0814-PT WAKING AND DENIES PAIN, NAUSEA, GUY, OR DIZZINESS WHEN ASKED. RR EVEN AND UNLABORED. SATS REMAIN STABLE ON RA AT 92% OR GREATER. 0816-DR. KHAN AT PTS BEDSIDE TO DISCUSS PROCEDURE. 0818-PT PROVIDED WARM BLANKET. CONT TO DENY PAIN OR NAUSEA WHEN ASKED.
[2023-12-03 08:44] VITALS: BP 215/119
--- NOTE | 2023-12-03 08:50 | NUR ---
0845 PT ARRIVED TO DAY SURGERY ROOM 2 VIA STREACHER FROM PACU. REPORT TAKEN FROM CODIE ANN. PT AWAKE AND ORIENTED, REQUESTING TO URINATE. PT REPORTS LITTLE TO NO PAIN. PT REPORTS NO NAUSEA. VITALS TAKEN. IV ASSESSED. PER INJURY PREVENTION COORDINATORSETH SAEED CRNA REQUESTED TO BE NOTIFIED IF PT BP GOES ABOVE 220/130. PT BP 212/147. WILL NOTIFY JAVASCRIPT SOFTWARE ENGINEER. PT REPORTS NO SYMPTOMS. 0850 PT ABLE TO AMBULATE TO BATHROOM AND VOID OVER 100 MLS OF URINE. PT BACK IN BED WITH CALL LIGHT WITHIN REACH AND PERSONAL ITEMS WITHIN REACH.
[2023-12-03 08:55] VITALS: BP 212/140
[2023-12-03] MEDS ORDERED: LABETALOL HCL 20 MG/4 ML VIAL IV SCH (09:15)
--- NOTE | 2023-12-03 09:43 | NUR ---
DIRK 0918: PT IS HELPED UP OOB WITH STAND BY ASSIST TO THE BATHROOM. SHE IS ABLE TO AMBULATE INDEPENDENTLY. SHE CHANGES HER BRONSON PAD, THAT HAS SCANT DRAINAGE ON IT. SHE AMBULATES BACK TO HER ROOM. SHE IS TOLERATING WATER AND JELLO.
[2023-12-03 09:53] VITALS: BP 222/134
--- NOTE | 2023-12-03 09:56 | NUR ---
PT HAS MET ALL DC CRITERIA. THIS RN HAS BEEN IN CONTACT WITH SENIOR COUNSEL REGARDING PT'S BP. SHE IS TOLERATING WATER AND JELLO.
[2023-12-03 09:58] VITALS: BP 167/108
--- NOTE | 2023-12-03 10:04 | NUR ---
LE 1000: PT AND ARE GIVEN VERBAL AND WRITTEN DC INSTRUCTIONS. THEY BOTH VERBALIZE UNDERSTANDING. QUESTIONS ARE ASKED AND ANSWERED.
--- NOTE | 2023-12-03 10:50 | NUR ---
LE 1050: PT IS TAKEN TO PERSONAL VEHICLE BY SRT.
[2023-12-03] MEDS ORDERED: POTASSIUM CHLORIDE 20 MEQ/15 ML CUP PO ONE (12:00)
[2023-12-03] MEDS ORDERED: IBUPROFEN 800 MG TAB PO SCH (14:00)
--- NOTE | 2023-12-09 16:39 | PATH ---
[facility] [address] [place], [place] [address] Signed SPECIMEN(S): A UTERINE CONTENTS SPECIMEN SOURCE: A. UTERINE CONTENTS CLINICAL HISTORY: Abnormal uterine bleeding; fibroids. FINAL PATHOLOGIC DIAGNOSIS: Uterine contents: - Weakly proliferative endometrium and benign endometrial polyps; no hyperplasia or neoplasia identified BRP MICROSCOPIC EXAMINATION: Histologic sections of all submitted blocks are examined by light microscopy. These findings, together with the gross examination, support the pathologic diagnosis. GROSS DESCRIPTION: The specimen, labeled and designated "Mejia, uterine contents," is received in formalin and consists of irregular shaped membranous and hemorrhagic tissue fragments that aggregate measure 2.9 x 2.5 x 0.2 cm. Entirely submitted in (A1). JS (under the direct supervision of a pathologist) The Gross Description was prepared using a voice recognition system. The report was reviewed for accuracy; however, sound-alike word errors, addition and/or deletions may occur. If there is any question about this report, please contact Client Services. ADDITIONAL NOTES: Immunohistochemical and/or in situ hybridization studies if performed in this case included appropriate positive controls that reacted as expected. This test was developed and its performance characteristics determined by [facility]. It has not been cleared or approved by the U.S. Food and Drug Administration. The FDA has determined that such clearance or approval is not necessary. This test is used for clinical purposes. It should not be regarded as investigational or for research. [facility] is certified under the Clinical Laboratory Improvement Amendments of 1988 (CLIA) as qualified to perform high complexity clinical PATIENT NAME: CATARINA MEJIA PATHOLOGY DATE OF : 80 REPORT #: [id number] PHYSICIAN: IMTIAZ REESE PCP: HEAVEN HILLMAN MD REPORT IS CONFIDENTIAL AND NOT TO BE RELEASED WITHOUT AUTHORIZATION [address] [place], [place] [address] Signed laboratory testing. PERFORMING LABORATORY: Technical component was performed by [facility], [address] [place] [address] (CLIA# [id number]). Professional interpretation [facility] [address] [address] [id number] Diagnostician: David Simon MD Pathologist Electronically Signed 12/09/2023 Copies: ~ PATIENT NAME: CATARINA MEJIA PATHOLOGY DATE OF : [birth year] REPORT #: [id number] PHYSICIAN: IMTIAZ REESE PCP: HEAVEN HILLMAN MD REPORT IS CONFIDENTIAL AND NOT TO BE RELEASED WITHOUT AUTHORIZATION
== END 2023-12-03 10:40 | disposition home or self-care (01) ==
LOC: OPS 06:00 → DS 06:00 → OPS 10:40
PROVIDERS: ATTEND Obstetrics & Gynecology
PROC: 0UB98ZZ Excision of Uterus, Via Natural or Artificial Opening Endoscopic (ICD-10-PCS; principal; 2023-12-03 07:30)
DX: D25.0 Submucous leiomyoma of uterus (principal); N84.0 Polyp of corpus uteri; N92.0 Excessive and frequent menstruation with regular cycle; I10 Essential (primary) hypertension; R73.03 Prediabetes; E66.01 Morbid (severe) obesity due to excess calories; Z68.42 Body mass index [BMI] 45.0-49.9, adult; Z88.8 Allergy status to other drugs, medicaments and biological substances; Z79.84 Long term (current) use of oral hypoglycemic drugs; Z79.899 Other long term (current) drug therapy
CPT/HCPCS: 00952; 36415; 80048; 80053; 84703; 85025; A9270; J0131; J1100; J2001; J2405; J2704; J2765; J3010; J7121

== ENCOUNTER 2024-01-17 13:33 | Emergency (ER) | payer OTHER ==
[~2024-01-17] VITALS: Ht 167.6 cm; Wt 127.0 kg
[~2024-01-17 13:33] MED LIST changes: -FAMOTIDINE 20 MG/ 2 ML VIAL IV SCH; -IBLOOD GLUCOSE TEST STRIP 1 EA TEST VI PRN; -LACTATED RINGER'S 1,000 ML IV SCH; -LIDOCAINE HCL 1% 5 ML SDV INJ ONE; -METOCLOPRAMIDE HCL 10 MG/2 ML SDV IV SCH; +NORVASC10 MG PO
[2024-01-17] MEDS ORDERED: hydrALAZINE HCL 20 MG/ML VIAL IV ONE ×3 (14:00→17:15)
[2024-01-17] MEDS ORDERED: ondansetron HCL 4 MG/2 ML VIAL IV ONE (14:00)
[2024-01-17] MEDS ORDERED: HYDROmorphone HCL 1 MG/ML SYR IV ONE (14:00)
[2024-01-17 14:19] LABS: BASOPHILS 0.7 % (0-2); EOSINOPHILS 1.4 % (0-6); HEMOGLOBIN 9.8 g/dL (12.0-18.0); LYMPHOCYTES 20.2 % (24-44); MCH 21.2 (27-36); MCHC 31.6 g/dl (30-36); MONOCYTES 6.4 % (0-12); NEUTROPHILS 71.3 % (39-80); PLATELET COUNT 274 K/uL (140-440); RBC 4.63 M/ul (4.3-5.7); RDW 17.6 (10.5-15.0)
[2024-01-17 14:31] LABS: INR 1.08 (0.80-1.30); PARTIAL THROMBOPLASTIN TIME 27.9 Sec (22.9-41.3); PROTIME 13.3 Sec (11.2-14.2)
[2024-01-17 14:43] LABS: ALBUMIN 3.4 g/dL (3.4-5.0); ALBUMIN/GLOBULIN RATIO 0.81 (1.1-2.4); ANION GAP 12.1 (7-21); BILIRUBIN, TOTAL 0.5 ng/dL (0.2-1.0); BUN/CREATININE RATIO 12.64 (6.0-28.6); CALCIUM 8.5 mg/dL (8.5-10.1); CREATININE, SERUM 0.87 mg/dL (0.55-1.02); POTASSIUM 3.1 mmol/L (3.5-5.1); PROTEIN, TOTAL 7.6 g/dL (6.4-8.2)
[2024-01-17 17:44] LABS: BILIRUBIN, URINE NEGATIVE (negative); BLOOD/HGB, URINE NEGATIVE (Negative); KETONE, URINE NEGATIVE (Negative); LEUK ESTERASE, URINE SMALL (negative); NITRITE, URINE NEGATIVE (negative); PH, URINE 6.5 (5-7)
[2024-01-17 17:50] LABS: BACTERIA, URINE 1+ /hpf (negative); CRYSTALS, URINE NONE SEEN (0-1+); RED BLOOD CELLS, URINE 0-1 /hpf (0-5); WHITE BLOOD CELLS, URINE 21-40 /HPF (0-5)
[2024-01-17 17:51] LABS: CASTS, URINE NONE SEEN \\lpf; COLLECTION TYPE, URINE CLEAN CATCH; REFLEX CULTURE, URINE No (No)
[2024-01-17] MEDS ORDERED: CEFDINIR300 MG PO (18:23)
[2024-01-17 18:47] VITALS: BP 174/106
--- NOTE | 2024-01-17 18:51 | EKG ---
[facility] [address] [facility] [place] [address] Signed Normal sinus rhythm Moderate voltage criteria for LVH, may be normal variant ( R in aVL , Hermon product ) ST \T\ T wave abnormality, consider lateral ischemia Abnormal ECG When compared with ECG of 21-OCT-2023 11:48, No significant change was found Confirmed by Te Arana MD ([id number]) on 01/17/2024 6:51:07 PM Electronically Signed By: TE ARANA MD 01/17/24 1851 PATIENT NAME: CATARINA MEJIA Electrocardiogram DATE OF : 80 PHYSICIAN: TE ARANA MD REPORT #: [id number] REPORT IS CONFIDENTIAL AND NOT TO BE RELEASED WITHOUT AUTHORIZATION
== END 2024-01-17 18:48 | disposition home or self-care (01) ==
LOC: ED 13:33
PROVIDERS: Emergency Medicine
DX: I16.0 Hypertensive urgency (principal); N39.0 Urinary tract infection, site not specified; I10 Essential (primary) hypertension; E11.9 Type 2 diabetes mellitus without complications; E66.9 Obesity, unspecified; Z79.84 Long term (current) use of oral hypoglycemic drugs; Z79.890 Hormone replacement therapy; Z79.899 Other long term (current) drug therapy
CPT/HCPCS: 36415; 70450; 71045; 80053; 81001; 83880; 84484; 85025; 85060; 85610; 85730; 93005; 93010; 96374; 96375; 96376; 99284-25; J0360; J1170; J2405

== ENCOUNTER 2024-02-17 07:05 | Day surgery (SDC) | payer OTHER ==
[2024-02-08 15:23] VITALS: BP 144/94
[~2024-02-17] VITALS: Ht 167.6 cm; Wt 124.5 kg
--- NOTE | ~2024-02-17 | OR ---
[facility] [address], [place] [address] Draft DATE OF OPERATION: 02/17/2024 SURGEON: Ariane Villalpando MD COLOR CONSULTANT: Harris. PREOPERATIVE DIAGNOSIS: Menorrhagia with irregular cycle. POSTOPERATIVE DIAGNOSIS: Menorrhagia with irregular cycle. PROCEDURES: Total laparoscopic hysterectomy, bilateral salpingectomy, cystoscopy, bilateral ureteral cannulation. ANESTHESIA: General ET. ESTIMATED BLOOD LOSS: 50 mL. DRAINS: Conti catheter. INDICATIONS AND FINDINGS: The patient is a 44-year-old female, who is status post prior tubal ligation, who has been having abnormal bleeding which has not responded to prior hysteroscopy and resection of polyps. She has poorly controlled hypertension and is not a candidate for oral contraceptives. She has previously had an embedded IUD. She desired definitive treatment. At the time of surgery, the patient is noted to be morbidly obese. The bimanual exam was normal. On laparoscopy, the pelvis appeared normal other than a prior tubal ligation with Falope rings. DESCRIPTION OF PROCEDURE: The patient was prepped and draped in the dorsal lithotomy position. A weighted speculum was placed. The anterior lip of the cervix was visualized and grasped with single-tooth tenaculum. The cavity was sounded to 11 cm. The endocervical canal was then dilated and the VCare cannula was inserted and the balloon inflated at the fundus. PATIENT NAME: CATARINA MEJIA OPERATIVE REPORT DATE OF : 80 REPORT #: [id number] PHYSICIAN: ARIANE VILLALPANDO MD PCP: HEAVEN HILLMAN MD REPORT IS CONFIDENTIAL AND NOT TO BE RELEASED WITHOUT AUTHORIZATION [facility] [address], [place] [address] Draft The tenaculum and speculum were removed. The cup was fitted over the cervix and a locking cap fitted into place. Attention was then directed above. The infraumbilical area was injected with 0.5% Marcaine plain. An incision was made with a knife. Each layer was then serially elevated, incised until the fascia was opened and identified. Stay sutures of 0 Vicryl were placed. The peritoneum was opened bluntly. The Nickie cannula was then placed and the balloon inflated. Placement of the scope confirmed proper positioning. CO2 was then introduced in the abdomen under low pressures. Evaluation of the pelvis was done and the planned procedure appeared appropriate. The secondary ports were then placed. These were placed laterally and slightly below the level of the umbilicus. Each of these areas were transilluminated and injected with Marcaine, incision made with a knife and the trocars placed under direct vision. The left was a 5 mm port. The right was a Veress needle followed by the expanding port. The LigaSure [place] device was then used to serially coagulate and divide the mesosalpinx on the patient's left side. This allowed for removal of the tube. The patient's right utero-ovarian ligament was then serially coagulated and divided as well. The right tube was then removed in the same manner. The left utero-ovarian ligament was serially coagulated and divided as well. Following this, the round ligament was serially coagulated and divided on the patient's left. The anterior peritoneum was then incised creating a partial bladder flap. The peritoneum was taken down posteriorly as well, though this was much more difficult given the patient's morbid obesity and poor tolerance to steep Trendelenburg. The uterine vessels were then coagulated and divided. There was a very large bundle of vessels on her left. Further dissection was done anteriorly. Attention was then directed to the patient's right side. The round ligament was serially coagulated and divided and the anterior leaf of the peritoneum incised finishing the bladder flap. The peritoneum was taken down slightly posteriorly as well. The uterine vessels were coagulated and divided as well. Following this, attention was directed posteriorly and an attempt was made to complete the peritoneal dissection posteriorly. Again, this was quite difficult because of her morbid obesity. At this point, it was felt that the specimen could be removed and may allow for better visualization given the bulk of the uterus. The Sonicision device was then used to separate the specimen from the vaginal cuff circumferentially. Following this, the specimen was retrieved vaginally. The vaginal canal was then packed with a glove with a wet lap allowing the pneumoperitoneum to reaccumulate. Inspection of the cuff showed good hemostasis. There was an area consistent with some retained cervix however and this was removed using the LigaSure and Sonicision device. This piece of cervix was placed into the vagina for retrieval later. The cuff itself was then closed with the Endo Stitch. Care was taken to incorporate the vaginal mucosa both anteriorly and posteriorly. Cuff closure was begun at the patient's right uterosacral ligament and carried to the patient's left uterosacral ligament and back to the center. Because of the difficulty with the dissection and the extensive vascularity, cystoscopy was done at this time to exclude any bladder injury. The Conti catheter was removed and the bladder inspected. There did not appear to be any obvious injury. She had received some IV PATIENT NAME: CATARINA MEJIA OPERATIVE REPORT DATE OF : 80 REPORT #: [id number] PHYSICIAN: ARIANE VILLALPANDO MD PCP: HEAVEN HILLMAN MD REPORT IS CONFIDENTIAL AND NOT TO BE RELEASED WITHOUT AUTHORIZATION [facility] [address] [facility] [place], [place] [address] Draft fluorescein, but none was visible. Both of the ureteral orifices were visualized and there was no evidence of any free spill of fluorescein stained urine. Because of this, each of the ureters was cannulated using a 4 mm whistle-tip without any resistance at all. On the patient's right side, visualization was also done from above to assure that there was no evidence of any injury as seen. Following this, the cystoscopy was complete and the Conti catheter replaced. The vaginal pack was removed as was the piece of cervix. Attention was redirected above and the pelvis irrigated and reinspected. There was a large raw area because of the dissection. Tisseel was sprayed over the raw area to further aid in hemostasis. The instruments were removed from the abdomen after allowing as much CO2 as possible to escape. The fascial incision was closed with running suture of 0 Vicryl. Stitch was placed in the deep space closing this as well using the 0 Vicryl. The skin incisions were closed with subcuticular sutures of 3-0 Vicryl Rapide. All sponge and needle counts were correct. She tolerated the procedure well and was taken to the recovery room in good condition. MD MEGHANA Tracy/RIVERA /[id number] Copies: ~ PATIENT NAME: CATARINA MEJIA OPERATIVE REPORT DATE OF : 80 REPORT #: [id number] PHYSICIAN: ARIANE VILLALPANDO MD PCP: HEAVEN HILLMAN MD REPORT IS CONFIDENTIAL AND NOT TO BE RELEASED WITHOUT AUTHORIZATION
[~2024-02-17 07:05] MED LIST changes: +CEFAZOLIN SODIUM 3 GM/30 ML SYR IV SCH; +CEFDINIR300 MG PO; +FAMOTIDINE 20 MG/ 2 ML VIAL IV SCH; +HEParin SOD (PORCINE) 5,000 UNIT/0.5 ML SYR SUB-Q SCH; +IBLOOD GLUCOSE TEST STRIP 1 EA TEST VI PRN; +LACTATED RINGER'S 1,000 ML IV SCH; +LIDOCAINE HCL 1% 5 ML SDV INJ ONE
[2024-02-17] MEDS ORDERED: METOCLOPRAMIDE HCL 10 MG/2 ML SDV IV ONE (07:15)
[2024-02-17 07:22] VITALS: BP 178/126
[2024-02-17] MEDS ORDERED: BUPIVACAINE HCL 0.5% 30 ML VIAL ONE (07:24)
[2024-02-17 07:29] VITALS: BP 181/124
[2024-02-17] MEDS ORDERED: SEVOFLURANE 250 ML BTL INH ONE (08:31)
[2024-02-17] MEDS ORDERED: KETAMINE in NS 50 MG/5 ML SYR ONE (09:37)
[2024-02-17] MEDS ORDERED: HYDROmorphone HCL 2 MG/ML VIAL ONE (09:37)
[2024-02-17] MEDS ORDERED: fentaNYL citrate 100 MCG/2 ML VIAL ONE (09:37)
[2024-02-17] MEDS ORDERED: SODIUM CHLORIDE 0.9% 40 ML IV ONE ×2 (09:38→10:55)
[2024-02-17] MEDS ORDERED: SCOPOLAMINE 1 MG/3 DAYS PATCH 1 EACH TDSY ONE (09:38)
[2024-02-17] MEDS ORDERED: DEXAMETHASONE SOD PHOS 4 MG/ML VIAL ONE (09:38)
[2024-02-17] MEDS ORDERED: ondansetron HCL 4 MG/2 ML VIAL ONE (09:38)
[2024-02-17] MEDS ORDERED: ACETAMINOPHEN 1,000 MG/100 ML VIAL ONE (09:38)
[2024-02-17] MEDS ORDERED: MAGNESIUM SULFATE 1 GM/2 ML VIAL ONE ×2 (09:38→10:55)
[2024-02-17] MEDS ORDERED: LIDOCAINE HCL 2% 5 ML SDV ONE ×2 (09:38→10:55)
[2024-02-17] MEDS ORDERED: ROCURONIUM BROMIDE 50 MG/5 ML SYR ONE ×2 (09:38→10:52)
[2024-02-17] MEDS ORDERED: dexmedeTOMIDine HCl 200 MCG/2 ML VIAL ONE (09:38)
[2024-02-17] MEDS ORDERED: propofoL 200 MG/20 ML VIAL ONE (09:38)
[2024-02-17] MEDS ORDERED: ePHEDrine sulfate 50 MG/ML AMP ONE (10:58)
[2024-02-17] MEDS ORDERED: FLUORESCEIN SODIUM 500 MG/5 ML ML ONE (11:40)
[2024-02-17] MEDS ORDERED: IBLOOD GLUCOSE TEST STRIP 1 EA TEST VI PRN (11:45)
[2024-02-17] MEDS ORDERED: ondansetron HCL 4 MG/2 ML VIAL IV PRN ×2 (11:45→12:30)
[2024-02-17] MEDS ORDERED: KETOROLAC TROMETHAMINE 30 MG/ML VIAL IV PRN (11:45)
[2024-02-17] MEDS ORDERED: fentaNYL citrate 50 MCG/ML SDV IV PRN (11:45)
[2024-02-17] MEDS ORDERED: NALOXONE HCL 0.4 MG SYR IV PRN ×2 (11:45→12:30)
[2024-02-17] MEDS ORDERED: droPERidol 5 MG/2 ML VIAL IV PRN (11:45)
[2024-02-17] MEDS ORDERED: SUGAMMADEX SODIUM 200 MG/2 ML ML ONE (12:07)
[2024-02-17] MEDS ORDERED: MAGNESIUM HYDROXIDE/AL HYDROX 30 ML CUP PO PRN (12:30)
[2024-02-17] MEDS ORDERED: PROCHLORPERAZINE EDISYLATE 10 MG/2 ML VIAL IV PRN (12:30)
[2024-02-17] MEDS ORDERED: FAMOTIDINE 20 MG TAB PO PRN (12:30)
[2024-02-17] MEDS ORDERED: MORPHINE SULFATE 10 MG/ML VIAL IV PRN (12:30)
[2024-02-17] MEDS ORDERED: ondansetron HCL 4 MG TAB PO PRN (12:30)
[2024-02-17] MEDS ORDERED: LIDOCAINE 2% VISCOUS 6 ML SYR TOP ONE (12:30)
[2024-02-17] MEDS ORDERED: METOCLOPRAMIDE HCL 10 MG/2 ML SDV IV PRN (12:30)
[2024-02-17] MEDS ORDERED: ACETAMINOPHEN 500 MG TAB PO SCH (12:45)
[2024-02-17] MEDS ORDERED: OXYCODONE HCL 5 MG TAB PO PRN (12:45)
[2024-02-17] MEDS ORDERED: LABETALOL HCL 100 MG/20 ML MDV IV PRN (13:00)
[2024-02-17 13:17] VITALS: BP 181/114
--- NOTE | 2024-02-17 13:22 | NUR ---
LE 1315: PT IS BACK TO DS FROM PACU. SHE ARRIVES AT HER BASELINE. HER MOM IS AT THE BEDSIDE. CALL LIGHT WITHIN REACH. WATER AND ICE CHIPS ON BEDSIDE TABLE. DC CRITERIA IS REVIEWED WITH PT AND MOM.
--- NOTE | 2024-02-17 13:28 | NUR ---
02/17/24 1328 GREGORIO HSIEH 1231 PT ARRIVED TO PACU VIA STREACHER. PT HAS NATURAL AIRWAY, ON 6L OF OXYGEN VIA MASK. PT BREATHING EQUAL AND UNLABORED. REPORT TAKEN FROM DARLIN ANN. VERBAL ORDER TAKEN FROM SETH FOR LABATOLOL IV 5MG IV PUSH EVERY 10 MINUES PRN FOR BLOOD PRESSURE ABOVE 200. HONING MACHINE SET UP OPERATOR TOOL ALSO VERBALLY ORDERED TORADOL TO BE GIVEN BEFORE FENTYNAL PRN FOR PAIN. PT ATTACHED TO ALL MONITORS. PT HAS SCOPOLAMINE PATCH BEHIND LEFT EAR. PT REPORTING 4/10 TOLERABLE PAIN AT THIS TIME. HOLDER IN PLACE 1242 REMOVED PT FROM OXYGEN PT O2 SAT ABOVE 96%. PT O2 SAT STAYING ABOVE 90% ON RA. 1255 PT REPORTING 6/10 PAIN. PAIN MEDICATIONS GIVEN PER EMAR. 1300 PT REPORTING 5/10 TOLERABLE PAIN AT THIS TIME. PT OXYGEN SATURATION FLUCTUATING BETWEEN 94-99%. 1315 PT COMFOTABLE RESTING IN BED WITH EYES CLOSED. PT ABLE TO TOLERATE ICE CHIPS. PT REPORTS 5/10 TOLERABLE PAIN, AND NO NAUSEA. PT HAS HOLDER IN PLACE. PT TRANSFERRED TO DAY SURGERY, REPORT GIVEN TO AUDREY ANN, CARE TRANSFERRED AT THIS TIME. PT BED LOW AND LOCKED, CALL LIGHT WITHIN REACH. ALL MONITORS ATTACHED.
--- NOTE | 2024-02-17 13:31 | NUR ---
HOLDER BALOON IS EMPTIED OF 9MLS NS. HOLDER IS REMOVED WITHOUT ISSUES. THERE IS APPROXIMATELY 300MLS OF NEON YELLOW URINE IN CATH BAG.
[2024-02-17] MEDS ORDERED: IBUPROFEN 800 MG TAB PO SCH (14:00)
--- NOTE | 2024-02-17 14:25 | NUR ---
DIRK 1405: PT IS SLEEPING COMFORTABLY WITH MOM AND AT THE BESIDE. OPTED TO DEFER VS AT THIS TIME TO LET PT SLEEP.
[2024-02-17 14:58] VITALS: BP 146/98
--- NOTE | 2024-02-17 15:38 | NUR ---
LE 1505: PT IS ASSISTED UP OOB WITH STANDBY ASSIST TO THE BATHROOM, WHERE SHE IS ABLE TO VOID 400MLS. SHE INDICATES THAT SHE WOULD LIKE TO GO HOME. SHE HAS TOLERATED PUDDING AND WATER WITHOUT ISSUES AND HER PAIN IS A TOLERABLE LEVEL OF 2/10. LE 1515: PT AND ARE GIVEN WRITTEN AND VERBAL DC INSTRUCTIONS. THEY BOTH VERBALIZE UNDERSTANDING. NO QUESTIONS ARE ASKED AT THIS TIME. LE 1519: PT'S MOM IS CALLED TO COME PICK THEM UP. LE 1520: PT IS TAKEN TO PERSONAL VEHICLE VIA WC, WHERE SHE TRANSFERS HERSELF WITHOUT ISSUES.
--- NOTE | 2024-02-25 12:35 | PATH ---
[facility] [address], [place] [address] Signed SPECIMEN(S): A CERVIX, UTERUS, FALLOPIAN TUBES SPECIMEN SOURCE: A. CERVIX, UTERUS, FALLOPIAN TUBES CLINICAL HISTORY: Menorrhagia, abnormal uterine bleeding. FINAL PATHOLOGIC DIAGNOSIS: Cervix, uterus, and fallopian tubes: - Weakly proliferative endometrium, negative for hyperplasia or atypia. - Benign myometrial leiomyomas. - Benign endo- and ectocervix with focal reactive features. - Benign bilateral oviducts. JVR:dks MICROSCOPIC EXAMINATION: Histologic sections of all submitted blocks are examined by light microscopy. These findings, together with the gross examination, support the pathologic diagnosis. A p16 immunostain with appropriate controls on block A1 and is negative for uniform staining in the area of concern, supporting the diagnosis. A TTF-1 immunostain is performed with appropriate controls on block A1 and is negative within the glands of concern, supporting the diagnosis. JVR:emilys:clv GROSS DESCRIPTION: The specimen, labeled and designated "Mejia, cervix, uterus, bilateral fallopian tubes," is received in formalin and consists of a 316-gram, intact hysterectomy with two detached and undesignated, fimbriated fallopian tubes. The uterus measures 10.5 cm from fundus to cervix by 8.5 cm from cornu to cornu by 7.5 cm from anterior to posterior. It is symmetrically globoid and displays a glistening serosa. The attached cervix which measures 3.1 cm in length by up to 3.5 cm in diameter displays an unremarkable ectocervix. The endometrial cavity is triangular, measures 6.3 cm in length by up to 4.5 cm in diameter and displays a discrete nodule within the posterior cavity. This nodule measures 4.5 x 4.0 x 3.5 cm and is entirely lined by a smooth to shaggy mucosa. Cut surfaces are lakhani-white, whorled, rubbery and grossly unremarkable for any degenerative changes. Also found is a smaller, intramural to sub-serosal PATIENT NAME: CATARINA MEJIA PATHOLOGY DATE OF : 80 REPORT #: [id number] PHYSICIAN: IMTIAZ PATHOLOGY PCP: HEAVEN HILLMAN MD REPORT IS CONFIDENTIAL AND NOT TO BE RELEASED WITHOUT AUTHORIZATION [facility] [address], [place] [address] Signed nodule measuring 1.0 cm in greatest dimension that is unremarkable for any degenerative changes. The squamocolumnar junction is distinct and the endocervical canal displays a heaped up, herringbone mucosa that measures up to 2.2 cm in diameter. Sectioning through these areas demonstrates cystic and mucoid cut surfaces to the heaped up areas among and otherwise unremarkable, cervical stroma. The detached fallopian tubes are both fimbriated and measure 4.5 x 0.7 cm and 5.0 x 0.8 cm. Each tube displays a partially cystic and congested serosa and is sectioned to demonstrate an unremarkable, ciliated lumen. Occupational Therapist'S Assistant sections are submitted in A1-A6. Cassette Summary: (A1) anterior cervix, at heaped up mucosa (A2) anterior cavity, to include largest nodule and each section (A3) posterior endomyometrium and full-thickness section with additional, smaller nodule (A4) posterior cervix (A5) longer fallopian tube (A6) shorter fallopian tube AM (under the direct supervision of a pathologist) The Gross Description was prepared using a voice recognition system. The report was reviewed for accuracy; however, sound-alike word errors, addition and/or deletions may occur. If there is any question about this report, please contact Client Services. ADDITIONAL NOTES: Immunohistochemical and/or in situ hybridization studies were performed on this case with the appropriate positive controls that react as expected. This test was developed and its performance characteristics determined by [facility]. It has not been cleared or approved by the U.S. Food and Drug Administration. The FDA has determined that such clearance or approval is not necessary. This test is used for clinical purposes. It should not be regarded as investigational or for research. [facility] is certified under the Clinical Laboratory Improvement Amendments of 1988 (CLIA) as qualified to perform high complexity clinical laboratory testing. This assay has not been validated for specimens that have been decalcified. PERFORMING LABORATORY: PATIENT NAME: CATARINA MEJIA PATHOLOGY DATE OF : 80 REPORT #: [id number] PHYSICIAN: IMTIAZ REESE PCP: HEAVEN HILLMAN MD REPORT IS CONFIDENTIAL AND NOT TO BE RELEASED WITHOUT AUTHORIZATION [facility] [address], [place] [address] Signed Technical component was performed by [facility], [address] [place] [id number] (CLIA# [id number]). Professional interpretation was performed by [facility], [address] [place], [place] [address]., [place] [address] (CLIA#: [id number]). Diagnostician: Rey Vera MD Pathologist Electronically Signed 02/25/2024 Copies: ~ PATIENT NAME: CATARINA MEJIA PATHOLOGY DATE OF : 80 REPORT #: [id number] PHYSICIAN: IMTIAZ REESE PCP: HEAVEN HILLMAN MD REPORT IS CONFIDENTIAL AND NOT TO BE RELEASED WITHOUT AUTHORIZATION
== END 2024-02-17 15:20 | disposition home or self-care (01) ==
LOC: DS 07:05
PROVIDERS: ATTEND Obstetrics & Gynecology
PROC: 0UB74ZZ Excision of Bilateral Fallopian Tubes, Percutaneous Endoscopic Approach (ICD-10-PCS; 2024-02-17)
PROC: 0UT94ZZ Resection of Uterus, Percutaneous Endoscopic Approach (ICD-10-PCS; principal; 2024-02-17 09:00)
DX: D25.9 Leiomyoma of uterus, unspecified (principal); N92.1 Excessive and frequent menstruation with irregular cycle; E66.01 Morbid (severe) obesity due to excess calories; I10 Essential (primary) hypertension; Z79.899 Other long term (current) drug therapy; Z79.84 Long term (current) use of oral hypoglycemic drugs; Z88.8 Allergy status to other drugs, medicaments and biological substances
CPT/HCPCS: 00840; A9270; J0131; J0690; J1100; J1170; J1644; J1885; J2001; J2405; J2704; J2765; J3010; J3475; J3490; J7121